=== PATIENT | male | born 1945 | race Caucasian/White ===

== ENCOUNTER 2016-12-25 07:04 | Inpatient (IN) | payer OTHER, MEDICARE ==
[~2016-12-25] VITALS: Ht 172.7 cm; Wt 63.6 kg
[2016-12-25] VITALS (12 sets, daily range): BP systolic 107–178; BP diastolic 64–92; PULSE 41–61; RESP 15–20; TEMP 97.2–97.8; O2SAT 91–99
[~2016-12-25 07:04] MED LIST: AMLO10 PO; ATOR40TA49 PO; BRIL90TA PO; CLON0.2T PO; CLOP75TA PO; FENO145T2 PO; LANSO15 PO; LANTUS2P SQ; LISI-363 PO; NEUR800T PO; NOVOLOGP2 SC; VENTAER INH
[2016-12-25] MEDS: SODIUM CHLOR 0.9% 1000 ML INJ 1,000 ML IV SCH ×2 (07:30→09:00)
[2016-12-25] MEDS ORDERED: AMLO10TA2 PO (07:57)
[2016-12-25] MEDS ORDERED: NOVOLOGP2 SQ ×2 (07:57→17:42)
[2016-12-25] MEDS ORDERED: LEVO50TA4 PO ×2 (07:57→17:42)
[2016-12-25] MEDS ORDERED: LANTUS2P SQ ×2 (07:57→17:42)
[2016-12-25] MEDS ORDERED: LISI-515 PO ×2 (07:57→17:42)
[2016-12-25] MEDS ORDERED: UMEC1AER INH ×2 (07:57→17:42)
[2016-12-25] MEDS ORDERED: ATOR1TAB18 PO ×2 (07:57→17:42)
[2016-12-25] MEDS ORDERED: ASPIRIN 325 MG TAB PO ONE (08:00)
[2016-12-25] MEDS ORDERED: CLOPIDOGREL 300 MG TAB PO ONE (08:00)
[2016-12-25 08:10] LABS: AUTOMATED NEUTROPHIL # 4.9 TH/MM3 (1.8-7.7); BASOPHIL # 0.1 TH/MM3 (0-0.2); BASOPHIL % 0.9 % (0.0-2.0); EOSINOPHIL # 0.3 TH/MM3 (0-0.4); EOSINOPHIL % 3.5 % (0.0-4.0); HEMO FLAGS DIFF FINAL; LYMPH % 29.1 % (9.0-44.0); LYMPHOCYTE # 2.4 TH/MM3 (1.0-4.8); MEAN CELL VOLUME 86.6 FL (80.0-100.0); MEAN CORPUSCULAR HEMOGLOBIN 29.4 PG (27.0-34.0); MONO % 7.4 % (0.0-8.0); NEUT % 59.1 % (16.0-70.0); PLATELET COUNT 233 TH/MM3 (150-450); RED BLOOD COUNT 4.74 MIL/MM3 (4.50-5.90); RED CELL DISTRIBUTION WIDTH 13.8 % (11.6-17.2); WHITE BLOOD COUNT 8.3 TH/MM3 (4.0-11.0)
[2016-12-25 08:21] LABS: APTT (PATIENT) 27.4 SEC (24.3-30.1); PROTHROMBIN TIME - PATIENT 11.1 SEC (9.8-11.6)
[2016-12-25 08:24] LABS: POTASSIUM 4.4 MEQ/L (3.5-5.1)
[2016-12-25] MEDS ORDERED: MIDAZOLAM HCL 5 MG/5 ML VIAL ONE (09:13)
[2016-12-25] MEDS ORDERED: fentaNYL CITRATE 250 MCG/5 ML AMP ONE (09:13)
[2016-12-25] MEDS ORDERED: VERAPAMIL HCL 5 MG/2 ML VIAL ONE (09:14)
[2016-12-25] MEDS ORDERED: ceFAZolin 2 GM PREMIX 50 ML ONE (10:00)
[2016-12-25] MEDS ORDERED: HEPARIN SODIUM - IV 10,000 UNITS/10 ML VIAL ONE (10:10)
[2016-12-25] MEDS ORDERED: IODIXANOL 320 MG/ML 50 ML VIAL (for RAD SPEC) I-ARTERIAL ONE (10:58)
[2016-12-25] MEDS ORDERED: ACETAMINOPHEN 325 MG TAB PO PRN (12:00)
[2016-12-25] MEDS ORDERED: oxyCODONE/ACETAMINOPHEN 5 MG/325 MG TAB PO PRN (12:00)
--- NOTE | 2016-12-25 14:31 | RADRPT ---
EXAM DATE/TIME: 12/25/2016 10:03 [facility] COMPARISON: No previous studies available for comparison. INDICATIONS : Patient known right carotid stenosis. MEDICAL HISTORY : 1. Carotid stenosis 2. Dizziness 3. HTN 4. DM 5. COPD 6. GERD 7. Hyperlipidemia 8. CAD 9. NV 10. CVA 11. former smoker 12.PVD SURGICAL HISTORY : 1. Right CEA 2. bilateral common iliac stenting ENCOUNTER: Initial ACUITY: 1 month PAIN SCORE: 0/10 FLUORO TIME: 11.4 minutes IMAGE SERIES: 14 ACCESS SITE: Right Femoral artery SEDATION TIME: 60 minutes CONTRAST: 125 cc Visipaque (iodixanol) MEDICATION(S): 1.) 2 mg midazolam (Versed) IV 2.) 100 mcg fentanyl (Sublimaze) IV 3.) 2 g cefazolin (Ancef) IV 4.) 5,000 units Heparin IV Intra-procedural antibiotics were given as prescribed above. DEVICE(S): 1.) Right common carotid artery 10 X60 stent (self expanding) 2.) Right common femoral artery 8 Angio-Seal 3.) Right common carotid artery 7.0 MM X20MM HANDBAG FINISHER balloon 4.) Right internal carotid artery 7 SpideRX embolic protection PROCEDURE : 1. Ultrasound guided puncture of the right common femoral artery. 2. Angiography of the right common femoral artery prior to closure device. 3. Conscious sedation with continuous EKG and oximetry monitoring. 4. Percutaneous closure of the femoral artery. 5. Angiography of the right common carotid artery 6. stenting of the right common carotid artery 7. Intra-arterial filter placement 8. Left common carotid angiography The risks, benefits and alternatives to the procedure were explained and verbal and written consent w as obtained. The site was prepped in sterile fashion. Full sterile technique was used, including ca p, mask, sterile gloves and gown and a large sterile sheet. Hand hygiene and 2% chlorhexidine and/or betadine/alcohol prep was utilized per protocol for cutaneous antisepsis. The skin and subcutaneous tissues were infiltrated with local anesthetic solution. With ultrasound and fluoroscopic guidance the right common femoral artery was punctured and a vascula r sheath was placed. Angiography of the common femoral artery was performed for evaluation prior to p ercutaneous closure device placement. The patient has a 1 aortic arch. Examination of the carotid artery demonstrates the lesion to be in t he common carotid artery. Visible thrombus is not present. Ulceration is present. There is no calcifi cation present. The lesion length is 18 millimeters. The minimal luminal diameter is 3 millimeters. T he diameter of the distal internal carotid artery for reference is 10 millimeters. The percent stenos is by NASCET criteria is 70 %. Angiography of the right common carotid artery demonstrates a regular ulcerated plaque just beyond th e origin of the right common carotid artery. A filter device was placed and angiography was performed using a 7 mm balloon. Following this the prescribed stent was placed across the area stenosis and fo llowup angiography demonstrates no filling of the ulceration and no significant stenosis. The cathete r was next placed in the left common carotid artery where angiography demonstrates complete occlusion of the left internal carotid artery. The puncture site was closed with a Perclose suture mediated closure device. The patient tolerated t he procedure well and there were no complications. Conscious sedation was performed with the prescribed dosages and duration as above in the presence of an independent trained radiology nurse to assist in the monitoring of the patient. EKG and oximetry remained stable throughout the procedure. CONCLUSION: 1. Uncomplicated carotid artery stent placement as above. 2. Ultrasound examination at 6, 12, 18 and 24 months following procedure should be performed to evalu ate stent patency. 3. Complete occlusion of the left internal carotid artery Benjamin Boles MD on December 25, 2016 at 14:23 Board Certified Radiologist. This report was verified electronically.
[2016-12-25] MEDS ORDERED: AMLO10 PO (17:42)
[2016-12-25] MEDS ORDERED: CLON0.2T PO (17:42)
[2016-12-25] MEDS ORDERED: DEXTROSE 50% IN WATER 50 ML VIAL(D50) IV PRN (17:45)
[2016-12-25] MEDS ORDERED: GLUCAGON 1 MG/ML VIAL OTHER PRN (17:45)
[2016-12-25] MEDS ORDERED: cloNIDine HCL 0.1 MG TAB PO PRN (18:00)
[2016-12-25] MEDS: INSULIN ASPART SUPPLEMENTAL SCALE SQ SCH (18:03)
[2016-12-25] MEDS: LISINOPRIL 20 MG TAB PO SCH (20:45)
[2016-12-25] MEDS ORDERED: ATORVASTATIN 80 MG TAB PO SCH (21:00)
[2016-12-26] VITALS: BP 125/63; PULSE 52; RESP 18; TEMP 97.5; O2SAT 95
--- NOTE | 2016-12-26 00:55 | PD.CONS ---
HPI Service [facility] Consult Requested By Dr. Naylor Reason for Consult Medical management Primary Care Physician Jeremy Greenfield MD Diagnoses: History of Present Illness The patient is a 71-year-old male with a past medical history of peripheral vascular disease and CAD who is presenting to the hospital for elective right carotid artery stent placement. The patient says that he has been struggling with poor circulation to the brain. He says when standing up she would get lightheaded and sometimes would stagger and fall. He has been following with vascular surgery for a year where workup revealed an included left carotid artery. He had insurance problems but once those were sorted out he was able to proceed with improvement in the right carotid artery. The patient also endorses chronic chest pain. He says intermittently occurs in a bandlike distribution along the upper chest. He says generally it occurs when he is laying down in bed. 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 Review of Systems Except as stated in HPI: all other systems reviewed are Neg Past Family Social History Allergies: Coded Allergies: No Known Allergies (Verified , 11/08/14) Past Medical History CAD Peripheral vascular disease Carotid stenosis status post right CEA Bilateral iliac stents GERD Right femur/ ankle fracture Diabetes Hypertension Hyperlipidemia Active Ordered Medications Current Medications Medications (Trade) Dose Ordered Sig/Nolvia Route Start Time Stop Time Status Last Admin (NS 1000 ml Inj) 1,000 ml @ 100 mls/hr Q10H IV 12/25/16 07:30 12/25/16 09:00 (Tylenol) 650 mg Q4H PRN PO 12/25/16 12:00 (Percocet 5-325 Mg) 1 tab Q4H PRN PO 12/25/16 12:00 12/25/16 20:45 (Catapres) 0.1 mg Q6H PRN PO 12/25/16 18:00 12/25/16 17:50 (Norvasc) 10 mg DAILY PO 12/26/16 09:00 (Lipitor) 80 mg HS PO 12/25/16 21:00 12/25/16 20:45 (Synthroid) 50 mcg DAILY@06 PO 12/26/16 06:00 (Prinivil) 20 mg BID PO 12/25/16 21:00 12/25/16 20:45 (D50w (Vial) Inj) 50 ml UNSCH PRN IV 5/23/17 17:45 (Glucagon Inj) 1 mg UNSCH PRN OTHER 12/25/16 17:45 Family History The patient states he is adopted. Social History The patient still smokes a couple cigarettes daily. He does not drink alcohol. Physical Exam Vital Signs Vital Signs Date Time Temp Pulse Resp B/P Pulse Ox O2 Delivery O2 Flow Rate FiO2 12/25/16 21:45 20 12/25/16 18:00 58 12/25/16 16:00 97.8 61 19 178/85 99 12/25/16 16:00 52 12/25/16 14:00 47 12/25/16 14:00 97.6 47 20 156/72 97 12/25/16 14:00 98 Nasal Cannula 3.00 12/25/16 13:29 47 19 150/86 98 12/25/16 12:59 50 18 176/92 98 12/25/16 12:03 42 18 149/85 97 12/25/16 11:39 50 17 151/70 97 12/25/16 11:24 56 18 157/72 97 12/25/16 11:09 97.2 41 17 152/78 96 12/25/16 07:35 91 Room Air 12/25/16 07:20 97.6 55 20 107/65 91 Physical Exam GENERAL: This is a well-nourished, well-developed patient, in no apparent distress. SKIN: No rashes, ecchymoses or lesions. Cool and dry. HEAD: Atraumatic. Normocephalic. No temporal or scalp tenderness. EYES: Pupils equal round and reactive. Extraocular motions intact. No scleral icterus. No injection or drainage. ENT: Nose without bleeding, purulent drainage or septal hematoma. Throat without erythema, tonsillar hypertrophy or exudate. Uvula midline. Airway patent. NECK: Trachea midline. No JVD or lymphadenopathy. Supple, nontender, no meningeal signs. CARDIOVASCULAR: Regular rate and rhythm without murmurs, gallops, or rubs. RESPIRATORY: Clear to auscultation. Breath sounds equal bilaterally. No wheezes , rales, or rhonchi. GASTROINTESTINAL: Abdomen soft, non-tender, nondistended. No hepato-splenomegaly , or palpable masses. No guarding. MUSCULOSKELETAL: Extremities without clubbing, cyanosis, or edema. Catheterization site on right groin without hematoma and only mildly tender to palpation. NEUROLOGICAL: Awake and alert. Cranial nerves II through XII intact. Motor and sensory grossly within normal limits. Five out of 5 muscle strength in all muscle groups. Normal speech. PSYCH: Mood and affect appropriate. Laboratory Laboratory Tests Test 12/25/16 12/25/16 07:55 17:30 White Blood Count 8.3 Red Blood Count 4.74 Hemoglobin 14.0 Hematocrit 41.0 Mean Corpuscular Volume 86.6 Mean Corpuscular Hemoglobin 29.4 Mean Corpuscular Hemoglobin 34.0 Concent Red Cell Distribution Width 13.8 Platelet Count 233 Mean Platelet Volume 9.5 Neutrophils (%) (Auto) 59.1 Lymphocytes (%) (Auto) 29.1 Monocytes (%) (Auto) 7.4 Eosinophils (%) (Auto) 3.5 Basophils (%) (Auto) 0.9 Neutrophils # (Auto) 4.9 Lymphocytes # (Auto) 2.4 Monocytes # (Auto) 0.6 Eosinophils # (Auto) 0.3 Basophils # (Auto) 0.1 CBC Comment DIFF FINAL Differential Comment Prothrombin Time 11.1 Prothromb Time International 1.0 Ratio Activated Partial 27.4 Thromboplast Time Sodium Level 137 Potassium Level 4.4 Chloride Level 100 Carbon Dioxide Level 28.0 Anion Gap 9 Blood Urea Nitrogen 14 Creatinine 1.29 Estimat Glomerular Filtration 55 Rate Random Glucose 386 Calcium Level 9.0 Nasal Screen MRSA (PCR) MRSA NOT DETECTED Result Diagram: 12/25/16 0755 12/25/16 0755 Imaging Last Impressions Vascular Stent Procedure 12/25/16 1056 Signed Impressions: Service Date/Time: Sunday, December 25, 2016 10:03 - CONCLUSION: 1. Uncomplicated carotid artery stent placement as above. 2. Ultrasound examination at 6, 12, 18 and 24 months following procedure should be performed to evaluate stent patency. 3. Complete occlusion of the left internal carotid artery Benjamin Boles MD Assessment and Plan Assessment and Plan Right carotid stent placement The patient is status post right carotid stent placement on 12/25/16. Complete occlusion of the left internal carotid artery was noted. - Ultrasound examination at 6, 12, 18 and 24 months following procedure should be performed to evaluate stent patency. - follow up with vascular surgery. - Continue to monitor in the ICU. CAD The pt reports chronic chest pain, atypical. Worst at rest. - check serial trops and EKGs. - pain control and oxygen as needed. - telemetry. DM Poorly controlled. - Insulin sliding scale with Accu-Cheks. - Start Levemir 20 units daily. - Diabetic diet. Bradycardia Unsure of baseline. - EKG pending. HTN Blood pressure has been fluctuating. - Continue to monitor and resume home medications in the a.m. PPx: Ambulation. Discussed Condition With Patient Juan Davis DO December 26, 2016 00:54
[2016-12-26 01:26] LABS: HEMATOCRIT 38.5 % (39.0-51.0); MEAN CELL VOLUME 86.2 FL (80.0-100.0); MEAN CORPUSCULAR HEMOGLOBIN 29.2 PG (27.0-34.0); MEAN CORPUSCULAR HGB CONC 33.9 % (32.0-36.0); PLATELET COUNT 200 TH/MM3 (150-450); RED BLOOD COUNT 4.47 MIL/MM3 (4.50-5.90); RED CELL DISTRIBUTION WIDTH 13.3 % (11.6-17.2); REVIEW FLAG FINAL; WHITE BLOOD COUNT 10.2 TH/MM3 (4.0-11.0)
[2016-12-26 01:55] LABS: BICARBONATE 32.9 MEQ/L (21.0-32.0); POTASSIUM 4.8 MEQ/L (3.5-5.1)
[2016-12-26 02:00] VITALS: PULSE 52
[2016-12-26] MEDS: SODIUM CHLOR 0.9% 1000 ML INJ 1,000 ML IV SCH ×2 (03:30→07:05)
[2016-12-26 04:00] VITALS: BP 135/63; PULSE 50; PULSE 52; RESP 14; TEMP 98; O2SAT 97
[2016-12-26 06:00] VITALS: PULSE 52
[2016-12-26] MEDS ORDERED: LEVOTHYROXINE SODIUM 50 MCG TAB PO SCH (06:00)
[2016-12-26] MEDS: INSULIN ASPART SUPPLEMENTAL SCALE SQ SCH (07:00)
[2016-12-26 08:00] VITALS: BP_SYST 148; BP_SYST 156; BP_DIAS 72; BP_DIAS 76; PULSE 47; PULSE 59; PULSE 61; RESP 18; RESP 20; TEMP 97.5; TEMP 97.6; O2SAT 96; O2SAT 97
[2016-12-26] MEDS: LISINOPRIL 20 MG TAB PO SCH (08:46)
[2016-12-26] MEDS ORDERED: INSULIN DETEMIR 100 UNITS/ML VIAL SQ SCH (09:00)
[2016-12-26 10:00] VITALS: PULSE 63
--- NOTE | 2016-12-26 10:59 | HHI.PR ---
Addendum to Inpatient Note Addendum Reason: Additional Documentation Additional Information Patient seen and examined. He reports that he is ready to go home. No events overnight. He is cleared by IR for discharge DC home in stable condition Meds per med rec: Resume home meds. Plavix per IR Activity: Regular Follow up: With IR/Vasc surgery as scheduled. Libby Wilson MD December 26, 2016 10:59
--- NOTE | 2016-12-26 19:31 | EKG ---
Date Performed: 12/26/2016 Time Performed: 02:42:48 PTAGE: 71 years EKG: Sinus bradycardia Inferior infarct - age undetermined Abnormal ECG Compared to prior tracin g no significant change DOCTOR: Grover Carlos Interpretating Date/Time 12/26/2016 19:29:56
== END 2016-12-26 11:58 | disposition home or self-care (01) | DRG 36 ==
LOC: HROP 07:04 → HRIP 07:05 → N03B 14:54 → HROP 14:54
PROVIDERS: ADMIT Family Medicine; ATTEND Family Medicine
PROC: 037H3DZ Dilation of Right Common Carotid Artery with Intraluminal Device, Percutaneous Approach (ICD-10-PCS; principal; 2016-12-25)
PROC: 03HK3DZ Insertion of Intraluminal Device into Right Internal Carotid Artery, Percutaneous Approach (ICD-10-PCS; 2016-12-25)
PROC: B3131ZZ Fluoroscopy of Right Common Carotid Artery using Low Osmolar Contrast (ICD-10-PCS; 2016-12-25)
PROC: B3141ZZ Fluoroscopy of Left Common Carotid Artery using Low Osmolar Contrast (ICD-10-PCS; 2016-12-25)
DX: I65.23 Occlusion and stenosis of bilateral carotid arteries (principal); E11.65 Type 2 diabetes mellitus with hyperglycemia; J44.9 Chronic obstructive pulmonary disease, unspecified; I10 Essential (primary) hypertension; I25.10 Atherosclerotic heart disease of native coronary artery without angina pectoris; R00.1 Bradycardia, unspecified; K21.9 Gastro-esophageal reflux disease without esophagitis; E78.5 Hyperlipidemia, unspecified; I25.2 Old myocardial infarction; Z87.891 Personal history of nicotine dependence; I73.9 Peripheral vascular disease, unspecified; F17.210 Nicotine dependence, cigarettes, uncomplicated
CPT/HCPCS: 37215; 76937; 80048; 82948; 84484; 85025; 85027; 85610; 85730; 87641; 93005; 99152; 99153; C1725; C1760; C1769; C1876; C1884; C1887; C1894; J0690; J1644; J1815; J2250; J3010; J7030; Q9967

== ENCOUNTER 2017-04-02 08:27 | Inpatient (IN) | payer OTHER, MEDICARE ==
[~2017-04-02] VITALS: Ht 172.7 cm; Wt 62.2 kg
[2017-04-02] VITALS (8 sets, daily range): BP systolic 139–198; BP diastolic 78–97; PULSE 84–99; RESP 18–26; TEMP 97–98.5; O2SAT 94–98
[~2017-04-02 08:27] MED LIST changes: +AMLO10TA2 PO; +ATOR1TAB18 PO; -ATOR40TA49 PO; -BRIL90TA PO; -CLOP75TA PO; -FENO145T2 PO; -LANSO15 PO; +LEVO50TA4 PO; -LISI-363 PO; +LISI-515 PO; -NEUR800T PO; -NOVOLOGP2 SC; +NOVOLOGP2 SQ; +UMEC1AER INH; -VENTAER INH
[2017-04-02] MEDS: SODIUM CHLOR 0.9% 1000 ML INJ 1,000 ML IV SCH ×4 (08:34→20:53)
[2017-04-02] MEDS ORDERED: INSULIN REGULAR (IV INFUSION) 100 UNITS in SODIUM CHLORIDE 0.9% INJ 99 ML IV SCH (08:34)
[2017-04-02] MEDS ORDERED: DEXT 5%-NACL 0.9% 1000 ML INJ 1,000 ML IV SCH (08:34)
[2017-04-02 08:45] LABS: BLOOD GAS VENOUS BASE EXCESS 1.7 mmol/L (-2-2); BLOOD GAS VENOUS HCO3 26 mmol/L (22-26); BLOOD GAS VENOUS O2 CONTENT 13.5 Vol % (9.0-17.0); BLOOD GAS VENOUS O2 HGB SAT 71 % (70-76); BLOOD GAS VENOUS PCO2 40 mmHg (44-48); BLOOD GAS VENOUS PO2 37 mmHg (35-40); BLOOD GAS VENOUS pH 7.42 (7.360-7.400); CRITICAL VALUE NO; DRAW SITE VENOUS; LITER FLOW 2 L/M; OXYGEN DEVICE NASAL CANNULA; STAT YES; TEMP CORR TO 98.6
[2017-04-02] MEDS ORDERED: SODIUM BICARBONATE 8.4% SOLN 50 MEQ/50 ML VIAL IV PRN ×2 (08:45)
[2017-04-02] MEDS ORDERED: POTASSIUM CHLOR 40 MEQ PREMIX 100 ML IV PRN ×2 (08:45)
[2017-04-02] MEDS ORDERED: SODIUM PHOSPHATE INJ 15 MMOL in SODIUM CHLORIDE 0.9% INJ 100 ML IV PRN (08:45)
[2017-04-02] MEDS ORDERED: POTASSIUM CHLOR 20 MEQ PREMIX 100 ML IV PRN ×6 (08:45)
--- NOTE | 2017-04-02 08:48 | PD ---
HPI Chief Complaint: GI Complaint Time Seen by Provider: 08:34 Travel History International Travel<30 days: No Contact w/Intl Traveler<30days: No Traveled to known affect area: No History of Present Illness HPI 71-year-old male complains of generalized malaise and weakness and shortness of breath. Patient states that the symptom has been gone for a long time however worse for the past few days. Patient denies any headache. Patient denies any visual change. Patient denies any chest pain. Patient states that he has shortness of breath. Patient denies any coughing congestion. Patient denies abdominal pain. Patient states that he has intermittent nausea vomiting. Patient denies any dysuria or frequency. Patient denies any fever chills. Patient denies any back pain. Patient has history of diabetes and on insulin. Patient states that he has not taking his insulin for last several days. EMS was called. Accu-Chek blood sugar was high. Patient was transported to ED for evaluation. Patient has history of peripheral vascular disease, carotid stenosis status post right CVA, bilateral iliac stents, GERD, hypertension, hyperlipidemia. PFSH Past Medical History Asthma: No Cancer: No Cardiovascular Problems: Yes High Cholesterol: Yes COPD: Yes Diabetes: Yes Patient Takes Glucophage: No Endocrine: Yes Genitourinary: No Hepatitis: No Hiatal Hernia: No Hypertension: Yes Immune Disorder: No Musculoskeletal: No Neurologic: No Psychiatric: No Reproductive: No Respiratory: Yes Immunizations Current: Yes Thyroid Disease: Yes (hypothyroid) Tetanus Vaccination: Unknown Influenza Vaccination: Yes Past Surgical History Abdominal Surgery: No Cardiac Surgery: No Ear Surgery: No Endocrine Surgery: No Eye Surgery: No Genitourinary Surgery: No Gynecologic Surgery: No Joint Replacement: No Oral Surgery: No Thoracic Surgery: No Tonsillectomy: Yes Other Surgery: Yes (carotid endarectomy 2014) Social History Alcohol Use: No Tobacco Use: Yes Substance Use: No Allergies-Medications (Allergen,Severity, Reaction): Coded Allergies: No Known Allergies (Verified , 04/02/17) Reported Meds & Prescriptions Reported Meds & Active Scripts Active Active Prescriptions or Reported Medications Unobtainable Review of Systems General / Constitutional: No: Fever Eyes: No: Visual changes HENT: No: Headaches Cardiovascular: No: Chest Pain or Discomfort Respiratory: Positive: Shortness of Breath Gastrointestinal: No: Abdominal Pain Genitourinary: No: Dysuria Musculoskeletal: No: Pain Skin: No Rash Neurologic: No: Weakness Psychiatric: No: Depression Endocrine: No: Polydipsia Hematologic/Lymphatic: No: Easy Bruising Physical Exam Narrative GENERAL: Well-nourished, well-developed patient. SKIN: Focused skin assessment warm/dry. HEAD: Normocephalic. EYES: No scleral icterus. No injection or drainage. NECK: Supple, trachea midline. No JVD or lymphadenopathy. CARDIOVASCULAR: Regular rate and rhythm without murmurs, gallops, or rubs. RESPIRATORY: Breath sounds equal bilaterally. No accessory muscle use. Patient' s tachypneic. GASTROINTESTINAL: Abdomen soft, non-tender, nondistended. MUSCULOSKELETAL: No cyanosis, or edema. BACK: Nontender without obvious deformity. No CVA tenderness. Neurologic exam: Patient's awake and alert oriented 3. No obvious focal neurological deficit. Data Data Last Documented VS Vital Signs Date Time Temp Pulse Resp B/P (MAP) Pulse Ox O2 Delivery O2 Flow Rate FiO2 04/02/17 09:33 84 22 147/86 (106) 98 Nasal Cannula 2.00 04/02/17 08:29 98.5 Orders Orders Electrocardiogram (04/02/17 ) Electrocardiogram (04/02/17 08:34) Homemaking Rehabilitation Consultant / Telemetry ALE.Q8H (04/02/17 08:34) ^ Insert Iv (04/02/17 08:34) Diet Npo (04/02/17 Breakfast) Complete Blood Count With Diff (04/02/17 08:34) Comprehensive Metabolic Panel (04/02/17 08:34) Magnesium (Mg) (04/02/17 08:34) Phosphorus (Po4) (04/02/17 08:34) Sodium Chlor 0.9% 1000 Ml Inj (Ns 1000 M (04/02/17 08:34) Dext 5%-Nacl 0.9% 1000 Ml Inj (D5w-Ns 10 (04/02/17 08:34) Sodium Chloride 0.9... W/Insulin Regular (04/02/17 08:34) Potassium Chlor 40 Meq Premix (Kcl 40 Me (04/02/17 08:45) Potassium Chlor 40 Meq Premix (Kcl 40 Me (04/02/17 08:45) Potassium Chlor 20 Meq Premix (Kcl 20 Me (04/02/17 08:45) Potassium Chlor 20 Meq Premix (Kcl 20 Me (04/02/17 08:45) Potassium Chlor 20 Meq Premix (Kcl 20 Me (04/02/17 08:45) Potassium Chlor 20 Meq Premix (Kcl 20 Me (04/02/17 08:45) Potassium Chlor 20 Meq Premix (Kcl 20 Me (04/02/17 08:45) Potassium Chlor 20 Meq Premix (Kcl 20 Me (04/02/17 08:45) Sodium Bicarbonate 8.4% Inj (Sodium Bica (04/02/17 08:45) Sodium Bicarbonate 8.4% Inj (Sodium Bica (04/02/17 08:45) Sodium Phosphate Inj (Sodium Phosphate I (04/02/17 08:45) Hemoglobin (Hgb) A1c (04/02/17 08:34) Urinalysis - C+S If Indicated (04/02/17 08:34) Basic Metabolic Panel (Bmp) (04/02/17 13:34) Basic Metabolic Panel (Bmp) (04/02/17 19:34) Basic Metabolic Panel (Bmp) (04/03/17 01:34) Basic Metabolic Panel (Bmp) (04/03/17 07:34) Magnesium (Mg) (04/02/17 13:34) Magnesium (Mg) (04/02/17 19:34) Magnesium (Mg) (04/03/17 01:34) Magnesium (Mg) (04/03/17 07:34) Phosphorus (Po4) (04/02/17 13:34) Phosphorus (Po4) (04/02/17 19:34) Phosphorus (Po4) (04/03/17 01:34) Phosphorus (Po4) (04/03/17 07:34) Beta Hydroxybutyrate (Acetone) (04/02/17 19:34) Beta Hydroxybutyrate (Acetone) (04/03/17 07:34) Chest, Single Ap (04/02/17 ) Blood Gas Venous (Vbg) (04/02/17 08:34) Creatine Kinase (Cpk) (04/02/17 08:41) Troponin I (04/02/17 08:41) B-Type Natriuretic Peptide (04/02/17 08:41) Prothrombin Time / Inr (Pt) (04/02/17 08:41) Act Partial Throm Time (Ptt) (04/02/17 08:41) Potassium Chloride (Kcl) (04/02/17 10:00) Insulin Human Regular Inj (Novolin R Inj (04/02/17 10:00) Ceftriaxone Inj (Rocephin Inj) (04/02/17 10:00) Azithromycin (Zithromax) (04/03/17 09:00) Labs Laboratory Tests Test 04/02/17 08:40 04/02/17 08:45 Blood Gas Puncture Site VENOUS Blood Gas Patient Temperature 98.6 Venous Blood pH 7.42 Venous Blood Partial Pressure CO2 40 mmHg Venous Blood Partial Pressure O2 37 mmHg Venous Blood HCO3 26 mmol/L Venous Blood Oxygen Saturation 71 % Venous Blood Oxygen Content 13.5 Vol % Venous Blood Base Excess 1.7 mmol/L Oxygen Delivery Device NASAL CANNULA Blood Gas Liter Flow 2 L/M White Blood Count 25.5 TH/MM3 Red Blood Count 4.77 MIL/MM3 Hemoglobin 13.6 GM/DL Hematocrit 41.9 % Mean Corpuscular Volume 87.9 FL Mean Corpuscular Hemoglobin 28.5 PG Mean Corpuscular Hemoglobin Concent 32.4 % Red Cell Distribution Width 13.1 % Platelet Count 287 TH/MM3 Mean Platelet Volume 9.8 FL Neutrophils (%) (Auto) 93.9 % Lymphocytes (%) (Auto) 3.0 % Monocytes (%) (Auto) 2.4 % Eosinophils (%) (Auto) 0.3 % Basophils (%) (Auto) 0.4 % Neutrophils # (Auto) 24.0 TH/MM3 Lymphocytes # (Auto) 0.8 TH/MM3 Monocytes # (Auto) 0.6 TH/MM3 Eosinophils # (Auto) 0.1 TH/MM3 Basophils # (Auto) 0.1 TH/MM3 CBC Comment DIFF FINAL Differential Comment Prothrombin Time 12.8 SEC Prothromb Time International Ratio 1.2 RATIO Activated Partial Thromboplast Time 29.6 SEC Blood Urea Nitrogen 35 MG/DL Creatinine 1.74 MG/DL Random Glucose 657 MG/DL Total Protein 7.2 GM/DL Albumin 2.6 GM/DL Calcium Level 8.3 MG/DL Phosphorus Level 2.0 MG/DL Magnesium Level 1.2 MG/DL Alkaline Phosphatase 103 U/L Aspartate Amino Transf (AST/SGOT) 6 U/L Alanine Aminotransferase (ALT/SGPT) 12 U/L Total Bilirubin 0.9 MG/DL Sodium Level 126 MEQ/L Potassium Level 3.7 MEQ/L Chloride Level 89 MEQ/L Carbon Dioxide Level 25.1 MEQ/L Anion Gap 12 MEQ/L Estimat Glomerular Filtration Rate 39 ML/MIN Total Creatine Kinase 87 U/L Troponin I 0.03 NG/ML B-Type Natriuretic Peptide 101 PG/ML MDM Medical Decision Making Medical Screen Exam Complete: Yes Emergency Medical Condition: Yes Interpretation(s) Last Impressions Chest X-Ray 04/02/17 0000 Signed Impressions: Service Date/Time: Sunday, April 02, 2017 08:54 - CONCLUSION: Left lung base laterally small area of patchy airspace disease possibly representing infiltrate Jonathan Cunningham MD 9:53 AM. CBC WBC 25.5. 93 neutrophil. Venous Blood gas pH 7.42. Sodium 126. Chloride 89. Bicarbonate 25.1. BUN 35. Creatinine 1.74. Glucose 657. Calcium 8.3. Phosphorus 2.0. Magnesium 1.2. Differential Diagnosis Differential diagnosis including hyperglycemia, DKA, angina, MN, PE, pneumothorax, dehydration, electrolyte imbalance, sepsis. Narrative Course 71-year-old male with history diabetes complains of general malaise and weakness and shortness of breath. Patient has not been compliant with his insulin at home for the past few days. Normal saline solution 1 L IV bolus. Novolin R 8 units IV given. KCl 20 mEq by mouth given. Rocephin 1 g IV. Zithromax 500 mg by mouth. Diagnosis Primary Impression: Hyperglycemia Additional Impressions: Pneumonia Qualified Codes: J18.1 - Lobar pneumonia, unspecified organism Renal insufficiency Hyponatremia Admitting Information Admitting Physician Requests: Admit Scripts Unable to Obtain Active Prescriptions or Reported Meds Hung Mclain MD Apr 02, 2017 08:48
[2017-04-02 08:55] LABS: BASOPHIL # 0.1 TH/MM3 (0-0.2); BASOPHIL % 0.4 % (0.0-2.0); EOSINOPHIL # 0.1 TH/MM3 (0-0.4); EOSINOPHIL % 0.3 % (0.0-4.0); HEMATOCRIT 41.9 % (39.0-51.0); HEMO FLAGS DIFF FINAL; LYMPHOCYTE # 0.8 TH/MM3 (1.0-4.8); MEAN CELL VOLUME 87.9 FL (80.0-100.0); MEAN CORPUSCULAR HEMOGLOBIN 28.5 PG (27.0-34.0); MEAN CORPUSCULAR HGB CONC 32.4 % (32.0-36.0); MONO % 2.4 % (0.0-8.0); NEUT % 93.9 % (16.0-70.0); PLATELET COUNT 287 TH/MM3 (150-450); RED BLOOD COUNT 4.77 MIL/MM3 (4.50-5.90); RED CELL DISTRIBUTION WIDTH 13.1 % (11.6-17.2); WHITE BLOOD COUNT 25.5 TH/MM3 (4.0-11.0)
[2017-04-02 08:59] LABS: APTT (PATIENT) 29.6 SEC (24.3-30.1); INTERNATIONAL NORMALIZED RATIO 1.2 RATIO; PROTHROMBIN TIME - PATIENT 12.8 SEC (9.8-11.6)
[2017-04-02 09:23] LABS: ALT (GPT) 12 U/L (12-78); ANION GAP 12 MEQ/L (5-15); AST (GOT) 6 U/L (15-37); BICARBONATE 25.1 MEQ/L (21.0-32.0); BLOOD UREA NITROGEN 35 MG/DL (7-18); CHLORIDE 89 MEQ/L (98-107); GLOMERULAR FILTRATION RATE 39 ML/MIN (>89); MAGNESIUM 1.2 MG/DL (1.5-2.5); POTASSIUM 3.7 MEQ/L (3.5-5.1); SODIUM (NA) 126 MEQ/L (136-145)
[2017-04-02 09:29] LABS: TOTAL BILIRUBIN ADULT 0.9 MG/DL (0.2-1.0)
--- NOTE | 2017-04-02 09:29 | RADRPT ---
EXAM DATE/TIME: 04/02/2017 08:54 [facility] COMPARISON: No previous studies available for comparison. INDICATIONS : Short of breath and weakness for a few days. MEDICAL HISTORY : Unobtainable. SURGICAL HISTORY : Unobtainable. ENCOUNTER: Initial ACUITY: 2 days PAIN SCORE: 3/10 LOCATION: Bilateral chest FINDINGS: The bony structures are intact with normal soft tissues and heart, aorta, and pulmonary vascularity. In the left lung base laterally there is suggestion of small patchy area of density which could repre sent infiltrate. CONCLUSION: Left lung base laterally small area of patchy airspace disease possibly representing infiltrate Jonathan Cunningham MD on April 02, 2017 at 9:27 Board Certified Radiologist. This report was verified electronically.
[2017-04-02 09:35] LABS: ALKALINE PHOSPHATASE 103 U/L (45-117)
[2017-04-02] MEDS ORDERED: POTASSIUM CHLORIDE 20 MEQ CONTROLLED RELEASE TAB PO ONE (10:00)
[2017-04-02] MEDS ORDERED: cefTRIAXone INJ 1,000 MG in SODIUM CHLORIDE 0.9% INJ 100 ML IV ONE (10:00)
[2017-04-02] MEDS ORDERED: INSULIN HUMAN REGULAR 1,000 UNITS/10 ML VIAL IV PUSH ONE (10:00)
[2017-04-02] MEDS ORDERED: LISI-515 PO (11:21)
[2017-04-02] MEDS ORDERED: LANTUS2P SQ (11:21)
[2017-04-02] MEDS ORDERED: NOVOLOGP2 SQ ×2 (11:21)
[2017-04-02] MEDS ORDERED: LEVO50TA4 PO (11:21)
[2017-04-02] MEDS ORDERED: UMEC1AER INH (11:21)
[2017-04-02] MEDS ORDERED: CLON0.2T PO (11:21)
[2017-04-02] MEDS ORDERED: ATOR1TAB18 PO (11:21)
[2017-04-02] MEDS ORDERED: AMLO10 PO (11:21)
[2017-04-02] MEDS ORDERED: GLUCAGON 1 MG/ML VIAL OTHER PRN (11:30)
[2017-04-02] MEDS ORDERED: MORPHINE SULFATE 4 MG/ML INJ IV PRN ×2 (11:30→13:00)
[2017-04-02] MEDS ORDERED: ACETAMINOPHEN 325 MG TAB PO PRN ×2 (11:30→13:00)
[2017-04-02] MEDS ORDERED: MAGNESIUM HYDROXIDE SUSP 30 ML CUP PO PRN (11:30)
[2017-04-02] MEDS ORDERED: RESP: ALBUTEROL 2.5 MG/IPRATROPIUM 0.5 MG NEB (PRN) INH (11:30)
[2017-04-02] MEDS ORDERED: LACTULOSE SYRUP 20 GM/30 ML CUP PO PRN (11:30)
[2017-04-02] MEDS ORDERED: SENNOSIDES 8.6 MG TAB PO PRN (11:30)
[2017-04-02] MEDS ORDERED: ONDANSETRON HCL 4 MG/2 ML VIAL IVP PRN (11:30)
[2017-04-02] MEDS ORDERED: NALOXONE HCL 0.4 MG/ML AMP IV PRN (11:30)
[2017-04-02] MEDS ORDERED: ONDANSETRON HCL 4 MG/2 ML VIAL IV PRN (11:30)
[2017-04-02] MEDS ORDERED: PROCHLORPERAZINE 25 MG SUPP RECTAL PRN (11:30)
[2017-04-02] MEDS ORDERED: SODIUM CHLORIDE 0.9% FLUSH 10 ML FLUSH IV FLUSH PRN ×2 (11:30)
[2017-04-02] MEDS ORDERED: ZOLPIDEM TARTRATE 5 MG TAB PO PRN (11:30)
[2017-04-02] MEDS ORDERED: BISACODYL 10 MG SUPP RECTAL PRN (11:30)
[2017-04-02] MEDS ORDERED: DEXTROSE 50% IN WATER 50 ML VIAL(D50) IV PRN (11:30)
--- NOTE | 2017-04-02 11:41 | HHI.HP ---
[facility] Admission Diagnosis hyperglycemia. Pneumonia. Renal insufficiency. Hyponatremia. Diagnoses: (1) Noncompliance Diagnosis: Secondary (2) Hyperlipidemia Diagnosis: Secondary (3) Pneumonia Diagnosis: Principal (4) Hyperglycemia Diagnosis: Principal (5) Renal insufficiency Diagnosis: Secondary (6) Hyponatremia Diagnosis: Principal (7) Diabetes mellitus Diagnosis: Principal (8) Hypothyroidism Diagnosis: Secondary Chief Complaint: GI COMPLAINT Travel History International Travel<30 Days: No Contact w/Intl Traveler <30 Da: No Traveled to Known Affected Are: No History of Present Illness 71-year-old male complains of generalized malaise and weakness and shortness of breath. Patient states that the symptom has been gone for a long time however worse for the past few days. Patient denies any headache. Patient denies any visual change. Patient denies any chest pain. Patient states that he has shortness of breath. Patient denies any coughing congestion. Patient denies abdominal pain. Patient states that he has intermittent nausea vomiting. Patient denies any dysuria or frequency. Patient denies any fever chills. Patient denies any back pain. Patient has history of diabetes and on insulin. Patient states that he has not taking his insulin for last several days. EMS was called. Accu-Chek blood sugar was high. Patient was transported to ED for evaluation. Patient has history of peripheral vascular disease, carotid stenosis status post right CVA, bilateral iliac stents, GERD, hypertension, hyperlipidemia. Review of Systems ROS Limitations: Uncooperative, Poor Historian Past Family Social History Past Medical History DIABETES HYPERTENSION HYPERLIPIDEMIA COPD HYPOTHYROIDISM PVOD Past Surgical History TONSILLECTOMY RIGHT CEA, RIGHT CAROTID STENT PVOD ILLIAC STENTS Reported Medications Reported Meds & Active Scripts Active Reported Anoro Ellipta Inh (Umeclidinium/Vilanterol) 62.5-25 Mcg/Act Aero 1 Puff INH DAILY Lisinopril 20 Mg Tab 20 Mg PO DAILY Levothyroxine (Levothyroxine Sodium) 50 Mcg Tab 50 Mcg PO DAILY Lantus Inj (Insulin Glargine) 1,000 Unit/10 Ml Vial 66 Units SQ HS Novolog Inj (Insulin Aspart) 1,000 Unit/10 Ml Vial 20 Units SQ TID Novolog Inj (Insulin Aspart) 1,000 Unit/10 Ml Vial 0 SQ DIRECTED Sliding Scale as directed. Clonidine (Clonidine HCl) 0.2 Mg Tab 0.2 Mg PO BID Atorvastatin (Atorvastatin Calcium) 80 Mg Tab 80 Mg PO HS Norvasc (Amlodipine Besylate) 10 Mg Tab 10 Mg PO DAILY Allergies: Coded Allergies: No Known Allergies (Verified , 04/02/17) Active Ordered Medications Current Medications Sodium Chloride 1,000 ml @ 250 mls/hr Q4H IV ; Start 04/02/17 at 08:34 Dextrose/Sodium Chloride 1,000 ml @ 200 mls/hr Q5H IV ; Start 04/02/17 at 08:34 Insulin Human Regular 100 units/ Sodium Chloride 100 ml @ 0 mls/hr Q0M IV ; Start 04/02/17 at 08:34 Potassium Chloride 100 ml @ 100 mls/hr Q1H PRN IV SEE LABEL COMMENTS; Start at 08:45 Potassium Chloride 100 ml @ 50 mls/hr Q2H PRN IV SEE LABEL COMMENTS; Start at 08:45 Potassium Chloride 100 ml @ 100 mls/hr Q1H PRN IV SEE LABEL COMMENTS; Start at 08:45 Potassium Chloride 100 ml @ 100 mls/hr Q1H PRN IV SEE LABEL COMMENTS; Start at 08:45 Potassium Chloride 100 ml @ 50 mls/hr Q2H PRN IV SEE LABEL COMMENTS; Start at 08:45 Potassium Chloride 100 ml @ 50 mls/hr Q2H PRN IV SEE LABEL COMMENTS; Start at 08:45 Potassium Chloride 100 ml @ 50 mls/hr Q2H PRN IV SEE LABEL COMMENTS; Start at 08:45 Potassium Chloride 100 ml @ 50 mls/hr Q2H PRN IV SEE LABEL COMMENTS; Start at 08:45 Sodium Bicarbonate (Sodium Bicarbonate 8.4% Inj) 100 meq UNSCH PRN IV SEE LABEL COMMENTS; Start 04/02/17 at 08:45 Sodium Bicarbonate (Sodium Bicarbonate 8.4% Inj) 50 meq UNSCH PRN IV SEE LABEL COMMENTS; Start 04/02/17 at 08:45 Sodium Phosphate 15 mmol/Sodium Chloride 105 ml @ 25 mls/hr UNSCH PRN IV SEE LABEL COMMENTS; Start 04/02/17 at 08:45 Potassium Chloride (KCl) 20 meq ONCE ONCE PO Last administered on 04/02/17 10 :19; Start 04/02/17 at 10:00; Stop 04/02/17 at 10:01; Status DC Insulin Human Regular (NovoLIN R INJ) 8 units ONCE ONCE IV PUSH Last administered on 04/02/17 10:20; Start 04/02/17 at 10:00; Stop 04/02/17 at 10:01 ; Status DC Ceftriaxone Sodium 1000 mg/ Sodium Chloride 100 ml @ 200 mls/hr ONCE ONCE IV Last administered on 04/02/17 10:19; Start 04/02/17 at 10:00; Stop 04/02/17 at 10:29; Status DC Azithromycin (Zithromax) 500 mg DAILY PO ; Start 04/03/17 at 09:00 Dextrose (D50w (Vial) Inj) 50 ml UNSCH PRN IV HYPOGLYCEMIA-SEE COMMENTS; Start 04/02/17 at 11:30; Status UNV Glucagon (Glucagon Inj) 1 mg UNSCH PRN OTHER HYPOGLYCEMIA-SEE COMMENTS; Start 04/02/17 at 11:30; Status UNV Insulin Aspart (NovoLOG SUPPLEMENTAL SCALE) 1 ACHS SLIDING SCALE SQ ; Start at 16:00; Status UNV Sodium Chloride 1,000 ml @ 125 mls/hr Q8H IV ; Start 04/02/17 at 11:17; Status UNV Sodium Chloride (NS Flush) 2 ml UNSCH PRN IV FLUSH FLUSH AFTER USING IV ACCESS ; Start 04/02/17 at 11:30; Status UNV Sodium Chloride (NS Flush) 2 ml BID IV FLUSH ; Start 04/02/17 at 21:00; Status UNV Acetaminophen (Tylenol) 650 mg Q4H PRN PO TEMP > 100.4; Start 04/02/17 at 11:30 ; Status UNV Ondansetron HCl (Zofran Inj) 4 mg Q6H PRN IVP NAUSEA OR VOMITING; Start at 11:30; Status UNV Prochlorperazine (Compazine Supp) 25 mg Q12H PRN WI NAUSEA OR VOMITING; Start 04/02/17 at 11:30; Status UNV Zolpidem Tartrate (Ambien) 5 mg HS PRN PO INSOMNIA; Start 04/02/17 at 11:30; Status UNV Oxycodone/ Acetaminophen (Percocet 10-325 Mg) 1 tab Q6H PRN PO PAIN SCALE 6 TO 10; Start 04/02/17 at 11:30; Status UNV Sodium Chloride (NS Flush) 2 ml UNSCH PRN IV FLUSH FLUSH AFTER USING IV ACCESS ; Start 04/02/17 at 11:30; Status UNV Sodium Chloride (NS Flush) 2 ml BID IV FLUSH ; Start 04/02/17 at 21:00; Status UNV Albuterol/ Ipratropium (Duoneb Neb) 1 ampule Q6HR NEB INH ; Start 04/02/17 at 16:00; Status UNV Albuterol/ Ipratropium (Duoneb Neb) 1 ampule Q4HR NEB PRN INH SHORTNESS OF BREATH; Start 04/02/17 at 11:30; Status UNV Family History HYPERTENSION, DM Social History HX TOBACCO, HX ALOCHOL THC USE Physical Exam Vital Signs Vital Signs Date Time Temp Pulse Resp B/P (MAP) Pulse Ox O2 Delivery O2 Flow Rate FiO2 04/02/17 09:33 84 22 147/86 (106) 98 Nasal Cannula 2.00 04/02/17 08:29 98.5 99 26 198/97 (130) 94 Physical Exam GENERAL: This is a well-nourished, well-developed patient, in no apparent distress. NOT WANTING TO COOPERATE MUCH AND HAD TO REALLY PULL INFORMATION FROM HIM SKIN: No rashes, ecchymoses or lesions. Cool and dry. HEAD: Atraumatic. Normocephalic. No temporal or scalp tenderness. EYES: Pupils equal round and reactive. Extraocular motions intact. No scleral icterus. No injection or drainage. ENT: Nose without bleeding, purulent drainage or septal hematoma. Throat without erythema, tonsillar hypertrophy or exudate. Uvula midline. Airway patent. NECK: Trachea midline. No JVD or lymphadenopathy. Supple, nontender, no meningeal signs. CARDIOVASCULAR: Regular rate and rhythm without murmurs, gallops, or rubs. S1, S2 NO S3 OR S4 NO THRILL RESPIRATORY: FEW RHONCHI, COARSE. Breath sounds equal bilaterally. No wheezes, rales, GASTROINTESTINAL: Abdomen soft, non-tender, nondistended. No hepato-splenomegaly , or palpable masses. No guarding. MUSCULOSKELETAL: Extremities without clubbing, cyanosis, or edema. No joint tenderness, effusion, or edema noted. No calf tenderness. Negative Homans sign bilaterally. NEUROLOGICAL: Awake and alert. Cranial nerves II through XII intact. Motor and sensory grossly within normal limits. Five out of 5 muscle strength in all muscle groups. Normal speech. INSIGHT AND JUDGEMENT ARE POOR, MOOD AND BEHAVIOR ARE DEPRESSED Laboratory Laboratory Tests Test 04/02/17 08:40 04/02/17 08:45 Blood Gas Puncture Site VENOUS Blood Gas Patient Temperature 98.6 Venous Blood pH 7.42 Venous Blood Partial Pressure CO2 40 Venous Blood Partial Pressure O2 37 Venous Blood HCO3 26 Venous Blood Oxygen Saturation 71 Venous Blood Oxygen Content 13.5 Venous Blood Base Excess 1.7 Oxygen Delivery Device NASAL CANNULA Blood Gas Liter Flow 2 White Blood Count 25.5 Red Blood Count 4.77 Hemoglobin 13.6 Hematocrit 41.9 Mean Corpuscular Volume 87.9 Mean Corpuscular Hemoglobin 28.5 Mean Corpuscular Hemoglobin Concent 32.4 Red Cell Distribution Width 13.1 Platelet Count 287 Mean Platelet Volume 9.8 Neutrophils (%) (Auto) 93.9 Lymphocytes (%) (Auto) 3.0 Monocytes (%) (Auto) 2.4 Eosinophils (%) (Auto) 0.3 Basophils (%) (Auto) 0.4 Neutrophils # (Auto) 24.0 Lymphocytes # (Auto) 0.8 Monocytes # (Auto) 0.6 Eosinophils # (Auto) 0.1 Basophils # (Auto) 0.1 CBC Comment DIFF FINAL Differential Comment Prothrombin Time 12.8 Prothromb Time International Ratio 1.2 Activated Partial Thromboplast Time 29.6 Blood Urea Nitrogen 35 Creatinine 1.74 Random Glucose 657 Total Protein 7.2 Albumin 2.6 Calcium Level 8.3 Phosphorus Level 2.0 Magnesium Level 1.2 Alkaline Phosphatase 103 Aspartate Amino Transf (AST/SGOT) 6 Alanine Aminotransferase (ALT/SGPT) 12 Total Bilirubin 0.9 Sodium Level 126 Potassium Level 3.7 Chloride Level 89 Carbon Dioxide Level 25.1 Anion Gap 12 Estimat Glomerular Filtration Rate 39 Total Creatine Kinase 87 Troponin I 0.03 B-Type Natriuretic Peptide 101 Result Diagram: 04/02/1745 04/02/17844 Imaging Last Impressions Chest X-Ray 04/02/17 0000 Signed Impressions: Service Date/Time: Sunday, April 02, 2017 08:54 - CONCLUSION: Left lung base laterally small area of patchy airspace disease possibly representing infiltrate MD Shi Armstrong VTE Risk Assessment Shi VTE Risk Assessment: Mod/High Risk (score >= 2) Locrini Risk Assessment Model Point Value = 1 Point Value = 2 Point Value = 3 Point Value = 5 Age 41-60 Minor surgery BMI > 25 kg/m2 Swollen legs Varicose veins or History of unexplained or recurrent spontaneous Oral contraceptives or hormone replacement Sepsis (< 1 month) Serious lung disease, including pneumonia (< 1 month) Abnormal pulmonary function Acute myocardial infarction Congestive heart failure (< 1 month) History of inflammatory bowel disease Medical patient at bed rest Age 61-74 Arthroscopic surgery Major open surgery (> 45 min) Laparoscopic surgery (> 45 min) Malignancy Confined to bed (> 72 hours) Immobilizing plaster cast Central venous access Age >= 75 History of VTE Family history of VTE Factor V Leiden Prothrombin [id number] Lupus anticoagulant Anticardiolipin antibodies Elevated serum homocysteine Heparin-induced thrombocytopenia Other congenital or acquired thrombophilia Stroke (< 1 month) Elective arthroplasty Hip, pelvis, or leg fracture Acute spinal cord injury (< 1 month) Prophylaxis Regimen Total Risk Factor Score Risk Level Prophylaxis Regimen 0-1 Low Early ambulation 2 Moderate Order ONE of the following: *Sequential Compression Device (SCD) *Heparin 5000 units SQ BID 3-4 Higher Order ONE of the following medications: *Heparin 5000 units SQ TID *Enoxaparin/Lovenox 40 mg SQ daily (WT < 150 kg, CrCl > 30 mL/min) *Enoxaparin/Lovenox 30 mg SQ daily (WT < 150 kg, CrCl > 10-29 mL/min) *Enoxaparin/Lovenox 30 mg SQ BID (WT < 150 kg, CrCl > 30 mL/min) AND/OR *Sequential Compression Device (SCD) 5 or more Highest Order ONE of the following medications: *Heparin 5000 units SQ TID (Preferred with Epidurals) *Enoxaparin/Lovenox 40 mg SQ daily (WT < 150 kg, CrCl > 30 mL/min) *Enoxaparin/Lovenox 30 mg SQ daily (WT < 150 kg, CrCl > 10-29 mL/min) *Enoxaparin/Lovenox 30 mg SQ BID (WT < 150 kg, CrCl > 30 mL/min) AND *Sequential Compression Device (SCD) Assessment and Plan Problem List: (1) Hypothyroidism ICD Code: E03.9 - Hypothyroidism, unspecified (2) Diabetes mellitus Status: Resolved (3) Noncompliance ICD Code: Z91.19 - Patient's noncompliance with other medical treatment and regimen (4) Hyperlipidemia ICD Code: E78.5 - Hyperlipidemia, unspecified (5) Pneumonia ICD Code: J18.9 - Pneumonia, unspecified organism Status: Acute (6) Hyperglycemia ICD Code: R73.9 - Hyperglycemia, unspecified Status: Acute (7) Renal insufficiency ICD Code: N28.9 - Disorder of kidney and ureter, unspecified Status: Acute (8) Hyponatremia ICD Code: E87.1 - Hypo-osmolality and hyponatremia Status: Acute Assessment and Plan Hyperglycemia due to not using or taking any insulin or diabetic medication for multiple days Fluids and restart insulin Hyponatremia due to uncontrolled diabetes Continue fluids and restarted on insulin Hypertension continue home medications that are not nephrotoxic Renal insufficiency medications check a.m. labs Noncompliance patient needs to take his medications Hyperlipidemia and needs to take his statin COPD continue on DuoNeb's Mucinex and incentive spirometry and his home medications Hypothyroidism continue on Synthroid we'll check TSH and a free T4 A.m. labs with CBC CMP TSH free T4 hemoglobin A1c magnesium and phosphorus levels Needs diabetic education Continue on DVT and GI prophylaxis Code Status Full code Discussed Condition With Case discussed with Patient, his RN, and ER physician Physician Certification 2 Midnight Certification Type: Admission for Inpatient Services Order for Inpatient Services The services are ordered in accordance with Medicare regulations or non- Medicare payer requirements, as applicable. In the case of services not specified as inpatient-only, they are appropriately provided as inpatient services in accordance with the 2-midnight benchmark. Estimated LOS (days): 3 3 days is the estimated time the patient will need to remain in the hospital, assuming treatment plan goals are met and no additional complications. Post-Hospital Plan: Not yet determined Problem Qualifiers (1) Pneumonia: Qualified Codes: J18.1 - Lobar pneumonia, unspecified organism Terry Fisher DO Apr 02, 2017 11:41
[2017-04-02] MEDS: HEPARIN SODIUM - SQ 10,000 UNITS/ML VIAL SQ SCH ×2 (12:28→20:47)
[2017-04-02] MEDS ORDERED: PANTOPRAZOLE SOD 40 MG DELAYED RELEASE TAB PO ONE (12:30)
[2017-04-02 12:50] LABS: BLOOD, URINE NEG (NEG); COMMENT (UR) CULT NOT INDICATED; CULTURE IF INDICATED CULT NOT INDICATED; GLUCOSE,URINE 1000 mg/dL (NEG); KETONE, URINE NEG (NEG); MUCUS URINE FEW /lpf (OCC); NITRITE,URINE NEG (NEG); URINE COLOR LIGHT-YELLOW (YELLW/STRAW)
[2017-04-02] MEDS: INSULIN ASPART 1,000 UNITS/10 ML VIAL SQ SCH ×2 (12:56→19:05)
[2017-04-02] MEDS ORDERED: oxyCODONE/ACETAMINOPHEN 10 MG/325 MG TAB PO PRN (13:00)
[2017-04-02] MEDS ORDERED: oxyCODONE/ACETAMINOPHEN 5 MG/325 MG TAB PO PRN (13:00)
--- NOTE | 2017-04-02 13:20 | EKG ---
Date Performed: 04/02/2017 Time Performed: 08:49:47 PTAGE: 71 years EKG: Sinus rhythm INFERIOR MYOCARDIAL INFARCTION ABNORMAL ECG INTERPRETATION BASED ON A DEFAULT AGE OF 40 YEARS PREVIOUS TRACING : 12/26/2016 02.42 Compared to prior tracing no significant change DOCTOR: Thi Vargas Interpretating Date/Time 04/02/2017 13:18:39
[2017-04-02] MEDS: LACTOBACILLUS ACIDOPHILUS TAB PO SCH ×2 (14:05→19:03)
[2017-04-02] MEDS: INSULIN ASPART SUPPLEMENTAL SCALE SQ SCH ×2 (16:58→20:47)
[2017-04-02] MEDS: cloNIDine HCL 0.2 MG TAB PO SCH (20:46)
[2017-04-02] MEDS: guaiFENesin E.R. 600 MG TAB PO SCH (20:46)
[2017-04-02] MEDS: ATORVASTATIN 80 MG TAB PO SCH (20:46)
[2017-04-02] MEDS: DOCUSATE SODIUM 50 MG/SENNA 8.6 MG TAB PO SCH (20:46)
[2017-04-02] MEDS: INSULIN DETEMIR 100 UNITS/ML VIAL SQ SCH (20:47)
[2017-04-02] MEDS: SODIUM CHLORIDE 0.9% FLUSH 10 ML FLUSH IV FLUSH SCH (20:49)
[2017-04-02] MEDS ORDERED: SODIUM CHLORIDE 0.9% FLUSH 10 ML FLUSH IV FLUSH SCH (21:00)
[2017-04-03] VITALS (10 sets, daily range): BP systolic 121–143; BP diastolic 57–76; PULSE 75–95; RESP 17–20; TEMP 97.3–98.2; O2SAT 93–97
[2017-04-03] MEDS: RESP: ALBUTEROL 2.5 MG/IPRATROPIUM 0.5 MG NEB (SCH) INH ×4 (03:44→20:07)
[2017-04-03] MEDS: SODIUM CHLOR 0.9% 1000 ML INJ 1,000 ML IV SCH ×3 (04:33→21:03)
[2017-04-03] MEDS: LEVOTHYROXINE SODIUM 50 MCG TAB PO SCH (05:15)
[2017-04-03] MEDS: HEPARIN SODIUM - SQ 10,000 UNITS/ML VIAL SQ SCH ×3 (05:15→21:00)
[2017-04-03] MEDS: INSULIN ASPART SUPPLEMENTAL SCALE SQ SCH ×4 (06:32→21:15)
[2017-04-03] MEDS ORDERED: AZITHROMYCIN 250 MG TAB PO SCH (09:00)
[2017-04-03] MEDS: SODIUM CHLORIDE 0.9% FLUSH 10 ML FLUSH IV FLUSH SCH ×2 (09:00→21:04)
--- NOTE | 2017-04-03 09:34 | HHI.PR ---
Subjective Remarks 71-year-old male complains of generalized malaise and weakness and shortness of breath. Patient states that the symptom has been gone for a long time however worse for the past few days. Patient denies any headache. Patient denies any visual change. Patient denies any chest pain. Patient states that he has shortness of breath. Patient denies any coughing congestion. Patient denies abdominal pain. Patient states that he has intermittent nausea vomiting. Patient denies any dysuria or frequency. Patient denies any fever chills. Patient denies any back pain. Patient has history of diabetes and on insulin. Patient states that he has not taking his insulin for last several days. EMS was called. Accu-Chek blood sugar was high. Patient was transported to ED for evaluation. Patient has history of peripheral vascular disease, carotid stenosis status post right CVA, bilateral iliac stents, GERD, hypertension, hyperlipidemia. 04-03 PATIENT STATES HE FEELS IMPROVED STILL ON ANTIBIOTICS SUGARS BETTER IN THE 200S NOW ON HIS INSULIN AM LAB CONTINUE ANTIBIOTICS PATIENT HAS BEEN NONCOMPLIANT WILL ALL HIS MEDICATIONS Objective Vitals Vital Signs Date Time Temp Pulse Resp B/P (MAP) Pulse Ox O2 Delivery O2 Flow Rate FiO2 04/03/17 08:13 98.1 75 20 143/76 (98) 93 04/03/17 04:00 Room Air 04/03/17 04:00 97.3 78 17 142/75 (97) 97 04/03/17 03:50 96 04/03/17 00:00 Room Air 04/03/17 00:00 97.4 79 19 129/64 (85) 94 04/02/17 20:50 Room Air 04/02/17 20:36 96 04/02/17 20:00 98.2 99 19 151/82 (105) 95 04/02/17 16:00 98.1 91 18 139/85 (103) 97 04/02/17 16:00 Room Air 04/02/17 13:34 84 22 162/87 (112) 98 Nasal Cannula 2.00 04/02/17 13:00 97.0 86 18 156/78 (104) 95 04/02/17 11:33 91 23 156/88 (110) 98 Nasal Cannula 2.00 04/02/17 09:33 84 22 147/86 (106) 98 Nasal Cannula 2.00 I/O 04/02/17 04/02/17 04/02/17 04/03/17 04/03/17 04/03/17 07:00 15:00 23:00 07:00 15:00 23:00 Intake Total 100 ml 440 ml 1560 ml 120 ml Output Total 250 ml 750 ml Balance 100 ml 190 ml 810 ml 120 ml Intake Oral 240 ml 560 ml IV Total 100 ml 200 ml 1000 ml 120 ml Output Urine Total 250 ml 750 ml # Bowel Movements 1 1 Result Diagram: 04/02/17 0845 04/02/17 0845 Other Results Laboratory Tests Test 04/02/17 08:40 04/02/17 08:45 04/02/17 12:25 04/02/17 20:00 Blood Gas Puncture Site VENOUS Blood Gas Patient Temperature 98.6 Venous Blood pH 7.42 Venous Blood Partial Pressure CO2 40 mmHg Venous Blood Partial Pressure O2 37 mmHg Venous Blood HCO3 26 mmol/L Venous Blood Oxygen Saturation 71 % Venous Blood Oxygen Content 13.5 Vol % Venous Blood Base Excess 1.7 mmol/L Oxygen Delivery Device NASAL CANNULA Blood Gas Liter Flow 2 L/M White Blood Count 25.5 TH/MM3 Red Blood Count 4.77 MIL/MM3 Hemoglobin 13.6 GM/DL Hematocrit 41.9 % Mean Corpuscular Volume 87.9 FL Mean Corpuscular Hemoglobin 28.5 PG Mean Corpuscular Hemoglobin Concent 32.4 % Red Cell Distribution Width 13.1 % Platelet Count 287 TH/MM3 Mean Platelet Volume 9.8 FL Neutrophils (%) (Auto) 93.9 % Lymphocytes (%) (Auto) 3.0 % Monocytes (%) (Auto) 2.4 % Eosinophils (%) (Auto) 0.3 % Basophils (%) (Auto) 0.4 % Neutrophils # (Auto) 24.0 TH/MM3 Lymphocytes # (Auto) 0.8 TH/MM3 Monocytes # (Auto) 0.6 TH/MM3 Eosinophils # (Auto) 0.1 TH/MM3 Basophils # (Auto) 0.1 TH/MM3 CBC Comment DIFF FINAL Differential Comment Prothrombin Time 12.8 SEC Prothromb Time International Ratio 1.2 RATIO Activated Partial Thromboplast Time 29.6 SEC Blood Urea Nitrogen 35 MG/DL Creatinine 1.74 MG/DL Random Glucose 657 MG/DL Total Protein 7.2 GM/DL Albumin 2.6 GM/DL Calcium Level 8.3 MG/DL Phosphorus Level 2.0 MG/DL Magnesium Level 1.2 MG/DL Alkaline Phosphatase 103 U/L Aspartate Amino Transf (AST/SGOT) 6 U/L Alanine Aminotransferase (ALT/SGPT) 12 U/L Total Bilirubin 0.9 MG/DL Sodium Level 126 MEQ/L Potassium Level 3.7 MEQ/L Chloride Level 89 MEQ/L Carbon Dioxide Level 25.1 MEQ/L Anion Gap 12 MEQ/L Estimat Glomerular Filtration Rate 39 ML/MIN Total Creatine Kinase 87 U/L 62 U/L Troponin I 0.03 NG/ML 0.06 NG/ML B-Type Natriuretic Peptide 101 PG/ML Urine Color LIGHT-YELLOW Urine Turbidity CLEAR Urine pH 5.0 Urine Specific [place] 1.024 Urine Protein TRACE mg/dL Urine Glucose (UA) 1000 mg/dL Urine Ketones NEG mg/dL Urine Occult Blood NEG Urine Nitrite NEG Urine Bilirubin NEG Urine Urobilinogen LESS THAN 2.0 MG/DL Urine Leukocyte Esterase NEG Urine RBC LESS THAN 1 /hpf Urine WBC 2 /hpf Urine Mucus FEW /lpf Microscopic Urinalysis Comment CULT NOT INDICATED Imaging Last Impressions Chest X-Ray 04/02/17 0000 Signed Impressions: Service Date/Time: Sunday, April 02, 2017 08:54 - CONCLUSION: Left lung base laterally small area of patchy airspace disease possibly representing infiltrate Jonathan Cunningham MD Objective Remarks GENERAL: This is a well-nourished, well-developed patient, in no apparent distress. NOT WANTING TO COOPERATE MUCH AND HAD TO REALLY PULL INFORMATION FROM HIM SKIN: No rashes, ecchymoses or lesions. Cool and dry. HEAD: Atraumatic. Normocephalic. No temporal or scalp tenderness. EYES: Pupils equal round and reactive. Extraocular motions intact. No scleral icterus. No injection or drainage. ENT: Nose without bleeding, purulent drainage or septal hematoma. Throat without erythema, tonsillar hypertrophy or exudate. Uvula midline. Airway patent. NECK: Trachea midline. No JVD or lymphadenopathy. Supple, nontender, no meningeal signs. CARDIOVASCULAR: Regular rate and rhythm without murmurs, gallops, or rubs. S1, S2 NO S3 OR S4 NO THRILL RESPIRATORY: FEW RHONCHI, COARSE. Breath sounds equal bilaterally. No wheezes, rales, GASTROINTESTINAL: Abdomen soft, non-tender, nondistended. No hepato-splenomegaly , or palpable masses. No guarding. MUSCULOSKELETAL: Extremities without clubbing, cyanosis, or edema. No joint tenderness, effusion, or edema noted. No calf tenderness. Negative Homans sign bilaterally. NEUROLOGICAL: Awake and alert. Cranial nerves II through XII intact. Motor and sensory grossly within normal limits. Five out of 5 muscle strength in all muscle groups. Normal speech. INSIGHT AND JUDGEMENT ARE POOR, MOOD AND BEHAVIOR ARE DEPRESSED Medications and IVs Current Medications Sodium Chloride 1,000 ml @ 250 mls/hr Q4H IV ; Start 04/02/17 at 08:34; Stop at 13:00; Status DC Dextrose/Sodium Chloride 1,000 ml @ 200 mls/hr Q5H IV ; Start 04/02/17 at 08:34 ; Stop 04/02/17 at 13:00; Status DC Insulin Human Regular 100 units/ Sodium Chloride 100 ml @ 0 mls/hr Q0M IV ; Start 04/02/17 at 08:34; Stop 04/02/17 at 13:01; Status DC Potassium Chloride 100 ml @ 100 mls/hr Q1H PRN IV SEE LABEL COMMENTS; Start at 08:45; Stop 04/02/17 at 13:01; Status DC Potassium Chloride 100 ml @ 50 mls/hr Q2H PRN IV SEE LABEL COMMENTS; Start at 08:45; Stop 04/02/17 at 13:01; Status DC Potassium Chloride 100 ml @ 100 mls/hr Q1H PRN IV SEE LABEL COMMENTS; Start at 08:45; Stop 04/02/17 at 13:01; Status DC Potassium Chloride 100 ml @ 100 mls/hr Q1H PRN IV SEE LABEL COMMENTS; Start at 08:45; Stop 04/02/17 at 13:01; Status DC Potassium Chloride 100 ml @ 50 mls/hr Q2H PRN IV SEE LABEL COMMENTS; Start at 08:45; Stop 04/02/17 at 13:01; Status DC Potassium Chloride 100 ml @ 50 mls/hr Q2H PRN IV SEE LABEL COMMENTS; Start at 08:45; Stop 04/02/17 at 13:01; Status DC Potassium Chloride 100 ml @ 50 mls/hr Q2H PRN IV SEE LABEL COMMENTS; Start at 08:45; Stop 04/02/17 at 13:01; Status DC Potassium Chloride 100 ml @ 50 mls/hr Q2H PRN IV SEE LABEL COMMENTS; Start at 08:45; Stop 04/02/17 at 13:01; Status DC Sodium Bicarbonate (Sodium Bicarbonate 8.4% Inj) 100 meq UNSCH PRN IV SEE LABEL COMMENTS; Start 04/02/17 at 08:45; Stop 04/02/17 at 13:01; Status DC Sodium Bicarbonate (Sodium Bicarbonate 8.4% Inj) 50 meq UNSCH PRN IV SEE LABEL COMMENTS; Start 04/02/17 at 08:45; Stop 04/02/17 at 13:01; Status DC Sodium Phosphate 15 mmol/Sodium Chloride 105 ml @ 25 mls/hr UNSCH PRN IV SEE LABEL COMMENTS; Start 04/02/17 at 08:45; Stop 04/02/17 at 13:01; Status DC Potassium Chloride (KCl) 20 meq ONCE ONCE PO Last administered on 04/02/17 10 :19; Start 04/02/17 at 10:00; Stop 04/02/17 at 10:01; Status DC Insulin Human Regular (NovoLIN R INJ) 8 units ONCE ONCE IV PUSH Last administered on 04/02/17 10:20; Start 04/02/17 at 10:00; Stop 04/02/17 at 10:01 ; Status DC Ceftriaxone Sodium 1000 mg/ Sodium Chloride 100 ml @ 200 mls/hr ONCE ONCE IV Last administered on 04/02/17 10:19; Start 04/02/17 at 10:00; Stop 04/02/17 at 10:29; Status DC Azithromycin (Zithromax) 500 mg DAILY PO ; Start 04/03/17 at 09:00; Stop at 09:00; Status DC Dextrose (D50w (Vial) Inj) 50 ml UNSCH PRN IV HYPOGLYCEMIA-SEE COMMENTS; Start 04/02/17 at 11:30 Glucagon (Glucagon Inj) 1 mg UNSCH PRN OTHER HYPOGLYCEMIA-SEE COMMENTS; Start 04/02/17 at 11:30 Insulin Aspart (NovoLOG SUPPLEMENTAL SCALE) 1 ACHS SLIDING SCALE SQ Last administered on 04/03/17 06:32; Start 04/02/17 at 16:00 Sodium Chloride 1,000 ml @ 125 mls/hr Q8H IV Last administered on 04/03/17 04 :33; Start 04/02/17 at 12:00 Sodium Chloride (NS Flush) 2 ml UNSCH PRN IV FLUSH FLUSH AFTER USING IV ACCESS ; Start 04/02/17 at 11:30 Sodium Chloride (NS Flush) 2 ml BID IV FLUSH Last administered on 04/02/17 20: 49; Start 04/02/17 at 21:00 Acetaminophen (Tylenol) 650 mg Q4H PRN PO TEMP > 100.4; Start 04/02/17 at 11:30 Ondansetron HCl (Zofran Inj) 4 mg Q6H PRN IVP NAUSEA OR VOMITING Last administered on 04/02/17 17:12; Start 04/02/17 at 11:30 Prochlorperazine (Compazine Supp) 25 mg Q12H PRN RECTAL NAUSEA OR VOMITING; Start 04/02/17 at 11:30 Zolpidem Tartrate (Ambien) 5 mg HS PRN PO INSOMNIA; Start 04/02/17 at 11:30 Heparin Sodium (Porcine) (Heparin Inj) 5,000 units Q8H SQ Last administered on 04/03/17 05:15; Start 04/02/17 at 13:00 Acetaminophen (Tylenol) 650 mg Q6H PRN PO PAIN SCALE 1 TO 2; Start 04/02/17 at 13:00 Oxycodone/ Acetaminophen (Percocet 5-325 Mg) 1 tab Q6H PRN PO PAIN SCALE 3 TO 5; Start 04/02/17 at 13:00 Oxycodone/ Acetaminophen (Percocet 10-325 Mg) 1 tab Q6H PRN PO PAIN SCALE 6 TO 10; Start 04/02/17 at 13:00 Morphine Sulfate (Morphine Inj) 2 mg Q3H PRN IV Pain 3-5; if unable to take PO ; Start 04/02/17 at 13:00 Morphine Sulfate (Morphine Inj) 4 mg Q3H PRN IV Pain 6-10;if unable to take PO ; Start 04/02/17 at 11:30 Naloxone HCl (Narcan Inj) 0.4 mg UNSCH PRN IV SEE LABEL COMMENTS; Start at 11:30 Senna/Docusate Sodium (Yamel-Colace) 1 tab BID PO Last administered on 20:46; Start 04/02/17 at 21:00 Magnesium Hydroxide (Milk Of Magnesia Liq) 30 ml Q12H PRN PO MILD - MODERATE CONSTIPATION; Start 04/02/17 at 11:30 Sennosides (Senokot) 17.2 mg Q12H PRN PO MODERATE - SEVERE CONSTIPATION; Start 04/02/17 at 11:30 Bisacodyl (Dulcolax Supp) 10 mg DAILY PRN RECTAL SEVERE CONSITIPATION; Start at 11:30 Lactulose (Lactulose Liq) 30 ml DAILY PRN PO SEVERE CONSITIPATION; Start at 11:30 Sodium Chloride (NS Flush) 2 ml UNSCH PRN IV FLUSH FLUSH AFTER USING IV ACCESS ; Start 04/02/17 at 11:30; Status UNV Sodium Chloride (NS Flush) 2 ml BID IV FLUSH ; Start 04/02/17 at 21:00; Status UNV Ceftriaxone Sodium 1000 mg/ Sodium Chloride 100 ml @ 200 mls/hr Q24H IV ; Start 04/03/17 at 10:00 Azithromycin 500 mg/Sodium Chloride 250 ml @ 250 mls/hr Q24H IV ; Start at 10:00 Ondansetron HCl (Zofran Inj) 4 mg Q6H PRN IV NAUSEA; Start 04/02/17 at 11:30; Status UNV Albuterol/ Ipratropium (Duoneb Neb) 1 ampule Q6HR NEB INH Last administered on 04/03/17 03:44; Start 04/02/17 at 16:00 Albuterol/ Ipratropium (Duoneb Neb) 1 ampule Q4HR NEB PRN INH SHORTNESS OF BREATH; Start 04/02/17 at 11:30 Amlodipine Besylate (Norvasc) 10 mg DAILY PO Last administered on 04/02/17 12: 28; Start 04/02/17 at 12:30 Atorvastatin Calcium (Lipitor) 80 mg HS PO Last administered on 04/02/17 20:46 ; Start 04/02/17 at 21:00 Clonidine (Catapres) 0.2 mg BID PO Last administered on 04/02/17 20:46; Start 04/02/17 at 21:00 Insulin Aspart (NovoLOG INJ) 20 units TID SQ Last administered on 04/02/17 19: 05; Start 04/02/17 at 13:00 Insulin Detemir (Levemir Inj) 66 units HS SQ ; Start 04/02/17 at 21:00 Levothyroxine Sodium (Synthroid) 50 mcg DAILY@0600 PO Last administered on 04/03 05:15; Start 04/03/17 at 06:00 Guaifenesin (Mucinex Er) 600 mg BID PO Last administered on 04/02/17 20:46; Start 04/02/17 at 21:00 Lactobacillus Acidophilus (Lactinex) 1 tab TID PO Last administered on 19:03; Start 04/02/17 at 13:00 Pantoprazole Sodium (Protonix) 40 mg DAILY PO ; Start 04/03/17 at 09:00 Pantoprazole Sodium (Protonix) 40 mg ONCE ONCE PO Last administered on 12:55; Start 04/02/17 at 12:30; Stop 04/02/17 at 12:31; Status DC A/P Problem List: (1) Hypothyroidism ICD Code: E03.9 - Hypothyroidism, unspecified (2) Diabetes mellitus Status: Resolved (3) Noncompliance ICD Code: Z91.19 - Patient's noncompliance with other medical treatment and regimen (4) Hyperlipidemia ICD Code: E78.5 - Hyperlipidemia, unspecified (5) Pneumonia ICD Code: J18.9 - Pneumonia, unspecified organism Status: Acute (6) Hyperglycemia ICD Code: R73.9 - Hyperglycemia, unspecified Status: Acute (7) Renal insufficiency ICD Code: N28.9 - Disorder of kidney and ureter, unspecified Status: Acute (8) Hyponatremia ICD Code: E87.1 - Hypo-osmolality and hyponatremia Status: Acute Assessment and Plan Hyperglycemia due to not using or taking any insulin or diabetic medication for multiple days Fluids and restart insulin Hyponatremia due to uncontrolled diabetes Continue fluids and restarted on insulin Hypertension continue home medications that are not nephrotoxic Renal insufficiency medications check a.m. labs Noncompliance patient needs to take his medications Hyperlipidemia and needs to take his statin COPD/PNEUMONIA continue on DuoNeb's Mucinex and incentive spirometry and his home medications ROCEPHIN AND ZITHROMAX Hypothyroidism continue on Synthroid we'll check TSH and a free T4 A.m. labs with CBC CMP TSH free T4 hemoglobin A1c magnesium and phosphorus levels Needs diabetic education MALIGNANT NONCOMPLIANCE Continue on DVT and GI prophylaxis LABS STILL PENDING Problem Qualifiers (1) Pneumonia: Qualified Codes: J18.1 - Lobar pneumonia, unspecified organism Terry Fisher DO Apr 03, 2017 09:34
[2017-04-03] MEDS: LACTOBACILLUS ACIDOPHILUS TAB PO SCH ×3 (09:49→17:14)
[2017-04-03] MEDS: guaiFENesin E.R. 600 MG TAB PO SCH ×2 (09:49→21:03)
[2017-04-03] MEDS: cloNIDine HCL 0.2 MG TAB PO SCH ×2 (09:49→21:04)
[2017-04-03] MEDS: PANTOPRAZOLE SOD 40 MG DELAYED RELEASE TAB PO SCH (09:50)
[2017-04-03] MEDS: DOCUSATE SODIUM 50 MG/SENNA 8.6 MG TAB PO SCH ×2 (09:50→21:03)
[2017-04-03] MEDS: AZITHROMYCIN INJ 500 MG in SODIUM CHLOR 0.9% 250 ML INJ 250 ML IV SCH (09:51)
[2017-04-03] MEDS: cefTRIAXone INJ 1,000 MG in SODIUM CHLORIDE 0.9% INJ 100 ML IV SCH (09:51)
[2017-04-03] MEDS: INSULIN ASPART 1,000 UNITS/10 ML VIAL SQ SCH ×3 (09:54→17:16)
[2017-04-03] MEDS: UMECLIDINIUM 62.5 MCG/VILANTEROL 25 MCG INHALER INH SCH (12:34)
[2017-04-03 13:01] LABS: AUTOMATED NEUTROPHIL # 16.9 TH/MM3 (1.8-7.7); BASOPHIL # 0.1 TH/MM3 (0-0.2); BASOPHIL % 0.3 % (0.0-2.0); EOSINOPHIL # 0.7 TH/MM3 (0-0.4); EOSINOPHIL % 3.5 % (0.0-4.0); HEMO FLAGS DIFF FINAL; LYMPH % 4.6 % (9.0-44.0); LYMPHOCYTE # 0.9 TH/MM3 (1.0-4.8); MEAN CELL VOLUME 86.6 FL (80.0-100.0); MEAN CORPUSCULAR HEMOGLOBIN 29.8 PG (27.0-34.0); MEAN CORPUSCULAR HGB CONC 34.4 % (32.0-36.0); MONO % 2.5 % (0.0-8.0); NEUT % 89.1 % (16.0-70.0); PLATELET COUNT 250 TH/MM3 (150-450); RED CELL DISTRIBUTION WIDTH 13.1 % (11.6-17.2); WHITE BLOOD COUNT 18.9 TH/MM3 (4.0-11.0)
[2017-04-03 14:40] LABS: BLOOD UREA NITROGEN 22 MG/DL (7-18); GLOMERULAR FILTRATION RATE 72 ML/MIN (>89)
[2017-04-03 14:41] LABS: MAGNESIUM 1.2 MG/DL (1.5-2.5)
[2017-04-03 14:42] LABS: ALKALINE PHOSPHATASE 81 U/L (45-117); ALT (GPT) 12 U/L (12-78); AST (GOT) 10 U/L (15-37); SODIUM (NA) 140 MEQ/L (136-145); TOTAL BILIRUBIN ADULT 0.3 MG/DL (0.2-1.0)
[2017-04-03 14:43] LABS: ANION GAP 7 MEQ/L (5-15); BICARBONATE 27.8 MEQ/L (21.0-32.0); CHLORIDE 105 MEQ/L (98-107)
[2017-04-03 15:56] LABS: FREE T4 1.26 NG/DL (0.76-1.46)
[2017-04-03 17:11] LABS: HEMOGLOBIN A1a 1.3 %; HEMOGLOBIN A1b 1.2 %; HEMOGLOBIN F 1.7 %; HEMOGLOBIN P3 5.3 %
[2017-04-03] MEDS: INSULIN DETEMIR 100 UNITS/ML VIAL SQ SCH (21:00)
[2017-04-03] MEDS: ATORVASTATIN 80 MG TAB PO SCH (21:03)
[2017-04-04] VITALS (10 sets, daily range): BP systolic 117–153; BP diastolic 63–73; PULSE 70–84; RESP 18–20; TEMP 97.5–98.5; O2SAT 93–96
[2017-04-04] MEDS: RESP: ALBUTEROL 2.5 MG/IPRATROPIUM 0.5 MG NEB (SCH) INH ×4 (03:56→21:16)
[2017-04-04] MEDS: SODIUM CHLOR 0.9% 1000 ML INJ 1,000 ML IV SCH ×2 (04:00→20:00)
[2017-04-04] MEDS: LEVOTHYROXINE SODIUM 50 MCG TAB PO SCH (06:28)
[2017-04-04] MEDS: HEPARIN SODIUM - SQ 10,000 UNITS/ML VIAL SQ SCH ×3 (06:29→22:13)
[2017-04-04] MEDS: INSULIN ASPART SUPPLEMENTAL SCALE SQ SCH ×4 (06:33→22:25)
[2017-04-04 07:10] LABS: AUTOMATED NEUTROPHIL # 16.1 TH/MM3 (1.8-7.7); BASOPHIL # 0.2 TH/MM3 (0-0.2); EOSINOPHIL # 0.9 TH/MM3 (0-0.4); EOSINOPHIL % 4.6 % (0.0-4.0); HEMATOCRIT 33.5 % (39.0-51.0); LYMPH % 10.5 % (9.0-44.0); LYMPHOCYTE # 2.2 TH/MM3 (1.0-4.8); MEAN CELL VOLUME 86.5 FL (80.0-100.0); MEAN CORPUSCULAR HEMOGLOBIN 29.2 PG (27.0-34.0); MEAN CORPUSCULAR HGB CONC 33.7 % (32.0-36.0); MONO % 5.7 % (0.0-8.0); NEUT % 78.2 % (16.0-70.0); PLATELET COUNT 282 TH/MM3 (150-450); RED BLOOD COUNT 3.88 MIL/MM3 (4.50-5.90); RED CELL DISTRIBUTION WIDTH 13.2 % (11.6-17.2); WHITE BLOOD COUNT 20.6 TH/MM3 (4.0-11.0)
[2017-04-04 07:12] LABS: HEMO FLAGS AUTO DIFF
[2017-04-04 07:37] LABS: ALT (GPT) 12 U/L (12-78); ANION GAP 7 MEQ/L (5-15); AST (GOT) 15 U/L (15-37); BICARBONATE 27.9 MEQ/L (21.0-32.0); BLOOD UREA NITROGEN 16 MG/DL (7-18); CHLORIDE 105 MEQ/L (98-107); GLOMERULAR FILTRATION RATE 105 ML/MIN (>89); MAGNESIUM 1.3 MG/DL (1.5-2.5); SODIUM (NA) 140 MEQ/L (136-145)
[2017-04-04 07:49] LABS: ALKALINE PHOSPHATASE 81 U/L (45-117); TOTAL BILIRUBIN ADULT 0.4 MG/DL (0.2-1.0)
[2017-04-04] MEDS: INSULIN ASPART 1,000 UNITS/10 ML VIAL SQ SCH ×2 (09:00→13:00)
[2017-04-04 09:04] LABS: SCAN/DIFF AUTO DIFF CONFIRMED
[2017-04-04] MEDS: LACTOBACILLUS ACIDOPHILUS TAB PO SCH ×2 (09:08→12:17)
[2017-04-04] MEDS: guaiFENesin E.R. 600 MG TAB PO SCH ×2 (09:08→22:13)
[2017-04-04] MEDS: PANTOPRAZOLE SOD 40 MG DELAYED RELEASE TAB PO SCH (09:08)
[2017-04-04] MEDS: cloNIDine HCL 0.2 MG TAB PO SCH ×2 (09:08→22:14)
[2017-04-04] MEDS: DOCUSATE SODIUM 50 MG/SENNA 8.6 MG TAB PO SCH ×2 (09:08→22:14)
[2017-04-04] MEDS: cefTRIAXone INJ 1,000 MG in SODIUM CHLORIDE 0.9% INJ 100 ML IV SCH (09:09)
[2017-04-04] MEDS: AZITHROMYCIN INJ 500 MG in SODIUM CHLOR 0.9% 250 ML INJ 250 ML IV SCH (09:09)
[2017-04-04] MEDS: SODIUM CHLORIDE 0.9% FLUSH 10 ML FLUSH IV FLUSH SCH ×2 (09:09→22:14)
[2017-04-04] MEDS: UMECLIDINIUM 62.5 MCG/VILANTEROL 25 MCG INHALER INH SCH (09:10)
--- NOTE | 2017-04-04 14:52 | HHI.PR ---
Subjective Remarks Nursing reports that the patient had hypoglycemia this morning, I reviewed the chart and noted blood sugar in the 40s on the serum BMP. Patient was getting 20 units 3 times a day with meals along with a high dose sliding scale and at 66 of Levemir last night (whereas patient's home regimen is 20 units 3 times a day aspart insulin and 66 units of a stronger Lantus at night - with no sliding scale). Patient himself is wanting to go home, says he feels good and feels stronger and feels that he can walk. Respiratory therapy also has clarified that the patient is saturating well on room air Objective Vital Signs Date Time Temp Pulse Resp B/P (MAP) Pulse Ox O2 Delivery O2 Flow Rate FiO2 04/04/17 12:00 97.7 84 20 135/72 (93) 96 04/04/17 08:52 95 04/04/17 08:00 97.5 76 20 153/73 (99) 95 04/04/17 04:16 97.6 70 20 127/69 (88) 95 04/04/17 00:39 97.9 74 18 117/63 (81) 96 04/03/17 20:00 Nasal Cannula 2.00 04/03/17 20:00 98.2 95 18 121/61 (81) 95 04/03/17 20:00 78 04/03/17 19:39 96 Nasal Cannula 2.00 04/03/17 16:36 98.2 81 18 130/69 (89) 93 I/O 04/03/17 04/03/17 04/03/17 04/04/17 04/04/17 04/04/17 07:00 15:00 23:00 07:00 15:00 23:00 Intake Total 1560 ml 120 ml 600 ml 1550 ml Output Total 750 ml 600 ml 350 ml Balance 810 ml 120 ml 0 ml 1200 ml Intake Oral 560 ml 600 ml 550 ml IV Total 1000 ml 120 ml 1000 ml Output Urine Total 750 ml 600 ml 350 ml # Bowel Movements 1 1 0 Result Diagram: 04/04/1764304/04/17643 Imaging I independently reviewed the CXR plain film and I do not see any substantial infiltrates suggestive of pneumonia. Objective Remarks GENERAL: No acute distress, lying in bed, awake CARDIOVASCULAR: Regular rate and rhythm without murmurs, gallops, or rubs. RESPIRATORY: Moderate expiratory wheezing on exam, unlabored breathing MUSCULOSKELETAL: Grossly intact range of motion 5 out of 5 strength in proximal upper and lower extremities, no tremors noted, equivocal Romberg when the patient closes his eyes and stands, otherwise has firm steady balance with eyes open as he stands A/P Assessment and Plan Hyperglycemia due to not using or taking any insulin or diabetic medication for multiple days - improved but now resulting in hypoglycemia - NEW PROBLEM, will therefore degrade high dose sliding scale to low-grade sliding scale, continue his mealtime dosing of 20 units of aspart 3 times a day and continue his nighttime basal Levemir 66 units Hyponatremia due to uncontrolled diabetes - resolved Hypokalemia - likely from aggressive insulin administration, replace daily w/ po given consistent pattern Hypertension - continue home medications that are not nephrotoxic Hyperlipidemia - statin Hypothyroidism continue on Synthroidd, TSH and a free T4 are stable labs with CBC CMP TSH free T4 hemoglobin A1c magnesium and phosphorus levels - stable Renal insufficiency - appeared acute, resolved, stopping IVFs. COPD/PNEUMONIA + HYPOXIA - continue on DuoNeb's Mucinex and incentive spirometry and his home medications ROCEPHIN AND ZITHROMAX, can be dc'd on just zithromax. Physical therapy and occupational therapy both recommend inpatient placement for rehabilitation given a reported history of falls, however no such history as noted in the history of present illness nor were there any reports of falls noted with nursing. I will touch base with therapy to see if this is something that the patient can manage at home safely. stopping all IV pain medication. We'll also have patient ambulate to ensure he does not desaturate or get extraordinarily winded since he says he can ambulate just fine at home and most along as well. Continue on DVT and GI prophylaxis Devin Santiago MD Apr 04, 2017 14:52
[2017-04-04] MEDS: ATORVASTATIN 80 MG TAB PO SCH (22:13)
[2017-04-04] MEDS: INSULIN DETEMIR 100 UNITS/ML VIAL SQ SCH (22:25)
[2017-04-05] VITALS (8 sets, daily range): BP systolic 117–172; BP diastolic 60–85; PULSE 72–82; RESP 20; TEMP 96.1–98.3; O2SAT 92–100
[2017-04-05] MEDS: SODIUM CHLOR 0.9% 1000 ML INJ 1,000 ML IV SCH ×2 (04:00→12:00)
[2017-04-05] MEDS: HEPARIN SODIUM - SQ 10,000 UNITS/ML VIAL SQ SCH ×2 (06:22→12:47)
[2017-04-05] MEDS: LEVOTHYROXINE SODIUM 50 MCG TAB PO SCH (06:22)
[2017-04-05] MEDS: INSULIN ASPART SUPPLEMENTAL SCALE SQ SCH ×3 (06:24→18:05)
[2017-04-05] MEDS: SODIUM CHLORIDE 0.9% FLUSH 10 ML FLUSH IV FLUSH SCH (07:35)
[2017-04-05] MEDS: LACTOBACILLUS ACIDOPHILUS TAB PO SCH ×3 (08:53→18:02)
[2017-04-05] MEDS: guaiFENesin E.R. 600 MG TAB PO SCH (08:54)
[2017-04-05] MEDS: cloNIDine HCL 0.2 MG TAB PO SCH (08:54)
[2017-04-05] MEDS: PANTOPRAZOLE SOD 40 MG DELAYED RELEASE TAB PO SCH (08:54)
[2017-04-05] MEDS: DOCUSATE SODIUM 50 MG/SENNA 8.6 MG TAB PO SCH (08:54)
[2017-04-05] MEDS: UMECLIDINIUM 62.5 MCG/VILANTEROL 25 MCG INHALER INH SCH (08:58)
[2017-04-05] MEDS: INSULIN ASPART 1,000 UNITS/10 ML VIAL SQ SCH ×3 (09:01→18:06)
[2017-04-05] MEDS: cefTRIAXone INJ 1,000 MG in SODIUM CHLORIDE 0.9% INJ 100 ML IV SCH (09:02)
[2017-04-05] MEDS: AZITHROMYCIN INJ 500 MG in SODIUM CHLOR 0.9% 250 ML INJ 250 ML IV SCH (09:02)
[2017-04-05] MEDS: RESP: ALBUTEROL 2.5 MG/IPRATROPIUM 0.5 MG NEB (SCH) INH ×2 (09:51→15:46)
[2017-04-05] MEDS ORDERED: POTASSIUM CHLOR 20 MEQ PREMIX 100 ML IV ONE (10:00)
[2017-04-05] MEDS ORDERED: POTASSIUM CHLORIDE 20 MEQ CONTROLLED RELEASE TAB PO SCH (10:00)
[2017-04-05] MEDS ORDERED: POTA20TA5 PO (16:37)
[2017-04-05] MEDS ORDERED: LISI-515 PO (16:37)
[2017-04-05] MEDS ORDERED: NOVOLOGP2 SQ ×2 (16:37→16:40)
--- NOTE | 2017-04-05 16:41 | HHI.DCPOC ---
Discharge Care Plan Diagnosis: (1) Hyponatremia (2) Diabetes mellitus Additional Problems Dehydration and lightheadedness. Drink at least 8 glasses of water every single day, a few sweat or get heated otherwise drink even more, that down or stop drinking sodas to minimize any further recurrences of dehydration and subsequent falls. Take your insulin as we discussed, every night or to take your insulin of Lantus and only take your mealtime insulin specifically when taking meals. Goals to Promote Your Health * To prevent worsening of your condition and complications * To maintain your health at the optimal level Directions to Meet Your Goals Take your medications as prescribed Follow your dietary instruction Follow activity as directed Keep your appointments as scheduled Take your immunizations and boosters as scheduled If your symptoms worsen call your PCP, if no PCP go to Urgent Care Center or Emergency Room Smoking is Dangerous to Your Health. Avoid second hand smoke Call the 24-hour hour crisis hotline for domestic abuse at Devin Santiago MD Apr 05, 2017 16:41
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
== END 2017-04-05 19:27 | disposition home or self-care (01) | DRG 637 ==
LOC: NEPE 08:27 → NEDA 11:11 → N04B 13:49 → N04A 04-04 22:39
PROVIDERS: ADMIT Hospitalist; ATTEND Hospitalist
DX: E11.65 Type 2 diabetes mellitus with hyperglycemia (principal); J44.0 Chronic obstructive pulmonary disease with (acute) lower respiratory infection; J18.9 Pneumonia, unspecified organism; N28.9 Disorder of kidney and ureter, unspecified; E87.1 Hypo-osmolality and hyponatremia; I10 Essential (primary) hypertension; Z91.14 Patient's other noncompliance with medication regimen; Z79.4 Long term (current) use of insulin; E78.5 Hyperlipidemia, unspecified; E03.9 Hypothyroidism, unspecified; Z86.73 Personal history of transient ischemic attack (TIA), and cerebral infarction without residual deficits; K21.9 Gastro-esophageal reflux disease without esophagitis; I73.9 Peripheral vascular disease, unspecified; F12.90 Cannabis use, unspecified, uncomplicated; Z72.0 Tobacco use; E87.6 Hypokalemia; E86.0 Dehydration
CPT/HCPCS: 71010; 76937; 80053; 81001; 82550; 82805; 82948; 83036; 83735; 83880; 84100; 84439; 84443; 84484; 85025; 85610; 85730; 87040; 93005; 94150; 94640; 94664; 96365; 96375; J0456; J0696; J1644; J1815; J2405; J3480; J7030; J7050

== ENCOUNTER 2017-04-20 08:35 | Observation (INO) | payer MEDICARE, OTHER ==
[2017-04-20] VITALS (8 sets, daily range): BP systolic 89–196; BP diastolic 61–101; PULSE 63–86; RESP 16–18; TEMP 97.6–98.8; O2SAT 95–98
[~2017-04-20 08:35] MED LIST changes: -AMLO10 PO; -AMLO10TA2 PO; +POTA20TA5 PO
[2017-04-20 09:23] LABS: BASOPHIL # 0.1 TH/MM3 (0-0.2); EOSINOPHIL # 0.1 TH/MM3 (0-0.4); HEMATOCRIT 41.6 % (39.0-51.0); HEMO FLAGS DIFF FINAL; LYMPH % 22.2 % (9.0-44.0); LYMPHOCYTE # 2.5 TH/MM3 (1.0-4.8); MEAN CELL VOLUME 88.6 FL (80.0-100.0); MEAN CORPUSCULAR HEMOGLOBIN 28.8 PG (27.0-34.0); MEAN CORPUSCULAR HGB CONC 32.5 % (32.0-36.0); MONO % 4.7 % (0.0-8.0); NEUT % 71.1 % (16.0-70.0); PLATELET COUNT 404 TH/MM3 (150-450); RED CELL DISTRIBUTION WIDTH 13.7 % (11.6-17.2); WHITE BLOOD COUNT 11.3 TH/MM3 (4.0-11.0)
[2017-04-20 10:10] LABS: ALKALINE PHOSPHATASE 110 U/L (45-117); ALT (GPT) 18 U/L (12-78); ANION GAP 9 MEQ/L (5-15); AST (GOT) 13 U/L (15-37); BICARBONATE 29.8 MEQ/L (21.0-32.0); BLOOD UREA NITROGEN 35 MG/DL (7-18); CHLORIDE 93 MEQ/L (98-107); GLOMERULAR FILTRATION RATE 56 ML/MIN (>89); POTASSIUM 4.6 MEQ/L (3.5-5.1); SODIUM (NA) 132 MEQ/L (136-145); TOTAL BILIRUBIN ADULT 0.5 MG/DL (0.2-1.0)
[2017-04-20] MEDS ORDERED: INSULIN HUMAN REGULAR 1,000 UNITS/10 ML VIAL IV PUSH ONE (11:00)
[2017-04-20] MEDS ORDERED: SODIUM CHLOR 0.9% 1000 ML INJ 1,000 ML IV ONE ×2 (11:00→13:15)
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
[2017-04-20] MEDS ORDERED: LISINOPRIL 20 MG TAB PO ONE (11:30)
[2017-04-20] MEDS ORDERED: cloNIDine HCL 0.2 MG TAB PO ONE (11:30)
[2017-04-20] MEDS: cloNIDine HCL 0.2 MG TAB PO SCH ×2 (13:15→21:53)
[2017-04-20] MEDS ORDERED: GLUCAGON 1 MG/ML VIAL OTHER PRN (13:15)
[2017-04-20] MEDS ORDERED: DEXTROSE 50% IN WATER 50 ML VIAL(D50) IV PRN (13:15)
[2017-04-20] MEDS: LISINOPRIL 5 MG TAB PO SCH (13:15)
--- NOTE | 2017-04-20 13:21 | HHI.HP ---
[facility] Unknown Admission Diagnosis Acute kidney injury Diagnoses: Travel History International Travel<30 Days: No Contact w/Intl Traveler <30 Da: No Traveled to Known Affected Are: No History of Present Illness 71-year-old white male being admitted for acute kidney injury. Patient is a very poor historian, the only reliable medical history I am able to obtain this from the emergency department staff. Your staff informed me that the patient informed them that his medicines were lost and that he was confused about his regimen and that he just wasn't feeling good. He denies any shortness of breath chest pain, nausea vomiting, diarrhea constipation or any new pain symptoms. Patient says that he told his friends to call the ambulance so that he can get to feeling better. He was most recently admitted with a pneumonia and discharged successfully last month. Review of Systems Except as stated in HPI: all other systems reviewed are Neg Past Family Social History Allergies: Coded Allergies: No Known Allergies (Verified , 04/02/17) Physical Exam Vital Signs Vital Signs Date Time Temp Pulse Resp B/P (MAP) Pulse Ox O2 Delivery O2 Flow Rate FiO2 04/20/17 08:42 98.4 85 18 196/101 (132) 97 Physical Exam VS: Reviewed, afebrile, stable blood pressures GENERAL: No acute distress, awake SKIN: Warm and dry. EYES: No scleral icterus. No injection or drainage. ENT: No nasal bleeding or discharge. Mucous membranes appear dry CARDIOVASCULAR: Regular rate and rhythm. no murmurs RESPIRATORY: No accessory muscle use. Clear to auscultation. Breath sounds equal bilaterally. GASTROINTESTINAL: Abdomen soft, non-tender, nondistended. Hepatic and splenic margins not palpable. MUSCULOSKELETAL: Extremities without clubbing, cyanosis, or edema. No obvious deformities. grossly intact ROM with 5/5 strength in upper and lower extremities proximally. Is able to stand and ambulate with a very steady gait NEUROLOGICAL: Awake and alert. No obvious cranial nerve deficits. No facial droop nor slurred speech noted. PSYCHIATRIC: Appropriate mood and affect; insight and judgment normal. Laboratory Laboratory Tests Test 04/20/17 09:10 White Blood Count 11.3 Red Blood Count 4.70 Hemoglobin 13.5 Hematocrit 41.6 Mean Corpuscular Volume 88.6 Mean Corpuscular Hemoglobin 28.8 Mean Corpuscular Hemoglobin Concent 32.5 Red Cell Distribution Width 13.7 Platelet Count 404 Mean Platelet Volume 9.6 Neutrophils (%) (Auto) 71.1 Lymphocytes (%) (Auto) 22.2 Monocytes (%) (Auto) 4.7 Eosinophils (%) (Auto) 1.0 Basophils (%) (Auto) 1.0 Neutrophils # (Auto) 8.0 Lymphocytes # (Auto) 2.5 Monocytes # (Auto) 0.5 Eosinophils # (Auto) 0.1 Basophils # (Auto) 0.1 CBC Comment DIFF FINAL Differential Comment Blood Urea Nitrogen 35 Creatinine 1.27 Random Glucose 542 Total Protein 7.6 Albumin 3.2 Calcium Level 9.6 Alkaline Phosphatase 110 Aspartate Amino Transf (AST/SGOT) 13 Alanine Aminotransferase (ALT/SGPT) 18 Total Bilirubin 0.5 Sodium Level 132 Potassium Level 4.6 Chloride Level 93 Carbon Dioxide Level 29.8 Anion Gap 9 Estimat Glomerular Filtration Rate 56 Result Diagram: 04/20/1790904/20/1710 Caprini VTE Risk Assessment Caprini VTE Risk Assessment: No/Low Risk (score <= 1) Caprini Risk Assessment Model Point Value = 1 Point Value = 2 Point Value = 3 Point Value = 5 Age 41-60 Minor surgery BMI > 25 kg/m2 Swollen legs Varicose veins or History of unexplained or recurrent spontaneous Oral contraceptives or hormone replacement Sepsis (< 1 month) Serious lung disease, including pneumonia (< 1 month) Abnormal pulmonary function Acute myocardial infarction Congestive heart failure (< 1 month) History of inflammatory bowel disease Medical patient at bed rest Age 61-74 Arthroscopic surgery Major open surgery (> 45 min) Laparoscopic surgery (> 45 min) Malignancy Confined to bed (> 72 hours) Immobilizing plaster cast Central venous access Age >= 75 History of VTE Family history of VTE Factor V Leiden Prothrombin [id number] Lupus anticoagulant Anticardiolipin antibodies Elevated serum homocysteine Heparin-induced thrombocytopenia Other congenital or acquired thrombophilia Stroke (< 1 month) Elective arthroplasty Hip, pelvis, or leg fracture Acute spinal cord injury (< 1 month) Prophylaxis Regimen Total Risk Factor Score Risk Level Prophylaxis Regimen 0-1 Low Early ambulation 2 Moderate Order ONE of the following: *Sequential Compression Device (SCD) *Heparin 5000 units SQ BID 3-4 Higher Order ONE of the following medications: *Heparin 5000 units SQ TID *Enoxaparin/Lovenox 40 mg SQ daily (WT < 150 kg, CrCl > 30 mL/min) *Enoxaparin/Lovenox 30 mg SQ daily (WT < 150 kg, CrCl > 10-29 mL/min) *Enoxaparin/Lovenox 30 mg SQ BID (WT < 150 kg, CrCl > 30 mL/min) AND/OR *Sequential Compression Device (SCD) 5 or more Highest Order ONE of the following medications: *Heparin 5000 units SQ TID (Preferred with Epidurals) *Enoxaparin/Lovenox 40 mg SQ daily (WT < 150 kg, CrCl > 30 mL/min) *Enoxaparin/Lovenox 30 mg SQ daily (WT < 150 kg, CrCl > 10-29 mL/min) *Enoxaparin/Lovenox 30 mg SQ BID (WT < 150 kg, CrCl > 30 mL/min) AND *Sequential Compression Device (SCD) Assessment and Plan Assessment and Plan 71-year-old white male being admitted for acute kidney injury secondary to dehydration Acute kidney injury - 1 L bolus ER, will continue with IVF Uncontrolled hyperglycemia with diabetes - We will transition to medium dose sliding scale with meals and continue his home regimen of 66 units of glargine at night, hypoglycemia protocol active Continue all home other medications including blood pressure medications and cholesterol medications SCDs, low risk Devin Santiago MD Apr 20, 2017 13:21
[2017-04-20] MEDS: LEVOTHYROXINE SODIUM 50 MCG TAB PO SCH (14:06)
[2017-04-20] MEDS: POTASSIUM CHLORIDE 20 MEQ CONTROLLED RELEASE TAB PO SCH (14:06)
[2017-04-20] MEDS: INSULIN ASPART SUPPLEMENTAL SCALE SQ SCH ×2 (16:12→21:00)
[2017-04-20] MEDS ORDERED: INSULIN GLARGINE 1,000 UNITS/10 ML VIAL SQ SCH (21:00)
[2017-04-20] MEDS: ATORVASTATIN 80 MG TAB PO SCH (21:53)
[2017-04-21] VITALS (9 sets, daily range): BP systolic 90–228; BP diastolic 59–103; PULSE 63–96; RESP 16–20; TEMP 97.9–98.7; O2SAT 94–97
[2017-04-21] MEDS: LEVOTHYROXINE SODIUM 50 MCG TAB PO SCH (05:43)
[2017-04-21] MEDS: INSULIN ASPART SUPPLEMENTAL SCALE SQ SCH ×4 (07:55→20:40)
[2017-04-21] MEDS: POTASSIUM CHLORIDE 20 MEQ CONTROLLED RELEASE TAB PO SCH (07:59)
[2017-04-21] MEDS: cloNIDine HCL 0.2 MG TAB PO SCH ×2 (08:00→20:33)
[2017-04-21] MEDS: LISINOPRIL 5 MG TAB PO SCH (08:00)
[2017-04-21] MEDS ORDERED: SODIUM CHLORID 0.9% 500 ML INJ 500 ML IV ONE (09:45)
[2017-04-21] MEDS ORDERED: SODIUM CHLOR 0.9% 1000 ML INJ 1,000 ML IV ONE ×2 (09:45→13:00)
[2017-04-21] MEDS ORDERED: ONDANSETRON HCL 4 MG/2 ML VIAL IV PUSH ONE (11:30)
[2017-04-21 12:03] LABS: BICARBONATE 28.3 MEQ/L (21.0-32.0)
[2017-04-21 12:06] LABS: POTASSIUM 4.3 MEQ/L (3.5-5.1)
[2017-04-21] MEDS ORDERED: METOCLOPRAMIDE HCL 10 MG/2 ML VIAL IV PUSH ONE (13:00)
[2017-04-21] MEDS: SODIUM CHLOR 0.9% 1000 ML INJ 1,000 ML IV SCH ×2 (13:19→23:08)
--- NOTE | 2017-04-21 17:17 | HHI.PR ---
Subjective Remarks Earlier this morning, the patient says he was doing well and wanting to go home. Nursing reports that the patient did have hypoglycemia in the 50s and responded well with simply by mouth supplementation Patient did eat breakfast; and unfortunately sometime before lunch the patient began vomiting repetitively with a little blood tinge emesis. Zofran did not help but Reglan did. Patient does have a history of uncontrolled diabetes Objective Vital Signs Date Time Temp Pulse Resp B/P (MAP) Pulse Ox O2 Delivery O2 Flow Rate FiO2 04/21/17 16:11 71 04/21/17 12:57 180/88 (118) 04/21/17 11:19 98.5 73 17 228/103 (144) 96 160/90 (113) 04/21/17 07:28 98.5 68 16 94 90/64 (73) 04/21/17 03:15 97.9 63 16 92/59 (70) 97 04/20/17 23:50 98.8 64 18 95/61 (72) 97 04/20/17 23:45 98.4 66 18 89/61 (70) 95 04/20/17 21:37 98.4 74 18 164/68 (100) 97 I/O 04/20/17 04/20/17 04/20/17 04/21/17 04/21/17 04/21/17 07:00 15:00 23:00 07:00 15:00 23:00 Intake Total 1000 ml 240 ml 2800 ml Balance 1000 ml 240 ml 2800 ml Intake Oral 240 ml 600 ml IV Total 1000 ml 2200 ml # Voids 1 # Bowel Movements 0 Result Diagram: 04/20/17 0910 04/21/17916 Objective Remarks No acute distress Lying in bed, awake, alert Abdomen soft, nondistended A/P Assessment and Plan 71-year-old white male being admitted for acute kidney injury secondary to dehydration New problem nausea vomiting - Suspect this is due to diabetic gastroparesis since it improved with Reglan and patient does have a history of uncontrolled diabetes. We'll continue Reglan IV and have him transition to by mouth tomorrow if he tolerates dinner well tonight. - Given additional normal saline boluses and started maintenance fluids - CMP in AM, cbc in AM as well but if he has mild leukocytosis without a significant left shift this is likely stress induced as opposed to infection based Acute kidney injury - improving, continue IVFs as above Uncontrolled hyperglycemia with diabetes - We will transition to medium dose sliding scale with meals, I will reduce his Lantus dose to 50 since the patient did have hypoglycemia this morning Continue all home other medications including blood pressure medications and cholesterol medications starting lovenox given that the patient's risk is increased Devin Santiago MD Apr 21, 2017 17:17
[2017-04-21] MEDS: METOCLOPRAMIDE HCL 10 MG/2 ML VIAL IV PUSH SCH ×2 (17:44→23:08)
[2017-04-21] MEDS ORDERED: ENOXAPARIN SODIUM 30 MG/0.3 ML SYRINGE SQ SCH (18:00)
[2017-04-21] MEDS: ATORVASTATIN 80 MG TAB PO SCH (20:34)
[2017-04-21] MEDS ORDERED: INSULIN DETEMIR 100 UNITS/ML VIAL SQ SCH (21:00)
[2017-04-22] VITALS (7 sets, daily range): BP systolic 98–178; BP diastolic 57–89; PULSE 61–74; RESP 16–20; TEMP 97.5–98.4; O2SAT 97–99
[2017-04-22] MEDS: LEVOTHYROXINE SODIUM 50 MCG TAB PO SCH (06:19)
[2017-04-22] MEDS: METOCLOPRAMIDE HCL 10 MG/2 ML VIAL IV PUSH SCH (06:20)
[2017-04-22] MEDS: INSULIN ASPART SUPPLEMENTAL SCALE SQ SCH ×2 (08:00→12:00)
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
[2017-04-22] MEDS: cloNIDine HCL 0.1 MG TAB PO SCH ×2 (08:44→15:31)
[2017-04-22] MEDS: POTASSIUM CHLORIDE 20 MEQ CONTROLLED RELEASE TAB PO SCH (08:47)
[2017-04-22] MEDS: SODIUM CHLOR 0.9% 1000 ML INJ 1,000 ML IV SCH (08:47)
[2017-04-22] MEDS ORDERED: LISINOPRIL 10 MG TAB PO SCH (09:00)
[2017-04-22 09:05] LABS: AUTOMATED NEUTROPHIL # 9.6 TH/MM3 (1.8-7.7); BASOPHIL # 0.1 TH/MM3 (0-0.2); BASOPHIL % 0.4 % (0.0-2.0); EOSINOPHIL # 0.1 TH/MM3 (0-0.4); EOSINOPHIL % 0.8 % (0.0-4.0); HEMATOCRIT 40.6 % (39.0-51.0); HEMO FLAGS DIFF FINAL; LYMPH % 22.8 % (9.0-44.0); LYMPHOCYTE # 3.1 TH/MM3 (1.0-4.8); MEAN CELL VOLUME 89.2 FL (80.0-100.0); MEAN CORPUSCULAR HEMOGLOBIN 28.9 PG (27.0-34.0); MEAN CORPUSCULAR HGB CONC 32.4 % (32.0-36.0); MONO % 5.7 % (0.0-8.0); NEUT % 70.3 % (16.0-70.0); PLATELET COUNT 346 TH/MM3 (150-450); RED BLOOD COUNT 4.55 MIL/MM3 (4.50-5.90); WHITE BLOOD COUNT 13.6 TH/MM3 (4.0-11.0)
[2017-04-22] MEDS ORDERED: METOCLOPRAMIDE HCL 10 MG TAB PO SCH (12:00)
[2017-04-22] MEDS ORDERED: cloNIDine HCL 0.1 MG TAB PO ONE (13:45)
[2017-04-22] MEDS ORDERED: LISI10TA3 PO (15:21)
[2017-04-22] MEDS ORDERED: CLON.1 PO (15:21)
[2017-04-22] MEDS ORDERED: LEVEMIR SQ (15:21)
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
[2017-04-22] MEDS ORDERED: INSULIN DETEMIR 100 UNITS/ML VIAL SQ SCH (21:00)
[2017-04-23] MEDS ORDERED: LISINOPRIL 10 MG TAB PO SCH (09:00)
== END 2017-04-22 17:05 | disposition home or self-care (01) ==
LOC: NEPC 08:35 → NEDH 11:53 → NEPFCDU 14:04
PROVIDERS: ADMIT Internal Medicine; ATTEND Internal Medicine
DX: N17.9 Acute kidney failure, unspecified (principal); I10 Essential (primary) hypertension; E03.9 Hypothyroidism, unspecified; R35.0 Frequency of micturition; E78.00 Pure hypercholesterolemia, unspecified; J44.9 Chronic obstructive pulmonary disease, unspecified; Z72.0 Tobacco use; E11.65 Type 2 diabetes mellitus with hyperglycemia
CPT/HCPCS: 80048; 80053; 82270; 82948; 85025; 96361; 96372; 96374; 96375; 96376; 97162; 99285; G0378; G8987; G8988; J1650; J1815; J2405; J2765; J7030; J7040

== ENCOUNTER 2017-04-27 17:46 | Inpatient (IN) | payer OTHER, MEDICARE ==
[2017-04-27] VITALS (17 sets, daily range): BP systolic 100–217; BP diastolic 62–109; PULSE 80–127; RESP 12–38; TEMP 98.7–101.5; O2SAT 94–100
[~2017-04-27] VITALS: Ht 170.2 cm; Wt 62.5 kg
[~2017-04-27 17:46] MED LIST changes: +CLON.1 PO; -CLON0.2T PO; -LANTUS2P SQ; +LEVEMIR SQ; -LISI-515 PO; +LISI10TA3 PO; -POTA20TA5 PO; -UMEC1AER INH
[2017-04-27] MEDS ORDERED: SODIUM CHLOR 0.9% 1000 ML INJ 1,000 ML IV ONE ×4 (17:50→20:45)
[2017-04-27] MEDS ORDERED: ONDANSETRON HCL 4 MG/2 ML VIAL ONE (17:56)
[2017-04-27] MEDS ORDERED: SODIUM CHLORIDE 0.9% FLUSH 10 ML FLUSH IVF PRN (18:00)
[2017-04-27] MEDS ORDERED: LORazepam 2 MG/ML VIAL IV PUSH ONE ×2 (18:00→18:30)
[2017-04-27] MEDS ORDERED: HALOPERIDOL LACTATE 5 MG/ML AMP ONE (18:04)
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
[2017-04-27] MEDS ORDERED: ONDANSETRON HCL 4 MG/2 ML VIAL IV PUSH ONE (18:15)
[2017-04-27] MEDS ORDERED: HALOPERIDOL LACTATE 5 MG/ML AMP IM ONE (18:15)
[2017-04-27 18:28] LABS: BLOOD GAS BASE EXCESS 1.9 mmol/L (-2-2); BLOOD GAS CARBOXYHEMOGLOBIN 0.9 % (0-4); BLOOD GAS HCO3 27 mmol/L (22-26); BLOOD GAS METHEMOGLOBIN 0.6 % (0-2); BLOOD GAS O2 HGB SATURATION 92 % (90-100); BLOOD GAS PCO2 49 mmHg (38-42); BLOOD GAS PO2 73 mmHG (61-120); BLOOD GAS TOTAL HGB 13.1 G/DL (12.0-16.0); CRITICAL VALUE NO; OXYGEN DEVICE NASAL CANNULA; TEMP CORR TO 98.6
[2017-04-27 18:29] LABS: DRAW SITE LT BRACHIAL; LITER FLOW 2 L/M; NUMBER OF ARTERIAL PUNCTURES 1; STAT YES; ULNAR PULSE Y
[2017-04-27 18:31] LABS: AUTOMATED NEUTROPHIL # 23.6 TH/MM3 (1.8-7.7); BASOPHIL # 0.1 TH/MM3 (0-0.2); BASOPHIL % 0.3 % (0.0-2.0); HEMATOCRIT 42.3 % (39.0-51.0); HEMO FLAGS DIFF FINAL; LYMPH % 6.8 % (9.0-44.0); LYMPHOCYTE # 1.9 TH/MM3 (1.0-4.8); MEAN CELL VOLUME 89.1 FL (80.0-100.0); MEAN CORPUSCULAR HEMOGLOBIN 28.8 PG (27.0-34.0); MEAN CORPUSCULAR HGB CONC 32.3 % (32.0-36.0); MONO % 6.5 % (0.0-8.0); NEUT % 86.4 % (16.0-70.0); PLATELET COUNT 393 TH/MM3 (150-450); RED BLOOD COUNT 4.74 MIL/MM3 (4.50-5.90); WHITE BLOOD COUNT 27.3 TH/MM3 (4.0-11.0)
[2017-04-27 18:44] LABS: ANION GAP 11 MEQ/L (5-15); AST (GOT) 21 U/L (15-37); BICARBONATE 29.5 MEQ/L (21.0-32.0); BLOOD UREA NITROGEN 15 MG/DL (7-18); CHLORIDE 93 MEQ/L (98-107); GLOMERULAR FILTRATION RATE 48 ML/MIN (>89); MAGNESIUM 1.3 MG/DL (1.5-2.5); SODIUM (NA) 133 MEQ/L (136-145)
[2017-04-27 18:51] LABS: BLOOD, URINE NEG (NEG); COMMENT (UR) CULT NOT INDICATED; CULTURE IF INDICATED CULT NOT INDICATED; GLUCOSE,URINE 1000 mg/dL (NEG); HYALINE CAST, URINE 1 /lpf (RARE); KETONE, URINE NEG (NEG); MUCUS URINE FEW /lpf (OCC); NITRITE,URINE NEG (NEG); PH, URINE 5.5 (5.0-8.5); SQUAMOUS EPITHELIAL CELL URINE <1 /hpf (0-5); URINE COLOR YELLOW (YELLW/STRAW)
--- NOTE | 2017-04-27 18:51 | RADRPT ---
EXAM DATE/TIME: 04/27/2017 18:31 [facility] COMPARISON: CHEST SINGLE AP, April 02, 2017, 8:54. INDICATIONS : Shortness of breath. MEDICAL HISTORY : Unobtainable. SURGICAL HISTORY : Unobtainable. ENCOUNTER: Initial ACUITY: 1 day PAIN SCORE: Non-responsive. LOCATION: chest FINDINGS: A single view of the chest demonstrates the lungs to be symmetrically aerated without evidence of mas s, infiltrate or effusion. The cardiomediastinal contours are unremarkable. Osseous structures are intact. CONCLUSION: No acute disease. Juan Gamez MD on April 27, 2017 at 18:48 Board Certified Radiologist. This report was verified electronically.
[2017-04-27 18:57] LABS: ALKALINE PHOSPHATASE 100 U/L (45-117); ALT (GPT) 24 U/L (12-78); BETA-HYDROXYBUTYRATE 0.33 MMOL/L (0.00-0.39); TOTAL BILIRUBIN ADULT 0.5 MG/DL (0.2-1.0)
--- NOTE | 2017-04-27 19:08 | PD ---
Physical Exam Date Seen by Provider: Apr 27, 2017 Time Seen by Provider: 19:05 Narrative The patient is a 71-year-old male who was initially evaluated by the previous physician, Dr. Sheth. Please refer to the initial history, physical, diagnostic evaluation, and treatment modality plan. The patient apparently presented with altered mental status and elevated heart rate. Patient was signed out at 7 PM laboratory evaluation and CT of the brain pending. Data Data Last Documented VS Vital Signs Date Time Temp Pulse Resp B/P (MAP) Pulse Ox O2 Delivery O2 Flow Rate FiO2 04/27/17 21:00 101.3 89 16 179/91 (120) 100 Ventilator 50 04/27/17 18:22 2.00 Orders Orders Complete Blood Count With Diff (04/27/17 17:50) Comprehensive Metabolic Panel (04/27/17 17:50) Magnesium (Mg) (04/27/17 17:50) Beta Hydroxybutyrate (Acetone) (04/27/17 17:50) Osmolality,Serum (04/27/17 17:50) Urinalysis - C+S If Indicated (04/27/17 17:50) Chest, Single Ap (04/27/17 17:50) Arterial Blood Gas (Abg) (04/27/17 17:50) Blood Glucose (04/27/17 17:50) Blood Glucose (04/27/17 18:20) Blood Glucose (04/27/17 17:50) Blood Glucose (04/27/17 18:50) Blood Glucose (04/27/17 17:50) Ecg Monitoring (04/27/17 17:50) Iv Access Insert/Monitor (04/27/17 17:50) Oximetry (04/27/17 17:50) NPO (04/27/17 17:50) Sodium Chlor 0.9% 1000 Ml Inj (Ns 1000 M (04/27/17 17:50) Sodium Chlor 0.9% 1000 Ml Inj (Ns 1000 M (04/27/17 18:20) Sodium Chloride 0.9% Flush (Ns Flush) (04/27/17 18:00) Ct Brain W/O Iv Contrast(Rout) (04/27/17 17:50) ^ Straight Catheter (04/27/17 17:53) Lorazepam Inj (Ativan Inj) (04/27/17 18:00) Ondansetron Inj (Zofran Inj) (04/27/17 17:56) Ondansetron Inj (Zofran Inj) (04/27/17 18:15) Haloperidol Inj (Haldol Inj) (04/27/17 18:15) Haloperidol Inj (Haldol Inj) (04/27/17 18:04) Drug Screen, Random Urine (04/27/17 18:07) Salicylates (Aspirin) (04/27/17 18:07) B-Type Natriuretic Peptide (04/27/17 18:27) Ckmb (Isoenzyme) Profile (04/27/17 18:27) Troponin I (04/27/17 18:27) Prothrombin Time / Inr (Pt) (04/27/17 18:27) Act Partial Throm Time (Ptt) (04/27/17 18:27) Lorazepam Inj (Ativan Inj) (04/27/17 18:30) Lactic Acid Sepsis Protocol (04/27/17 18:49) Blood Culture (04/27/17 18:49) Etomidate Inj (Amidate Inj) (04/27/17 19:15) Succinylcholine Inj (Quelicin Inj) (04/27/17 19:15) Chest, Single Ap (04/27/17 ) Propofol 1000 Mg/100 Ml Inj (Diprivan 10 (04/27/17 19:22) Tylenol (Acetaminophen) (04/27/17 18:27) Alcohol (Ethanol) (04/27/17 18:27) Thyroid Stimulating Hormone (04/27/17 18:27) Sodium Chlor 0.9% 1000 Ml Inj (Ns 1000 M (04/27/17 19:30) Propofol 1000 Mg/100 Ml Inj (Diprivan 10 (04/27/17 19:30) ^ Infusion (04/27/17 19:30) RASS (04/27/17 19:30) Neurological Rass Scale ALE.Q2H (04/27/17 19:30) Electrocardiogram (04/27/17 18:28) Csf Cell Count + Differential (04/27/17 19:53) Glucose, Csf (04/27/17 19:53) Total Protein, Csf (04/27/17 19:53) Csf Culture And Gram Stain (04/27/17 19:53) Csf Hsv I/Ii Dna,Pcr (04/27/17 19:53) Ceftriaxone Inj (Rocephin Inj) (04/27/17 20:00) Acyclovir Inj (Zovirax Inj) (04/27/17 20:00) Vancomycin Inj (Vancomycin Inj) (04/27/17 20:00) CKMB (04/27/17 18:00) CKMB% (04/27/17 18:00) Insulin Aspart Inj (Novolog Inj) (04/27/17 20:30) Insulin Human Regular Inj (Novolin R Inj (04/27/17 20:30) Sodium Chlor 0.9% 1000 Ml Inj (Ns 1000 M (04/27/17 20:45) Admit Order (Ed Use Only) (04/27/17 21:07) Labs Laboratory Tests Test 04/27/17 18:00 04/27/17 18:07 04/27/17 18:19 04/27/17 18:51 White Blood Count 27.3 TH/MM3 Red Blood Count 4.74 MIL/MM3 Hemoglobin 13.6 GM/DL Hematocrit 42.3 % Mean Corpuscular Volume 89.1 FL Mean Corpuscular Hemoglobin 28.8 PG Mean Corpuscular Hemoglobin Concent 32.3 % Red Cell Distribution Width 14.0 % Platelet Count 393 TH/MM3 Mean Platelet Volume 10.4 FL Neutrophils (%) (Auto) 86.4 % Lymphocytes (%) (Auto) 6.8 % Monocytes (%) (Auto) 6.5 % Eosinophils (%) (Auto) 0.0 % Basophils (%) (Auto) 0.3 % Neutrophils # (Auto) 23.6 TH/MM3 Lymphocytes # (Auto) 1.9 TH/MM3 Monocytes # (Auto) 1.8 TH/MM3 Eosinophils # (Auto) 0.0 TH/MM3 Basophils # (Auto) 0.1 TH/MM3 CBC Comment DIFF FINAL Differential Comment Urine Color YELLOW Urine Turbidity CLEAR Urine pH 5.5 Urine Specific [place] 1.030 Urine Protein 30 mg/dL Urine Glucose (UA) 1000 mg/dL Urine Ketones NEG mg/dL Urine Occult Blood NEG Urine Nitrite NEG Urine Bilirubin NEG Urine Urobilinogen LESS THAN 2.0 MG/DL Urine Leukocyte Esterase NEG Urine WBC 1 /hpf Urine Squamous Epithelial Cells <1 /hpf Urine Hyaline Casts 1 /lpf Urine Mucus FEW /lpf Microscopic Urinalysis Comment CULT NOT INDICATED Blood Urea Nitrogen 15 MG/DL Creatinine 1.45 MG/DL Random Glucose 556 MG/DL Total Protein 7.4 GM/DL Albumin 3.4 GM/DL Calcium Level 9.5 MG/DL Magnesium Level 1.3 MG/DL Alkaline Phosphatase 100 U/L Aspartate Amino Transf (AST/SGOT) 21 U/L Alanine Aminotransferase (ALT/SGPT) 24 U/L Total Bilirubin 0.5 MG/DL Sodium Level 133 MEQ/L Potassium Level 4.0 MEQ/L Chloride Level 93 MEQ/L Carbon Dioxide Level 29.5 MEQ/L Anion Gap 11 MEQ/L Estimat Glomerular Filtration Rate 48 ML/MIN Total Creatine Kinase 179 U/L Creatine Kinase MB 6.1 NG/ML Troponin I 0.17 NG/ML B-Type Natriuretic Peptide 150 PG/ML Thyroid Stimulating Hormone 3rd Gen 1.770 uIU/ML Salicylates Level LESS THAN 1.7 MG/DL Urine Opiates Screen NEG Acetaminophen Level LESS THAN 2.0 MCG/ML Urine Barbiturates Screen NEG Urine Amphetamines Screen NEG Urine Benzodiazepines Screen NEG Urine Cocaine Screen NEG Urine Cannabinoids Screen NEG Ethyl Alcohol Level LESS THAN 3 MG/DL B-Hydroxybutyrate 0.33 MMOL/L Blood Gas Puncture Site LT BRACHIAL Blood Gas Patient Temperature 98.6 Blood Gas HCO3 27 mmol/L Blood Gas Base Excess 1.9 mmol/L Blood Gas Oxygen Saturation 92 % Arterial Blood pH 7.36 Arterial Blood Partial Pressure CO2 49 mmHg Arterial Blood Partial Pressure O2 73 mmHG Arterial Blood Oxygen Content 17.0 Vol % Arterial Blood Carboxyhemoglobin 0.9 % Arterial Blood Methemoglobin 0.6 % Blood Gas Hemoglobin 13.1 G/DL Oxygen Delivery Device NASAL CANNULA Blood Gas Liter Flow 2 L/M Serum Osmolality 320 MOSM/KG Prothrombin Time 11.2 SEC Prothromb Time International Ratio 1.0 RATIO Activated Partial Thromboplast Time 22.9 SEC Test 04/27/17 19:05 04/27/17 19:50 Lactic Acid Level 4.9 mmol/L CSF Volume (Tube 1) 1.0 ML CSF Supernatant Color (tube 1) CLEAR CSF Gross Blood (Tube 1) TRACE CSF Volume (Tube 2) 1.0 ML CSF Supernatant Color (tube 2) CLEAR CSF Gross Blood (Tube 2) TRACE CSF Volume (Tube 3) 0.7 ML CSF Supernatant Color (tube 3) CLEAR CSF Volume (Tube 4) 0.9 ML CSF Supernatant Color (tube 4) CLEAR CSF WBC (Tube 4) 15 /MM3 CSF RBC (Tube 4) 45 /MM3 CSF Neutrophils 17 % CSF Lymphocytes 75 % CSF Monocytes 8 % CSF Glucose 245 MG/DL CSF Total Protein 57.0 MG/DL [facility] Medical Record Reviewed: Yes Supervised Visit with BETY: No Interpretation(s) EKG reveals sinus tachycardia with a heart rate of 130. Q waves noted in lead 2 , 3, and aVF. Wavy baseline. Differential Diagnosis Differential diagnosis includes encephalitis, meningitis, DKA, hyperglycemia, dehydration, UTI, pneumonia, viral syndrome, delirium, medication side effect. Narrative Course The patient was initially evaluated by the previous physician, Dr. Sheth. Please refer to the initial history, physical, diagnostic evaluation, and treatment modality plan. Patient was signed out at 7 PM laboratory evaluation and CT the brain pending. I evaluated the patient at 7:05 PM, the patient was tachycardic, fasciculating, had a left gaze, and no gag reflex. Therefore, the patient was intubated using rapid sequence intubation. The patient was administered a liter of IV fluid bolus and placed on a propofol drip. The patient was then placed in left lateral decubitus position in an lumbar puncture was performed to evaluate for possible meningitis/encephalitis. Lumbar puncture was performed, clear liquid was noted. Doubtful to be bacterial meningitis, possibly could be viral meningitis as patient appeared to have seizure activity with altered mental status, elevated white count, and SIRS criteria. The patient was covered with Rocephin, vancomycin, and acyclovir until culture results and Gram stain were noted. The on-call cotton machine operator was paged for admission. Critical Care Narrative Aggregate critical care time was 45 minutes. Time to perform other separately billable procedures was not included in the critical care time. My time did not include minutes spent treating any other patients simultaneously or on activities that did not directly contribute to the patient's treatment. The services I provided to this patient were to treat and/or prevent clinically significant deterioration that could result in: Anoxia, hypoxia, aspiration, seizure, rhabdomyolysis, . I provided critical care services requiring my management, as noted below: Chart data review, documentation time, medication orders and management, vital sign assessments/reviewing monitor data, ordering and reviewing lab tests, ordering and interpreting/reviewing x-rays and diagnostic studies, care of the patient and discussion of the patient with the admitting physicians. Procedures Procedure Narrative INTUBATION: The patient was put in optimal position for the procedure. Rapid sequence intubation was initiated by me using 20 milligrams of etomidate IV and 100 milligrams of succinylcholine IV. The patient was intubated with a 8-0 cuffed endotracheal tube. Tube placement was confirmed by visualization of the tube and balloon passing through the cords, capnometry and subsequent chest x- ray. Breath sounds were equal and well aerated bilaterally postintubation. No breath sounds over stomach. Patient tolerated procedure well. After the risks and benefits were discussed the following procedure was performed: LUMBAR PUNCTURE: The patient was placed in the left lateral decubitus position. The lumbar area of the back was prepped with Betadine and sterilely draped. The L3 -- L4 interspace was infiltrated with 1% lidocaine plain. Number 20 gauge LP needle was placed in the interspace. Opening pressure deferred. Number 6 milliliters of clear CSF were obtained. Patient tolerated procedure well. Sepsis Criteria SIRS Criteria (2 or more): Heart rate over 90, WBC > 23885, < 4000 or > 10% bands Physician Communication Physician Communication The on-call cotton machine operator was paged for admission. Diagnosis Primary Impression: Altered mental status Qualified Codes: R41.0 - Disorientation, unspecified Additional Impression: SIRS (systemic inflammatory response syndrome) Condition: Critical Nabor Baez MD Apr 27, 2017 19:08
[2017-04-27] MEDS ORDERED: ETOMIDATE 20 MG/10 ML VIAL IV PUSH ONE (19:15)
[2017-04-27] MEDS ORDERED: SUCCINYLCHOLINE CHLORIDE 100 MG/5 ML SYRINGE IV PUSH ONE (19:15)
--- NOTE | 2017-04-27 19:15 | RADRPT ---
EXAM DATE/TIME: 04/27/2017 18:47 [facility] COMPARISON: CT BRAIN W/O CONTRAST, November 08, 2014, 15:25. INDICATIONS : Altered mental status. RADIATION DOSE: 56.35 CTDIvol (mGy) MEDICAL HISTORY : Cardiovascular disease. Hypertension. diabetes SURGICAL HISTORY : None. ENCOUNTER: Initial ACUITY: 1 day PAIN SCALE: Non-responsive LOCATION: Bilateral head TECHNIQUE: Multiple contiguous axial images were obtained of the head. Using automated exposure control and adj ustment of the mA and/or kV according to patient size, radiation dose was kept as low as reasonably a chievable to obtain optimal diagnostic quality images. DICOM format image data is available electro nically for review and comparison. FINDINGS: CEREBRUM: There is diffuse moderate atrophic change with sulcal and ventricular prominence. There is a low atte nuation area of encephalomalacia now noted in the left frontal lobe. There is also an area of decreas ed attenuation involving the posterior left temporal parietal region. There are small lacunar infarct s in the basal ganglia. No evidence of midline shift, mass lesion, hemorrhage or acute infarction. N o extra-axial fluid collections are seen. POSTERIOR FOSSA: The cerebellum and brainstem are intact. The 4th ventricle is midline. The cerebellopontine angle i s unremarkable. EXTRACRANIAL: The visualized portion of the orbits is intact. SKULL: The calvaria is intact. No evidence of skull fracture. CONCLUSION: 1. No acute hemorrhage or mass effect. 2. 2 area of low attenuation encephalomalacia involving left frontal lobe most consistent with an int erval infarct. 3. Low attenuation area involving the posterior left temporal parietal region which is more nonspecif ic but more likely likely is also chronic. Juan Gamez MD on April 27, 2017 at 19:10 Board Certified Radiologist. This report was verified electronically.
[2017-04-27] MEDS ORDERED: PROPOFOL 1000 MG/100 ML INJ 100 ML ONE (19:22)
[2017-04-27] MEDS ORDERED: PROPOFOL 1000 MG/100 ML INJ 100 ML IV PRN ×2 (19:30→21:15)
[2017-04-27 19:37] LABS: APTT (PATIENT) 22.9 SEC (24.3-30.1); PROTHROMBIN TIME - PATIENT 11.2 SEC (9.8-11.6)
[2017-04-27 19:49] LABS: ACETAMINOPHEN LESS THAN 2.0 MCG/ML (10.0-30.0); ALCOHOL LESS THAN 3 MG/DL (0-5)
[2017-04-27 19:57] LABS: CREATINE KINASE 179 U/L (39-308)
[2017-04-27] MEDS ORDERED: cefTRIAXone INJ 2,000 MG in SODIUM CHLORIDE 0.9% INJ 100 ML IV ONE (20:00)
[2017-04-27] MEDS ORDERED: SODIUM CHLORIDE 0.9% IV ONE (20:00)
[2017-04-27] MEDS ORDERED: VANCOMYCIN INJ 1,000 MG in SODIUM CHLOR 0.9% 250 ML INJ 250 ML IV ONE (20:00)
[2017-04-27] MEDS ORDERED: ACYCLOVIR IV ONE (20:00)
[2017-04-27 20:09] LABS: CKMB 6.1 NG/ML (0.5-3.6)
[2017-04-27] MEDS ORDERED: INSULIN HUMAN REGULAR 1,000 UNITS/10 ML VIAL IV PUSH ONE (20:30)
[2017-04-27] MEDS ORDERED: INSULIN ASPART 1,000 UNITS/10 ML VIAL SQ ONE (20:30)
--- NOTE | 2017-04-27 20:33 | RADRPT ---
EXAM DATE/TIME: 04/27/2017 19:57 [facility] COMPARISON: CHEST SINGLE AP, April 27, 2017, 18:31. INDICATIONS : Shortness of breath. The patient is status post intubation. MEDICAL HISTORY : Cardiovascular disease. Hypertension. diabetes SURGICAL HISTORY : None. ENCOUNTER: Initial ACUITY: 1 day PAIN SCORE: Non-responsive. LOCATION: Bilateral chest FINDINGS: A single AP portable supine view of the chest was obtained and demonstrates interval intubation with the endotracheal tube tip 4 cm above the amarilis. A nasogastric tube has been placed and is seen cours ing through the esophagus and into the stomach. The lungs appear mildly hyperinflated with no infiltr ates or effusions. The heart size remains within normal limits with no perihilar edema. Overlying sydnee ctrocardiogram leads are present. The bony thorax is intact. CONCLUSION: 1. Middle intubation and placement of nasogastric tube. 2. The lungs are mildly hyperinflated with no evidence of pneumonia or pulmonary edema. Juan Gamez MD on April 27, 2017 at 20:29 Board Certified Radiologist. This report was verified electronically.
[2017-04-27] MEDS ORDERED: SODIUM CHLOR 0.9% 1000 ML INJ 1,000 ML IV SCH (21:10)
[2017-04-27] MEDS ORDERED: MAGNESIUM HYDROXIDE SUSP 30 ML CUP PO PRN (21:15)
[2017-04-27] MEDS ORDERED: BISACODYL 10 MG SUPP RECTAL PRN (21:15)
[2017-04-27] MEDS ORDERED: FOSPHENYTOIN INJ 1,000 MGPE in SODIUM CHLORIDE 0.9% INJ 50 ML IV ONE (21:15)
[2017-04-27] MEDS ORDERED: ACETAMINOPHEN 325 MG TAB PO PRN (21:15)
[2017-04-27] MEDS ORDERED: LACTULOSE SYRUP 20 GM/30 ML CUP PO PRN (21:15)
[2017-04-27] MEDS ORDERED: MISCELLANEOUS NURSING INFORMATION XX SCH (21:15)
[2017-04-27] MEDS ORDERED: SENNOSIDES 8.6 MG TAB PO PRN (21:15)
[2017-04-27] MEDS ORDERED: SODIUM CHLORIDE 0.9% FLUSH 10 ML FLUSH IV FLUSH PRN (21:15)
[2017-04-27] MEDS ORDERED: CHLORHEXIDINE GLUCONATE 2 % 1 PACK (2 CLOTHS) TOP PRN (21:15)
[2017-04-27] MEDS ORDERED: RESP: ALBUTEROL 2.5 MG/3 ML NEB (PRN) INH (21:15)
[2017-04-27 21:34] LABS: BLOOD GAS BASE EXCESS 0.5 mmol/L (-2-2); BLOOD GAS CARBOXYHEMOGLOBIN 0.8 % (0-4); BLOOD GAS HCO3 25 mmol/L (22-26); BLOOD GAS METHEMOGLOBIN 0.6 % (0-2); BLOOD GAS O2 HGB SATURATION 98 % (90-100); BLOOD GAS OXYGEN CONTENT 14.9 Vol % (12.0-20.0); BLOOD GAS PCO2 46 mmHg (38-42); BLOOD GAS PO2 195 mmHG (61-120); BLOOD GAS TOTAL HGB 10.5 G/DL (12.0-16.0); CRITICAL VALUE NO; OXYGEN DEVICE VENT; TEMP CORR TO 98.6
[2017-04-27 21:35] LABS: DRAW SITE RT RADIAL; FIO2 50 %; NUMBER OF ARTERIAL PUNCTURES 1; STAT YES; ULNAR PULSE PRESENT
[2017-04-27 21:40] LABS: LACTIC ACID GHOST NOT REPORTABLE
[2017-04-27] MEDS ORDERED: GADODIAMIDE PF 287 MG/ML 20 ML VIAL (for RAD MRI) IVCONTRAST ONE (22:11)
[2017-04-27 22:24] LABS: GROSS BLOOD TUBE #1 TRACE (0); GROSS BLOOD TUBE #2 TRACE (0); SUPERNATE COLOR TUBE #1 CLEAR (CLEAR); SUPERNATE COLOR TUBE #2 CLEAR (CLEAR); SUPERNATE COLOR TUBE #3 CLEAR (CLEAR); VOLUME TUBE # 3 0.7 ML
[2017-04-27 22:25] LABS: VOLUME TUBE # 4 0.9 ML
[2017-04-27 22:26] LABS: CSF LYMPHOCYTES 75 %; CSF NEUTROPHILS 17 %; SUPERNATE COLOR TUBE #4 CLEAR (CLEAR); WBC TUBE #4 15 /MM3 (0-10)
[2017-04-27 22:27] LABS: CSF MONOCYTES 8 %
--- NOTE | 2017-04-27 22:41 | RADRPT ---
EXAM DATE/TIME: 04/27/2017 21:57 [facility] COMPARISON: No previous studies available for comparison. INDICATIONS : Altered mental status. CONTRAST: 12 cc Omniscan (gadodiamide) IV MEDICAL HISTORY : Chronic obstructive pulmonary disease. Diabetes mellitus type 2. Hypertension. SURGICAL HISTORY : Tonsillectomy. Carotid endarterectomy. ENCOUNTER: Initial ACUITY: 1 day PAIN SCORE: 0/10 LOCATION: cranial TECHNIQUE: Multiplanar, multisequence MRI of the brain was performed both prior to and following the administrat ion of paramagnetic contrast. FINDINGS: CEREBRUM: The ventricles are normal for age with diffuse moderate atrophic change. There is a focal area of enc ephalomalacia and gliosis involving the left frontal lobe. There is a second area of gliosis involvin g the inferior temporal parietal junction. There is also a subtle area of gliosis involving the left occipital lobe. There is no restricted diffusion in any of these regions. No evidence of midline shif t, mass lesion, hemorrhage or acute infarction. No extraaxial fluid collections are seen. The pitui tary gland and suprasellar cistern are normal in configuration. There is small lacunar infarcts in th e basal ganglia. WHITE MATTER: On the flair weighted images there is increased signal in the periventricular white matter. POSTERIOR FOSSA: The cerebellum and brainstem are intact. The 4th ventricle is midline. The cerebellopontine angle is unremarkable. The cerebellar tonsils are normal in position. DIFFUSION IMAGING: No focal areas of restricted diffusion are seen. No evidence of acute infarction. EXTRACRANIAL: The visualized portions of the orbits are unremarkable. There is mild mucosal thickening in the ethmo idal air cells and POST-CONTRAST: No abnormal areas of parenchymal or dural enhancement. No evidence of blood-brain barrier breakdown. CONCLUSION: 1. No acute hemorrhage or infarction. 2. Old area of encephalomalacia involving left frontal lobe with gliosis. 3. Areas of apparent gliosis involving the left inferior temporal parietal junction and left occipita l lobe.. 4. Moderate atrophic change and chronic small vessel ischemic changes. Juan Gamez MD on April 27, 2017 at 22:32 Board Certified Radiologist. This report was verified electronically.
--- NOTE | 2017-04-27 23:39 | HHI.HP ---
[facility] Critical Care Medicine Primary Care Physician Unknown Admission Diagnosis altered mental status rule out encephalitis, SIRS, hyperglycemia Diagnosis: Travel History International Travel<30 Days: No Contact w/Intl Traveler <30 Da: No Traveled to Known Affected Are: No History of Present Illness Unable to obtain history from patient as he is intubated. Reviewed EMR and discussed with ED physician. 71-year-old with past medical history of hypertension, hyperlipidemia, diabetes mellitus, hypothyroidism, peripheral vascularly disease, COPD who presents to [facility] emergency department via [facility] after his neighbor found him prone on the floor of his home. He had last been seen in the evening before in his usual state of health. Upon arrival he was found to be hyperglycemic with glucose of 556 but not in DKA. His creatinine is 1.48. His white blood cell count is 27.3. Lactic acid 4.9. Troponin 0.17. BNP 150. He was febrile up to 101.5. He was combative with staff and therefore was given Ativan 2 mg IV and Haldol 5 mg IM for patient and staff safety during CT. CT brain demonstrated no acute findings. There was encephalomalacia left frontal lobe. Nonspecific low attenuation in the posterior left temporoparietal region which was felt to be chronic. When the ED physician went to reassess the patient he was obtunded, not protecting his airway, and reportedly having fasciculations so he was given Ativan 2 mg IV and then was intubated with etomidate and succinylcholine.. He underwent lumbar puncture and was empirically placed on Rocephin, vancomycin, and acyclovir and received 2 L NS bolus. UA was negative for evidence infection. Blood cultures were obtained. Chest x-ray was clear. Urine drug screen, salicylate, APAP, EtOH level negative. Review of Systems ROS Limitations: Clinical Condition, Intubated Past Family Social History Allergies: Coded Allergies: No Known Allergies (Verified , 04/27/17) Past Medical History Diabetes Hypertension Hyperlipidemia COPD Hypothyroidism Peripheral vascular disease Past Surgical History Unable to confirm with patient as he is intubated. Reviewed EMR Tonsillectomy right carotid endarterectomy 2014 Iliac stent Reported Medications Atorvastatin 80 g by mouth daily at bedtime Catapres 0.1 mg by mouth every 8 hours Lisinopril 20 mill grams by mouth daily NovoLog 12 units subcutaneous 3 times a day with meals Detemir 45 units subcutaneous daily at bedtime Levothyroxine 50 g by mouth daily Family History Unable to confirm with patient as he is intubated. Social History Unable to confirm with patient as he is intubated. Reportedly he is a smoker. From H&P 04/02 there is mention of history of marijuana and alcohol use. Physical Exam Vital Signs Vital Signs Date Time Temp Pulse Resp B/P (MAP) Pulse Ox O2 Delivery O2 Flow Rate FiO2 04/27/17 22:59 04/27/17 22:42 80 12 100/62 (75) 100 Auto-Vent 04/27/17 22:30 99 50 04/27/17 21:50 96 100 04/27/17 21:30 100.9 82 16 169/94 (119) 100 Ventilator 50 04/27/17 21:00 101.3 89 16 179/91 (120) 100 Ventilator 50 04/27/17 19:55 101.5 96 16 132/69 (90) 100 Ventilator 50 04/27/17 19:34 101.1 106 16 153/89 (110) 100 Ventilator 50 04/27/17 19:32 100.9 113 16 217/109 (145) 100 Ventilator 50 04/27/17 19:20 118 16 100 Ventilator 50 04/27/17 19:16 121 20 158/95 (116) 94 Nasal Cannula 04/27/17 19:16 50 04/27/17 18:22 95 Nasal Cannula 2.00 04/27/17 18:20 120 26 162/90 (114) 96 Nasal Cannula 4.00 04/27/17 18:04 18 95 Nasal Cannula 2.00 04/27/17 17:46 99.1 127 38 160/100 (120) 94 04/27/17 07:25 100 50 Physical Exam Temp 100.9 heart rate 77, normal sinus rhythm, blood pressure 100/67 Drips: Propofol 10 mg per KG per minute 0.9 NaCl at 84 L per hour GENERAL: Disheveled male who is orotracheally intubated. He is sedated. SKIN: Warm and dry. Feet are soiled. There is ~ 2.5 cm eschar overlying the plantar aspect of the 1st MTP of the left foot. About 1.5 cm area of that eschar is fluctuant with purulent drainage. There is surrounding erythema. HEAD: Atraumatic. Normocephalic. EYES: Pupils equal and round, 3 mm reactive bilaterally. No scleral icterus. No injection or drainage. ENT: No nasal bleeding or discharge. Mucous membranes dry. NECK: Trachea midline. No JVD. Neck rotates fully side to side but stiff with chin to chest. CARDIOVASCULAR: Regular rate and rhythm, sinus on the monitor. No murmurs rubs or gallops. RESPIRATORY: No accessory muscle use. Mild rhonchi left base.. Breath sounds equal bilaterally. No wheeze or rales. GASTROINTESTINAL: Abdomen soft, non-tender, nondistended. Bowel sounds present : Barnes in place. Light yellow urine output --> 45 ML in the last hour. MUSCULOSKELETAL: Extremities without clubbing, cyanosis, or edema. NEUROLOGICAL: No eye opening. No eye deviation. Withdraws BLE to noxious stimuli, slightly withdraws BUE to central noxious stimuli. Unable to assess speech. Brudinksi negative. Kernig positive. VASC: Dopplerable DP pulses bilat Laboratory Laboratory Tests Test 04/27/17 18:00 04/27/17 18:07 04/27/17 18:19 04/27/17 18:51 White Blood Count 27.3 Red Blood Count 4.74 Hemoglobin 13.6 Hematocrit 42.3 Mean Corpuscular Volume 89.1 Mean Corpuscular Hemoglobin 28.8 Mean Corpuscular Hemoglobin Concent 32.3 Red Cell Distribution Width 14.0 Platelet Count 393 Mean Platelet Volume 10.4 Neutrophils (%) (Auto) 86.4 Lymphocytes (%) (Auto) 6.8 Monocytes (%) (Auto) 6.5 Eosinophils (%) (Auto) 0.0 Basophils (%) (Auto) 0.3 Neutrophils # (Auto) 23.6 Lymphocytes # (Auto) 1.9 Monocytes # (Auto) 1.8 Eosinophils # (Auto) 0.0 Basophils # (Auto) 0.1 CBC Comment DIFF FINAL Differential Comment Urine Color YELLOW Urine Turbidity CLEAR Urine pH 5.5 Urine Specific [place] 1.030 Urine Protein 30 Urine Glucose (UA) 1000 Urine Ketones NEG Urine Occult Blood NEG Urine Nitrite NEG Urine Bilirubin NEG Urine Urobilinogen LESS THAN 2.0 Urine Leukocyte Esterase NEG Urine WBC 1 Urine Squamous Epithelial Cells <1 Urine Hyaline Casts 1 Urine Mucus FEW Microscopic Urinalysis Comment CULT NOT INDICATED Blood Urea Nitrogen 15 Creatinine 1.45 Random Glucose 556 Total Protein 7.4 Albumin 3.4 Calcium Level 9.5 Magnesium Level 1.3 Alkaline Phosphatase 100 Aspartate Amino Transf (AST/SGOT) 21 Alanine Aminotransferase (ALT/SGPT) 24 Total Bilirubin 0.5 Sodium Level 133 Potassium Level 4.0 Chloride Level 93 Carbon Dioxide Level 29.5 Anion Gap 11 Estimat Glomerular Filtration Rate 48 Total Creatine Kinase 179 Creatine Kinase MB 6.1 Troponin I 0.17 B-Type Natriuretic Peptide 150 Thyroid Stimulating Hormone 3rd Gen 1.770 Salicylates Level LESS THAN 1.7 Urine Opiates Screen NEG Acetaminophen Level LESS THAN 2.0 Urine Barbiturates Screen NEG Urine Amphetamines Screen NEG Urine Benzodiazepines Screen NEG Urine Cocaine Screen NEG Urine Cannabinoids Screen NEG Ethyl Alcohol Level LESS THAN 3 B-Hydroxybutyrate 0.33 Blood Gas Puncture Site LT BRACHIAL Blood Gas Patient Temperature 98.6 Blood Gas HCO3 27 Blood Gas Base Excess 1.9 Blood Gas Oxygen Saturation 92 Arterial Blood pH 7.36 Arterial Blood Partial Pressure CO2 49 Arterial Blood Partial Pressure O2 73 Arterial Blood Oxygen Content 17.0 Arterial Blood Carboxyhemoglobin 0.9 Arterial Blood Methemoglobin 0.6 Blood Gas Hemoglobin 13.1 Oxygen Delivery Device NASAL CANNULA Blood Gas Liter Flow 2 Serum Osmolality 320 Prothrombin Time 11.2 Prothromb Time International Ratio 1.0 Activated Partial Thromboplast Time 22.9 Test 04/27/17 19:05 04/27/17 19:50 04/27/17 21:20 Lactic Acid Level 4.9 CSF Volume (Tube 1) 1.0 CSF Supernatant Color (tube 1) CLEAR CSF Gross Blood (Tube 1) TRACE CSF Volume (Tube 2) 1.0 CSF Supernatant Color (tube 2) CLEAR CSF Gross Blood (Tube 2) TRACE CSF Volume (Tube 3) 0.7 CSF Supernatant Color (tube 3) CLEAR CSF Volume (Tube 4) 0.9 CSF Supernatant Color (tube 4) CLEAR CSF WBC (Tube 4) 15 CSF RBC (Tube 4) 45 CSF Neutrophils 17 CSF Lymphocytes 75 CSF Monocytes 8 CSF Glucose 245 CSF Total Protein 57.0 Blood Gas Puncture Site RT RADIAL Blood Gas Patient Temperature 98.6 Blood Gas HCO3 25 Blood Gas Base Excess 0.5 Blood Gas Oxygen Saturation 98 Arterial Blood pH 7.36 Arterial Blood Partial Pressure CO2 46 Arterial Blood Partial Pressure O2 195 Arterial Blood Oxygen Content 14.9 Arterial Blood Carboxyhemoglobin 0.8 Arterial Blood Methemoglobin 0.6 Blood Gas Hemoglobin 10.5 Oxygen Delivery Device VENT Blood Gas Ventilator Setting Blood Gas Inspired Oxygen 50 Date/Time Source Procedure Growth Status 04/27/17 19:10 Blood Peripheral Aerobic Blood Culture Pending Received 04/27/17 19:10 Blood Peripheral Anaerobic Blood Culture Pending Received 04/27/17 19:50 Cerebral Spinal Fluid Lumbar Puncture Gram Stain - Final Resulted 04/27/17 19:50 Cerebral Spinal Fluid Lumbar Puncture CSF Culture Pending Resulted Result Diagram: 04/27/17 1800 04/27/17 1800 Septic Shock Reassessment Heart: Regular rate and rhythm Lungs: Other Skin: Warm Capillary Refill: Sluggish Caprini VTE Risk Assessment Caprini VTE Risk Assessment: Mod/High Risk (score >= 2) VTE Pharm Contraindication: lumbar puncture, risk for epidural hematoma Caprini Risk Assessment Model Point Value = 1 Point Value = 2 Point Value = 3 Point Value = 5 Age 41-60 Minor surgery BMI > 25 kg/m2 Swollen legs Varicose veins or History of unexplained or recurrent spontaneous Oral contraceptives or hormone replacement Sepsis (< 1 month) Serious lung disease, including pneumonia (< 1 month) Abnormal pulmonary function Acute myocardial infarction Congestive heart failure (< 1 month) History of inflammatory bowel disease Medical patient at bed rest Age 61-74 Arthroscopic surgery Major open surgery (> 45 min) Laparoscopic surgery (> 45 min) Malignancy Confined to bed (> 72 hours) Immobilizing plaster cast Central venous access Age >= 75 History of VTE Family history of VTE Factor V Leiden Prothrombin [id number] Lupus anticoagulant Anticardiolipin antibodies Elevated serum homocysteine Heparin-induced thrombocytopenia Other congenital or acquired thrombophilia Stroke (< 1 month) Elective arthroplasty Hip, pelvis, or leg fracture Acute spinal cord injury (< 1 month) Prophylaxis Regimen Total Risk Factor Score Risk Level Prophylaxis Regimen 0-1 Low Early ambulation 2 Moderate Order ONE of the following: *Sequential Compression Device (SCD) *Heparin 5000 units SQ BID 3-4 Higher Order ONE of the following medications: *Heparin 5000 units SQ TID *Enoxaparin/Lovenox 40 mg SQ daily (WT < 150 kg, CrCl > 30 mL/min) *Enoxaparin/Lovenox 30 mg SQ daily (WT < 150 kg, CrCl > 10-29 mL/min) *Enoxaparin/Lovenox 30 mg SQ BID (WT < 150 kg, CrCl > 30 mL/min) AND/OR *Sequential Compression Device (SCD) 5 or more Highest Order ONE of the following medications: *Heparin 5000 units SQ TID (Preferred with Epidurals) *Enoxaparin/Lovenox 40 mg SQ daily (WT < 150 kg, CrCl > 30 mL/min) *Enoxaparin/Lovenox 30 mg SQ daily (WT < 150 kg, CrCl > 10-29 mL/min) *Enoxaparin/Lovenox 30 mg SQ BID (WT < 150 kg, CrCl > 30 mL/min) AND *Sequential Compression Device (SCD) Assessment and Plan Assessment and Plan NEURO: Acute encephalopathy Status post right carotid endarterectomy CT brain 04/27 no acute hemorrhage.Left frontal lobe encephalomalacia. Decreased attenuation posterior left temporal parietal region. Small basal ganglia lacunar infarcts. Noted BP in E was 160/100, 217/109 and considered PRES but now BP is 100/67 on minimal propofol 10 mcg/min and clinically appears volume depleted/septic. HTN may have been secondary to his agitated delirium. Obtained MRI brain - No acute infarct. L frontal lobe encephalomalacia. Gliosis left inferior temporal parietal and left occipital lobe. REcieved Ativan 4 mg IV and Haldol 5 mg IM in the ED due to agitation. ?convulsions and now ?subclinical seizure. Loaded with fosphenytoin 1000 mg/ PE. 100 mg/ PE IV q12. F/u level in am Obtain EEG. Neurology consult. On propofol for sedation. Target RASS -2. Lortab prn pain Urine drug screen, salicylate, APAP, EtOH level negative. TSH normal. Obtain ammonia level. Followup LP done in ED 04/27. RESP: Acute respiratory failure COPD Tobacco abuse DuoNeb every 6 hours. Albuterol every 2 hours as needed Ventilator bundle SBT in am. CV: Lactic acidemia Hyperlipidemia Monitor hemodynamics. Received 2 L normal saline bolus in the ED. Appears clinically dry. We'll give additional 1 L normal saline bolus. Monitoring urine output closely which is currently adequate at 45 over the last hour. We' ll follow serial lactic acid. Noted troponin is mildly elevated 0.17 which may be related to sepsis. We'll trend. EKG demonstrates sinus tachycardia in the 130s no ST elevation, inferior q Continue statin. BNP 150. Obtain 2 D Echo Echo 07/05/10ejection fraction 65-70%. No regional wall motion abnormalities. GI: Nothing by mouth. OGT to LIWS. FEN/RENAL: RUBY overlying chronic kidney disease stage III Insert Barnes. Monitor intake and output. Monitor electrolytes and replace as indicated. D5 NS @ 125 ml/hr (D5 to provide glucose source as repeat BG 105 and on sliding scale) ID: Sepsis ?Meningitis Leukocytosis Diabetic foot ulcer, L MTP Encephalopathy, fever concerning for meningitis. Also with infected diabetic ulcer which is potential source. Received Rocephin 2 g IV, vancomycin, acyclovir in the emergency department, Will continue for now. Cr CL 40, acyclovir dosing [id number]. F/u CSF studies, culture, HSV PCR. UA negative but negative for evidence of infection. Chest x-ray without infiltrate. Consult podiatry for diabetic foot ulcer. Consider MRI if needed to assist with determining osteomyelitis after wound debridement and probe. Not feasible to hold off on abx to await tissue culture of foot ulcer. ID consult. HEME: No acute hematologic issues. Coags normal ENDO: Diabetes mellitus Acute severe hyperglycemia Not in DKA. Received 6 units IV insulin, 8 units subcutaneous insulin in the ED. Repeat glucose is 105. Monitor bedside glucose every 4 hours and administer medium dose insulin sliding scale as indicated. PROPH: SCDs for DVT prophylaxis. Pharmacologic DVT prophylaxis can be initiated within 24 hours of LP. Protonix 40 mg IV daily for stress ulcer prophylaxis. ACCESS: Peripheral IV. We'll place central venous line if needed. Discussed with Dr. Baez F/u troponin with uptrend to 6. Initiated ASA. Will hold off on heparin at this time due to recent lumbar puncture. Taken off propofol due to BP on low side with MAP 64-65 and started fentanyl for sedation. Now BP is improved as being discussed with Dr. Latham so now may resume propofol due to short half life to allow for sedation vacation and weaning. Level 3 H and P Nguyen Salguero MD Apr 27, 2017 23:38
[2017-04-28] VITALS (18 sets, daily range): BP systolic 83–140; BP diastolic 50–74; PULSE 56–80; RESP 16–17; TEMP 97.9–99.3; O2SAT 100
[2017-04-28] MEDS: MAGNESIUM SULFATE 1 GM PREMIX 100 ML IV SCH ×2 (00:55→02:36)
[2017-04-28] MEDS ORDERED: SODIUM CHLOR 0.9% 1000 ML INJ 1,000 ML IV ONE (01:00)
[2017-04-28] MEDS ORDERED: RESP: ALBUTEROL 2.5 MG/3 ML NEB (PRN) NEB (01:00)
[2017-04-28] MEDS ORDERED: ACETAMINOPHEN/HYDROcodone 325 MG/5 MG TAB PO PRN ×2 (01:00)
[2017-04-28] MEDS ORDERED: Vancomycin Consult Pharmacy 1 EA OTHER SCH (01:00)
[2017-04-28] MEDS: RESP: ALBUTEROL 2.5 MG/IPRATROPIUM 0.5 MG NEB (SCH) NEB ×5 (01:00→21:45)
[2017-04-28] MEDS ORDERED: DEXTROSE 50% IN WATER 50 ML VIAL(D50) IV PUSH PRN (01:30)
[2017-04-28] MEDS ORDERED: VANCOMYCIN 500 MG/NS 100 ML IV ONE ×2 (01:30)
[2017-04-28] MEDS ORDERED: GLUCAGON 1 MG/ML VIAL OTHER PRN (01:30)
[2017-04-28] MEDS: INSULIN ASPART SUPPLEMENTAL SCALE SQ SCH ×6 (02:00→22:00)
[2017-04-28] MEDS: DEXT 5%-NACL 0.9% 1000 ML INJ 1,000 ML IV SCH ×3 (02:42→20:32)
[2017-04-28 02:50] LABS: AUTOMATED NEUTROPHIL # 14.5 TH/MM3 (1.8-7.7); BASOPHIL # 0.1 TH/MM3 (0-0.2); BASOPHIL % 0.3 % (0.0-2.0); EOSINOPHIL % 0.2 % (0.0-4.0); HEMATOCRIT 32.6 % (39.0-51.0); HEMO FLAGS DIFF FINAL; LYMPH % 18.7 % (9.0-44.0); LYMPHOCYTE # 3.8 TH/MM3 (1.0-4.8); MEAN CELL VOLUME 87.1 FL (80.0-100.0); MEAN CORPUSCULAR HEMOGLOBIN 29.9 PG (27.0-34.0); MEAN CORPUSCULAR HGB CONC 34.3 % (32.0-36.0); NEUT % 71.8 % (16.0-70.0); PLATELET COUNT 301 TH/MM3 (150-450); RED BLOOD COUNT 3.74 MIL/MM3 (4.50-5.90); RED CELL DISTRIBUTION WIDTH 13.5 % (11.6-17.2); WHITE BLOOD COUNT 20.1 TH/MM3 (4.0-11.0)
[2017-04-28 03:13] LABS: BICARBONATE 25.9 MEQ/L (21.0-32.0); CALCIUM-PROTEIN CORRECTED 8.1 MG/DL (8.5-10.1); MAGNESIUM 1.4 MG/DL (1.5-2.5); POTASSIUM 3.3 MEQ/L (3.5-5.1); TOTAL BILIRUBIN ADULT 0.3 MG/DL (0.2-1.0)
[2017-04-28] MEDS: CHLORHEXIDINE GLUCONATE 2 % 1 PACK (2 CLOTHS) TOP SCH (04:00)
[2017-04-28] MEDS ORDERED: SODIUM PHOSPHATE INJ 30 MMOL in SODIUM CHLOR 0.9% 250 ML INJ 240 ML IV PRN (04:15)
[2017-04-28] MEDS ORDERED: POTASSIUM CHLOR 40 MEQ PREMIX 100 ML IV PRN ×2 (04:15)
[2017-04-28] MEDS ORDERED: POTASSIUM PHOSPHATE MONOBASIC 500 MG TAB PO/TUBE PRN (04:15)
[2017-04-28] MEDS ORDERED: POTASSIUM CHLORIDE 25 MEQ EFFERVESCENT TAB PO PRN (04:15)
[2017-04-28] MEDS ORDERED: POTASSIUM CHLOR 20 MEQ PREMIX 100 ML IV PRN ×2 (04:15)
[2017-04-28] MEDS ORDERED: POTASSIUM PHOSPHATE MONOBASIC 500 MG TAB PO PRN (04:15)
[2017-04-28] MEDS ORDERED: ASPIRIN 81 MG CHEW TAB OG-TUBE ONE (04:15)
[2017-04-28] MEDS ORDERED: POTASSIUM PHOSPHATE INJ 30 MMOL in SODIUM CHLOR 0.9% 250 ML INJ 250 ML IV PRN (04:15)
[2017-04-28] MEDS ORDERED: MAGNESIUM OXIDE 400 MG TAB PO PRN (04:15)
[2017-04-28] MEDS ORDERED: MAGNESIUM SULFATE INJ 4 GM in SODIUM CHLORIDE 0.9% INJ 92 ML IV PRN (04:15)
[2017-04-28] MEDS ORDERED: MAGNESIUM SULFATE INJ 2 GM in SODIUM CHLORIDE 0.9% INJ 96 ML IV PRN (04:15)
[2017-04-28] MEDS ORDERED: fentaNYL DRIP 250 ML IV PRN (04:15)
[2017-04-28] MEDS ORDERED: FOSPHENYTOIN SODIUM 100 MG PE/2 ML VIAL IV SCH (06:00)
[2017-04-28] MEDS: CHLORHEXIDINE 0.12% (ORAL KIT) 15 ML CUP MT SCH ×2 (08:00→20:32)
[2017-04-28] MEDS: PANTOPRAZOLE SODIUM 40 MG VIAL IV PUSH SCH (08:23)
[2017-04-28] MEDS: SODIUM CHLORIDE 0.9% FLUSH 10 ML FLUSH IV FLUSH SCH ×2 (08:23→21:00)
[2017-04-28] MEDS: DOCUSATE SODIUM 50 MG/SENNA 8.6 MG TAB PO SCH ×2 (08:24→20:31)
[2017-04-28] MEDS: FOSPHENYTOIN SODIUM 100 MG PE/2 ML VIAL IV SCH ×2 (08:27→20:31)
[2017-04-28] MEDS: LEVOTHYROXINE SODIUM 50 MCG TAB PO SCH (08:34)
[2017-04-28] MEDS ORDERED: cefTRIAXone INJ 2,000 MG in SODIUM CHLORIDE 0.9% INJ 100 ML IV SCH (09:00)
--- NOTE | 2017-04-28 09:09 | PD.CONS ---
History of Present Illness Service Infectious disease Consult Requested By Dr Bibi Salguero Reason for Consult Evaluate patient with sepsis Primary Care Physician Unknown Diagnoses: History of Present Illness Patient seen and examined. Records reviewed. Patient is a 71-year-old male, lives at home, found prone by his neighbors on the floor of his home. He was apparently last seen that evening and he was initially his usual self, and he had dinner with his neighbor. Later that neighbors found him prone on the floor, and EMS was called. He had very high blood sugar of 556. In the emergency room he had a white count of 23,000, elevated lactic acid of 4.9, and creatinine of 1.48. He was apparently last admitted about one week ago for hyperglycemia. In the ED, he had a fever of 101.5. Patient was initially very calm but became combative, and was given Ativan and Haldol. He underwent CT of the head which did not show any acute findings but did show some chronic findings of previous encephalomalacia, After his CT, he developed worsening of his mental status, and became obtunded. He was not protecting his airway, and reportedly having fasciculations so he was given Ativan 2 mg IV and then was intubated with etomidate and succinylcholine. Lumbar puncture was done, and it showed 15 WBC, mostly lymphocytes, and 45 RBC. CSF glucose and protein were elevated. His chest x-ray was clear. Urine drug screen were all negative. Infectious disease consultation has been requested to evaluate the patient for sepsis Review of Systems ROS Limitations: Clinical Condition, Intubated Past Family Social History Allergies: Coded Allergies: No Known Allergies (Verified , 04/27/17) Past Medical History Diabetes Hypertension Hyperlipidemia COPD Hypothyroidism Peripheral vascular disease Past Surgical History Tonsillectomy Right carotid endarterectomy 2015 Iliac stent Reported Medications Reported Meds & Active Scripts Active Levemir Inj (Insulin Detemir) 1,000 unit/ 10 ML Vial 45 Units SQ HS Do not mix with any other Insulin. Lisinopril 10 Mg Tab 20 Mg PO DAILY Catapres (Clonidine) 0.1 Mg Tab 0.1 Mg PO Q8HR Novolog Inj (Insulin Aspart) 1,000 Unit/10 Ml Vial 12 Units SQ TID PRN MDD . Reported Levothyroxine (Levothyroxine Sodium) 50 Mcg Tab 50 Mcg PO DAILY Atorvastatin (Atorvastatin Calcium) 80 Mg Tab 80 Mg PO HS Active Ordered Medications Tylenol [place] Acyclovir Albuterol Lipitor Dulcolax Rocephin Fentanyl Cerebyx Insulin Lactulose Synthroid MOM Magnesium Zofran Protonix Potassium Yamel-Colace Senokot IV Vanco Family History Per records family hx HTN and DM Social History Lives at home Reportedly he is a smoker. There is mention of history of marijuana and alcohol use from previous records Physical Exam Vital Signs Vital Signs Date Time Temp Pulse Resp B/P (MAP) Pulse Ox O2 Delivery O2 Flow Rate FiO2 04/28/17 08:01 100 40 04/28/17 06:00 68 04/28/17 04:00 40 04/28/17 04:00 98.3 70 17 138/72 (94) 100 04/28/17 04:00 70 04/28/17 03:45 100 40 04/28/17 02:00 70 04/28/17 00:00 80 04/28/17 00:00 99.3 80 16 83/50 (61) 100 04/27/17 23:00 90 04/27/17 23:00 100 50 04/27/17 23:00 98.7 87 18 157/77 (103) 100 Manual Cuff/Auscultation 04/27/17 22:59 04/27/17 22:50 100 100 04/27/17 22:42 80 12 100/62 (75) 100 Auto-Vent 04/27/17 22:30 99 50 04/27/17 21:50 96 100 04/27/17 21:30 100.9 82 16 169/94 (119) 100 Ventilator 50 04/27/17 21:00 101.3 89 16 179/91 (120) 100 Ventilator 50 04/27/17 19:55 101.5 96 16 132/69 (90) 100 Ventilator 50 04/27/17 19:34 101.1 106 16 153/89 (110) 100 Ventilator 50 04/27/17 19:32 100.9 113 16 217/109 (145) 100 Ventilator 50 04/27/17 19:20 118 16 100 Ventilator 50 04/27/17 19:16 121 20 158/95 (116) 94 Nasal Cannula 04/27/17 19:16 50 04/27/17 18:22 95 Nasal Cannula 2.00 04/27/17 18:20 120 26 162/90 (114) 96 Nasal Cannula 4.00 04/27/17 18:04 18 95 Nasal Cannula 2.00 04/27/17 17:46 99.1 127 38 160/100 (120) 94 Physical Exam GENERAL: Patient is a thin, well-developed CM, sedated on the vent, not in respiratory distress. SKIN: Warm and dry. No generalized rash, no ecchymoses and no evidence of embolic lesions. HEAD: Atraumatic. Normocephalic. No temporal wasting, or tenderness. EYES: [place] conjunctiva. No petechia or hemorrhage. Pupils equal, round and reactive to light. No scleral icterus. No injection or drainage. EARS, NOSE AND THROAT: Nose without bleeding or purulent nasal discharge. He is orally intubated. NECK: Trachea midline. Supple and not tender, no meningeal signs CARDIOVASCULAR: Regular rate and rhythm. No murmurs, rubs or gallops heard RESPIRATORY: Clear to auscultation. Breath sounds equal bilaterally. No rales , wheezing or rhonchi ABDOMEN: Soft, nondistended, bowel sounds present and normoactive. No reaction to palpation. No guarding. No organomegaly. EXTREMITIES: No clubbing, cyanosis, or edema. He has a black eschar over the plantar aspect of his L first MTP, with small amount of yellow drainage, and it is swollen and red, but he did not make any reaction when I palpated the area , no odor. NO redness noted in any other part of his L foot. Well perfused and warm. NEUROLOGICAL: Sedated PSYCHIATRIC: Unable to asses LINE: No evidence of infection Laboratory Laboratory Tests Test 04/27/17 18:00 04/27/17 18:07 04/27/17 18:19 04/27/17 18:51 White Blood Count 27.3 Red Blood Count 4.74 Hemoglobin 13.6 Hematocrit 42.3 Mean Corpuscular Volume 89.1 Mean Corpuscular Hemoglobin 28.8 Mean Corpuscular Hemoglobin Concent 32.3 Red Cell Distribution Width 14.0 Platelet Count 393 Mean Platelet Volume 10.4 Neutrophils (%) (Auto) 86.4 Lymphocytes (%) (Auto) 6.8 Monocytes (%) (Auto) 6.5 Eosinophils (%) (Auto) 0.0 Basophils (%) (Auto) 0.3 Neutrophils # (Auto) 23.6 Lymphocytes # (Auto) 1.9 Monocytes # (Auto) 1.8 Eosinophils # (Auto) 0.0 Basophils # (Auto) 0.1 CBC Comment DIFF FINAL Differential Comment Urine Color YELLOW Urine Turbidity CLEAR Urine pH 5.5 Urine Specific [place] 1.030 Urine Protein 30 Urine Glucose (UA) 1000 Urine Ketones NEG Urine Occult Blood NEG Urine Nitrite NEG Urine Bilirubin NEG Urine Urobilinogen LESS THAN 2.0 Urine Leukocyte Esterase NEG Urine WBC 1 Urine Squamous Epithelial Cells <1 Urine Hyaline Casts 1 Urine Mucus FEW Microscopic Urinalysis Comment CULT NOT INDICATED Blood Urea Nitrogen 15 Creatinine 1.45 Random Glucose 556 Total Protein 7.4 Albumin 3.4 Calcium Level 9.5 Magnesium Level 1.3 Alkaline Phosphatase 100 Aspartate Amino Transf (AST/SGOT) 21 Alanine Aminotransferase (ALT/SGPT) 24 Total Bilirubin 0.5 Sodium Level 133 Potassium Level 4.0 Chloride Level 93 Carbon Dioxide Level 29.5 Anion Gap 11 Estimat Glomerular Filtration Rate 48 Total Creatine Kinase 179 Creatine Kinase MB 6.1 Troponin I 0.17 B-Type Natriuretic Peptide 150 Thyroid Stimulating Hormone 3rd Gen 1.770 Salicylates Level LESS THAN 1.7 Urine Opiates Screen NEG Acetaminophen Level LESS THAN 2.0 Urine Barbiturates Screen NEG Urine Amphetamines Screen NEG Urine Benzodiazepines Screen NEG Urine Cocaine Screen NEG Urine Cannabinoids Screen NEG Ethyl Alcohol Level LESS THAN 3 B-Hydroxybutyrate 0.33 Blood Gas Puncture Site LT BRACHIAL Blood Gas Patient Temperature 98.6 Blood Gas HCO3 27 Blood Gas Base Excess 1.9 Blood Gas Oxygen Saturation 92 Arterial Blood pH 7.36 Arterial Blood Partial Pressure CO2 49 Arterial Blood Partial Pressure O2 73 Arterial Blood Oxygen Content 17.0 Arterial Blood Carboxyhemoglobin 0.9 Arterial Blood Methemoglobin 0.6 Blood Gas Hemoglobin 13.1 Oxygen Delivery Device NASAL CANNULA Blood Gas Liter Flow 2 Serum Osmolality 320 Prothrombin Time 11.2 Prothromb Time International Ratio 1.0 Activated Partial Thromboplast Time 22.9 Test 04/27/17 19:05 04/27/17 19:50 04/27/17 21:10 04/27/17 21:20 Lactic Acid Level 4.9 CSF Volume (Tube 1) 1.0 CSF Supernatant Color (tube 1) CLEAR CSF Gross Blood (Tube 1) TRACE CSF Volume (Tube 2) 1.0 CSF Supernatant Color (tube 2) CLEAR CSF Gross Blood (Tube 2) TRACE CSF Volume (Tube 3) 0.7 CSF Supernatant Color (tube 3) CLEAR CSF Volume (Tube 4) 0.9 CSF Supernatant Color (tube 4) CLEAR CSF WBC (Tube 4) 15 CSF RBC (Tube 4) 45 CSF Neutrophils 17 CSF Lymphocytes 75 CSF Monocytes 8 CSF Glucose 245 CSF Total Protein 57.0 Nasal Screen MRSA (PCR) MRSA NOT DETECTED Blood Gas Puncture Site RT RADIAL Blood Gas Patient Temperature 98.6 Blood Gas HCO3 25 Blood Gas Base Excess 0.5 Blood Gas Oxygen Saturation 98 Arterial Blood pH 7.36 Arterial Blood Partial Pressure CO2 46 Arterial Blood Partial Pressure O2 195 Arterial Blood Oxygen Content 14.9 Arterial Blood Carboxyhemoglobin 0.8 Arterial Blood Methemoglobin 0.6 Blood Gas Hemoglobin 10.5 Oxygen Delivery Device VENT Blood Gas Ventilator Setting Blood Gas Inspired Oxygen 50 Test 04/28/17 02:25 White Blood Count 20.1 Red Blood Count 3.74 Hemoglobin 11.2 Hematocrit 32.6 Mean Corpuscular Volume 87.1 Mean Corpuscular Hemoglobin 29.9 Mean Corpuscular Hemoglobin Concent 34.3 Red Cell Distribution Width 13.5 Platelet Count 301 Mean Platelet Volume 9.5 Neutrophils (%) (Auto) 71.8 Lymphocytes (%) (Auto) 18.7 Monocytes (%) (Auto) 9.0 Eosinophils (%) (Auto) 0.2 Basophils (%) (Auto) 0.3 Neutrophils # (Auto) 14.5 Lymphocytes # (Auto) 3.8 Monocytes # (Auto) 1.8 Eosinophils # (Auto) 0.0 Basophils # (Auto) 0.1 CBC Comment DIFF FINAL Differential Comment Blood Urea Nitrogen 11 Creatinine 0.83 Random Glucose 78 Total Protein 5.7 Albumin 2.4 Calcium Level 7.3 Phosphorus Level 2.3 Magnesium Level 1.4 Alkaline Phosphatase 67 Aspartate Amino Transf (AST/SGOT) 31 Alanine Aminotransferase (ALT/SGPT) 20 Total Bilirubin 0.3 Sodium Level 143 Potassium Level 3.3 Chloride Level 110 Carbon Dioxide Level 25.9 Anion Gap 7 Estimat Glomerular Filtration Rate 92 Lactic Acid Level 2.3 Protein Corrected Calcium 8.1 Ammonia 32 Troponin I 6.71 Date/Time Source Procedure Growth Status 04/27/17 19:10 Blood Peripheral Aerobic Blood Culture Pending Received 04/27/17 19:10 Blood Peripheral Anaerobic Blood Culture Pending Received 04/27/17 19:50 Cerebral Spinal Fluid Lumbar Puncture Gram Stain - Final Resulted 04/27/17 19:50 Cerebral Spinal Fluid Lumbar Puncture CSF Culture - Preliminary NO GROWTH IN 24 HOURS. Resulted 04/27/17 00:40 Sputum Endotracheal Gram Stain Pending Received 04/27/17 00:40 Sputum Endotracheal Sputum Culture Pending Received Result Diagram: 04/28/1722404/28/17224 Imaging RADIOLOGY STUDIES/FILMS REVIEWED Head CT 04/27/171749 Signed Impressions: Service Date/Time: Thursday, April 27, 2017 18:47 - CONCLUSION: 1. No acute hemorrhage or mass effect. 2. 2 area of low attenuation encephalomalacia involving left frontal lobe most consistent with an interval infarct. 3. Low attenuation area involving the posterior left temporal parietal region which is more nonspecific but more likely likely is also chronic. Juan Gamez MD Chest X-Ray 04/27/171749 Signed Impressions: Service Date/Time: Thursday, April 27, 2017 18:31 - CONCLUSION: No acute disease. Juan Gamez MD Brain MRI 04/27/17 0000 Signed Impressions: Service Date/Time: Thursday, April 27, 2017 21:57 - CONCLUSION: 1. No acute hemorrhage or infarction. 2. Old area of encephalomalacia involving left frontal lobe with gliosis. 3. Areas of apparent gliosis involving the left inferior temporal parietal junction and left occipital lobe.. 4. Moderate atrophic change and chronic small vessel ischemic changes. Juan Gamez MD Assessment and Plan Assessment and Plan IMPRESSION Sepsis on presentation, source? - CXR clear - UA ok - LP with some mild lymphocytic pleocytosis - ?had SZ in ED, ?abnormality due to that, MRI no meningeal enhancement, has old findings, no temporal lobe abnormality - Has a small ulcer on L foot with cellulitis DM, PVD HTN Respiratory failure Leukocytosis Renal insufficiency RECOMMENDATION Continue IV Vanco for GPC and MRSA coverage Change Rocephin to Cefepime Add Flagyl Also on Acyclovir, ok to D/C Culture from L foot ulcer Xray L foot Follow C/S Monitor progress Will determine course of Abx once work-up completed and depending on his progress I will follow along with you Thank you for this consultation Discussed Condition With D/W Yenifer Lubin MD Apr 28, 2017 09:09
--- NOTE | 2017-04-28 09:16 | MB ---
cc: HEBER GEE M.D. DATE OF CONSULTATION: 04/28/2017 REASON FOR CONSULTATION: Acute encephalopathy. HISTORY OF PRESENT ILLNESS: The history is limited but the patient was found by neighbors on the floor at his home, apparently reported doing well on the evening before. He was brought to the hospital yesterday and there is a history of a recent diabetes, decompensation with acute kidney injury, history of hypertension, history of right carotid endarterectomy and stenting. His blood sugar by the EMS was 507. Apparent serum glucose was 556. Serum WBC elevated to 27.3 and the patient was febrile. He was given Ativan and Haldol. Apparently after the CT brain showing no acute findings, the patient's respiratory status decompensated and he was intubated. Lumbar puncture and MRI brain have been done. The patient is not following commands. MEDICATIONS Medications at home included: 1. Atorvastatin. 2. Catapres. 3. Lisinopril. 4. NovoLog. 5. Detemir. 6. Levothyroxine. On exam the patient is intubated on the ventilator and with stimulation he withdrew all four limbs and started opening eyes. Grossly nonfocal exam. Reflexes 1+, trace versus absent at the ankles. Plantar response probably extensor bilaterally. Pupils about the same size and reactive. MRI brain shows nothing acute, old areas of vascular event left frontal lobe, left temporal parietal and left occipital lobe. Spinal fluid shows CSF, WBC 15, RBC 45, CSF glucose 245 and protein was 57. The CSF glucose is compatible with the serum glucose which was over 500 initially. ASSESSMENT 1. Acute encephalopathy. 2. Previous left hemisphere strokes. 3. Diabetes mellitus. 4. Apparent status post right carotid endarterectomy. Diagnostic considerations include new onset seizures. He was loaded with fosphenytoin. Agree an EEG needs to be obtained. Spinal fluid to date mildly abnormal. One consideration would be herpes encephalitis and the serology is pending but not really likely considering the MRI findings. Consider supportive care. I wonder if this is mostly from the markedly elevated high glycemia as well. I will follow the neurological course. Thank you for asking us to assist in his care. Heber Gee MD [facility]/[place] /8:09 AM /8:39 AM
[2017-04-28] MEDS: metroNIDAZOLE 500 MG INJ 100 ML IV SCH ×2 (09:53→16:27)
--- NOTE | 2017-04-28 10:27 | MB ---
cc: ADRIAN PINO MD DATE OF CONSULTATION: 04/28/2017 REASON FOR CONSULTATION: Elevated troponin HISTORY OF PRESENT ILLNESS The patient is a 71-year-old gentleman who was found down by a neighbor and he was down for an unknown duration, though apparently he was seen the night before. Initial laboratory values showed multiple metabolic derangements and additionally he was febrile. He was eventually intubated for airway protection. All history is obtained from the chart. PAST MEDICAL HISTORY: 1. Tobacco abuse. 2. Diabetes. 3. Hypertension. 4. Hyperlipidemia. 5. COPD. 6. Hypothyroidism. 7. PVD. CURRENT MEDICATIONS: 1. Lipitor 80 milligrams q hs. 2. Acyclovir. 3. Protonix. 4. Cerebyx 5. Synthroid. 6. Cefepime. 7. Flagyl. 8. Fentanyl. ALLERGIES: NO KNOWN DRUG ALLERGIES. PHYSICAL EXAMINATION: Current temperature afebrile, down from 101.5, pulse 68, respiratory rate 130/72, sating on 100 on 40% FIO2. GENERAL: Intubated, sedated. NECK: No JVD. LUNGS: Ventilator sounds appreciated. CARDIOVASCULAR: Regular rhythm, no murmurs appreciated. ABDOMEN: Benign. EXTREMITIES: No edema. LABORATORY DATA: Sodium 143, potassium 3.3, chloride 110, bicarb 25.9, BUN 11, creatinine 0.83, glucose 320 down from 556, lactic acid was 4.9, troponin was 6.71 up from initial troponin of 0.17, INR is 1.0, white count 20.1, hematocrit 32.6, platelets 301. IMAGING STUDIES: Chest x-ray showed no acute disease. Head CT: Showed a possible interval infarct. Brain MRI showed old encephalomalacia with moderate atrophic and small vessel changes. EKG shows sinus rhythm with an old inferior infarct pattern and nonspecific ST changes. IMPRESSION Elevated troponin. The patient's elevated troponin may be either due to a primary cardiac event such as an acute UT causing a dysrhythmia, causing the patient's loss of consciousness and subsequent metabolic problems or it could be secondary due to hypoxia caused by his other medical problems. At some point he will require an ischemic workup, though at the moment he is intubated and this will need to wait until we can get a better history. His EKG showed an old inferior infarct pattern but no acute changes that would be consistent with ST elevation UT or even significant ischemia. We will have him undergo an echocardiogram which will help risk stratify him from a cardiac standpoint. Further recommendations will be based on his clinical course and his echocardiogram. Thank you for the opportunity to participate in this patient's care. MD MIN Gandhi/[place] /9:09 AM /10:13 AM
[2017-04-28] MEDS: CEFEPIME INJ 2,000 MG in SODIUM CHLORIDE 0.9% INJ 100 ML IV SCH ×2 (11:00→16:44)
[2017-04-28] MEDS ORDERED: CALCIUM GLUCONATE INJ 2 GM in DEXTROSE 5% IN WATER 100ML INJ 100 ML IV ONE ×2 (11:30)
--- NOTE | 2017-04-28 12:04 | HHI.CCPN ---
Subjective Remarks/Hospital Course 71-year-old with past medical history of hypertension, hyperlipidemia, diabetes mellitus, hypothyroidism, peripheral vascularly disease, COPD who presents to [facility] emergency department via [facility] after his neighbor found him prone on the floor of his home. He had last been seen in the evening before in his usual state of health. Upon arrival he was found to be hyperglycemic with glucose of 556 but not in DKA. His creatinine is 1.48. His white blood cell count is 27.3. Lactic acid 4.9. Troponin 0.17. BNP 150. He was febrile up to 101.5. He was combative with staff and therefore was given Ativan 2 mg IV and Haldol 5 mg IM for patient and staff safety during CT. CT brain demonstrated no acute findings. There was encephalomalacia left frontal lobe. Nonspecific low attenuation in the posterior left temporoparietal region which was felt to be chronic. When the ED physician went to reassess the patient he was obtunded, not protecting his airway, and reportedly having fasciculations so he was given Ativan 2 mg IV and then was intubated with etomidate and succinylcholine. He underwent lumbar puncture and was empirically placed on Rocephin, vancomycin, and acyclovir and received 2 L NS bolus. UA was negative for evidence infection. Blood cultures were obtained. Chest x-ray was clear. Urine drug screen, salicylate, APAP, EtOH level negative. Subjective: 04/28: The patient appears more hemodynamically stable, MAP's 80's, carvedilol 3.125 to medication regimen. Fentanyl infusion discontinue propofol infusion now initiated for assessment of neuro status status. EEG pending. WBC count trending down. Objective Vital Signs Date Time Temp Pulse Resp B/P (MAP) Pulse Ox O2 Delivery O2 Flow Rate FiO2 04/28/17 10:26 100 40 04/28/17 10:00 56 04/28/17 08:00 97.9 16 128/73 (91) 04/27/17 22:42 Auto-Vent 04/27/17 18:22 2.00 Intake and Output 04/28/17 04/28/17 04/29/17 08:00 16:00 00:00 Intake Total 1668 ml 200 ml Output Total 250 ml Balance 1418 ml 200 ml Result Diagram: 04/28/1722404/28/17224 Other Results Laboratory Tests Test 04/27/17 18:07 04/27/17 21:20 Blood Gas Puncture Site LT BRACHIAL RT RADIAL Blood Gas Patient Temperature 98.6 98.6 Blood Gas HCO3 27 mmol/L (22-26) 25 mmol/L (22-26) Blood Gas Base Excess 1.9 mmol/L (-2-2) 0.5 mmol/L (-2-2) Blood Gas Oxygen Saturation 92 % (90-100) 98 % (90-100) Arterial Blood pH 7.36 (7.380-7.420) 7.36 (7.380-7.420) Arterial Blood Partial Pressure CO2 49 mmHg (38-42) 46 mmHg (38-42) Arterial Blood Partial Pressure O2 73 mmHG (61-120) 195 mmHG (61-120) Arterial Blood Oxygen Content 17.0 Vol % (12.0-20.0) 14.9 Vol % (12.0-20.0) Arterial Blood Carboxyhemoglobin 0.9 % (0-4) 0.8 % (0-4) Arterial Blood Methemoglobin 0.6 % (0-2) 0.6 % (0-2) Blood Gas Hemoglobin 13.1 G/DL (12.0-16.0) 10.5 G/DL (12.0-16.0) Oxygen Delivery Device NASAL CANNULA VENT Blood Gas Liter Flow 2 L/M Blood Gas Ventilator Setting Blood Gas Inspired Oxygen 50 % Imaging Last Impressions Head CT 04/27/171749 Signed Impressions: Service Date/Time: Thursday, April 27, 2017 18:47 - CONCLUSION: 1. No acute hemorrhage or mass effect. 2. 2 area of low attenuation encephalomalacia involving left frontal lobe most consistent with an interval infarct. 3. Low attenuation area involving the posterior left temporal parietal region which is more nonspecific but more likely likely is also chronic. Juan Gamez MD Chest X-Ray 04/27/171749 Signed Impressions: Service Date/Time: Thursday, April 27, 2017 18:31 - CONCLUSION: No acute disease. Juan Gamez MD Brain MRI 04/27/17 0000 Signed Impressions: Service Date/Time: Thursday, April 27, 2017 21:57 - CONCLUSION: 1. No acute hemorrhage or infarction. 2. Old area of encephalomalacia involving left frontal lobe with gliosis. 3. Areas of apparent gliosis involving the left inferior temporal parietal junction and left occipital lobe.. 4. Moderate atrophic change and chronic small vessel ischemic changes. Juan Gamez MD Objective Remarks Drips: Propofol 10 mg per KG per minute D5NS 75 cc/hr GENERAL: Obese critically ill male who is orotracheally intubated and sedated. SKIN: Warm and dry. Feet are soiled. There is ~ 2.5 cm eschar overlying the plantar aspect of the 1st MTP of the left foot. About 1.5 cm area of that eschar is fluctuant with purulent drainage. There is surrounding erythema. HEAD: Atraumatic. Normocephalic. EYES: Pupils equal and round, 3 mm reactive bilaterally. No scleral icterus. No injection or drainage. ENT: No nasal bleeding or discharge. Mucous membranes pink and moist. NECK: Trachea midline. No JVD. CARDIOVASCULAR: Regular rate and rhythm, sinus on the monitor. No murmurs rubs or gallops. RESPIRATORY: No accessory muscle use. Mild rhonchi left base.. Breath sounds equal bilaterally. No wheeze or rales. GASTROINTESTINAL: Abdomen soft, non-tender, nondistended. Bowel sounds present : Barnes in situ. MUSCULOSKELETAL: Extremities without clubbing, cyanosis, or edema. NEUROLOGICAL: GCS 3 T. Sedated on fentanyl infusion. VASC: Dopplerable DP pulses B/L A/P Assessment and Plan NEURO: Acute encephalopathy Status post right carotid endarterectomy CT brain 04/27 no acute hemorrhage.Left frontal lobe encephalomalacia. Decreased attenuation posterior left temporal parietal region. Small basal ganglia lacunar infarcts. 04/27 BP in ED was 160/100, 217/109 and considered PRES but now BP is 100/67 on minimal propofol 10 mcg/min and clinically appears volume depleted/septic. HTN may have been secondary to his agitated delirium. Obtained MRI brain - No acute infarct. L frontal lobe encephalomalacia. Gliosis left inferior temporal parietal and left occipital lobe. Received Ativan 4 mg IV and Haldol 5 mg IM in the ED due to agitation. ?convulsions and now ?subclinical seizure. Loaded with fosphenytoin 1000 mg/ PE. 100 mg/ PE IV q12. F/u level in am Obtain EEG. Neurology consult. On propofol for sedation. Target RASS -2. Lortab prn pain Urine drug screen, salicylate, APAP, EtOH level negative. TSH normal. 04/27 ammonia level 32 Followup LP done in ED 04/27. RESP: Acute respiratory failure COPD Tobacco abuse DuoNeb every 6 hours. Albuterol every 2 hours as needed Ventilator bundle SBT in am. CV: Lactic acidemia Hyperlipidemia Monitor hemodynamics. Received 2 L normal saline bolus in the ED. Appears clinically dry. We'll give additional 1 L normal saline bolus. Monitoring urine output closely which is currently adequate at 45 over the last hour. We' ll follow serial lactic acid. Noted troponin is mildly elevated 0.17-> 6.7 which may be related to sepsis. We'll trend. Initial EKG demonstrated ST , HR 130s no ST elevation, inferior q Continue statin. Initiate BBlker- Carvedilol BNP 150. Obtain 2 D Echo Echo 07/05/10ejection fraction 65-70%. No regional wall motion abnormalities. Cardiology Following - Dr. Sahni GI: begin trickle feeds. Dietary Consult FEN/RENAL: RUBY overlying chronic kidney disease stage III Insert Barnes. Monitor intake and output. Monitor electrolytes and replace as indicated. D5 NS @ 50 ml/hr , will transition to NS dependent upon blood glucose trend ID: Sepsis ?Meningitis Leukocytosis Diabetic foot ulcer, L MTP Encephalopathy, fever concerning for meningitis. Also with infected diabetic ulcer which is potential source. Received Rocephin 2 g IV, vancomycin, acyclovir in the emergency department, Will continue for now. Cr CL 40, acyclovir dosing [id number]. F/u CSF studies, culture, HSV PCR. UA negative but negative for evidence of infection. Chest x-ray without infiltrate. Consult podiatry for diabetic foot ulcer. Consider MRI if needed to assist with determining osteomyelitis after wound debridement and probe. Not feasible to hold off on abx to await tissue culture of foot ulcer. ID consult. HEME: No acute hematologic issues. Coags normal ENDO: Diabetes mellitus Acute severe hyperglycemia Not in DKA. Beta Hydroxybutyrate level 0.33. Received 6 units IV insulin, 8 units subcutaneous insulin in the ED. Repeat glucose is 105. Monitor bedside glucose every 4 hours and administer medium dose insulin sliding scale as indicated. PROPH: SCDs for DVT prophylaxis. Pharmacologic DVT prophylaxis can be initiated within 24 hours of LP. Protonix 40 mg IV daily for stress ulcer prophylaxis. ACCESS: Peripheral IV. We'll place central venous line if needed. Dispo: Level 3 Physician Jennifer Hayes MD Apr 28, 2017 12:03
[2017-04-28] MEDS: ACYCLOVIR INJ 600 MG in SODIUM CHLORIDE 0.9% INJ 100 ML IV SCH (12:17)
[2017-04-28] MEDS: PROPOFOL 1000 MG/100 ML IV PRN (12:18)
[2017-04-28] MEDS: CARVEDILOL 3.125 MG TAB PO SCH ×2 (12:18→20:31)
--- NOTE | 2017-04-28 14:02 | EKG ---
Date Performed: 04/27/2017 Time Performed: 18:28:37 PTAGE: 71 years EKG: SINUS TACHYCARDIA Probable inferior myocardial infarction of indeterminate age Nonspecific ST-T change PREVIOUS TRACING : 04/02/2017 08.49 Since previous tracing, T-wave changes are somewhat m ore prominent and heart rate is faster. DOCTOR: Memo Centeno Interpretating Date/Time 04/28/2017 14:01:10
--- NOTE | 2017-04-28 14:03 | EKG ---
Date Performed: 04/28/2017 Time Performed: 04:20:56 PTAGE: 71 years EKG: Sinus rhythm Prolonged QT interval Inferior infarct - age undetermined Abnormal ECG PREVIOUS TRACING : 04/27/2017 18.28 Since previous tracing, heart rate is slower, the QT is elizabeth ewhat more prolonged. DOCTOR: Memo Centeno Interpretating Date/Time 04/28/2017 14:01:45
--- NOTE | 2017-04-28 14:03 | EKG ---
Date Performed: 04/28/2017 Time Performed: 08:08:53 PTAGE: 71 years EKG: SINUS BRADYCARDIA PROBABLE INFERIOR MYOCARDIAL INFARCTION , PROBABLY OLD ABNORMAL ECG PREVIOUS TRACING : 04/28/2017 04.20 Prolonged QT interval. Compared to prior tracing no signifi cant change. DOCTOR: Memo Centeno Interpretating Date/Time 04/28/2017 14:02:07
--- NOTE | 2017-04-28 14:45 | ECHRPT ---
Indication: Shortness of breath CONCLUSIONS The left ventricular systolic function is normal with an estimated ejection fraction in the range of 60-65%. Pulmonary arterial systolic pressure could not be estimated due to an insufficient tricuspid valve regurgitation doppler jet for measurement. Trace mitral valve regurgitation. The aortic valve is not well visualized. BP: 138 / 72 HR: 94 Rhythm: Sinus MEASUREMENTS (Male / Female) Normal Values Technical Quality:Fair 2D ECHO LVOT Diameter 2.0 cm LV Ejection Fraction MOD 4C 59.3 % LV Cardiac Index MOD 4C 3902.7 cm/minm LV Ejection Fraction 4C AL 61.9 % LV Cardiac Index 4C AL 4191.7 cm/minm M-MODE Aortic Root Diameter MM 2.9 cm AV Cusp Separation MM 1.5 cm DOPPLER AV Peak Velocity 164.0 cm/s AV Peak Gradient 10.8 mmHg LVOT Peak Velocity 109.0 cm/s LVOT Peak Gradient 4.8 mmHg AV Area Cont Eq pk 2.1 cm MV Area PHT 3.3 cm Mitral E Point Velocity 82.4 cm/s Mitral A Point Velocity 96.7 cm/s Mitral E to A Ratio 0.9 LV E' Lateral Velocity 6.4 cm/s Mitral E to LV E' Lateral Ratio 12.9 LV E' Septal Velocity 4.0 cm/s Mitral E to LV E' Septal Ratio 20.6 FINDINGS LEFT VENTRICLE Doppler parameters are consistent with impaired left ventricular relaxtion (grade 1 diastolic dysfun ction). The left ventricular systolic function is normal with an estimated ejection fraction in the range of 60-65%. RIGHT VENTRICLE Normal right ventricular size and systolic function. LEFT ATRIUM The left atrial size is normal. RIGHT ATRIUM The right atrial size is normal. ATRIAL SEPTUM Normal atrial septal thickness without atrial level shunting by limited color doppler interrogation. AORTA The aortic root and proximal ascending aorta are normal in size on limited imaging. MITRAL VALVE Trace mitral valve regurgitation. AORTIC VALVE The aortic valve is not well visualized. TRICUSPID VALVE Pulmonary arterial systolic pressure could not be estimated due to an insufficient tricuspid valve regurgitation doppler jet for measurement. PULMONARY VALVE The pulmonary valve is not well visualized. VESSELS The inferior vena cava is normal in size. PERICARDIUM No pericardial effusion. Robin Sahni MD (Electronically Signed) Final Date:28 April 2017 14:44
--- NOTE | 2017-04-28 15:01 | MB ---
cc: MIMI SOLARES DATE OF CONSULTATION: 04/28/2017 CHIEF COMPLAINT Left foot ulceration with possible infection. HISTORY OF PRESENT ILLNESS Mr. Lechuga is a 71-year-old male patient currently intubated. HPI is obtained from the patient's H&P. He was found prone and unresponsive on the floor in his home by neighbors. He had not been seen since the evening before but appeared to be in no distress at that time. The patient was admitted for encephalopathy and I was consulted for a left foot ulceration. The patient is currently being worked up for possible meningitis. PAST MEDICAL HISTORY 1. Diabetes. 2. Hypertension. 3. Hyperlipidemia. 4. COPD. 5. Hypothyroidism. 6. Peripheral vascular disease. PAST SURGICAL HISTORY Surgical history is unknown but includes tonsillectomy, endarterectomy and iliac stents. MEDICATIONS Please see list. FAMILY HISTORY Noncontributory. SOCIAL HISTORY Unknown. The patient is currently intubated. VITAL SIGNS: Temperature is 98.7 with a T-max of 101.5. Pulse 60, blood pressure 121/68. Pulse ox 100% air with intubation. LABORATORY DATA White count is 20.1, down from 27.3, hemoglobin 11.2, hematocrit 32.6, platelets 301. Sodium 143, potassium 3.3, chloride 110, carbon dioxide 25.9, BUN is 11. Wound cultures are pending. Spinal fluid cultures are pending. Blood cultures are pending. Sputum cultures are pending. Foot x-ray is pending. PHYSICAL EXAMINATION On physical exam the patient has nonpalpable DP or PT pulses but feet do feel warm and perfused. Noted contractures of the lesser digits, unable to test the strength or protective sensation. A small eschar noted to the medial aspect of the left hallux nail border, noted eschar in the left plantar submetatarsal one. Eschar was debrided as there appeared to be some trapped fluid underneath. After debridement there is a wound 1.5 cm x 0.7 cm which has probing and tunneling from 9 o'clock to 3 o'clock approximately 1 cm probing. Erythema is noted approximately 2 cm circumferentially, periwound, no exposed bone but the wound does probe deep to capsule, slight malodor, mild serous drainage, wound bed is fibrotic. ASSESSMENT AND PLAN 1. Stage II/III left foot ulceration with cellulitis. - X-rays pending. - Wound culture pending. - Wound debridement was performed today at bedside. - Wound orders provided for nursing staff - Will follow closely and plan appropriately based on x-rays and course of the wound. Thank you for this consultation. Mimi KIMBLE/KENDALL /1:52 PM /2:42 PM MTDLizandro
--- NOTE | 2017-04-28 15:07 | RADRPT ---
EXAM DATE/TIME: 04/28/2017 14:19 [place] COMPARISON: No previous studies available for comparison. INDICATIONS : Foot ulcer on pedal surface under first MTPJ. MEDICAL HISTORY : None. SURGICAL HISTORY : None. ENCOUNTER: Initial ACUITY: 1 day PAIN SCORE: Non-responsive. LOCATION: Left foot, pedal surface under first MTPJ. FINDINGS: AP, lateral and oblique views of the left foot were obtained demonstrates soft tissue swelling and ap parent ulcer along the first proximal phalanx. There is patchy sclerosis involving the first proximal phalanx as well as central lucency. There is no definite periosteal new bone formation or destructiv e change. The distal phalanx is similar in appearance with patchy sclerosis. There are degenerative c hanges greatest involving the first metatarsal phalangeal joint with joint space narrowing and sclero sis. CONCLUSION: 1. Focal soft tissue swelling apparent ulcer adjacent to the first proximal phalanx. 2. The first distal and proximal phalanges are abnormal in appearance with patchy sclerosis. There is also patchy lucency in the central proximal phalanx. There is no periosteal new bone formation or de structive change and the findings are nonspecific.. Juan Gamez MD on April 28, 2017 at 15:02 Board Certified Radiologist. This report was verified electronically.
[2017-04-28 16:06] LABS: BICARBONATE 24.4 MEQ/L (21.0-32.0); POTASSIUM 3.9 MEQ/L (3.5-5.1)
[2017-04-28] MEDS: ATORVASTATIN 80 MG TAB PO SCH (20:31)
--- NOTE | 2017-04-28 21:18 | MG ---
cc: HEBER GEE M.D. Lab No: Date: 04/28/2017 Age: Sex: M Race: REQUESTING PHYSICIAN Dr. Gee INTRODUCTION An EEG was obtained on this 71-year-old patient intubated, sedated with fentanyl and being evaluated for encephalopathy, apparent old areas of stroke. History of patient being found on the floor. DESCRIPTION This EEG shows prominent low amplitude activity. There is artifact. At times there appear to be some intermixed alpha rhythms in the central and posterior head regions. Photic stimulation shows no change. At times there is also some theta with delta rhythms of low amplitude bilaterally. INTERPRETATION Abnormal EEG because of bihemisphere, generalized slowing suggesting a moderate to severe diffuse disturbance of cerebral function. No epileptiform features present. Heber Gee MD OFC/KK /9:00 PM /9:09 PM
[2017-04-29] VITALS (15 sets, daily range): BP systolic 132–191; BP diastolic 71–115; PULSE 56–97; RESP 14–30; TEMP 97.8–98.8; O2SAT 95–100
[2017-04-29] MEDS: ACYCLOVIR INJ 600 MG in SODIUM CHLORIDE 0.9% INJ 100 ML IV SCH ×2 (00:12→11:45)
[2017-04-29] MEDS: PROPOFOL 1000 MG/100 ML IV PRN ×2 (00:13→06:13)
[2017-04-29] MEDS: INSULIN ASPART SUPPLEMENTAL SCALE SQ SCH ×6 (02:00→22:00)
[2017-04-29] MEDS: metroNIDAZOLE 500 MG INJ 100 ML IV SCH ×3 (02:05→17:17)
[2017-04-29] MEDS: CEFEPIME INJ 2,000 MG in SODIUM CHLORIDE 0.9% INJ 100 ML IV SCH ×3 (03:00→18:27)
[2017-04-29] MEDS: CHLORHEXIDINE GLUCONATE 2 % 1 PACK (2 CLOTHS) TOP SCH (03:28)
[2017-04-29] MEDS: VANCOMYCIN INJ 1,250 MG in SODIUM CHLOR 0.9% 250 ML INJ 250 ML IV SCH (04:35)
[2017-04-29 05:05] LABS: MAGNESIUM 1.5 MG/DL (1.5-2.5)
[2017-04-29 05:16] LABS: AUTOMATED NEUTROPHIL # 9.2 TH/MM3 (1.8-7.7); BASOPHIL # 0.1 TH/MM3 (0-0.2); BASOPHIL % 0.8 % (0.0-2.0); EOSINOPHIL # 0.5 TH/MM3 (0-0.4); EOSINOPHIL % 3.5 % (0.0-4.0); HEMATOCRIT 36.3 % (39.0-51.0); HEMO FLAGS DIFF FINAL; LYMPH % 18.9 % (9.0-44.0); LYMPHOCYTE # 2.5 TH/MM3 (1.0-4.8); MEAN CELL VOLUME 89.7 FL (80.0-100.0); MEAN CORPUSCULAR HEMOGLOBIN 29.2 PG (27.0-34.0); MEAN CORPUSCULAR HGB CONC 32.6 % (32.0-36.0); MONO % 7.7 % (0.0-8.0); NEUT % 69.1 % (16.0-70.0); PLATELET COUNT 265 TH/MM3 (150-450); RED BLOOD COUNT 4.05 MIL/MM3 (4.50-5.90); RED CELL DISTRIBUTION WIDTH 14.3 % (11.6-17.2); WHITE BLOOD COUNT 13.3 TH/MM3 (4.0-11.0)
[2017-04-29] MEDS: RESP: ALBUTEROL 2.5 MG/IPRATROPIUM 0.5 MG NEB (SCH) NEB ×4 (05:22→22:00)
[2017-04-29] MEDS: LEVOTHYROXINE SODIUM 50 MCG TAB PO SCH (05:33)
--- NOTE | 2017-04-29 07:32 | PD.CARD.PN ---
Subjective Subjective Remarks alert on vent Objective Medications Current Medications Medications (Trade) Dose Ordered Sig/Nolvia Route Start Time Stop Time Status Last Admin (NS Flush) 2 ml UNSCH PRN IV FLUSH 04/27/17 21:15 (NS Flush) 2 ml BID IV FLUSH 04/28/17 09:00 04/28/17 08:23 (Tylenol) 650 mg Q6H PRN PO 04/27/17 21:15 (fentaNYL INJ) 50 mcg Q1H PRN IV PUSH 04/27/17 21:15 04/29/17 05:34 (Protonix Inj) 40 mg DAILY IV PUSH 04/28/17 09:00 04/28/17 08:23 (Zofran Inj) 4 mg Q6H PRN IV PUSH 04/27/17 21:15 Miscellaneous Information 1 [id number] XX 04/27/17 21:15 04/27/17 23:15 (Chlorhexidine 2% Cloth) 3 pack Taper DAILY@04 TOP 04/28/17 04:00 04/24/18 03:59 04/29/17 03:28 (Chlorhexidine 2% Cloth) 3 pack UNSCH PRN TOP 04/27/17 21:15 (Yamel-Colace) 1 tab BID PO 04/28/17 09:00 04/28/17 20:31 (Milk Of Magnesia Liq) 30 ml Q12H PRN PO 04/27/17 21:15 (Senokot) 17.2 mg Q12H PRN PO 04/27/17 21:15 (Dulcolax Supp) 10 mg DAILY PRN RECTAL 04/27/17 21:15 (Lactulose Liq) 30 ml DAILY PRN PO 04/27/17 21:15 (Duoneb Neb) 1 ampule Q6HR NEB NEB 04/28/17 01:00 04/29/17 05:22 (Albuterol Neb) 2.5 mg Q2HR NEB PRN NEB 04/28/17 01:00 ([place] 5-325 Mg) 1 tab Q6H PRN PO 04/28/17 01:00 ([place] 5-325 Mg) 2 tab Q6H PRN PO 04/28/17 01:00 Pharmacy Profile Note 0 ml @ 0 mls/hr UNSCH OTHER 04/28/17 01:00 (Peridex 0.12% Liq) 15 ml BID@08,20 MT 04/28/17 08:00 04/28/17 20:32 (Cerebyx Inj) 100 mgpe Q12HR IV 04/28/17 09:00 04/28/17 20:31 (D50w (Vial) Inj) 50 ml UNSCH PRN IV PUSH 04/28/17 01:30 (Glucagon Inj) 1 mg UNSCH PRN OTHER 04/28/17 01:30 (NovoLOG SUPPLEMENTAL SCALE) 1 Q4H SQ 04/28/17 02:00 04/28/17 18:00 Dextrose/Sodium Chloride 1,000 ml @ 75 mls/hr [id number] IV 04/28/17 01:30 04/28/17 16:28 Acyclovir Sodium 600 mg/Sodium Chloride 100 ml @ 100 mls/hr Q12H IV 04/28/17 12:00 04/29/17 00:12 Fentanyl Citrate 250 ml @ 5 mls/hr TITRATE PRN IV 04/28/17 04:15 04/28/17 04:59 Potassium Chloride 100 ml @ 50 mls/hr Q2H PRN IV 04/28/17 04:15 Potassium Chloride 100 ml @ 50 mls/hr Q2H PRN IV 04/28/17 04:15 (K-Lyte Cl Eff) 50 meq UNSCH PRN PO 04/28/17 04:15 Potassium Chloride 100 ml @ 25 mls/hr UNSCH PRN IV 04/28/17 04:15 Potassium Chloride 100 ml @ 50 mls/hr Q2H PRN IV 04/28/17 04:15 Magnesium Sulfate 4 gm/Sodium Chloride 100 ml @ 50 mls/hr UNSCH PRN IV 04/28/17 04:15 (Mag-Ox) 800 mg UNSCH PRN PO 04/28/17 04:15 Magnesium Sulfate 2 gm/Sodium Chloride 100 ml @ 50 mls/hr UNSCH PRN IV 04/28/17 04:15 (K-Phos) 2,000 mg Q4H PRN PO 04/28/17 04:15 Sodium Phosphate 30 mmol/Sodium Chloride 250 ml @ 42 mls/hr UNSCH PRN IV 04/28/17 04:15 (K-Phos) 2,000 mg UNSCH PRN PO/TUBE 04/28/17 04:15 Potassium Phosphate 30 mmol/ Sodium Chloride 260 ml @ 42 mls/hr UNSCH PRN IV 04/28/17 04:15 04/28/17 05:48 (Lipitor) 80 mg HS PO 04/28/17 21:00 04/28/17 20:31 (Synthroid) 50 mcg DAILY@0600 PO 04/28/17 09:00 04/29/17 05:33 Cefepime HCl 2000 mg/Sodium Chloride 100 ml @ 200 mls/hr Q8H IV 04/28/17 11:00 04/29/17 03:00 Metronidazole 100 ml @ 100 mls/hr Q8H IV 04/28/17 10:00 04/29/17 02:05 Vancomycin HCl 1250 mg/Sodium Chloride 262.5 ml @ 250 mls/hr Q24H IV 04/29/17 05:00 04/29/17 04:35 Miscellaneous Information SPECIFIC LAB TO BE LUCÍA... ONCE ONCE .XX 05/01/17 04:45 05/01/17 04:46 (Coreg) 3.125 mg Q12HR PO 04/28/17 11:15 04/28/17 20:31 Propofol 100 ml @ 1.875 mls/ hr TITRATE PRN IV 04/28/17 12:15 04/29/17 06:13 Vital Signs / I&O Vital Signs Date Time Temp Pulse Resp B/P (MAP) Pulse Ox O2 Delivery O2 Flow Rate FiO2 04/29/17 04:00 97.9 71 14 156/83 (107) 100 04/29/17 04:00 40 04/29/17 04:00 71 04/29/17 02:00 61 04/29/17 00:00 97.8 63 16 167/71 (103) 100 04/29/17 00:00 40 04/29/17 00:00 63 04/28/17 22:00 59 04/28/17 21:45 100 40 04/28/17 20:00 40 04/28/17 20:00 56 04/28/17 20:00 97.9 56 16 122/71 (88) 100 04/28/17 18:00 62 04/28/17 16:05 100 40 04/28/17 16:00 40 04/28/17 16:00 98.6 60 16 140/74 (96) 100 04/28/17 16:00 60 04/28/17 14:09 100 40 04/28/17 14:00 59 04/28/17 12:00 40 04/28/17 12:00 60 04/28/17 12:00 98.7 60 16 121/68 (85) 100 04/28/17 10:26 100 40 04/28/17 10:00 56 04/28/17 08:01 100 40 04/28/17 08:00 97.9 59 16 128/73 (91) 100 04/28/17 08:00 40 04/28/17 08:00 59 I/O 04/28/17 04/28/17 04/28/17 04/29/17 04/29/17 04/29/17 07:00 15:00 23:00 07:00 15:00 23:00 Intake Total 1988 ml 459.4 ml 431.8 ml 845 ml Output Total 250 ml 500 ml 300 ml Balance 1738 ml 459.4 ml -68.2 ml 545 ml Intake Oral 0 ml IV Total 1958 ml 459.4 ml 381.8 ml 662 ml Tube Feeding 50 ml 123 ml Other 30 ml 60 ml Output Urine Total 250 ml 500 ml 300 ml # Bowel Movements 0 Physical Exam GENERAL: Well developed, well nourished. No acute distress on vent able to wave hand HEENT: Jugular venous pressure is normal. CHEST: Lungs clear to auscultation bilaterally. Unlabored respiratory effort. CARDIAC: Regular rate and rhythm without S3, S4, or murmur. ABDOMEN: Soft, nontender, no hepatosplenomegaly. Bowel sounds present. EXTREMITIES: No clubbing, cyanosis, or edema. Laboratory Laboratory Tests Test 04/28/17 12:34 04/28/17 12:35 04/29/17 04:21 Blood Urea Nitrogen 11 MG/DL Creatinine 0.83 MG/DL Random Glucose 229 MG/DL Calcium Level 7.6 MG/DL 7.8 MG/DL Sodium Level 142 MEQ/L Potassium Level 3.9 MEQ/L Chloride Level 110 MEQ/L Carbon Dioxide Level 24.4 MEQ/L Anion Gap 8 MEQ/L Estimat Glomerular Filtration Rate 92 ML/MIN Phosphorus Level 4.6 MG/DL 3.2 MG/DL Troponin I 10.90 NG/ML Protein Corrected Calcium 9.0 MG/DL Total Protein 5.1 GM/DL White Blood Count 13.3 TH/MM3 Red Blood Count 4.05 MIL/MM3 Hemoglobin 11.8 GM/DL Hematocrit 36.3 % Mean Corpuscular Volume 89.7 FL Mean Corpuscular Hemoglobin 29.2 PG Mean Corpuscular Hemoglobin Concent 32.6 % Red Cell Distribution Width 14.3 % Platelet Count 265 TH/MM3 Mean Platelet Volume 9.5 FL Neutrophils (%) (Auto) 69.1 % Lymphocytes (%) (Auto) 18.9 % Monocytes (%) (Auto) 7.7 % Eosinophils (%) (Auto) 3.5 % Basophils (%) (Auto) 0.8 % Neutrophils # (Auto) 9.2 TH/MM3 Lymphocytes # (Auto) 2.5 TH/MM3 Monocytes # (Auto) 1.0 TH/MM3 Eosinophils # (Auto) 0.5 TH/MM3 Basophils # (Auto) 0.1 TH/MM3 CBC Comment DIFF FINAL Differential Comment Magnesium Level 1.5 MG/DL Albumin 2.0 GM/DL Phenytoin (Dilantin) Level 10.6 MCG/ML Imaging Last 72 hours Impressions Foot X-Ray 04/28/17 0000 Signed Impressions: Service Date/Time: Friday, April 28, 2017 14:19 - CONCLUSION: 1. Focal soft tissue swelling apparent ulcer adjacent to the first proximal phalanx. 2. The first distal and proximal phalanges are abnormal in appearance with patchy sclerosis. There is also patchy lucency in the central proximal phalanx. There is no periosteal new bone formation or destructive change and the findings are nonspecific.. Juan Gamez MD Head CT [id number]/27/[id number] Signed Impressions: Service Date/Time: Thursday, April 27, 2017 18:47 - CONCLUSION: 1. No acute hemorrhage or mass effect. 2. 2 area of low attenuation encephalomalacia involving left frontal lobe most consistent with an interval infarct. 3. Low attenuation area involving the posterior left temporal parietal region which is more nonspecific but more likely likely is also chronic. Juan Gamez MD Chest X-Ray [id number]/27/[id number] Signed Impressions: Service Date/Time: Thursday, April 27, 2017 18:31 - CONCLUSION: No acute disease. Juan Gamez MD Chest X-Ray 04/27/17 0000 Signed Impressions: Service Date/Time: Thursday, April 27, 2017 19:57 - CONCLUSION: 1. Middle intubation and placement of nasogastric tube. 2. The lungs are mildly hyperinflated with no evidence of pneumonia or pulmonary edema. Juan Gamez MD Brain MRI 04/27/17 0000 Signed Impressions: Service Date/Time: Thursday, April 27, 2017 21:57 - CONCLUSION: 1. No acute hemorrhage or infarction. 2. Old area of encephalomalacia involving left frontal lobe with gliosis. 3. Areas of apparent gliosis involving the left inferior temporal parietal junction and left occipital lobe.. 4. Moderate atrophic change and chronic small vessel ischemic changes. Juan Gamez MD Assessment and Plan Assessment and Plan elevated trop- likely secondary event, though I will check another CK/MB to assist -EF normal by ECHO - agree likely should have ischemia work up at some point none the less -no overt cardiac etiology Resp failure- on vent per CCM foot ulcer- DM- Yenni Hanson MD Apr 29, 2017 07:32
[2017-04-29] MEDS: CARVEDILOL 3.125 MG TAB PO SCH ×2 (08:20→19:40)
[2017-04-29] MEDS: PANTOPRAZOLE SODIUM 40 MG VIAL IV PUSH SCH (08:20)
[2017-04-29] MEDS: DOCUSATE SODIUM 50 MG/SENNA 8.6 MG TAB PO SCH ×2 (08:20→19:40)
[2017-04-29] MEDS: SODIUM CHLORIDE 0.9% FLUSH 10 ML FLUSH IV FLUSH SCH ×2 (08:21→19:39)
[2017-04-29] MEDS: ASPIRIN EC 81 MG TABEC PO SCH (08:21)
[2017-04-29] MEDS: FOSPHENYTOIN SODIUM 100 MG PE/2 ML VIAL IV SCH ×2 (08:22→19:39)
[2017-04-29] MEDS: CHLORHEXIDINE 0.12% (ORAL KIT) 15 ML CUP MT SCH ×2 (08:24→19:40)
[2017-04-29 09:54] LABS: HDL CHOLESTEROL 36.1 MG/DL (40.0-60.0)
[2017-04-29 10:56] LABS: CKMB 20.8 NG/ML (0.5-3.6)
[2017-04-29] MEDS: DEXT 5%-NACL 0.9% 1000 ML INJ 1,000 ML IV SCH ×2 (10:56→23:29)
[2017-04-29 11:04] LABS: CKMB 20.1 NG/ML (0.5-3.6)
--- NOTE | 2017-04-29 12:45 | HHI.CCPN ---
Subjective Remarks/Hospital Course 71-year-old with past medical history of hypertension, hyperlipidemia, diabetes mellitus, hypothyroidism, peripheral vascularly disease, COPD who presents to [facility] emergency department via [facility] after his neighbor found him prone on the floor of his home. He had last been seen in the evening before in his usual state of health. Upon arrival he was found to be hyperglycemic with glucose of 556 but not in DKA. His creatinine is 1.48. His white blood cell count is 27.3. Lactic acid 4.9. Troponin 0.17. BNP 150. He was febrile up to 101.5. He was combative with staff and therefore was given Ativan 2 mg IV and Haldol 5 mg IM for patient and staff safety during CT. CT brain demonstrated no acute findings. There was encephalomalacia left frontal lobe. Nonspecific low attenuation in the posterior left temporoparietal region which was felt to be chronic. When the ED physician went to reassess the patient he was obtunded, not protecting his airway, and reportedly having fasciculations so he was given Ativan 2 mg IV and then was intubated with etomidate and succinylcholine. He underwent lumbar puncture and was empirically placed on Rocephin, vancomycin, and acyclovir and received 2 L NS bolus. UA was negative for evidence infection. Blood cultures were obtained. Chest x-ray was clear. Urine drug screen, salicylate, APAP, EtOH level negative. Subjective: 04/28: The patient appears more hemodynamically stable, MAP's 80's, carvedilol 3.125 to medication regimen. Fentanyl infusion discontinue propofol infusion now initiated for assessment of neuro status status. EEG pending. WBC count trending down. 04/29: Remains sedated, orally intubated on mechanical ventilation. Objective Vital Signs Date Time Temp Pulse Resp B/P (MAP) Pulse Ox O2 Delivery O2 Flow Rate FiO2 04/29/17 12:12 100 35 04/29/17 12:00 98.7 70 14 175/115 (135) 04/27/17 22:42 Auto-Vent 04/27/17 18:22 2.00 Intake and Output 04/29/17 04/29/17 04/30/17 08:00 16:00 00:00 Intake Total 845 ml 1177 ml Output Total 300 ml Balance 545 ml 1177 ml Result Diagram: 04/29/17 0421 04/28/17 1234 Other Results Laboratory Tests Test 04/29/17 04:21 White Blood Count 13.3 TH/MM3 Red Blood Count 4.05 MIL/MM3 Hemoglobin 11.8 GM/DL Hematocrit 36.3 % Mean Corpuscular Volume 89.7 FL Mean Corpuscular Hemoglobin 29.2 PG Mean Corpuscular Hemoglobin Concent 32.6 % Red Cell Distribution Width 14.3 % Platelet Count 265 TH/MM3 Mean Platelet Volume 9.5 FL Neutrophils (%) (Auto) 69.1 % Lymphocytes (%) (Auto) 18.9 % Monocytes (%) (Auto) 7.7 % Eosinophils (%) (Auto) 3.5 % Basophils (%) (Auto) 0.8 % Neutrophils # (Auto) 9.2 TH/MM3 Lymphocytes # (Auto) 2.5 TH/MM3 Monocytes # (Auto) 1.0 TH/MM3 Eosinophils # (Auto) 0.5 TH/MM3 Basophils # (Auto) 0.1 TH/MM3 CBC Comment DIFF FINAL Differential Comment Phosphorus Level 3.2 MG/DL Magnesium Level 1.5 MG/DL Albumin 2.0 GM/DL Triglycerides Level 127 MG/DL Cholesterol Level 117 MG/DL LDL Cholesterol 56 MG/DL HDL Cholesterol 36.1 MG/DL Cholesterol/HDL Ratio 3.24 RATIO Phenytoin (Dilantin) Level 10.6 MCG/ML Imaging Last Impressions Head CT 04/27/171749 Signed Impressions: Service Date/Time: Thursday, April 27, 2017 18:47 - CONCLUSION: 1. No acute hemorrhage or mass effect. 2. 2 area of low attenuation encephalomalacia involving left frontal lobe most consistent with an interval infarct. 3. Low attenuation area involving the posterior left temporal parietal region which is more nonspecific but more likely likely is also chronic. Juan Gamez MD Chest X-Ray 04/27/171749 Signed Impressions: Service Date/Time: Thursday, April 27, 2017 18:31 - CONCLUSION: No acute disease. Juan Gamez MD Brain MRI 04/27/17 0000 Signed Impressions: Service Date/Time: Thursday, April 27, 2017 21:57 - CONCLUSION: 1. No acute hemorrhage or infarction. 2. Old area of encephalomalacia involving left frontal lobe with gliosis. 3. Areas of apparent gliosis involving the left inferior temporal parietal junction and left occipital lobe.. 4. Moderate atrophic change and chronic small vessel ischemic changes. Juan Gamez MD Objective Remarks Drips: Propofol 10 mg per KG per minute D5NS 75 cc/hr GENERAL: Obese critically ill male who is orotracheally intubated and sedated. SKIN: Warm and dry. Feet are soiled. There is ~ 2.5 cm eschar overlying the plantar aspect of the 1st MTP of the left foot. About 1.5 cm area of that eschar is fluctuant with purulent drainage. There is surrounding erythema. HEAD: Atraumatic. Normocephalic. EYES: Pupils equal and round, 3 mm reactive bilaterally. No scleral icterus. No injection or drainage. ENT: No nasal bleeding or discharge. Mucous membranes pink and moist. NECK: Trachea midline. No JVD. CARDIOVASCULAR: Regular rate and rhythm, sinus on the monitor. No murmurs rubs or gallops. RESPIRATORY: No accessory muscle use. Mild rhonchi left base.. Breath sounds equal bilaterally. No wheeze or rales. GASTROINTESTINAL: Abdomen soft, non-tender, nondistended. Bowel sounds present : Barnes in situ. MUSCULOSKELETAL: Extremities without clubbing, cyanosis, or edema. NEUROLOGICAL: GCS 3 T. Sedated on fentanyl infusion. VASC: Dopplerable DP pulses B/L A/P Assessment and Plan NEURO: Acute encephalopathy Status post right carotid endarterectomy CT brain 04/27 no acute hemorrhage.Left frontal lobe encephalomalacia. Decreased attenuation posterior left temporal parietal region. Small basal ganglia lacunar infarcts. 04/27 BP in ED was 160/100, 217/109 and considered PRES but now BP is 100/67 on minimal propofol 10 mcg/min and clinically appears volume depleted/septic. HTN may have been secondary to his agitated delirium. Obtained MRI brain - No acute infarct. L frontal lobe encephalomalacia. Gliosis left inferior temporal parietal and left occipital lobe. Received Ativan 4 mg IV and Haldol 5 mg IM in the ED due to agitation. ?convulsions and now ?subclinical seizure. Loaded with fosphenytoin 1000 mg/ PE. 100 mg/ PE IV q12. F/u level in am Obtain EEG. Neurology consult. On propofol for sedation. Target RASS -2. Lortab prn pain Urine drug screen, salicylate, APAP, EtOH level negative. TSH normal. 04/27 ammonia level 32 Followup LP done in ED 04/27. RESP: Acute respiratory failure COPD Tobacco abuse DuoNeb every 6 hours. Albuterol every 2 hours as needed Ventilator bundle SBT in am. CV: Lactic acidemia Hyperlipidemia Monitor hemodynamics. Received 2 L normal saline bolus in the ED. Appears clinically dry. We'll give additional 1 L normal saline bolus. Monitoring urine output closely which is currently adequate at 45 over the last hour. We' ll follow serial lactic acid. Noted troponin is mildly elevated 0.17-> 6.7 which may be related to sepsis. We'll trend. Initial EKG demonstrated ST , HR 130s no ST elevation, inferior q Continue statin. Initiate BBlker- Carvedilol BNP 150. Obtain 2 D Echo Echo 07/05/10ejection fraction 65-70%. No regional wall motion abnormalities. Cardiology Following - Dr. Sahni GI: begin trickle feeds. Dietary Consult FEN/RENAL: RUBY overlying chronic kidney disease stage III Insert Barnes. Monitor intake and output. Monitor electrolytes and replace as indicated. D5 NS @ 50 ml/hr , will transition to NS dependent upon blood glucose trend ID: Sepsis ?Meningitis Leukocytosis Diabetic foot ulcer, L MTP Encephalopathy, fever concerning for meningitis. Also with infected diabetic ulcer which is potential source. Received Rocephin 2 g IV, vancomycin, acyclovir in the emergency department, Will continue for now. Cr CL 40, acyclovir dosing l30mlugp. F/u CSF studies, culture, HSV PCR. UA negative but negative for evidence of infection. Chest x-ray without infiltrate. Consult podiatry for diabetic foot ulcer. Consider MRI if needed to assist with determining osteomyelitis after wound debridement and probe. Not feasible to hold off on abx to await tissue culture of foot ulcer. ID consult. HEME: No acute hematologic issues. Coags normal ENDO: Diabetes mellitus Acute severe hyperglycemia Not in DKA. Beta Hydroxybutyrate level 0.33. Received 6 units IV insulin, 8 units subcutaneous insulin in the ED. Repeat glucose is 105. Monitor bedside glucose every 4 hours and administer medium dose insulin sliding scale as indicated. PROPH: SCDs for DVT prophylaxis. Pharmacologic DVT prophylaxis can be initiated within 24 hours of LP. Protonix 40 mg IV daily for stress ulcer prophylaxis. ACCESS: Peripheral IV. We'll place central venous line if needed. Dispo: Level 3 Nemani,Seth K. MD Apr 29, 2017 12:45
[2017-04-29] MEDS: hydrALAZINE HCL 20 MG/ML VIAL IV PUSH PRN ×2 (13:01→17:31)
--- NOTE | 2017-04-29 14:12 | HHI.IDPN ---
Subjective Subjective Remarks Patient is a 71-year-old male, lives at home, found prone by his neighbors on the floor of his home. He was apparently last seen that evening and he was initially his usual self, and he had dinner with his neighbor. Later that neighbors found him prone on the floor, and EMS was called. He had very high blood sugar of 556. In the emergency room he had a white count of 23,000, elevated lactic acid of 4.9, and creatinine of 1.48. He was apparently last admitted about one week ago for hyperglycemia. In the ED, he had a fever of 101.5. Patient was initially very calm but became combative, and was given Ativan and Haldol. He underwent CT of the head which did not show any acute findings but did show some chronic findings of previous encephalomalacia, After his CT, he developed worsening of his mental status, and became obtunded. He was not protecting his airway, and reportedly having fasciculations so he was given Ativan 2 mg IV and then was intubated with etomidate and succinylcholine. Lumbar puncture was done, and it showed 15 WBC, mostly lymphocytes, and 45 RBC. CSF glucose and protein were elevated. His chest x-ray was clear. Urine drug screen were all negative. Infectious disease consultation has been requested to evaluate the patient for sepsis Notes reviewed temps ok Extubated On nasal O2 Not SOB WBC better C/S negative so far Antibiotics Cefepime Vancomycin Past Medical History Diabetes Hypertension Hyperlipidemia COPD Hypothyroidism Peripheral vascular disease Past Surgical History Tonsillectomy Right carotid endarterectomy 2015 Iliac stent Allergies: Coded Allergies: No Known Allergies (Verified , 04/27/17) Objective . Vital Signs Date Time Temp Pulse Resp B/P (MAP) Pulse Ox O2 Delivery O2 Flow Rate FiO2 04/29/17 13:31 98 Nasal Cannula 2 28 04/29/17 12:12 100 35 04/29/17 12:00 98.7 70 14 175/115 (135) 100 04/29/17 12:00 35 04/29/17 12:00 65 04/29/17 10:00 62 04/29/17 08:14 100 35 04/29/17 08:00 98.4 64 16 191/86 (121) 100 04/29/17 08:00 40 04/29/17 08:00 64 04/29/17 06:34 16 04/29/17 06:00 56 04/29/17 04:00 97.9 71 14 156/83 (107) 100 04/29/17 04:00 40 04/29/17 04:00 71 04/29/17 02:00 61 04/29/17 00:00 97.8 63 16 167/71 (103) 100 04/29/17 00:00 40 04/29/17 00:00 63 04/28/17 22:00 59 04/28/17 21:45 100 40 04/28/17 20:00 40 04/28/17 20:00 56 04/28/17 20:00 97.9 56 16 122/71 (88) 100 04/28/17 18:00 62 04/28/17 16:05 100 40 04/28/17 16:00 40 04/28/17 16:00 98.6 60 16 140/74 (96) 100 04/28/17 16:00 60 04/28/17 14:09 100 40 04/28/17 14:00 59 04/29/17 04/29/17 04/30/17 15:00 23:00 07:00 Intake Total 1177 ml Balance 1177 ml IV Total 1177 ml . Laboratory Tests Test 04/27/17 18:00 04/28/17 02:25 04/29/17 04:21 White Blood Count 27.3 TH/MM3 20.1 TH/MM3 13.3 TH/MM3 Red Blood Count 4.74 MIL/MM3 3.74 MIL/MM3 4.05 MIL/MM3 Hemoglobin 13.6 GM/DL 11.2 GM/DL 11.8 GM/DL Hematocrit 42.3 % 32.6 % 36.3 % Mean Corpuscular Volume 89.1 FL 87.1 FL 89.7 FL Mean Corpuscular Hemoglobin 28.8 PG 29.9 PG 29.2 PG Mean Corpuscular Hemoglobin Concent 32.3 % 34.3 % 32.6 % Red Cell Distribution Width 14.0 % 13.5 % 14.3 % Platelet Count 393 TH/MM3 301 TH/MM3 265 TH/MM3 Mean Platelet Volume 10.4 FL 9.5 FL 9.5 FL Neutrophils (%) (Auto) 86.4 % 71.8 % 69.1 % Lymphocytes (%) (Auto) 6.8 % 18.7 % 18.9 % Monocytes (%) (Auto) 6.5 % 9.0 % 7.7 % Eosinophils (%) (Auto) 0.0 % 0.2 % 3.5 % Basophils (%) (Auto) 0.3 % 0.3 % 0.8 % Neutrophils # (Auto) 23.6 TH/MM3 14.5 TH/MM3 9.2 TH/MM3 Lymphocytes # (Auto) 1.9 TH/MM3 3.8 TH/MM3 2.5 TH/MM3 Monocytes # (Auto) 1.8 TH/MM3 1.8 TH/MM3 1.0 TH/MM3 Eosinophils # (Auto) 0.0 TH/MM3 0.0 TH/MM3 0.5 TH/MM3 Basophils # (Auto) 0.1 TH/MM3 0.1 TH/MM3 0.1 TH/MM3 CBC Comment DIFF FINAL DIFF FINAL DIFF FINAL Differential Comment Laboratory Tests Test 04/27/17 18:00 04/27/17 18:19 04/27/17 19:05 04/28/17 02:25 Blood Urea Nitrogen 15 MG/DL 11 MG/DL Creatinine 1.45 MG/DL 0.83 MG/DL Random Glucose 556 MG/DL 78 MG/DL Total Protein 7.4 GM/DL 5.7 GM/DL Albumin 3.4 GM/DL 2.4 GM/DL Calcium Level 9.5 MG/DL 7.3 MG/DL Magnesium Level 1.3 MG/DL 1.4 MG/DL Alkaline Phosphatase 100 U/L 67 U/L Aspartate Amino Transf (AST/SGOT) 21 U/L 31 U/L Alanine Aminotransferase (ALT/SGPT) 24 U/L 20 U/L Total Bilirubin 0.5 MG/DL 0.3 MG/DL Sodium Level 133 MEQ/L 143 MEQ/L Potassium Level 4.0 MEQ/L 3.3 MEQ/L Chloride Level 93 MEQ/L 110 MEQ/L Carbon Dioxide Level 29.5 MEQ/L 25.9 MEQ/L Anion Gap 11 MEQ/L 7 MEQ/L Estimat Glomerular Filtration Rate 48 ML/MIN 92 ML/MIN Total Creatine Kinase 179 U/L 561 U/L Creatine Kinase MB 6.1 NG/ML 20.1 NG/ML Troponin I 0.17 NG/ML 6.71 NG/ML B-Type Natriuretic Peptide 150 PG/ML Thyroid Stimulating Hormone 3rd Gen 1.770 uIU/ML Serum Osmolality 320 MOSM/KG Lactic Acid Level 4.9 mmol/L 2.3 mmol/L Phosphorus Level 2.3 MG/DL Protein Corrected Calcium 8.1 MG/DL Ammonia 32 MCMOL/L Creatine Kinase MB % 3.6 % Test 04/28/17 12:34 04/28/17 12:35 04/29/17 04:21 Blood Urea Nitrogen 11 MG/DL Creatinine 0.83 MG/DL Random Glucose 229 MG/DL Calcium Level 7.6 MG/DL 7.8 MG/DL Sodium Level 142 MEQ/L Potassium Level 3.9 MEQ/L Chloride Level 110 MEQ/L Carbon Dioxide Level 24.4 MEQ/L Anion Gap 8 MEQ/L Estimat Glomerular Filtration Rate 92 ML/MIN Phosphorus Level 4.6 MG/DL 3.2 MG/DL Total Creatine Kinase 387 U/L Creatine Kinase MB 20.8 NG/ML Creatine Kinase MB % 5.4 % Troponin I 10.90 NG/ML Protein Corrected Calcium 9.0 MG/DL Total Protein 5.1 GM/DL Magnesium Level 1.5 MG/DL Albumin 2.0 GM/DL Triglycerides Level 127 MG/DL Cholesterol Level 117 MG/DL LDL Cholesterol 56 MG/DL HDL Cholesterol 36.1 MG/DL Cholesterol/HDL Ratio 3.24 RATIO Microbiology Date/Time Source Procedure Growth Status 04/27/17 19:10 Blood Peripheral Aerobic Blood Culture - Preliminary NO GROWTH IN 2 DAYS Resulted 04/27/17 19:10 Blood Peripheral Anaerobic Blood Culture - Preliminary NO GROWTH IN 2 DAYS Resulted 04/27/17 19:00 Blood Peripheral Aerobic Blood Culture - Preliminary NO GROWTH IN 2 DAYS Resulted 04/27/17 19:00 Blood Peripheral Anaerobic Blood Culture - Preliminary NO GROWTH IN 2 DAYS Resulted 04/27/17 19:50 Cerebral Spinal Fluid Lumbar Puncture Gram Stain - Final Resulted 04/27/17 19:50 Cerebral Spinal Fluid Lumbar Puncture CSF Culture - Preliminary NO GROWTH IN 48 HOURS. Resulted 04/27/17 00:40 Sputum Endotracheal Gram Stain - Final Resulted 04/27/17 00:40 Sputum Endotracheal Sputum Culture - Preliminary RARE GROWTH NORMAL RESPIRATORY SANDY ... Resulted 04/28/17 08:46 Wound Foot Gram Stain - Final Resulted 04/28/17 08:46 Wound Foot Wound Culture Pending Resulted Imaging Foot X-Ray 04/28/17 0000 Signed Impressions: Service Date/Time: Friday, April 28, 2017 14:19 - CONCLUSION: 1. Focal soft tissue swelling apparent ulcer adjacent to the first proximal phalanx. 2. The first distal and proximal phalanges are abnormal in appearance with patchy sclerosis. There is also patchy lucency in the central proximal phalanx. There is no periosteal new bone formation or destructive change and the findings are nonspecific.. Juan Gamez MD Head CT 04/27/171749 Signed Impressions: Service Date/Time: Thursday, April 27, 2017 18:47 - CONCLUSION: 1. No acute hemorrhage or mass effect. 2. 2 area of low attenuation encephalomalacia involving left frontal lobe most consistent with an interval infarct. 3. Low attenuation area involving the posterior left temporal parietal region which is more nonspecific but more likely likely is also chronic. Juan Gamez MD Chest X-Ray 04/27/171749 Signed Impressions: Service Date/Time: Thursday, April 27, 2017 18:31 - CONCLUSION: No acute disease. Juan Gamez MD Last Impressions Foot X-Ray 04/28/17 0000 Signed Impressions: Service Date/Time: Friday, April 28, 2017 14:19 - CONCLUSION: 1. Focal soft tissue swelling apparent ulcer adjacent to the first proximal phalanx. 2. The first distal and proximal phalanges are abnormal in appearance with patchy sclerosis. There is also patchy lucency in the central proximal phalanx. There is no periosteal new bone formation or destructive change and the findings are nonspecific.. Juan Gamez MD Head CT 04/27/171749 Signed Impressions: Service Date/Time: Thursday, April 27, 2017 18:47 - CONCLUSION: 1. No acute hemorrhage or mass effect. 2. 2 area of low attenuation encephalomalacia involving left frontal lobe most consistent with an interval infarct. 3. Low attenuation area involving the posterior left temporal parietal region which is more nonspecific but more likely likely is also chronic. Juan Gamez MD Chest X-Ray 04/27/171749 Signed Impressions: Service Date/Time: Thursday, April 27, 2017 18:31 - CONCLUSION: No acute disease. Juan Gamez MD Brain MRI 04/27/17 0000 Signed Impressions: Service Date/Time: Thursday, April 27, 2017 21:57 - CONCLUSION: 1. No acute hemorrhage or infarction. 2. Old area of encephalomalacia involving left frontal lobe with gliosis. 3. Areas of apparent gliosis involving the left inferior temporal parietal junction and left occipital lobe.. 4. Moderate atrophic change and chronic small vessel ischemic changes. Juan Gamez MD Physical Exam GENERAL: awake and alert, not in respiratory distress. SKIN: Warm and dry. No generalized rash, no ecchymoses and no evidence of embolic lesions. HEAD: Atraumatic. Normocephalic. No temporal wasting, or tenderness. EYES: [place] conjunctiva. No petechia or hemorrhage. Pupils equal, round and reactive to light. No scleral icterus. No injection or drainage. EARS, NOSE AND THROAT: Nose without bleeding or purulent nasal discharge. He is orally intubated. NECK: Trachea midline. Supple and not tender, no meningeal signs CARDIOVASCULAR: Regular rate and rhythm. No murmurs, rubs or gallops heard RESPIRATORY: Clear to auscultation. Breath sounds equal bilaterally. No rales , wheezing or rhonchi ABDOMEN: Soft, nondistended, bowel sounds present and normoactive. No reaction to palpation. No guarding. No organomegaly. EXTREMITIES: No clubbing, cyanosis, or edema. He has a black eschar over the plantar aspect of his L first MTP, looks less swollen and red, dry dressing NEUROLOGICAL: awake, and alert. PSYCHIATRIC: cooperative LINE: No evidence of infection Assessment & Plan Remarks IMPRESSION Sepsis on presentation, source? - better - CXR clear - UA ok - LP with some mild lymphocytic pleocytosis - ?had SZ in ED, ?abnormality due to that, MRI no meningeal enhancement, has old findings, no temporal lobe abnormality - Has a small ulcer on L foot with cellulitis DM, PVD HTN Respiratory failure, extubated Leukocytosis, better Renal insufficiency, better RECOMMENDATION Continue IV Vanco for GPC and MRSA coverage Continue Cefepime Continue Flagyl Also on Acyclovir, ok to D/C Follow C/S Monitor progress Yenifer Hull MD Apr 29, 2017 14:12
[2017-04-29] MEDS ORDERED: HALOPERIDOL LACTATE 5 MG/ML AMP IV PRN (15:00)
[2017-04-29] MEDS: ATORVASTATIN 80 MG TAB PO SCH (19:40)
[2017-04-30] VITALS (27 sets, daily range): BP systolic 102–182; BP diastolic 53–83; PULSE 71–88; RESP 12–25; TEMP 98.2–98.5; O2SAT 93–97
[2017-04-30] MEDS: ACYCLOVIR INJ 600 MG in SODIUM CHLORIDE 0.9% INJ 100 ML IV SCH (00:46)
[2017-04-30] MEDS: metroNIDAZOLE 500 MG INJ 100 ML IV SCH ×2 (00:50→08:40)
[2017-04-30] MEDS: INSULIN ASPART SUPPLEMENTAL SCALE SQ SCH ×6 (02:00→19:37)
[2017-04-30] MEDS: CEFEPIME INJ 2,000 MG in SODIUM CHLORIDE 0.9% INJ 100 ML IV SCH ×2 (03:00→10:22)
[2017-04-30] MEDS: RESP: ALBUTEROL 2.5 MG/IPRATROPIUM 0.5 MG NEB (SCH) NEB ×4 (03:26→20:52)
[2017-04-30] MEDS: CHLORHEXIDINE GLUCONATE 2 % 1 PACK (2 CLOTHS) TOP SCH (04:00)
[2017-04-30] MEDS: VANCOMYCIN INJ 1,250 MG in SODIUM CHLOR 0.9% 250 ML INJ 250 ML IV SCH (05:53)
[2017-04-30] MEDS: LEVOTHYROXINE SODIUM 50 MCG TAB PO SCH (05:53)
[2017-04-30] MEDS: CHLORHEXIDINE 0.12% (ORAL KIT) 15 ML CUP MT SCH ×2 (08:00→19:36)
[2017-04-30] MEDS: FOSPHENYTOIN SODIUM 100 MG PE/2 ML VIAL IV SCH ×2 (08:39→19:35)
[2017-04-30] MEDS: PANTOPRAZOLE SODIUM 40 MG VIAL IV PUSH SCH (08:39)
[2017-04-30] MEDS: hydrALAZINE HCL 20 MG/ML VIAL IV PUSH PRN (08:39)
[2017-04-30] MEDS: DOCUSATE SODIUM 50 MG/SENNA 8.6 MG TAB PO SCH ×2 (08:40→19:36)
[2017-04-30] MEDS: ASPIRIN EC 81 MG TABEC PO SCH (08:40)
[2017-04-30] MEDS: CARVEDILOL 3.125 MG TAB PO SCH ×2 (08:40→19:35)
[2017-04-30] MEDS: SODIUM CHLORIDE 0.9% FLUSH 10 ML FLUSH IV FLUSH SCH ×2 (08:52→19:36)
[2017-04-30] MEDS: DEXT 5%-NACL 0.9% 1000 ML INJ 1,000 ML IV SCH (08:52)
--- NOTE | 2017-04-30 08:53 | HHI.CCPN ---
Subjective Remarks/Hospital Course 71-year-old with past medical history of hypertension, hyperlipidemia, diabetes mellitus, hypothyroidism, peripheral vascularly disease, COPD who presents to [facility] emergency department via [facility] after his neighbor found him prone on the floor of his home. He had last been seen in the evening before in his usual state of health. Upon arrival he was found to be hyperglycemic with glucose of 556 but not in DKA. His creatinine is 1.48. His white blood cell count is 27.3. Lactic acid 4.9. Troponin 0.17. BNP 150. He was febrile up to 101.5. He was combative with staff and therefore was given Ativan 2 mg IV and Haldol 5 mg IM for patient and staff safety during CT. CT brain demonstrated no acute findings. There was encephalomalacia left frontal lobe. Nonspecific low attenuation in the posterior left temporoparietal region which was felt to be chronic. When the ED physician went to reassess the patient he was obtunded, not protecting his airway, and reportedly having fasciculations so he was given Ativan 2 mg IV and then was intubated with etomidate and succinylcholine. He underwent lumbar puncture and was empirically placed on Rocephin, vancomycin, and acyclovir and received 2 L NS bolus. UA was negative for evidence infection. Blood cultures were obtained. Chest x-ray was clear. Urine drug screen, salicylate, APAP, EtOH level negative. Subjective: 04/28: The patient appears more hemodynamically stable, MAP's 80's, carvedilol 3.125 to medication regimen. Fentanyl infusion discontinue propofol infusion now initiated for assessment of neuro status status. EEG pending. WBC count trending down. 04/29: Remains sedated, orally intubated on mechanical ventilation. 04/30: Extubated on 04/29, currently on nasal cannula. He knows he is in the hospital and follows commands appropriately.. Not in any acute distress currently. Objective Vital Signs Date Time Temp Pulse Resp B/P (MAP) Pulse Ox O2 Delivery O2 Flow Rate FiO2 04/30/17 06:00 85 04/30/17 04:00 98.2 24 114/64 (81) 95 04/29/17 13:31 Nasal Cannula 2 28 Intake and Output 04/30/17 04/30/17 05/01/17 08:00 16:00 00:00 Intake Total 355 ml Output Total 650 ml Balance -295 ml Result Diagram: 04/29/17 0421 04/30/17 0521 Other Results Microbiology Date/Time Source Procedure Growth Status 04/27/17 19:50 Cerebral Spinal Fluid Lumbar Puncture Gram Stain - Final Complete 04/27/17 19:50 Cerebral Spinal Fluid Lumbar Puncture CSF Culture - Final NO GROWTH IN 72 HOURS Complete Imaging Last Impressions Head CT 04/27/171749 Signed Impressions: Service Date/Time: Thursday, April 27, 2017 18:47 - CONCLUSION: 1. No acute hemorrhage or mass effect. 2. 2 area of low attenuation encephalomalacia involving left frontal lobe most consistent with an interval infarct. 3. Low attenuation area involving the posterior left temporal parietal region which is more nonspecific but more likely likely is also chronic. Juan Gamez MD Chest X-Ray 04/27/171749 Signed Impressions: Service Date/Time: Thursday, April 27, 2017 18:31 - CONCLUSION: No acute disease. Juan Gamez MD Brain MRI 04/27/17 0000 Signed Impressions: Service Date/Time: Thursday, April 27, 2017 21:57 - CONCLUSION: 1. No acute hemorrhage or infarction. 2. Old area of encephalomalacia involving left frontal lobe with gliosis. 3. Areas of apparent gliosis involving the left inferior temporal parietal junction and left occipital lobe.. 4. Moderate atrophic change and chronic small vessel ischemic changes. Juan Gamez MD Objective Remarks Drips: D5NS 75 cc/hr (stop) GENERAL: male who is laying in bed on nasal cannula. Not in any acute distress SKIN: Warm and dry. Feet are soiled. There is ~ 2.5 cm eschar overlying the plantar aspect of the 1st MTP of the left foot. About 1.5 cm area of that eschar is fluctuant with purulent drainage. There is surrounding erythema. HEAD: Atraumatic. Normocephalic. EYES: Pupils equal and round, 3 mm reactive bilaterally. No scleral icterus. No injection or drainage. ENT: No nasal bleeding or discharge. Mucous membranes pink and moist. NECK: Trachea midline. No JVD. CARDIOVASCULAR: Regular rate and rhythm, sinus on the monitor. No murmurs rubs or gallops. RESPIRATORY: No accessory muscle use. Mild rhonchi left base.. Breath sounds equal bilaterally. No wheeze or rales. GASTROINTESTINAL: Abdomen soft, non-tender, nondistended. Bowel sounds present : Barnes in situ. MUSCULOSKELETAL: Extremities without clubbing, cyanosis, or edema. NEUROLOGICAL: Awake alert oriented 3, following commands appropriately, speech appears normal, nonfocal grossly moving all 4 extremities. VASC: Dopplerable DP pulses B/L A/P Assessment and Plan NEURO: Acute encephalopathy Status post right carotid endarterectomy CT brain 04/27 no acute hemorrhage.Left frontal lobe encephalomalacia. Decreased attenuation posterior left temporal parietal region. Small basal ganglia lacunar infarcts. 04/27 BP in ED was 160/100, 217/109 and considered PRES but now BP is 100/67 on minimal propofol 10 mcg/min and clinically appears volume depleted/septic. HTN may have been secondary to his agitated delirium. Obtained MRI brain - No acute infarct. L frontal lobe encephalomalacia. Gliosis left inferior temporal parietal and left occipital lobe. Received Ativan 4 mg IV and Haldol 5 mg IM in the ED due to agitation. ?convulsions and now ?subclinical seizure. Loaded with fosphenytoin 1000 mg/ PE. 100 mg/ PE IV q12. F/u levels. F/u EEG. Neurology consulted and following - D/W Dr. Gee. Lortab prn pain Urine drug screen, salicylate, APAP, EtOH level negative. TSH normal. 04/27 ammonia level 32 LP done in ED 04/27- WBCs15, Protein 57. RESP: Acute respiratory failure COPD Tobacco abuse DuoNeb every 6 hours. Albuterol every 2 hours as needed Ventilator bundle SBT in am. CV: Lactic acidemia Hyperlipidemia Monitor hemodynamics. Given 3L NS fluid boluses initially on admission Noted troponin is mildly elevated 0.17-> 6.7 which may be related to sepsis. We'll trend. Initial EKG demonstrated ST , HR 130s no ST elevation, inferior q Continue statin. Initiate BBlker- Carvedilol BNP 150. Obtain 2 D Echo Echo 07/05/10ejection fraction 65-70%. No regional wall motion abnormalities. Cardiology Following - Dr. Sahni GI: Advance to 1800 ADA diet. Dietary Consult FEN/RENAL: RUBY overlying chronic kidney disease stage III Insert Barnes. Monitor intake and output. Monitor electrolytes and replace as indicated. Stop D5NS. ID: Sepsis Possible Meningitis Leukocytosis Diabetic foot ulcer, L MTP Encephalopathy, fever concerning for meningitis. Also with infected diabetic ulcer which is potential source. Received Rocephin 2 g IV, vancomycin, acyclovir in the emergency department, Will continue for now. Cr CL 40, acyclovir dosing [id number]. F/u CSF studies, culture, HSV PCR. UA negative but negative for evidence of infection. Chest x-ray without infiltrate. Consult podiatry for diabetic foot ulcer. Consider MRI if needed to assist with determining osteomyelitis after wound debridement and probe. Not feasible to hold off on abx to await tissue culture of foot ulcer. ID consulted and okay with stopping IV acyclovir which is being stopped on . ID switched antibiotic to IV vancomycin/cefepime/Flagyl. HEME: No acute hematologic issues. Coags normal ENDO: Diabetes mellitus Acute severe hyperglycemia Not in DKA. Beta Hydroxybutyrate level 0.33. Received 6 units IV insulin, 8 units subcutaneous insulin in the ED. Repeat glucose is 105. Monitor bedside glucose every 4 hours and administer medium dose insulin sliding scale as indicated. PROPH: SCDs for DVT prophylaxis. Pharmacologic DVT prophylaxis can be initiated within 24 hours of LP. Protonix 40 mg IV daily for stress ulcer prophylaxis. ACCESS: Peripheral IV. We'll consult and transfer to hospitalist service for further medical management. Patient will be transferred out of ICU later today if no further seizures which was OK per Dr. Gee Dispo: Level 3 Seth Bush MD Apr 30, 2017 08:53
[2017-04-30 09:10] LABS: HSV 1,PCR Negative (Negative)
[2017-04-30 10:09] LABS: ALKALINE PHOSPHATASE 75 U/L (45-117); ALT (GPT) 19 U/L (12-78); ANION GAP 10 MEQ/L (5-15); AST (GOT) 44 U/L (15-37); BICARBONATE 18.6 MEQ/L (21.0-32.0); BLOOD UREA NITROGEN 12 MG/DL (7-18); CHLORIDE 112 MEQ/L (98-107); GLOMERULAR FILTRATION RATE 89 ML/MIN (>89); SODIUM (NA) 141 MEQ/L (136-145); TOTAL BILIRUBIN ADULT 0.5 MG/DL (0.2-1.0)
[2017-04-30 10:10] LABS: POTASSIUM 4.3 MEQ/L (3.5-5.1)
--- NOTE | 2017-04-30 13:17 | PD.WCN.NOT ---
Wound Consult Description: Received consult for sacral decubitus ulcer from Doctor Derrick Bush Communicated with: BETZY Aldana [facility] [place] and Doctor Derrick Bush Recommendation: Please cleanse buttock area gently with soap and water and pat dry. Apply skin prep to Deep tissue injury BID to sacral area and leave open to air Additional Information: Patient seen on 5th floor [facility] [place] for evaluation of sacral decubitus ulcer. Patient turned to L side with maximum assist from BETZY Aldana and newspaper writer, to reveal non - blanchable purple discoloration to intact skin on sacral area, indicating deep tissue injury. DTI measures 6 cm x 4 cm. DTI left open to air. Patient is laying on Meera [facility] [place] low air loss specialty bed, with two cloth pads in a staggered fashion under patient. Explained to RN that cloth pads on this Meera bed keep bed from working properly. RN to replace cloth pads under patient with ultrasorb pad. Bed is on correct setting for patient's weight with micro climate automation/controls manager on.Patient was positioned off bottom for pressure relief with pillow for support. Wound care will continue to follow patient until discharge. Priscilla Daley [facility] Apr 30, 2017 13:17
--- NOTE | 2017-04-30 15:22 | HHI.PR ---
Review/Management Daily Summary awake and verbal, irritable and unpleasant at times moves 4 limbs and partially oriented he can be transferred from the unit from a neuro point of view probably no intermediate anticonvulsant needed start oob activities with assistance Subjective Subjective Comments extubated, verbalizing, irritable Active Medications Current Medications Medications (Trade) Dose Ordered Sig/Nolvia Route Start Time Stop Time Status Last Admin (NS Flush) 2 ml UNSCH PRN IV FLUSH 04/27/17 21:15 (NS Flush) 2 ml BID IV FLUSH 04/28/17 09:00 04/30/17 08:52 (Tylenol) 650 mg Q6H PRN PO 04/27/17 21:15 (fentaNYL INJ) 50 mcg Q1H PRN IV PUSH 04/27/17 21:15 04/29/17 15:11 (Protonix Inj) 40 mg DAILY IV PUSH 04/28/17 09:00 04/30/17 08:39 (Zofran Inj) 4 mg Q6H PRN IV PUSH 04/27/17 21:15 Miscellaneous Information 1 Q361D XX 04/27/17 21:15 04/27/17 23:15 (Chlorhexidine 2% Cloth) 3 pack Taper DAILY@04 TOP 04/28/17 04:00 04/24/18 03:59 04/29/17 03:28 (Chlorhexidine 2% Cloth) 3 pack UNSCH PRN TOP 04/27/17 21:15 (Yamel-Colace) 1 tab BID PO 04/28/17 09:00 04/30/17 08:40 (Milk Of Magnesia Liq) 30 ml Q12H PRN PO 04/27/17 21:15 (Senokot) 17.2 mg Q12H PRN PO 04/27/17 21:15 (Dulcolax Supp) 10 mg DAILY PRN RECTAL 04/27/17 21:15 (Lactulose Liq) 30 ml DAILY PRN PO 04/27/17 21:15 (Duoneb Neb) 1 ampule Q6HR NEB NEB 04/28/17 01:00 04/29/17 08:13 (Albuterol Neb) 2.5 mg Q2HR NEB PRN NEB 04/28/17 01:00 ([place] 5-325 Mg) 1 tab Q6H PRN PO 04/28/17 01:00 ([place] 5-325 Mg) 2 tab Q6H PRN PO 04/28/17 01:00 Pharmacy Profile Note 0 ml @ 0 mls/hr UNSCH OTHER 04/28/17 01:00 (Peridex 0.12% Liq) 15 ml BID@08,20 MT 04/28/17 08:00 04/29/17 08:24 (Cerebyx Inj) 100 mgpe Q12HR IV 04/28/17 09:00 04/30/17 08:39 (D50w (Vial) Inj) 50 ml UNSCH PRN IV PUSH 04/28/17 01:30 (Glucagon Inj) 1 mg UNSCH PRN OTHER 04/28/17 01:30 (NovoLOG SUPPLEMENTAL SCALE) 1 Q4H SQ 04/28/17 02:00 04/30/17 10:00 Dextrose/Sodium Chloride 1,000 ml @ 75 mls/hr [id number] IV 04/28/17 01:30 04/30/17 08:52 Potassium Chloride 100 ml @ 50 mls/hr Q2H PRN IV 04/28/17 04:15 Potassium Chloride 100 ml @ 50 mls/hr Q2H PRN IV 04/28/17 04:15 (K-Lyte Cl Eff) 50 meq UNSCH PRN PO 04/28/17 04:15 Potassium Chloride 100 ml @ 25 mls/hr UNSCH PRN IV 04/28/17 04:15 Potassium Chloride 100 ml @ 50 mls/hr Q2H PRN IV 04/28/17 04:15 Magnesium Sulfate 4 gm/Sodium Chloride 100 ml @ 50 mls/hr UNSCH PRN IV 04/28/17 04:15 (Mag-Ox) 800 mg UNSCH PRN PO 04/28/17 04:15 Magnesium Sulfate 2 gm/Sodium Chloride 100 ml @ 50 mls/hr UNSCH PRN IV 04/28/17 04:15 (K-Phos) 2,000 mg Q4H PRN PO 04/28/17 04:15 Sodium Phosphate 30 mmol/Sodium Chloride 250 ml @ 42 mls/hr UNSCH PRN IV 04/28/17 04:15 (K-Phos) 2,000 mg UNSCH PRN PO/TUBE 04/28/17 04:15 Potassium Phosphate 30 mmol/ Sodium Chloride 260 ml @ 42 mls/hr UNSCH PRN IV 04/28/17 04:15 04/28/17 05:48 (Lipitor) 80 mg HS PO 04/28/17 21:00 04/29/17 19:40 (Synthroid) 50 mcg DAILY@0600 PO 04/28/17 09:00 04/30/17 05:53 Cefepime HCl 2000 mg/Sodium Chloride 100 ml @ 200 mls/hr Q8H IV 04/28/17 11:00 04/30/17 10:22 Metronidazole 100 ml @ 100 mls/hr Q8H IV 04/28/17 10:00 04/30/17 08:40 (Coreg) 3.125 mg Q12HR PO 04/28/17 11:15 04/30/17 08:40 (Ecotrin Ec) 81 mg DAILY PO 04/29/17 09:00 04/30/17 08:40 (Apresoline Inj) 20 mg Q2HR PRN IV PUSH 04/29/17 13:00 04/30/17 08:39 (Haldol Inj) 4 mg Q6H PRN IV 04/29/17 15:00 04/30/17 03:30 Vancomycin HCl 1000 mg/Sodium Chloride 250 ml @ 250 mls/hr Q12H IV 04/30/17 17:00 Miscellaneous Information SPECIFIC LAB TO BE DRAWN:VANCOMYCIN TROUGH DATE TO... ONCE ONCE .XX 05/02/17 04:45 05/02/17 04:46 (Flu (Quadrivalent) Vaccine Inj) 0.5 ml ONCE ONCE IM 05/01/17 10:00 05/01/17 10:01 Allergies Allergies Coded Allergies No Known Allergies (Verified04/27/17) Exam I&O / VS 04/30/17 04/30/17 05/01/17 15:00 23:00 07:00 Intake Total 1200 ml Balance 1200 ml IV Total 1200 ml Vital Signs Date Time Temp Pulse Resp B/P (MAP) Pulse Ox O2 Delivery O2 Flow Rate FiO2 04/30/17 14:30 78 04/30/17 14:30 78 24 147/71 (96) 95 04/30/17 14:00 79 23 133/66 (88) 95 04/30/17 14:00 79 04/30/17 13:48 76 20 126/60 (82) 95 04/30/17 13:48 76 04/30/17 13:00 77 22 113/55 (74) 95 04/30/17 13:00 77 04/30/17 12:30 78 04/30/17 12:30 78 19 117/55 (75) 96 04/30/17 12:00 85 04/30/17 12:00 85 25 120/58 (78) 95 04/30/17 11:30 86 04/30/17 11:01 85 04/30/17 10:30 79 04/30/17 10:30 79 24 102/53 (69) 96 04/30/17 10:00 84 04/30/17 10:00 84 12 119/61 (80) 96 04/30/17 09:30 87 20 117/58 (77) 95 04/30/17 09:30 87 04/30/17 09:06 86 12 108/55 (72) 96 04/30/17 09:06 86 04/30/17 08:42 83 04/30/17 08:42 83 24 158/72 (100) 97 04/30/17 08:30 83 23 182/81 (114) 95 04/30/17 08:30 83 04/30/17 08:00 79 04/30/17 08:00 79 19 160/78 (105) 97 04/30/17 06:00 85 04/30/17 04:00 98.2 82 24 114/64 (81) 95 04/30/17 04:00 84 04/30/17 02:00 88 04/30/17 00:00 98.5 86 25 171/74 (106) 93 04/30/17 00:00 87 04/29/17 22:00 90 04/29/17 20:00 98.4 97 30 132/75 (94) 95 04/29/17 20:00 92 04/29/17 18:00 96 04/29/17 16:11 14 04/29/17 16:00 88 04/29/17 16:00 98.8 88 27 169/75 (106) 96 Objective Micro and Labs Laboratory Tests Test 04/30/17 05:21 Blood Urea Nitrogen 12 Creatinine 0.85 Random Glucose 116 Total Protein 5.5 Albumin 2.0 Calcium Level 8.1 Alkaline Phosphatase 75 Aspartate Amino Transf (AST/SGOT) 44 Alanine Aminotransferase (ALT/SGPT) 19 Total Bilirubin 0.5 Sodium Level 141 Potassium Level 4.3 Chloride Level 112 Carbon Dioxide Level 18.6 Anion Gap 10 Estimat Glomerular Filtration Rate 89 Date/Time Source Procedure Growth Status 04/27/17 19:10 Blood Peripheral Aerobic Blood Culture - Preliminary NO GROWTH IN 3 DAYS Resulted 04/27/17 19:10 Blood Peripheral Anaerobic Blood Culture - Preliminary NO GROWTH IN 3 DAYS Resulted 04/27/17 19:50 Cerebral Spinal Fluid Lumbar Puncture Gram Stain - Final Complete 04/27/17 19:50 Cerebral Spinal Fluid Lumbar Puncture CSF Culture - Final NO GROWTH IN 72 HOURS Complete 04/27/17 00:40 Sputum Endotracheal Gram Stain - Final Resulted 04/27/17 00:40 Sputum Culture - Preliminary Aspergillus Species Resulted 04/28/17 08:46 Wound Foot Gram Stain - Final Resulted 04/28/17 08:46 Wound Culture - Preliminary Group D Enterococcus Enterobacter Cloacae Klebsiella Pneumoniae S. Aureus Mrsa Resulted Evin Gee MD Apr 30, 2017 15:22
--- NOTE | 2017-04-30 15:38 | HHI.IDPN ---
Subjective Subjective Remarks Patient is a 71-year-old male, lives at home, found prone by his neighbors on the floor of his home. He was apparently last seen that evening and he was initially his usual self, and he had dinner with his neighbor. Later that neighbors found him prone on the floor, and EMS was called. He had very high blood sugar of 556. In the emergency room he had a white count of 23,000, elevated lactic acid of 4.9, and creatinine of 1.48. He was apparently last admitted about one week ago for hyperglycemia. In the ED, he had a fever of 101.5. Patient was initially very calm but became combative, and was given Ativan and Haldol. He underwent CT of the head which did not show any acute findings but did show some chronic findings of previous encephalomalacia, After his CT, he developed worsening of his mental status, and became obtunded. He was not protecting his airway, and reportedly having fasciculations so he was given Ativan 2 mg IV and then was intubated with etomidate and succinylcholine. Lumbar puncture was done, and it showed 15 WBC, mostly lymphocytes, and 45 RBC. CSF glucose and protein were elevated. His chest x-ray was clear. Urine drug screen were all negative. Infectious disease consultation has been requested to evaluate the patient for sepsis Notes reviewed D/W RN Temps ok Extubated On nasal O2 Confused Not SOB WBC better C/S foot - 2 GNR, MRSA and Enterococcus Antibiotics Cefepime Vancomycin Past Medical History Diabetes Hypertension Hyperlipidemia COPD Hypothyroidism Peripheral vascular disease Past Surgical History Tonsillectomy Right carotid endarterectomy 2015 Iliac stent Allergies: Coded Allergies: No Known Allergies (Verified , 04/27/17) Objective . Vital Signs Date Time Temp Pulse Resp B/P (MAP) Pulse Ox O2 Delivery O2 Flow Rate FiO2 04/30/17 14:30 78 04/30/17 14:30 78 24 147/71 (96) 95 04/30/17 14:00 79 23 133/66 (88) 95 04/30/17 14:00 79 04/30/17 13:48 76 20 126/60 (82) 95 04/30/17 13:48 76 04/30/17 13:00 77 22 113/55 (74) 95 04/30/17 13:00 77 04/30/17 12:30 78 04/30/17 12:30 78 19 117/55 (75) 96 04/30/17 12:00 85 04/30/17 12:00 85 25 120/58 (78) 95 04/30/17 11:30 86 04/30/17 11:01 85 04/30/17 10:30 79 04/30/17 10:30 79 24 102/53 (69) 96 04/30/17 10:00 84 04/30/17 10:00 84 12 119/61 (80) 96 04/30/17 09:30 87 20 117/58 (77) 95 04/30/17 09:30 87 04/30/17 09:06 86 12 108/55 (72) 96 04/30/17 09:06 86 04/30/17 08:42 83 04/30/17 08:42 83 24 158/72 (100) 97 04/30/17 08:30 83 23 182/81 (114) 95 04/30/17 08:30 83 04/30/17 08:00 79 04/30/17 08:00 79 19 160/78 (105) 97 04/30/17 06:00 85 04/30/17 04:00 98.2 82 24 114/64 (81) 95 04/30/17 04:00 84 04/30/17 02:00 88 04/30/17 00:00 98.5 86 25 171/74 (106) 93 04/30/17 00:00 87 04/29/17 22:00 90 04/29/17 20:00 98.4 97 30 132/75 (94) 95 04/29/17 20:00 92 04/29/17 18:00 96 04/29/17 16:11 14 04/29/17 16:00 88 04/29/17 16:00 98.8 88 27 169/75 (106) 96 04/30/17 04/30/17 05/01/17 15:00 23:00 07:00 Intake Total 1200 ml Balance 1200 ml IV Total 1200 ml . Laboratory Tests Test 04/29/17 04:21 White Blood Count 13.3 TH/MM3 Red Blood Count 4.05 MIL/MM3 Hemoglobin 11.8 GM/DL Hematocrit 36.3 % Mean Corpuscular Volume 89.7 FL Mean Corpuscular Hemoglobin 29.2 PG Mean Corpuscular Hemoglobin Concent 32.6 % Red Cell Distribution Width 14.3 % Platelet Count 265 TH/MM3 Mean Platelet Volume 9.5 FL Neutrophils (%) (Auto) 69.1 % Lymphocytes (%) (Auto) 18.9 % Monocytes (%) (Auto) 7.7 % Eosinophils (%) (Auto) 3.5 % Basophils (%) (Auto) 0.8 % Neutrophils # (Auto) 9.2 TH/MM3 Lymphocytes # (Auto) 2.5 TH/MM3 Monocytes # (Auto) 1.0 TH/MM3 Eosinophils # (Auto) 0.5 TH/MM3 Basophils # (Auto) 0.1 TH/MM3 CBC Comment DIFF FINAL Differential Comment Laboratory Tests Test 04/29/17 04:21 04/30/17 05:21 Phosphorus Level 3.2 MG/DL Magnesium Level 1.5 MG/DL Albumin 2.0 GM/DL 2.0 GM/DL Triglycerides Level 127 MG/DL Cholesterol Level 117 MG/DL LDL Cholesterol 56 MG/DL HDL Cholesterol 36.1 MG/DL Cholesterol/HDL Ratio 3.24 RATIO Blood Urea Nitrogen 12 MG/DL Creatinine 0.85 MG/DL Random Glucose 116 MG/DL Total Protein 5.5 GM/DL Calcium Level 8.1 MG/DL Alkaline Phosphatase 75 U/L Aspartate Amino Transf (AST/SGOT) 44 U/L Alanine Aminotransferase (ALT/SGPT) 19 U/L Total Bilirubin 0.5 MG/DL Sodium Level 141 MEQ/L Potassium Level 4.3 MEQ/L Chloride Level 112 MEQ/L Carbon Dioxide Level 18.6 MEQ/L Anion Gap 10 MEQ/L Estimat Glomerular Filtration Rate 89 ML/MIN Microbiology Date/Time Source Procedure Growth Status 04/27/17 19:10 Blood Peripheral Aerobic Blood Culture - Preliminary NO GROWTH IN 3 DAYS Resulted 04/27/17 19:10 Blood Peripheral Anaerobic Blood Culture - Preliminary NO GROWTH IN 3 DAYS Resulted 04/27/17 19:00 Blood Peripheral Aerobic Blood Culture - Preliminary NO GROWTH IN 3 DAYS Resulted 04/27/17 19:00 Blood Peripheral Anaerobic Blood Culture - Preliminary NO GROWTH IN 3 DAYS Resulted 04/27/17 19:50 Cerebral Spinal Fluid Lumbar Puncture Gram Stain - Final Complete 04/27/17 19:50 Cerebral Spinal Fluid Lumbar Puncture CSF Culture - Final NO GROWTH IN 72 HOURS Complete 04/28/17 08:46 Wound Foot Gram Stain - Final Resulted 04/28/17 08:46 Wound Culture - Preliminary Group D Enterococcus Enterobacter Cloacae Klebsiella Pneumoniae S. Aureus Mrsa Resulted Imaging Foot X-Ray 04/28/17 0000 Signed Impressions: Service Date/Time: Friday, April 28, 2017 14:19 - CONCLUSION: 1. Focal soft tissue swelling apparent ulcer adjacent to the first proximal phalanx. 2. The first distal and proximal phalanges are abnormal in appearance with patchy sclerosis. There is also patchy lucency in the central proximal phalanx. There is no periosteal new bone formation or destructive change and the findings are nonspecific.. Juan Gamez MD Head CT [id number]/27/171749 Signed Impressions: Service Date/Time: Thursday, April 27, 2017 18:47 - CONCLUSION: 1. No acute hemorrhage or mass effect. 2. 2 area of low attenuation encephalomalacia involving left frontal lobe most consistent with an interval infarct. 3. Low attenuation area involving the posterior left temporal parietal region which is more nonspecific but more likely likely is also chronic. Juan Gamez MD Chest X-Ray 04/27/171749 Signed Impressions: Service Date/Time: Thursday, April 27, 2017 18:31 - CONCLUSION: No acute disease. Juan Gamez MD Last Impressions Foot X-Ray 04/28/17 0000 Signed Impressions: Service Date/Time: Friday, April 28, 2017 14:19 - CONCLUSION: 1. Focal soft tissue swelling apparent ulcer adjacent to the first proximal phalanx. 2. The first distal and proximal phalanges are abnormal in appearance with patchy sclerosis. There is also patchy lucency in the central proximal phalanx. There is no periosteal new bone formation or destructive change and the findings are nonspecific.. Juan Gamez MD Head CT 04/27/171749 Signed Impressions: Service Date/Time: Thursday, April 27, 2017 18:47 - CONCLUSION: 1. No acute hemorrhage or mass effect. 2. 2 area of low attenuation encephalomalacia involving left frontal lobe most consistent with an interval infarct. 3. Low attenuation area involving the posterior left temporal parietal region which is more nonspecific but more likely likely is also chronic. Juan Gamez MD Chest X-Ray 04/27/171749 Signed Impressions: Service Date/Time: Thursday, April 27, 2017 18:31 - CONCLUSION: No acute disease. Juan Gamez MD Brain MRI 04/27/17 0000 Signed Impressions: Service Date/Time: Thursday, April 27, 2017 21:57 - CONCLUSION: 1. No acute hemorrhage or infarction. 2. Old area of encephalomalacia involving left frontal lobe with gliosis. 3. Areas of apparent gliosis involving the left inferior temporal parietal junction and left occipital lobe.. 4. Moderate atrophic change and chronic small vessel ischemic changes. Juan Gamez MD Physical Exam GENERAL: awake and alert, not in respiratory distress. SKIN: Warm and dry. No generalized rash, no ecchymoses and no evidence of embolic lesions. HEAD: Atraumatic. Normocephalic. No temporal wasting, or tenderness. EYES: [place] conjunctiva. No petechia or hemorrhage. Pupils equal, round and reactive to light. No scleral icterus. No injection or drainage. EARS, NOSE AND THROAT: Nose without bleeding or purulent nasal discharge. He is orally intubated. NECK: Trachea midline. Supple and not tender, no meningeal signs CARDIOVASCULAR: Regular rate and rhythm. No murmurs, rubs or gallops heard RESPIRATORY: Clear to auscultation. Breath sounds equal bilaterally. No rales , wheezing or rhonchi ABDOMEN: Soft, nondistended, bowel sounds present and normoactive. No reaction to palpation. No guarding. No organomegaly. EXTREMITIES: No clubbing, cyanosis, or edema. Ulcer over the plantar aspect of his L first MTP, looks less swollen and red, dry dressing NEUROLOGICAL: awake, and alert. PSYCHIATRIC: cooperative LINE: No evidence of infection Assessment & Plan Remarks IMPRESSION Sepsis on presentation, source? 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
[2017-04-30] MEDS: cefTRIAXone INJ 2,000 MG in SODIUM CHLORIDE 0.9% INJ 100 ML IV SCH (16:19)
[2017-04-30] MEDS: VANCOMYCIN 1,000 MG/NS 250 ML IV SCH ×2 (16:19)
--- NOTE | 2017-04-30 16:57 | PD.CARD.PN ---
Subjective Subjective Remarks PT without complaints Objective Medications Current Medications Medications (Trade) Dose Ordered Sig/Nolvia Route Start Time Stop Time Status Last Admin (NS Flush) 2 ml UNSCH PRN IV FLUSH 04/27/17 21:15 (NS Flush) 2 ml BID IV FLUSH 04/28/17 09:00 04/30/17 08:52 (Tylenol) 650 mg Q6H PRN PO 04/27/17 21:15 (fentaNYL INJ) 50 mcg Q1H PRN IV PUSH 04/27/17 21:15 04/29/17 15:11 (Protonix Inj) 40 mg DAILY IV PUSH 04/28/17 09:00 04/30/17 08:39 (Zofran Inj) 4 mg Q6H PRN IV PUSH 04/27/17 21:15 Miscellaneous Information 1 Q361D XX 04/27/17 21:15 04/27/17 23:15 (Chlorhexidine 2% Cloth) 3 pack Taper DAILY@04 TOP 04/28/17 04:00 04/24/18 03:59 04/29/17 03:28 (Chlorhexidine 2% Cloth) 3 pack UNSCH PRN TOP 04/27/17 21:15 (Yamel-Colace) 1 tab BID PO 04/28/17 09:00 04/30/17 08:40 (Milk Of Magnesia Liq) 30 ml Q12H PRN PO 04/27/17 21:15 (Senokot) 17.2 mg Q12H PRN PO 04/27/17 21:15 (Dulcolax Supp) 10 mg DAILY PRN RECTAL 04/27/17 21:15 (Lactulose Liq) 30 ml DAILY PRN PO 04/27/17 21:15 (Duoneb Neb) 1 ampule Q6HR NEB NEB 04/28/17 01:00 04/29/17 08:13 (Albuterol Neb) 2.5 mg Q2HR NEB PRN NEB 04/28/17 01:00 ([place] 5-325 Mg) 1 tab Q6H PRN PO 04/28/17 01:00 ([place] 5-325 Mg) 2 tab Q6H PRN PO 04/28/17 01:00 Pharmacy Profile Note 0 ml @ 0 mls/hr UNSCH OTHER 04/28/17 01:00 (Peridex 0.12% Liq) 15 ml BID@08,20 MT 04/28/17 08:00 04/29/17 08:24 (Cerebyx Inj) 100 mgpe Q12HR IV 04/28/17 09:00 04/30/17 08:39 (D50w (Vial) Inj) 50 ml UNSCH PRN IV PUSH 04/28/17 01:30 (Glucagon Inj) 1 mg UNSCH PRN OTHER 04/28/17 01:30 (NovoLOG SUPPLEMENTAL SCALE) 1 Q4H SQ 04/28/17 02:00 04/30/17 10:00 Dextrose/Sodium Chloride 1,000 ml @ 75 mls/hr [id number] IV 04/28/17 01:30 04/30/17 08:52 Potassium Chloride 100 ml @ 50 mls/hr Q2H PRN IV 04/28/17 04:15 Potassium Chloride 100 ml @ 50 mls/hr Q2H PRN IV 04/28/17 04:15 (K-Lyte Cl Eff) 50 meq UNSCH PRN PO 04/28/17 04:15 Potassium Chloride 100 ml @ 25 mls/hr UNSCH PRN IV 04/28/17 04:15 Potassium Chloride 100 ml @ 50 mls/hr Q2H PRN IV 04/28/17 04:15 Magnesium Sulfate 4 gm/Sodium Chloride 100 ml @ 50 mls/hr UNSCH PRN IV 04/28/17 04:15 (Mag-Ox) 800 mg UNSCH PRN PO 04/28/17 04:15 Magnesium Sulfate 2 gm/Sodium Chloride 100 ml @ 50 mls/hr UNSCH PRN IV 04/28/17 04:15 (K-Phos) 2,000 mg Q4H PRN PO 04/28/17 04:15 Sodium Phosphate 30 mmol/Sodium Chloride 250 ml @ 42 mls/hr UNSCH PRN IV 04/28/17 04:15 (K-Phos) 2,000 mg UNSCH PRN PO/TUBE 04/28/17 04:15 Potassium Phosphate 30 mmol/ Sodium Chloride 260 ml @ 42 mls/hr UNSCH PRN IV 04/28/17 04:15 04/28/17 05:48 (Lipitor) 80 mg HS PO 04/28/17 21:00 04/29/17 19:40 (Synthroid) 50 mcg DAILY@0600 PO 04/28/17 09:00 04/30/17 05:53 (Coreg) 3.125 mg Q12HR PO 04/28/17 11:15 04/30/17 08:40 (Ecotrin Ec) 81 mg DAILY PO 04/29/17 09:00 04/30/17 08:40 (Apresoline Inj) 20 mg Q2HR PRN IV PUSH 04/29/17 13:00 04/30/17 08:39 (Haldol Inj) 4 mg Q6H PRN IV 04/29/17 15:00 04/30/17 03:30 Vancomycin HCl 1000 mg/Sodium Chloride 250 ml @ 250 mls/hr Q12H IV 04/30/17 17:00 04/30/17 16:19 Miscellaneous Information SPECIFIC LAB TO BE DRAWN:VANCOMYCIN TROUGH DATE TO... ONCE ONCE .XX 05/02/17 04:45 05/02/17 04:46 (Flu (Quadrivalent) Vaccine Inj) 0.5 ml ONCE ONCE IM 05/01/17 10:00 05/01/17 10:01 Ceftriaxone Sodium 2000 mg/ Sodium Chloride 100 ml @ 200 mls/hr Q24H IV 04/30/17 16:00 04/30/17 16:19 Vital Signs / I&O Vital Signs Date Time Temp Pulse Resp B/P (MAP) Pulse Ox O2 Delivery O2 Flow Rate FiO2 04/30/17 14:30 78 04/30/17 14:30 78 24 147/71 (96) 95 04/30/17 14:00 79 23 133/66 (88) 95 04/30/17 14:00 79 04/30/17 13:48 76 20 126/60 (82) 95 04/30/17 13:48 76 04/30/17 13:00 77 22 113/55 (74) 95 04/30/17 13:00 77 04/30/17 12:30 78 04/30/17 12:30 78 19 117/55 (75) 96 04/30/17 12:00 85 04/30/17 12:00 85 25 120/58 (78) 95 04/30/17 11:30 86 04/30/17 11:01 85 04/30/17 10:30 79 04/30/17 10:30 79 24 102/53 (69) 96 04/30/17 10:00 84 04/30/17 10:00 84 12 119/61 (80) 96 04/30/17 09:30 87 20 117/58 (77) 95 04/30/17 09:30 87 04/30/17 09:06 86 12 108/55 (72) 96 04/30/17 09:06 86 04/30/17 08:42 83 04/30/17 08:42 83 24 158/72 (100) 97 04/30/17 08:30 83 23 182/81 (114) 95 04/30/17 08:30 83 04/30/17 08:00 79 04/30/17 08:00 79 19 160/78 (105) 97 04/30/17 06:00 85 04/30/17 04:00 98.2 82 24 114/64 (81) 95 04/30/17 04:00 84 04/30/17 02:00 88 04/30/17 00:00 98.5 86 25 171/74 (106) 93 04/30/17 00:00 87 04/29/17 22:00 90 04/29/17 20:00 98.4 97 30 132/75 (94) 95 04/29/17 20:00 92 04/29/17 18:00 96 I/O 04/29/17 04/29/17 04/29/17 04/30/17 04/30/17 04/30/17 07:00 15:00 23:00 07:00 15:00 23:00 Intake Total 845 ml 1177 ml 802 ml 355 ml 1200 ml Output Total 300 ml 850 ml 650 ml Balance 545 ml 1177 ml -48 ml -295 ml 1200 ml Intake Oral 355 ml IV Total 662 ml 1177 ml 622 ml 1200 ml Tube Feeding 123 ml 60 ml Other 60 ml 120 ml Output Urine Total 300 ml 850 ml 650 ml # Bowel Movements 0 Physical Exam GENERAL: Well developed, well nourished. No acute distress on vent Alert- not oriented to person HEENT: Jugular venous pressure is normal. CHEST: Lungs clear to auscultation bilaterally. Unlabored respiratory effort. CARDIAC: Regular rate and rhythm without S3, S4, or murmur. ABDOMEN: Soft, nontender, no hepatosplenomegaly. Bowel sounds present. EXTREMITIES: No clubbing, cyanosis, or edema. Laboratory Laboratory Tests Test 9/26/17 05:21 Blood Urea Nitrogen 12 MG/DL Creatinine 0.85 MG/DL Random Glucose 116 MG/DL Total Protein 5.5 GM/DL Albumin 2.0 GM/DL Calcium Level 8.1 MG/DL Alkaline Phosphatase 75 U/L Aspartate Amino Transf (AST/SGOT) 44 U/L Alanine Aminotransferase (ALT/SGPT) 19 U/L Total Bilirubin 0.5 MG/DL Sodium Level 141 MEQ/L Potassium Level 4.3 MEQ/L Chloride Level 112 MEQ/L Carbon Dioxide Level 18.6 MEQ/L Anion Gap 10 MEQ/L Estimat Glomerular Filtration Rate 89 ML/MIN Imaging Last 72 hours Impressions Foot X-Ray 04/28/17 0000 Signed Impressions: Service Date/Time: Friday, April 28, 2017 14:19 - CONCLUSION: 1. Focal soft tissue swelling apparent ulcer adjacent to the first proximal phalanx. 2. The first distal and proximal phalanges are abnormal in appearance with patchy sclerosis. There is also patchy lucency in the central proximal phalanx. There is no periosteal new bone formation or destructive change and the findings are nonspecific.. Juan Gamez MD Head CT 04/27/171749 Signed Impressions: Service Date/Time: Thursday, April 27, 2017 18:47 - CONCLUSION: 1. No acute hemorrhage or mass effect. 2. 2 area of low attenuation encephalomalacia involving left frontal lobe most consistent with an interval infarct. 3. Low attenuation area involving the posterior left temporal parietal region which is more nonspecific but more likely likely is also chronic. Juan Gamez MD Chest X-Ray 04/27/171749 Signed Impressions: Service Date/Time: Thursday, April 27, 2017 18:31 - CONCLUSION: No acute disease. Juan Gamez MD Assessment and Plan Assessment and Plan elevated trop- CK/MB 5.4%- just out of range -EF normal by ECHO -no overt cardiac etiology -consider ischemia work up once mental status improves Resp failure- extubated foot ulcer- DM- AMS- per [facility] Yenni Hanson MD Apr 30, 2017 16:57
[2017-04-30] MEDS: ATORVASTATIN 80 MG TAB PO SCH (19:35)
--- NOTE | 2017-04-30 20:26 | PD.POD ---
Subjective Podiatric Problems Left foot DM ulcer. Seen at bedside this am. Pain scale used: 0-10 numeric scale Pain score: 0 Past Med/Surg/Social History Social History Smoking Status: Unknown If Ever Smoked Objective Vital Signs Vital Signs Date Time Temp Pulse Resp B/P (MAP) Pulse Ox O2 Delivery O2 Flow Rate FiO2 04/30/17 18:00 76 04/30/17 17:30 77 04/30/17 17:30 77 21 152/73 (99) 97 04/30/17 17:00 81 22 142/68 (92) 95 04/30/17 17:00 81 04/30/17 16:30 77 19 160/73 (102) 96 04/30/17 16:30 77 04/30/17 16:00 71 04/30/17 16:00 71 16 147/67 (93) 97 04/30/17 14:30 78 04/30/17 14:30 78 24 147/71 (96) 95 04/30/17 14:00 79 23 133/66 (88) 95 04/30/17 14:00 79 04/30/17 13:48 76 20 126/60 (82) 95 04/30/17 13:48 76 04/30/17 13:00 77 22 113/55 (74) 95 04/30/17 13:00 77 04/30/17 12:30 78 04/30/17 12:30 78 19 117/55 (75) 96 04/30/17 12:00 85 04/30/17 12:00 85 25 120/58 (78) 95 04/30/17 11:30 86 04/30/17 11:01 85 04/30/17 10:30 79 04/30/17 10:30 79 24 102/53 (69) 96 04/30/17 10:00 84 04/30/17 10:00 84 12 119/61 (80) 96 04/30/17 09:30 87 20 117/58 (77) 95 04/30/17 09:30 87 04/30/17 09:06 86 12 108/55 (72) 96 04/30/17 09:06 86 04/30/17 08:42 83 04/30/17 08:42 83 24 158/72 (100) 97 04/30/17 08:30 83 23 182/81 (114) 95 04/30/17 08:30 83 04/30/17 08:00 79 04/30/17 08:00 79 19 160/78 (105) 97 04/30/17 06:00 85 04/30/17 04:00 98.2 82 24 114/64 (81) 95 04/30/17 04:00 84 04/30/17 02:00 88 04/30/17 00:00 98.5 86 25 171/74 (106) 93 04/30/17 00:00 87 04/29/17 22:00 90 Coded Allergies: No Known Allergies (Verified , 04/27/17) Other Results Last Impressions Foot X-Ray 04/28/17 0000 Signed Impressions: Service Date/Time: Friday, April 28, 2017 14:19 - CONCLUSION: 1. Focal soft tissue swelling apparent ulcer adjacent to the first proximal phalanx. 2. The first distal and proximal phalanges are abnormal in appearance with patchy sclerosis. There is also patchy lucency in the central proximal phalanx. There is no periosteal new bone formation or destructive change and the findings are nonspecific.. Juan Gamez MD Head CT [id number]/27/171749 Signed Impressions: Service Date/Time: Thursday, April 27, 2017 18:47 - CONCLUSION: 1. No acute hemorrhage or mass effect. 2. 2 area of low attenuation encephalomalacia involving left frontal lobe most consistent with an interval infarct. 3. Low attenuation area involving the posterior left temporal parietal region which is more nonspecific but more likely likely is also chronic. Juan Gamez MD Chest X-Ray 04/27/171749 Signed Impressions: Service Date/Time: Thursday, April 27, 2017 18:31 - CONCLUSION: No acute disease. Juan Gamez MD Brain MRI 04/27/17 0000 Signed Impressions: Service Date/Time: Thursday, April 27, 2017 21:57 - CONCLUSION: 1. No acute hemorrhage or infarction. 2. Old area of encephalomalacia involving left frontal lobe with gliosis. 3. Areas of apparent gliosis involving the left inferior temporal parietal junction and left occipital lobe.. 4. Moderate atrophic change and chronic small vessel ischemic changes. Juan Gamez MD Laboratory Tests Test 04/29/17 04:21 04/30/17 05:21 White Blood Count 13.3 TH/MM3 Red Blood Count 4.05 MIL/MM3 Hemoglobin 11.8 GM/DL Hematocrit 36.3 % Mean Corpuscular Volume 89.7 FL Mean Corpuscular Hemoglobin 29.2 PG Mean Corpuscular Hemoglobin Concent 32.6 % Red Cell Distribution Width 14.3 % Platelet Count 265 TH/MM3 Mean Platelet Volume 9.5 FL Neutrophils (%) (Auto) 69.1 % Lymphocytes (%) (Auto) 18.9 % Monocytes (%) (Auto) 7.7 % Eosinophils (%) (Auto) 3.5 % Basophils (%) (Auto) 0.8 % Neutrophils # (Auto) 9.2 TH/MM3 Lymphocytes # (Auto) 2.5 TH/MM3 Monocytes # (Auto) 1.0 TH/MM3 Eosinophils # (Auto) 0.5 TH/MM3 Basophils # (Auto) 0.1 TH/MM3 CBC Comment DIFF FINAL Differential Comment Phosphorus Level 3.2 MG/DL Magnesium Level 1.5 MG/DL Albumin 2.0 GM/DL 2.0 GM/DL Triglycerides Level 127 MG/DL Cholesterol Level 117 MG/DL LDL Cholesterol 56 MG/DL HDL Cholesterol 36.1 MG/DL Cholesterol/HDL Ratio 3.24 RATIO Phenytoin (Dilantin) Level 10.6 MCG/ML Blood Urea Nitrogen 12 MG/DL Creatinine 0.85 MG/DL Random Glucose 116 MG/DL Total Protein 5.5 GM/DL Calcium Level 8.1 MG/DL Alkaline Phosphatase 75 U/L Aspartate Amino Transf (AST/SGOT) 44 U/L Alanine Aminotransferase (ALT/SGPT) 19 U/L Total Bilirubin 0.5 MG/DL Sodium Level 141 MEQ/L Potassium Level 4.3 MEQ/L Chloride Level 112 MEQ/L Carbon Dioxide Level 18.6 MEQ/L Anion Gap 10 MEQ/L Estimat Glomerular Filtration Rate 89 ML/MIN Exam-Podiatry Dermatological Exam Ulcers: Location/Measurements LLE left sub 1st ray with fibrotic ulcer. No drainage and no probing. No exposed bone or tendon. Foot is warm to warm. Assessment & Plan Diagnosis: (1) Foot ulcer, left ICD Codes: L97.529 - Non-pressure chronic ulcer of other part of left foot with unspecified severity (2) Diabetes mellitus Status: Resolved A/P Left foot xray with no OM. Wound care with Santyl 0.5 % dime thick and DSD to the left foot , QOD OK to d/c per Podiatry. F/U with Dr Leon with in 1 week of d/c. Continue to off load with charlene boots. WB with post op shoe. Crystal Graves DPM Apr 30, 2017 20:26
[2017-05-01] VITALS (14 sets, daily range): BP systolic 130–177; BP diastolic 66–88; PULSE 71–86; RESP 10–22; TEMP 97.4–98.9; O2SAT 94–97
[2017-05-01] MEDS: INSULIN ASPART SUPPLEMENTAL SCALE SQ SCH ×6 (02:00→21:18)
[2017-05-01] MEDS: DEXT 5%-NACL 0.9% 1000 ML INJ 1,000 ML IV SCH (02:17)
[2017-05-01] MEDS: CHLORHEXIDINE GLUCONATE 2 % 1 PACK (2 CLOTHS) TOP SCH (04:00)
[2017-05-01] MEDS: RESP: ALBUTEROL 2.5 MG/IPRATROPIUM 0.5 MG NEB (SCH) NEB ×4 (04:00→21:35)
[2017-05-01] MEDS ORDERED: PHARMACY ORDERED LAB ONE (04:45)
[2017-05-01] MEDS: LEVOTHYROXINE SODIUM 50 MCG TAB PO SCH (05:48)
[2017-05-01] MEDS: hydrALAZINE HCL 20 MG/ML VIAL IV PUSH PRN ×2 (05:48→21:18)
[2017-05-01] MEDS: VANCOMYCIN 1,000 MG/NS 250 ML IV SCH ×4 (05:48→16:37)
[2017-05-01 06:20] LABS: ALKALINE PHOSPHATASE 70 U/L (45-117); ALT (GPT) 16 U/L (12-78); ANION GAP 10 MEQ/L (5-15); AST (GOT) 27 U/L (15-37); BICARBONATE 18.6 MEQ/L (21.0-32.0); BLOOD UREA NITROGEN 16 MG/DL (7-18); CHLORIDE 113 MEQ/L (98-107); GLOMERULAR FILTRATION RATE 81 ML/MIN (>89); MAGNESIUM 1.5 MG/DL (1.5-2.5); POTASSIUM 3.5 MEQ/L (3.5-5.1); SODIUM (NA) 142 MEQ/L (136-145); TOTAL BILIRUBIN ADULT 0.3 MG/DL (0.2-1.0)
[2017-05-01 06:42] LABS: AUTOMATED NEUTROPHIL # 10.7 TH/MM3 (1.8-7.7); BASOPHIL # 0.1 TH/MM3 (0-0.2); BASOPHIL % 0.7 % (0.0-2.0); EOSINOPHIL # 0.1 TH/MM3 (0-0.4); EOSINOPHIL % 0.9 % (0.0-4.0); HEMATOCRIT 39.6 % (39.0-51.0); HEMO FLAGS DIFF FINAL; LYMPH % 18.3 % (9.0-44.0); LYMPHOCYTE # 2.7 TH/MM3 (1.0-4.8); MEAN CELL VOLUME 91.7 FL (80.0-100.0); MEAN CORPUSCULAR HEMOGLOBIN 28.5 PG (27.0-34.0); MONO % 7.5 % (0.0-8.0); NEUT % 72.6 % (16.0-70.0); PLATELET COUNT 336 TH/MM3 (150-450); RED BLOOD COUNT 4.32 MIL/MM3 (4.50-5.90); RED CELL DISTRIBUTION WIDTH 14.6 % (11.6-17.2); WHITE BLOOD COUNT 14.7 TH/MM3 (4.0-11.0)
[2017-05-01] MEDS: CHLORHEXIDINE 0.12% (ORAL KIT) 15 ML CUP MT SCH ×2 (08:00→20:00)
--- NOTE | 2017-05-01 08:12 | HHI.PR ---
Subjective Remarks f/u; sepsis/ encephalopathy in no distress. afebrile. awake and alert but not oriented to time. denies pain. d/w the RN and no acute issues over night. Objective Vitals Vital Signs Date Time Temp Pulse Resp B/P (MAP) Pulse Ox O2 Delivery O2 Flow Rate FiO2 05/01/17 06:00 82 05/01/17 04:00 76 05/01/17 04:00 97.9 76 19 177/80 (112) 97 05/01/17 02:00 73 05/01/17 00:00 71 05/01/17 00:00 98.6 71 10 143/69 (93) 97 04/30/17 22:00 72 04/30/17 20:50 96 Nasal Cannula 2.00 04/30/17 20:00 74 04/30/17 20:00 98.2 81 20 153/83 (106) 95 04/30/17 18:00 76 04/30/17 17:30 77 04/30/17 17:30 77 21 152/73 (99) 97 04/30/17 17:00 81 22 142/68 (92) 95 04/30/17 17:00 81 04/30/17 16:30 77 19 160/73 (102) 96 04/30/17 16:30 77 04/30/17 16:00 71 04/30/17 16:00 71 16 147/67 (93) 97 04/30/17 14:30 78 04/30/17 14:30 78 24 147/71 (96) 95 04/30/17 14:00 79 23 133/66 (88) 95 04/30/17 14:00 79 04/30/17 13:48 76 20 126/60 (82) 95 04/30/17 13:48 76 04/30/17 13:00 77 22 113/55 (74) 95 04/30/17 13:00 77 04/30/17 12:30 78 04/30/17 12:30 78 19 117/55 (75) 96 04/30/17 12:00 85 04/30/17 12:00 85 25 120/58 (78) 95 04/30/17 11:30 86 04/30/17 11:01 85 04/30/17 10:30 79 04/30/17 10:30 79 24 102/53 (69) 96 04/30/17 10:00 84 04/30/17 10:00 84 12 119/61 (80) 96 04/30/17 09:30 87 20 117/58 (77) 95 04/30/17 09:30 87 04/30/17 09:06 86 12 108/55 (72) 96 04/30/17 09:06 86 04/30/17 08:42 83 04/30/17 08:42 83 24 158/72 (100) 97 04/30/17 08:30 83 23 182/81 (114) 95 04/30/17 08:30 83 04/30/17 08:00 79 04/30/17 08:00 79 19 160/78 (105) 97 I/O 04/30/17 04/30/17 04/30/17 05/01/17 05/01/17 05/01/17 07:00 15:00 23:00 07:00 15:00 23:00 Intake Total 355 ml 1200 ml 400 ml Output Total 650 ml 550 ml 250 ml Balance -295 ml 1200 ml -550 ml 150 ml Intake Oral 355 ml 400 ml IV Total 1200 ml Output Urine Total 650 ml 550 ml 250 ml # Bowel Movements 0 0 Result Diagram: 05/01/17 0538 05/01/17 0538 Imaging Last Impressions Foot X-Ray 04/28/17 0000 Signed Impressions: Service Date/Time: Friday, April 28, 2017 14:19 - CONCLUSION: 1. Focal soft tissue swelling apparent ulcer adjacent to the first proximal phalanx. 2. The first distal and proximal phalanges are abnormal in appearance with patchy sclerosis. There is also patchy lucency in the central proximal phalanx. There is no periosteal new bone formation or destructive change and the findings are nonspecific.. Juan Gamez MD Head CT [id number]/27/171749 Signed Impressions: Service Date/Time: Thursday, April 27, 2017 18:47 - CONCLUSION: 1. No acute hemorrhage or mass effect. 2. 2 area of low attenuation encephalomalacia involving left frontal lobe most consistent with an interval infarct. 3. Low attenuation area involving the posterior left temporal parietal region which is more nonspecific but more likely likely is also chronic. Juan aGmez MD Chest X-Ray 04/27/171749 Signed Impressions: Service Date/Time: Thursday, April 27, 2017 18:31 - CONCLUSION: No acute disease. Juan Gamez MD Brain MRI 04/27/17 0000 Signed Impressions: Service Date/Time: Thursday, April 27, 2017 21:57 - CONCLUSION: 1. No acute hemorrhage or infarction. 2. Old area of encephalomalacia involving left frontal lobe with gliosis. 3. Areas of apparent gliosis involving the left inferior temporal parietal junction and left occipital lobe.. 4. Moderate atrophic change and chronic small vessel ischemic changes. Juan Gamez MD Objective Remarks GENERAL: This is a well-nourished, well-developed patient, in no apparent distress. CARDIOVASCULAR: Regular rate and regular rhythm without murmurs, gallops, or rubs. RESPIRATORY: Clear to auscultation. Breath sounds equal bilaterally. No wheezes , rales, or rhonchi. GASTROINTESTINAL: Abdomen soft, non-tender, nondistended. Normal, active bowel sounds MUSCULOSKELETAL: Extremities without clubbing, cyanosis, or edema. NEURO: awake and alert but not oriented to time Procedures intubation Medications and IVs Current Medications Sodium Chloride 1,000 ml @ 2,000 mls/hr Q30M ONCE IV Last administered on 04/27 18:25; Start 04/27/17 at 17:50; Stop 04/27/17 at 18:19; Status DC Sodium Chloride 1,000 ml @ 2,000 mls/hr Q30M ONCE IV Last administered on 04/27 19:17; Start 04/27/17 at 18:20; Stop 04/27/17 at 18:49; Status DC Sodium Chloride (NS Flush) 2 ml UNSCH PRN IVF FLUSH AFTER USING IV ACCESS; Start 04/27/17 at 18:00; Stop 04/27/17 at 21:42; Status DC Lorazepam (Ativan Inj) 2 mg ONCE ONCE IV PUSH Last administered on 04/27/17 18:08; Start 04/27/17 at 18:00; Stop 04/27/17 at 18:01; Status DC Ondansetron HCl (Zofran Inj) 4 mg STK-MED ONCE .ROUTE ; Start 04/27/17 at 17:56 ; Stop 04/27/17 at 17:57; Status DC Ondansetron HCl (Zofran Inj) 4 mg ONCE ONCE IV PUSH Last administered on 18:08; Start 04/27/17 at 18:15; Stop 04/27/17 at 18:16; Status DC Haloperidol Lactate (Haldol Inj) 5 mg ONCE ONCE IM Last administered on 18:08; Start 04/27/17 at 18:15; Stop 04/27/17 at 18:16; Status DC Haloperidol Lactate (Haldol Inj) 5 mg STK-MED ONCE .ROUTE ; Start 04/27/17 at 18 :04; Stop 04/27/17 at 18:05; Status DC Lorazepam (Ativan Inj) 2 mg ONCE ONCE IV PUSH Last administered on 04/27/17 18:38; Start 04/27/17 at 18:30; Stop 04/27/17 at 18:31; Status DC Etomidate (Amidate Inj) 20 mg ONCE ONCE IV PUSH Last administered on 19:16; Start 04/27/17 at 19:15; Stop 04/27/17 at 19:16; Status DC Succinylcholine Chloride (Quelicin Inj) 100 mg ONCE ONCE IV PUSH Last administered on 04/27/17 19:16; Start 04/27/17 at 19:15; Stop 04/27/17 at 19:16 ; Status DC Propofol 100 ml @ As Directed STK-MED ONCE .ROUTE ; Start 04/27/17 at 19:22; Stop 04/27/17 at 19:23; Status DC Sodium Chloride 1,000 ml @ 999 mls/hr BOLUS ONCE IV Last administered on 04/27 19:49; Start 04/27/17 at 19:30; Stop 04/27/17 at 20:30; Status DC Propofol 100 ml @ 1.77 mls/hr TITRATE PRN IV Ordered RASS Last administered on 04/27/17 19:33; Start 04/27/17 at 19:30; Stop 04/27/17 at 21:39; Status DC Ceftriaxone Sodium 2000 mg/ Sodium Chloride 100 ml @ 200 mls/hr ONCE ONCE IV Last administered on 04/27/17 21:00; Start 04/27/17 at 20:00; Stop 04/27/17 at 20:29; Status DC Acyclovir Sodium 590 mg/Sodium Chloride 100 ml @ 100 mls/hr ONCE ONCE IV Last administered on 04/27/17 23:26; Start 04/27/17 at 20:00; Stop 04/27/17 at 20:59; Status DC Vancomycin HCl 1000 mg/Sodium Chloride 250 ml @ 250 mls/hr ONCE ONCE IV Last administered on 04/27/17 21:34; Start 04/27/17 at 20:00; Stop 04/27/17 at 20:59 ; Status DC Insulin Aspart (NovoLOG INJ) 8 units ONCE ONCE SQ Last administered on 20:58; Start 04/27/17 at 20:30; Stop 04/27/17 at 20:31; Status DC Insulin Human Regular (NovoLIN R INJ) 6 units ONCE ONCE IV PUSH Last administered on 04/27/17 20:58; Start 04/27/17 at 20:30; Stop 04/27/17 at 20:31 ; Status DC Sodium Chloride 1,000 ml @ 999 mls/hr BOLUS ONCE IV Last administered on 04/27 20:59; Start 04/27/17 at 20:45; Stop 04/27/17 at 21:45; Status DC Propofol 100 ml @ 1.77 mls/hr TITRATE PRN IV SEDATION; Start 04/27/17 at 21:15 ; Stop 04/28/17 at 12:03; Status DC Sodium Chloride 1,000 ml @ 125 mls/hr Q8H IV Last administered on 04/27/17 23 :26; Start 04/27/17 at 21:10; Stop 04/28/17 at 01:23; Status DC Sodium Chloride (NS Flush) 2 ml UNSCH PRN IV FLUSH FLUSH AFTER USING IV ACCESS ; Start 04/27/17 at 21:15 Sodium Chloride (NS Flush) 2 ml BID IV FLUSH Last administered on 04/30/17 19: 36; Start 04/28/17 at 09:00 Acetaminophen (Tylenol) 650 mg Q6H PRN PO PAIN 1-2 AND/OR FEVER >101F; Start at 21:15 Fentanyl Citrate (fentaNYL INJ) 50 mcg Q1H PRN IV PUSH Pain scale 6-10 &/or sedation Last administered on 04/29/17 15:11; Start 04/27/17 at 21:15 Pantoprazole Sodium (Protonix Inj) 40 mg DAILY IV PUSH Last administered on 08:39; Start 04/28/17 at 09:00 Ondansetron HCl (Zofran Inj) 4 mg Q6H PRN IV PUSH NAUSEA OR VOMITING; Start at 21:15 Albuterol Sulfate (Albuterol Neb) 2.5 mg Q2HR NEB PRN INH SOB/WHEEZING; Start 04/27/17 at 21:15; Status Cancel Miscellaneous Information 1 [id number] Last administered on 04/27/17 23:15; Start 04/27/17 at 21:15 Chlorhexidine Gluconate (Chlorhexidine 2% Cloth) 3 pack Taper DAILY@04 TOP Last administered on 05/01/17 04:00; Start 04/28/17 at 04:00; Stop 04/24/18 at 03:59 Chlorhexidine Gluconate (Chlorhexidine 2% Cloth) 3 pack UNSCH PRN TOP HYGIENIC CARE; Start 04/27/17 at 21:15 Senna/Docusate Sodium (Yamel-Colace) 1 tab BID PO Last administered on 19:36; Start 04/28/17 at 09:00 Magnesium Hydroxide (Milk Of Magnesia Liq) 30 ml Q12H PRN PO MILD - MODERATE CONSTIPATION; Start 04/27/17 at 21:15 Sennosides (Senokot) 17.2 mg Q12H PRN PO MODERATE - SEVERE CONSTIPATION; Start 04/27/17 at 21:15 Bisacodyl (Dulcolax Supp) 10 mg DAILY PRN RECTAL SEVERE CONSITIPATION; Start at 21:15 Lactulose (Lactulose Liq) 30 ml DAILY PRN PO SEVERE CONSITIPATION; Start at 21:15 Fosphenytoin Sodium 1000 mgpe/ Sodium Chloride 70 ml @ 280 mls/hr ONCE ONCE IV Last administered on 04/27/17 21:48; Start 04/27/17 at 21:15; Stop at 21:35; Status DC Gadodiamide (Omniscan Pf Inj) 12 ml STK-MED ONCE IVCONTRAST Last administered on 04/27/17 22:11; Start 04/27/17 at 22:11; Stop 04/27/17 at 22:12; Status DC Magnesium Sulfate/ Dextrose 100 ml @ 100 mls/hr Q1H IV Last administered on 02:36; Start 04/28/17 at 00:00; Stop 04/28/17 at 01:59; Status DC Sodium Chloride 1,000 ml @ 999 mls/hr BOLUS ONCE IV Last administered on 04/28 00:55; Start 04/28/17 at 01:00; Stop 04/28/17 at 02:00; Status DC Albuterol/ Ipratropium (Duoneb Neb) 1 ampule Q6HR NEB NEB Last administered on 05/01/17 04:00; Start 04/28/17 at 01:00 Albuterol Sulfate (Albuterol Neb) 2.5 mg Q2HR NEB PRN NEB WHEEZING; Start 04/28 at 01:00 Acetaminophen/ Hydrocodone Bitart (Lindsey 5-325 Mg) 1 tab Q6H PRN PO PAIN 3-5; Start 04/28/17 at 01:00 Acetaminophen/ Hydrocodone Bitart (Lindsey 5-325 Mg) 2 tab Q6H PRN PO PAIN 6-10 ; Start 04/28/17 at 01:00 Pharmacy Profile Note 0 ml @ 0 mls/hr UNSCH OTHER ; Start 04/28/17 at 01:00 Ceftriaxone Sodium 2000 mg/ Sodium Chloride 100 ml @ 200 mls/hr Q12H IV Last administered on 04/28/17 08:24; Start 04/28/17 at 09:00; Stop 04/28/17 at 09:00 ; Status DC Chlorhexidine Gluconate (Peridex 0.12% Liq) 15 ml BID@08,20 MT Last administered on 04/29/17 08:24; Start 04/28/17 at 08:00 Vancomycin HCl 500 mg/Sodium Chloride 100 ml @ 200 mls/hr ONCE ONCE IV Last administered on 04/28/17 04:39; Start 04/28/17 at 01:30; Stop 04/28/17 at 01:59 ; Status DC Fosphenytoin Sodium (Cerebyx Inj) 100 mgpe Q8HR IV ; Start 04/28/17 at 06:00; Stop 04/28/17 at 06:00; Status DC Fosphenytoin Sodium (Cerebyx Inj) 100 mgpe Q12HR IV Last administered on 19:35; Start 04/28/17 at 09:00 Dextrose (D50w (Vial) Inj) 50 ml UNSCH PRN IV PUSH HYPOGLYCEMIA-SEE COMMENTS; Start 04/28/17 at 01:30 Glucagon (Glucagon Inj) 1 mg UNSCH PRN OTHER HYPOGLYCEMIA-SEE COMMENTS; Start 04/28/17 at 01:30 Insulin Aspart (NovoLOG SUPPLEMENTAL SCALE) 1 Q4H SQ Last administered on 05:48; Start 04/28/17 at 02:00 Dextrose/Sodium Chloride 1,000 ml @ 75 mls/hr [id number] IV Last administered on 05/01/17 02:17; Start 04/28/17 at 01:30 Acyclovir Sodium 600 mg/Sodium Chloride 100 ml @ 100 mls/hr Q12H IV Last administered on 04/30/17 00:46; Start 04/28/17 at 12:00; Stop 04/30/17 at 08:44 ; Status DC Fentanyl Citrate 250 ml @ 5 mls/hr TITRATE PRN IV SEDATION Last administered on 04/28/17 04:59; Start 04/28/17 at 04:15; Stop 04/30/17 at 08:44; Status DC Potassium Chloride 100 ml @ 50 mls/hr Q2H PRN IV For Potassium 2.8 - 3.2 mEq/L ; Start 04/28/17 at 04:15 Potassium Chloride 100 ml @ 50 mls/hr Q2H PRN IV For Potassium 2.8 - 3.2 mEq/L ; Start 04/28/17 at 04:15 Potassium Bicarb/ Potassium Chloride (K-Lyte Cl Eff) 50 meq UNSCH PRN PO For Potassium 3.3 - 3.5 mEq/L; Start 04/28/17 at 04:15 Potassium Chloride 100 ml @ 25 mls/hr UNSCH PRN IV For Potassium 3.3 - 3.5 mEq /L; Start 04/28/17 at 04:15 Potassium Chloride 100 ml @ 50 mls/hr Q2H PRN IV For Potassium 3.3 - 3.5 mEq/L ; Start 04/28/17 at 04:15 Magnesium Sulfate 4 gm/Sodium Chloride 100 ml @ 50 mls/hr UNSCH PRN IV For Magnesium 0.9 - 1.1 mg/dL; Start 04/28/17 at 04:15 Magnesium Oxide (Mag-Ox) 800 mg UNSCH PRN PO For Magnesium 1.2 - 1.6 mg/dL; Start 04/28/17 at 04:15 Magnesium Sulfate 2 gm/Sodium Chloride 100 ml @ 50 mls/hr UNSCH PRN IV For Magnesium 1.2 - 1.6 mg/dL; Start 04/28/17 at 04:15 Potassium Phosphate (K-Phos) 2,000 mg Q4H PRN PO For Phosphorus < 2.5 mg/dL; Start 04/28/17 at 04:15 Sodium Phosphate 30 mmol/Sodium Chloride 250 ml @ 42 mls/hr UNSCH PRN IV For Phosphorus < 2.5 mg/dL; Start 04/28/17 at 04:15 Potassium Phosphate (K-Phos) 2,000 mg UNSCH PRN PO/TUBE SEE LABEL COMMENTS; Start 04/28/17 at 04:15 Potassium Phosphate 30 mmol/ Sodium Chloride 260 ml @ 42 mls/hr UNSCH PRN IV SEE LABEL COMMENTS Last administered on 04/28/17 05:48; Start 04/28/17 at 04:15 Aspirin (Aspirin Chew) 162 mg ONCE ONCE OG-TUBE Last administered on 04:59; Start 04/28/17 at 04:15; Stop 04/28/17 at 04:16; Status DC Atorvastatin Calcium (Lipitor) 80 mg HS PO Last administered on 04/30/17 19:35 ; Start 04/28/17 at 21:00 Levothyroxine Sodium (Synthroid) 50 mcg DAILY@0600 PO Last administered on 05/01 05:48; Start 04/28/17 at 09:00 Cefepime HCl 2000 mg/Sodium Chloride 100 ml @ 200 mls/hr Q8H IV Last administered on 04/30/17 10:22; Start 04/28/17 at 11:00; Stop 04/30/17 at 15:39 ; Status DC Metronidazole 100 ml @ 100 mls/hr Q8H IV Last administered on 04/30/17 08:40 ; Start 04/28/17 at 10:00; Stop 04/30/17 at 15:39; Status DC Vancomycin HCl 1250 mg/Sodium Chloride 262.5 ml @ 250 mls/hr Q24H IV Last administered on 04/30/17 05:53; Start 04/29/17 at 05:00; Stop 04/30/17 at 10:44 ; Status DC Miscellaneous Information SPECIFIC LAB TO BE LUCÍA... ONCE ONCE .XX ; Start 05/01 at 04:45; Stop 05/01/17 at 04:46; Status Cancel Carvedilol (Coreg) 3.125 mg Q12HR PO Last administered on 04/30/17 19:35; Start 04/28/17 at 11:15 Calcium Gluconate 2 gm/Dextrose 120 ml @ 120 mls/hr ONCE ONCE IV Last administered on 04/28/17 12:16; Start 04/28/17 at 11:30; Stop 04/28/17 at 12:29 ; Status DC Propofol 100 ml @ 1.875 mls/ hr TITRATE PRN IV SEDATION Last administered on 06:13; Start 04/28/17 at 12:15; Stop 04/30/17 at 08:44; Status DC Aspirin (Ecotrin Ec) 81 mg DAILY PO Last administered on 04/30/17 08:40; Start 04/29/17 at 09:00 Hydralazine HCl (Apresoline Inj) 20 mg Q2HR PRN IV PUSH SBP greater tahn 160mm Hg Last administered on 05/01/17 05:48; Start 04/29/17 at 13:00 Haloperidol Lactate (Haldol Inj) 4 mg Q6H PRN IV AGITATION Last administered on 04/30/17 03:30; Start 04/29/17 at 15:00 Vancomycin HCl 1000 mg/Sodium Chloride 250 ml @ 250 mls/hr Q12H IV Last administered on 05/01/17 05:48; Start 04/30/17 at 17:00 Miscellaneous Information SPECIFIC LAB TO BE DRAWN:VANCOMYCIN TROUGH DATE TO... ONCE ONCE .XX ; Start 05/02/17 at 04:45; Stop 05/02/17 at 04:46 Influenza Virus Vaccine (Flu (Quadrivalent) Vaccine Inj) 0.5 ml ONCE ONCE IM ; Start 05/01/17 at 10:00; Stop 05/01/17 at 10:01 Ceftriaxone Sodium 2000 mg/ Sodium Chloride 100 ml @ 200 mls/hr Q24H IV Last administered on 04/30/17t 16:19; Start 04/30/17 at 16:00 Collagenase (Santyl Oint) 1 applic DAILY TOPICAL ; Start 05/01/17 at 09:00 A/P Assessment and Plan A/P Acute encephalopathy Status post right carotid endarterectomy CT brain 04/27 no acute hemorrhage.Left frontal lobe encephalomalacia. Decreased attenuation posterior left temporal parietal region. Small basal ganglia lacunar infarcts. MRI brain - No acute infarct. L frontal lobe encephalomalacia. Gliosis left inferior temporal parietal and left occipital lobe. ?convulsions and now ?subclinical seizure. Loaded with fosphenytoin . F/u levels. EEG with no epileptiform features. Neurology consulted and following - Lortab prn pain Urine drug screen, salicylate, APAP, EtOH level negative. TSH normal. ammonia level 32 LP done in ED 04/27- [id number], Protein 57. Acute respiratory failure- s/p intubation/extubation- resolved. COPD Tobacco abuse keep on oxygen as needed to keep O2 sat > 90% elevated troponin Hyperlipidemia Monitor hemodynamics. continue aspirin, coreg and statin. Echo 07/05/10ejection fraction 65-70%. No regional wall motion abnormalities. Cardiology Follow-up appreciated; ischemia w/u when mentation has improved. RUBY overlying chronic kidney disease stage III Monitor intake and output. Monitor electrolytes and replace as indicated. Sepsis Possible Meningitis Leukocytosis Diabetic foot ulcer, L MTP Encephalopathy, fever concerning for meningitis. Also with infected diabetic ulcer which is potential source. CSF culture negative and negative for HSV- UA negative. Chest x-ray without infiltrate. podiatry follow-up appreciated and recommended outpatient f/u. continue Vanco and Cefepime per ID. Diabetes mellitus Acute severe hyperglycemia on accu-check with SSI will consider starting levemir. DVT prophylaxis with lovenox. Luan Fuchs MD May 01, 2017 08:12
[2017-05-01] MEDS: COLLAGENASE OINT 30 GM TUBE TOPICAL SCH (09:00)
[2017-05-01] MEDS: SODIUM CHLORIDE 0.9% FLUSH 10 ML FLUSH IV FLUSH SCH ×2 (09:00→20:15)
[2017-05-01] MEDS ORDERED: INFLUENZA VIRUS VACCINE (QUADRIVALENT) 0.5 ML SYR IM ONE (10:00)
[2017-05-01] MEDS: SODIUM CHLOR 0.9% 1000 ML INJ 1,000 ML IV SCH ×2 (10:27→20:15)
[2017-05-01] MEDS: ASPIRIN EC 81 MG TABEC PO SCH (10:27)
[2017-05-01] MEDS: CARVEDILOL 3.125 MG TAB PO SCH ×2 (10:27→20:14)
[2017-05-01] MEDS: DOCUSATE SODIUM 50 MG/SENNA 8.6 MG TAB PO SCH ×2 (10:27→20:15)
[2017-05-01] MEDS: FOSPHENYTOIN SODIUM 100 MG PE/2 ML VIAL IV SCH ×2 (10:27→20:14)
[2017-05-01] MEDS: ENOXAPARIN SODIUM 40 MG/0.4 ML SYRINGE SQ SCH (10:27)
[2017-05-01] MEDS: cefTRIAXone INJ 2,000 MG in SODIUM CHLORIDE 0.9% INJ 100 ML IV SCH (15:04)
[2017-05-01] MEDS: ATORVASTATIN 80 MG TAB PO SCH (20:15)
[2017-05-02 00:40] VITALS: BP 146/63; PULSE 75; RESP 18; TEMP 96.7; O2SAT 96
[2017-05-02] MEDS: INSULIN ASPART SUPPLEMENTAL SCALE SQ SCH ×6 (01:34→22:34)
[2017-05-02 04:00] VITALS: BP 126/65; PULSE 72; RESP 18; TEMP 96.7; O2SAT 95
[2017-05-02] MEDS: CHLORHEXIDINE GLUCONATE 2 % 1 PACK (2 CLOTHS) TOP SCH (04:00)
[2017-05-02] MEDS ORDERED: PHARMACY ORDERED LAB ONE (04:45)
[2017-05-02] MEDS: VANCOMYCIN 1,000 MG/NS 250 ML IV SCH ×4 (06:16→06:30)
[2017-05-02] MEDS: LEVOTHYROXINE SODIUM 50 MCG TAB PO SCH (06:17)
[2017-05-02 08:00] VITALS: BP 137/65; PULSE 78; RESP 18; TEMP 97.2; O2SAT 100
[2017-05-02] MEDS: CHLORHEXIDINE 0.12% (ORAL KIT) 15 ML CUP MT SCH ×2 (08:00→20:00)
--- NOTE | 2017-05-02 08:34 | HHI.PR ---
Subjective Remarks in no distress. afebrile. off the restraints. denies pain. d/w the RN and no acute issues over night. Objective Vitals Vital Signs Date Time Temp Pulse Resp B/P (MAP) Pulse Ox O2 Delivery O2 Flow Rate FiO2 05/02/17 04:00 96.7 72 18 126/65 (85) 95 05/02/17 00:40 96.7 75 18 146/63 (90) 96 05/01/17 22:00 86 05/01/17 21:36 96 Nasal Cannula 2.00 05/01/17 20:00 97.4 79 12 159/75 (103) 95 05/01/17 20:00 83 05/01/17 18:00 83 05/01/17 16:00 71 05/01/17 16:00 98.1 71 13 133/66 (88) 96 05/01/17 14:00 75 05/01/17 12:00 98.7 80 19 141/88 (105) 95 05/01/17 12:00 80 05/01/17 10:00 81 05/01/17 08:44 95 Nasal Cannula 2.00 I/O 05/01/17 05/01/17 05/01/17 05/02/17 05/02/17 05/02/17 07:00 15:00 23:00 07:00 15:00 23:00 Intake Total 400 ml 500 ml 300 ml 840 ml Output Total 250 ml 200 ml 320 ml Balance 150 ml 500 ml 100 ml 520 ml Intake Oral 400 ml 50 ml 240 ml IV Total 500 ml 250 ml 600 ml Output Urine Total 250 ml 200 ml 320 ml # Bowel Movements 0 0 Result Diagram: 05/01/17 0538 05/01/17 0538 Imaging Last Impressions Foot X-Ray 04/28/17 0000 Signed Impressions: Service Date/Time: Friday, April 28, 2017 14:19 - CONCLUSION: 1. Focal soft tissue swelling apparent ulcer adjacent to the first proximal phalanx. 2. The first distal and proximal phalanges are abnormal in appearance with patchy sclerosis. There is also patchy lucency in the central proximal phalanx. There is no periosteal new bone formation or destructive change and the findings are nonspecific.. Juan Gamez MD Head CT 04/27/17 8440 Signed Impressions: Service Date/Time: Thursday, April 27, 2017 18:47 - CONCLUSION: 1. No acute hemorrhage or mass effect. 2. 2 area of low attenuation encephalomalacia involving left frontal lobe most consistent with an interval infarct. 3. Low attenuation area involving the posterior left temporal parietal region which is more nonspecific but more likely likely is also chronic. Juan Gamez MD Chest X-Ray 04/27/17 1750 Signed Impressions: Service Date/Time: Thursday, April 27, 2017 18:31 - CONCLUSION: No acute disease. Juan Gamez MD Brain MRI 04/27/17 0000 Signed Impressions: Service Date/Time: Thursday, April 27, 2017 21:57 - CONCLUSION: 1. No acute hemorrhage or infarction. 2. Old area of encephalomalacia involving left frontal lobe with gliosis. 3. Areas of apparent gliosis involving the left inferior temporal parietal junction and left occipital lobe.. 4. Moderate atrophic change and chronic small vessel ischemic changes. Juan Gamez MD Objective Remarks GENERAL: This is a well-nourished, well-developed patient, in no apparent distress. CARDIOVASCULAR: Regular rate and regular rhythm without murmurs, gallops, or rubs. RESPIRATORY: Clear to auscultation. Breath sounds equal bilaterally. No wheezes , rales, or rhonchi. GASTROINTESTINAL: Abdomen soft, non-tender, nondistended. Normal, active bowel sounds MUSCULOSKELETAL: Extremities without clubbing, cyanosis, or edema. NEURO: awake and alert but not oriented to time Procedures intubation Medications and IVs Current Medications Sodium Chloride 1,000 ml @ 2,000 mls/hr Q30M ONCE IV Last administered on 04/27 18:25; Start 04/27/17 at 17:50; Stop 04/27/17 at 18:19; Status DC Sodium Chloride 1,000 ml @ 2,000 mls/hr Q30M ONCE IV Last administered on 04/27 19:17; Start 04/27/17 at 18:20; Stop 04/27/17 at 18:49; Status DC Sodium Chloride (NS Flush) 2 ml UNSCH PRN IVF FLUSH AFTER USING IV ACCESS; Start 04/27/17 at 18:00; Stop 04/27/17 at 21:42; Status DC Lorazepam (Ativan Inj) 2 mg ONCE ONCE IV PUSH Last administered on 04/27/17 18:08; Start 04/27/17 at 18:00; Stop 04/27/17 at 18:01; Status DC Ondansetron HCl (Zofran Inj) 4 mg STK-MED ONCE .ROUTE ; Start 04/27/17 at 17:56 ; Stop 04/27/17 at 17:57; Status DC Ondansetron HCl (Zofran Inj) 4 mg ONCE ONCE IV PUSH Last administered on 18:08; Start 04/27/17 at 18:15; Stop 04/27/17 at 18:16; Status DC Haloperidol Lactate (Haldol Inj) 5 mg ONCE ONCE IM Last administered on 18:08; Start 04/27/17 at 18:15; Stop 04/27/17 at 18:16; Status DC Haloperidol Lactate (Haldol Inj) 5 mg STK-MED ONCE .ROUTE ; Start 04/27/17 at 18 :04; Stop 04/27/17 at 18:05; Status DC Lorazepam (Ativan Inj) 2 mg ONCE ONCE IV PUSH Last administered on 04/27/17 18:38; Start 04/27/17 at 18:30; Stop 04/27/17 at 18:31; Status DC Etomidate (Amidate Inj) 20 mg ONCE ONCE IV PUSH Last administered on 19:16; Start 04/27/17 at 19:15; Stop 04/27/17 at 19:16; Status DC Succinylcholine Chloride (Quelicin Inj) 100 mg ONCE ONCE IV PUSH Last administered on 04/27/17 19:16; Start 04/27/17 at 19:15; Stop 04/27/17 at 19:16 ; Status DC Propofol 100 ml @ As Directed STK-MED ONCE .ROUTE ; Start 04/27/17 at 19:22; Stop 04/27/17 at 19:23; Status DC Sodium Chloride 1,000 ml @ 999 mls/hr BOLUS ONCE IV Last administered on 04/27 19:49; Start 04/27/17 at 19:30; Stop 04/27/17 at 20:30; Status DC Propofol 100 ml @ 1.77 mls/hr TITRATE PRN IV Ordered RASS Last administered on 04/27/17 19:33; Start 04/27/17 at 19:30; Stop 04/27/17 at 21:39; Status DC Ceftriaxone Sodium 2000 mg/ Sodium Chloride 100 ml @ 200 mls/hr ONCE ONCE IV Last administered on 04/27/17 21:00; Start 04/27/17 at 20:00; Stop 04/27/17 at 20:29; Status DC Acyclovir Sodium 590 mg/Sodium Chloride 100 ml @ 100 mls/hr ONCE ONCE IV Last administered on 04/27/17 23:26; Start 04/27/17 at 20:00; Stop 04/27/17 at 20:59; Status DC Vancomycin HCl 1000 mg/Sodium Chloride 250 ml @ 250 mls/hr ONCE ONCE IV Last administered on 04/27/17 21:34; Start 04/27/17 at 20:00; Stop 04/27/17 at 20:59 ; Status DC Insulin Aspart (NovoLOG INJ) 8 units ONCE ONCE SQ Last administered on 20:58; Start 04/27/17 at 20:30; Stop 04/27/17 at 20:31; Status DC Insulin Human Regular (NovoLIN R INJ) 6 units ONCE ONCE IV PUSH Last administered on 04/27/17 20:58; Start 04/27/17 at 20:30; Stop 04/27/17 at 20:31 ; Status DC Sodium Chloride 1,000 ml @ 999 mls/hr BOLUS ONCE IV Last administered on 04/27 20:59; Start 04/27/17 at 20:45; Stop 04/27/17 at 21:45; Status DC Propofol 100 ml @ 1.77 mls/hr TITRATE PRN IV SEDATION; Start 04/27/17 at 21:15 ; Stop 04/28/17 at 12:03; Status DC Sodium Chloride 1,000 ml @ 125 mls/hr Q8H IV Last administered on 04/27/17 23 :26; Start 04/27/17 at 21:10; Stop 04/28/17 at 01:23; Status DC Sodium Chloride (NS Flush) 2 ml UNSCH PRN IV FLUSH FLUSH AFTER USING IV ACCESS Last administered on 05/01/17 21:18; Start 04/27/17 at 21:15 Sodium Chloride (NS Flush) 2 ml BID IV FLUSH Last administered on 05/01/17 20: 15; Start 04/28/17 at 09:00 Acetaminophen (Tylenol) 650 mg Q6H PRN PO PAIN 1-2 AND/OR FEVER >101F; Start at 21:15 Fentanyl Citrate (fentaNYL INJ) 50 mcg Q1H PRN IV PUSH Pain scale 6-10 &/or sedation Last administered on 04/29/17 15:11; Start 04/27/17 at 21:15 Pantoprazole Sodium (Protonix Inj) 40 mg DAILY IV PUSH Last administered on 08:39; Start 04/28/17 at 09:00; Stop 05/01/17 at 08:12; Status DC Ondansetron HCl (Zofran Inj) 4 mg Q6H PRN IV PUSH NAUSEA OR VOMITING; Start at 21:15 Albuterol Sulfate (Albuterol Neb) 2.5 mg Q2HR NEB PRN INH SOB/WHEEZING; Start 04/27/17 at 21:15; Status Cancel Miscellaneous Information 1 [id number] Last administered on 04/27/17 23:15; Start 04/27/17 at 21:15 Chlorhexidine Gluconate (Chlorhexidine 2% Cloth) 3 pack Taper DAILY@04 TOP Last administered on 05/01/17 04:00; Start 04/28/17 at 04:00; Stop 04/24/18 at 03:59 Chlorhexidine Gluconate (Chlorhexidine 2% Cloth) 3 pack UNSCH PRN TOP HYGIENIC CARE; Start 04/27/17 at 21:15 Senna/Docusate Sodium (Yamel-Colace) 1 tab BID PO Last administered on 20:15; Start 04/28/17 at 09:00 Magnesium Hydroxide (Milk Of Magnesia Liq) 30 ml Q12H PRN PO MILD - MODERATE CONSTIPATION; Start 04/27/17 at 21:15 Sennosides (Senokot) 17.2 mg Q12H PRN PO MODERATE - SEVERE CONSTIPATION; Start 04/27/17 at 21:15 Bisacodyl (Dulcolax Supp) 10 mg DAILY PRN RECTAL SEVERE CONSITIPATION; Start at 21:15 Lactulose (Lactulose Liq) 30 ml DAILY PRN PO SEVERE CONSITIPATION; Start at 21:15 Fosphenytoin Sodium 1000 mgpe/ Sodium Chloride 70 ml @ 280 mls/hr ONCE ONCE IV Last administered on 04/27/17 21:48; Start 04/27/17 at 21:15; Stop at 21:35; Status DC Gadodiamide (Omniscan Pf Inj) 12 ml STK-MED ONCE IVCONTRAST Last administered on 04/27/17 22:11; Start 04/27/17 at 22:11; Stop 04/27/17 at 22:12; Status DC Magnesium Sulfate/ Dextrose 100 ml @ 100 mls/hr Q1H IV Last administered on 02:36; Start 04/28/17 at 00:00; Stop 04/28/17 at 01:59; Status DC Sodium Chloride 1,000 ml @ 999 mls/hr BOLUS ONCE IV Last administered on 04/28 00:55; Start 04/28/17 at 01:00; Stop 04/28/17 at 02:00; Status DC Albuterol/ Ipratropium (Duoneb Neb) 1 ampule Q6HR NEB NEB Last administered on 05/01/17 21:35; Start 04/28/17 at 01:00; Stop 05/02/17 at 00:59; Status DC Albuterol Sulfate (Albuterol Neb) 2.5 mg Q2HR NEB PRN NEB WHEEZING; Start 04/28 at 01:00 Acetaminophen/ Hydrocodone Bitart ([place] 5-325 Mg) 1 tab Q6H PRN PO PAIN 3-5; Start 04/28/17 at 01:00 Acetaminophen/ Hydrocodone Bitart ([place] 5-325 Mg) 2 tab Q6H PRN PO PAIN 6-10 ; Start 04/28/17 at 01:00 Pharmacy Profile Note 0 ml @ 0 mls/hr UNSCH OTHER ; Start 04/28/17 at 01:00 Ceftriaxone Sodium 2000 mg/ Sodium Chloride 100 ml @ 200 mls/hr Q12H IV Last administered on 04/28/17 08:24; Start 04/28/17 at 09:00; Stop 04/28/17 at 09:00 ; Status DC Chlorhexidine Gluconate (Peridex 0.12% Liq) 15 ml BID@08,20 MT Last administered on 04/29/17 08:24; Start 04/28/17 at 08:00 Vancomycin HCl 500 mg/Sodium Chloride 100 ml @ 200 mls/hr ONCE ONCE IV Last administered on 04/28/17 04:39; Start 04/28/17 at 01:30; Stop 04/28/17 at 01:59 ; Status DC Fosphenytoin Sodium (Cerebyx Inj) 100 mgpe Q8HR IV ; Start 04/28/17 at 06:00; Stop 04/28/17 at 06:00; Status DC Fosphenytoin Sodium (Cerebyx Inj) 100 mgpe Q12HR IV Last administered on 20:14; Start 04/28/17 at 09:00 Dextrose (D50w (Vial) Inj) 50 ml UNSCH PRN IV PUSH HYPOGLYCEMIA-SEE COMMENTS; Start 04/28/17 at 01:30 Glucagon (Glucagon Inj) 1 mg UNSCH PRN OTHER HYPOGLYCEMIA-SEE COMMENTS; Start 04/28/17 at 01:30 Insulin Aspart (NovoLOG SUPPLEMENTAL SCALE) 1 Q4H SQ Last administered on 18:00; Start 04/28/17 at 02:00 Dextrose/Sodium Chloride 1,000 ml @ 75 mls/hr [id number] IV Last administered on 05/01/17 02:17; Start 04/28/17 at 01:30; Stop 05/01/17 at 08:12; Status DC Acyclovir Sodium 600 mg/Sodium Chloride 100 ml @ 100 mls/hr Q12H IV Last administered on 04/30/17 00:46; Start 04/28/17 at 12:00; Stop 04/30/17 at 08:44 ; Status DC Fentanyl Citrate 250 ml @ 5 mls/hr TITRATE PRN IV SEDATION Last administered on 04/28/17 04:59; Start 04/28/17 at 04:15; Stop 04/30/17 at 08:44; Status DC Potassium Chloride 100 ml @ 50 mls/hr Q2H PRN IV For Potassium 2.8 - 3.2 mEq/L ; Start 04/28/17 at 04:15; Stop 05/01/17 at 08:12; Status DC Potassium Chloride 100 ml @ 50 mls/hr Q2H PRN IV For Potassium 2.8 - 3.2 mEq/L ; Start 04/28/17 at 04:15; Stop 05/01/17 at 08:12; Status DC Potassium Bicarb/ Potassium Chloride (K-Lyte Cl Eff) 50 meq UNSCH PRN PO For Potassium 3.3 - 3.5 mEq/L; Start 04/28/17 at 04:15; Stop 05/01/17 at 08:12; Status DC Potassium Chloride 100 ml @ 25 mls/hr UNSCH PRN IV For Potassium 3.3 - 3.5 mEq /L; Start 04/28/17 at 04:15; Stop 05/01/17 at 08:12; Status DC Potassium Chloride 100 ml @ 50 mls/hr Q2H PRN IV For Potassium 3.3 - 3.5 mEq/L ; Start 04/28/17 at 04:15; Stop 05/01/17 at 08:12; Status DC Magnesium Sulfate 4 gm/Sodium Chloride 100 ml @ 50 mls/hr UNSCH PRN IV For Magnesium 0.9 - 1.1 mg/dL; Start 04/28/17 at 04:15; Stop 05/01/17 at 08:12; Status DC Magnesium Oxide (Mag-Ox) 800 mg UNSCH PRN PO For Magnesium 1.2 - 1.6 mg/dL; Start 04/28/17 at 04:15; Stop 05/01/17 at 08:12; Status DC Magnesium Sulfate 2 gm/Sodium Chloride 100 ml @ 50 mls/hr UNSCH PRN IV For Magnesium 1.2 - 1.6 mg/dL; Start 04/28/17 at 04:15; Stop 05/01/17 at 08:12; Status DC Potassium Phosphate (K-Phos) 2,000 mg Q4H PRN PO For Phosphorus < 2.5 mg/dL; Start 04/28/17 at 04:15; Stop 05/01/17 at 08:12; Status DC Sodium Phosphate 30 mmol/Sodium Chloride 250 ml @ 42 mls/hr UNSCH PRN IV For Phosphorus < 2.5 mg/dL; Start 04/28/17 at 04:15; Stop 05/01/17 at 08:12; Status DC Potassium Phosphate (K-Phos) 2,000 mg UNSCH PRN PO/TUBE SEE LABEL COMMENTS; Start 04/28/17 at 04:15; Stop 05/01/17 at 08:12; Status DC Potassium Phosphate 30 mmol/ Sodium Chloride 260 ml @ 42 mls/hr UNSCH PRN IV SEE LABEL COMMENTS Last administered on 04/28/17 05:48; Start 04/28/17 at 04:15 ; Stop 05/01/17 at 08:12; Status DC Aspirin (Aspirin Chew) 162 mg ONCE ONCE OG-TUBE Last administered on 04:59; Start 04/28/17 at 04:15; Stop 04/28/17 at 04:16; Status DC Atorvastatin Calcium (Lipitor) 80 mg HS PO Last administered on 05/01/17 20:15 ; Start 04/28/17 at 21:00 Levothyroxine Sodium (Synthroid) 50 mcg DAILY@0600 PO Last administered on 05/02 06:17; Start 04/28/17 at 09:00 Cefepime HCl 2000 mg/Sodium Chloride 100 ml @ 200 mls/hr Q8H IV Last administered on 04/30/17 10:22; Start 04/28/17 at 11:00; Stop 04/30/17 at 15:39 ; Status DC Metronidazole 100 ml @ 100 mls/hr Q8H IV Last administered on 04/30/17 08:40 ; Start 04/28/17 at 10:00; Stop 04/30/17 at 15:39; Status DC Vancomycin HCl 1250 mg/Sodium Chloride 262.5 ml @ 250 mls/hr Q24H IV Last administered on 04/30/17 05:53; Start 04/29/17 at 05:00; Stop 04/30/17 at 10:44 ; Status DC Miscellaneous Information SPECIFIC LAB TO BE LUCÍA... ONCE ONCE .XX ; Start 05/01 at 04:45; Stop 05/01/17 at 04:46; Status Cancel Carvedilol (Coreg) 3.125 mg Q12HR PO Last administered on 05/01/17 20:14; Start 04/28/17 at 11:15 Calcium Gluconate 2 gm/Dextrose 120 ml @ 120 mls/hr ONCE ONCE IV Last administered on 04/28/17 12:16; Start 04/28/17 at 11:30; Stop 04/28/17 at 12:29 ; Status DC Propofol 100 ml @ 1.875 mls/ hr TITRATE PRN IV SEDATION Last administered on 06:13; Start 04/28/17 at 12:15; Stop 04/30/17 at 08:44; Status DC Aspirin (Ecotrin Ec) 81 mg DAILY PO Last administered on 05/01/17 10:27; Start 04/29/17 at 09:00 Hydralazine HCl (Apresoline Inj) 20 mg Q2HR PRN IV PUSH SBP greater tahn 160mm Hg Last administered on 05/01/17 21:18; Start 04/29/17 at 13:00 Haloperidol Lactate (Haldol Inj) 4 mg Q6H PRN IV AGITATION Last administered on 04/30/17 03:30; Start 04/29/17 at 15:00 Vancomycin HCl 1000 mg/Sodium Chloride 250 ml @ 250 mls/hr Q12H IV Last administered on 05/01/17 16:37; Start 04/30/17 at 17:00 Miscellaneous Information SPECIFIC LAB TO BE DRAWN:VANCOMYCIN TROUGH DATE TO... ONCE ONCE .XX Last administered on 05/02/17 04:45; Start 05/02/17 at 04:45; Stop 05/02/17 at 04:46; Status DC Influenza Virus Vaccine (Flu (Quadrivalent) Vaccine Inj) 0.5 ml ONCE ONCE IM Last administered on 05/01/17 13:42; Start 05/01/17 at 10:00; Stop 05/01/17 at 10:01; Status DC Ceftriaxone Sodium 2000 mg/ Sodium Chloride 100 ml @ 200 mls/hr Q24H IV Last administered on 05/01/17 15:04; Start 04/30/17 at 16:00 Collagenase (Santyl Oint) 1 applic DAILY TOPICAL Last administered on 09:00; Start 05/01/17 at 09:00 Sodium Chloride 1,000 ml @ 75 mls/hr [id number] IV Last administered on 20:15; Start 05/01/17 at 08:00 Enoxaparin Sodium (Lovenox Inj) 40 mg Q24H SQ Last administered on 05/01/17 10 :27; Start 05/01/17 at 09:00 A/P Assessment and Plan A/P Acute encephalopathy Status post right carotid endarterectomy CT brain 04/27 no acute hemorrhage.Left frontal lobe encephalomalacia. Decreased attenuation posterior left temporal parietal region. Small basal ganglia lacunar infarcts. MRI brain - No acute infarct. L frontal lobe encephalomalacia. Gliosis left inferior temporal parietal and left occipital lobe. ?convulsions and now ?subclinical seizure. Loaded with fosphenytoin . F/u levels. EEG with no epileptiform features. Neurology consulted and following - Lortab prn pain Urine drug screen, salicylate, APAP, EtOH level negative. TSH normal. ammonia level 32 Acute respiratory failure- s/p intubation/extubation- resolved. COPD Tobacco abuse now stable. keep on oxygen as needed to keep O2 sat > 90% elevated troponin Hyperlipidemia Monitor hemodynamics. continue aspirin, coreg and statin. Echo 07/05/10ejection fraction 65-70%. No regional wall motion abnormalities. Cardiology Follow-up appreciated; ischemia w/u when mentation has improved. RUBY overlying chronic kidney disease stage III Monitor intake and output. Monitor electrolytes and replace as indicated. Sepsis Possible Meningitis Leukocytosis Diabetic foot ulcer, L MTP Encephalopathy, fever concerning for meningitis. Also with infected diabetic ulcer which is potential source. CSF culture negative and negative for HSV- UA negative. Chest x-ray without infiltrate. podiatry follow-up appreciated and recommended outpatient f/u. continue Vanco and Cefepime per ID. Diabetes mellitus Acute severe hyperglycemia on accu-check with SSI will consider starting levemir. DVT prophylaxis with lovenox. continue PT. Discharge Planning dc planning to SNF when stable. Luan Fuchs MD May 02, 2017 08:34
[2017-05-02] MEDS: COLLAGENASE OINT 30 GM TUBE TOPICAL SCH (09:00)
[2017-05-02] MEDS: ASPIRIN EC 81 MG TABEC PO SCH (09:15)
[2017-05-02] MEDS: DOCUSATE SODIUM 50 MG/SENNA 8.6 MG TAB PO SCH ×2 (09:15→22:30)
[2017-05-02] MEDS: CARVEDILOL 3.125 MG TAB PO SCH ×2 (09:15→22:30)
[2017-05-02] MEDS: ENOXAPARIN SODIUM 40 MG/0.4 ML SYRINGE SQ SCH (09:15)
[2017-05-02] MEDS: SODIUM CHLORIDE 0.9% FLUSH 10 ML FLUSH IV FLUSH SCH ×2 (09:16→22:31)
[2017-05-02] MEDS: FOSPHENYTOIN SODIUM 100 MG PE/2 ML VIAL IV SCH ×2 (10:23→22:33)
[2017-05-02] MEDS: SODIUM CHLOR 0.9% 1000 ML INJ 1,000 ML IV SCH (10:40)
[2017-05-02 12:00] VITALS: BP 148/71; PULSE 77; RESP 18; TEMP 96.6; O2SAT 99
--- NOTE | 2017-05-02 14:35 | HHI.IDPN ---
Subjective Subjective Remarks Patient is a 71-year-old male, lives at home, found prone by his neighbors on the floor of his home. He was apparently last seen that evening and he was initially his usual self, and he had dinner with his neighbor. Later that neighbors found him prone on the floor, and EMS was called. He had very high blood sugar of 556. In the emergency room he had a white count of 23,000, elevated lactic acid of 4.9, and creatinine of 1.48. He was apparently last admitted about one week ago for hyperglycemia. In the ED, he had a fever of 101.5. Patient was initially very calm but became combative, and was given Ativan and Haldol. He underwent CT of the head which did not show any acute findings but did show some chronic findings of previous encephalomalacia, After his CT, he developed worsening of his mental status, and became obtunded. He was not protecting his airway, and reportedly having fasciculations so he was given Ativan 2 mg IV and then was intubated with etomidate and succinylcholine. Lumbar puncture was done, and it showed 15 WBC, mostly lymphocytes, and 45 RBC. CSF glucose and protein were elevated. His chest x-ray was clear. Urine drug screen were all negative. Infectious disease consultation has been requested to evaluate the patient for sepsis Notes reviewed Temps ok On nasal O2 Not SOB Foot pain better Has not been ambulating yet C/S foot - 2 GNR, MRSA and Enterococcus Antibiotics Cefepime Vancomycin Past Medical History Diabetes Hypertension Hyperlipidemia COPD Hypothyroidism Peripheral vascular disease Past Surgical History Tonsillectomy Right carotid endarterectomy 2015 Iliac stent Allergies: Coded Allergies: No Known Allergies (Verified , 04/27/17) Objective . Vital Signs Date Time Temp Pulse Resp B/P (MAP) Pulse Ox O2 Delivery O2 Flow Rate FiO2 05/02/17 08:00 78 05/02/17 08:00 97.2 78 18 137/65 (89) 100 05/02/17 04:00 96.7 72 18 126/65 (85) 95 05/02/17 00:40 96.7 75 18 146/63 (90) 96 05/01/17 22:00 86 05/01/17 21:36 96 Nasal Cannula 2.00 05/01/17 20:00 97.4 79 12 159/75 (103) 95 05/01/17 20:00 83 05/01/17 18:00 83 05/01/17 16:00 71 05/01/17 16:00 98.1 71 13 133/66 (88) 96 . Laboratory Tests Test 05/01/17 05:38 White Blood Count 14.7 TH/MM3 Red Blood Count 4.32 MIL/MM3 Hemoglobin 12.3 GM/DL Hematocrit 39.6 % Mean Corpuscular Volume 91.7 FL Mean Corpuscular Hemoglobin 28.5 PG Mean Corpuscular Hemoglobin Concent 31.0 % Red Cell Distribution Width 14.6 % Platelet Count 336 TH/MM3 Mean Platelet Volume 9.2 FL Neutrophils (%) (Auto) 72.6 % Lymphocytes (%) (Auto) 18.3 % Monocytes (%) (Auto) 7.5 % Eosinophils (%) (Auto) 0.9 % Basophils (%) (Auto) 0.7 % Neutrophils # (Auto) 10.7 TH/MM3 Lymphocytes # (Auto) 2.7 TH/MM3 Monocytes # (Auto) 1.1 TH/MM3 Eosinophils # (Auto) 0.1 TH/MM3 Basophils # (Auto) 0.1 TH/MM3 CBC Comment DIFF FINAL Differential Comment Laboratory Tests Test 05/01/17 05:38 Blood Urea Nitrogen 16 MG/DL Creatinine 0.93 MG/DL Random Glucose 217 MG/DL Total Protein 5.4 GM/DL Albumin 1.9 GM/DL Calcium Level 8.1 MG/DL Magnesium Level 1.5 MG/DL Alkaline Phosphatase 70 U/L Aspartate Amino Transf (AST/SGOT) 27 U/L Alanine Aminotransferase (ALT/SGPT) 16 U/L Total Bilirubin 0.3 MG/DL Sodium Level 142 MEQ/L Potassium Level 3.5 MEQ/L Chloride Level 113 MEQ/L Carbon Dioxide Level 18.6 MEQ/L Anion Gap 10 MEQ/L Estimat Glomerular Filtration Rate 81 ML/MIN Imaging Foot X-Ray 04/28/17 0000 Signed Impressions: Service Date/Time: Friday, April 28, 2017 14:19 - CONCLUSION: 1. Focal soft tissue swelling apparent ulcer adjacent to the first proximal phalanx. 2. The first distal and proximal phalanges are abnormal in appearance with patchy sclerosis. There is also patchy lucency in the central proximal phalanx. There is no periosteal new bone formation or destructive change and the findings are nonspecific.. Juan Gamez MD Head CT 04/27/171749 Signed Impressions: Service Date/Time: Thursday, April 27, 2017 18:47 - CONCLUSION: 1. No acute hemorrhage or mass effect. 2. 2 area of low attenuation encephalomalacia involving left frontal lobe most consistent with an interval infarct. 3. Low attenuation area involving the posterior left temporal parietal region which is more nonspecific but more likely likely is also chronic. Juan Gamez MD Chest X-Ray 04/27/171749 Signed Impressions: Service Date/Time: Thursday, April 27, 2017 18:31 - CONCLUSION: No acute disease. Juan Gamez MD Last Impressions Foot X-Ray 04/28/17 0000 Signed Impressions: Service Date/Time: Friday, April 28, 2017 14:19 - CONCLUSION: 1. Focal soft tissue swelling apparent ulcer adjacent to the first proximal phalanx. 2. The first distal and proximal phalanges are abnormal in appearance with patchy sclerosis. There is also patchy lucency in the central proximal phalanx. There is no periosteal new bone formation or destructive change and the findings are nonspecific.. Juan Gamez MD Head CT 04/27/171749 Signed Impressions: Service Date/Time: Thursday, April 27, 2017 18:47 - CONCLUSION: 1. No acute hemorrhage or mass effect. 2. 2 area of low attenuation encephalomalacia involving left frontal lobe most consistent with an interval infarct. 3. Low attenuation area involving the posterior left temporal parietal region which is more nonspecific but more likely likely is also chronic. Juan Gamez MD Chest X-Ray 04/27/171749 Signed Impressions: Service Date/Time: Thursday, April 27, 2017 18:31 - CONCLUSION: No acute disease. Juan Gamez MD Brain MRI 04/27/17 0000 Signed Impressions: Service Date/Time: Thursday, April 27, 2017 21:57 - CONCLUSION: 1. No acute hemorrhage or infarction. 2. Old area of encephalomalacia involving left frontal lobe with gliosis. 3. Areas of apparent gliosis involving the left inferior temporal parietal junction and left occipital lobe.. 4. Moderate atrophic change and chronic small vessel ischemic changes. Juan Gamez MD Physical Exam GENERAL: awake and alert, not in respiratory distress. SKIN: Warm and dry. No generalized rash, no ecchymoses and no evidence of embolic lesions. HEAD: Atraumatic. Normocephalic. No temporal wasting, or tenderness. EYES: [place] conjunctiva. No petechia or hemorrhage. Pupils equal, round and reactive to light. No scleral icterus. No injection or drainage. EARS, NOSE AND THROAT: Nose without bleeding or purulent nasal discharge. He is orally intubated. NECK: Trachea midline. Supple and not tender, no meningeal signs CARDIOVASCULAR: Regular rate and rhythm. No murmurs, rubs or gallops heard RESPIRATORY: Clear to auscultation. Breath sounds equal bilaterally. No rales , wheezing or rhonchi ABDOMEN: Soft, nondistended, bowel sounds present and normoactive. No reaction to palpation. No guarding. No organomegaly. EXTREMITIES: No clubbing, cyanosis, or edema. Ulcer over the plantar aspect of his L first MTP, looks less swollen and less red, dry dressing NEUROLOGICAL: awake, and alert. PSYCHIATRIC: cooperative LINE: No evidence of infection Assessment & Plan Remarks IMPRESSION Sepsis on presentation, source? 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
[2017-05-02] MEDS: LEVOFLOXACIN 750 MG TAB PO SCH (15:58)
[2017-05-02] MEDS: AMOXICILLIN/CLAVULANATE K 500 MG TAB PO SCH ×2 (15:58→22:30)
[2017-05-02 16:00] VITALS: BP 169/80; PULSE 78; RESP 16; TEMP 97.7; O2SAT 100
[2017-05-02 20:00] VITALS: BP 139/65; PULSE 86; RESP 18; TEMP 97.6; O2SAT 94
[2017-05-02] MEDS: ATORVASTATIN 80 MG TAB PO SCH (22:30)
[2017-05-03] VITALS: BP 153/72; PULSE 78; RESP 18; TEMP 97.6; O2SAT 94
[2017-05-03] MEDS: SODIUM CHLOR 0.9% 1000 ML INJ 1,000 ML IV SCH ×2 (00:40→14:12)
[2017-05-03] MEDS: INSULIN ASPART SUPPLEMENTAL SCALE SQ SCH ×6 (02:58→22:45)
[2017-05-03] MEDS: CHLORHEXIDINE GLUCONATE 2 % 1 PACK (2 CLOTHS) TOP SCH (04:00)
[2017-05-03 06:09] LABS: AUTOMATED NEUTROPHIL # 9.1 TH/MM3 (1.8-7.7); BASOPHIL # 0.1 TH/MM3 (0-0.2); BASOPHIL % 0.5 % (0.0-2.0); EOSINOPHIL # 0.3 TH/MM3 (0-0.4); EOSINOPHIL % 2.1 % (0.0-4.0); HEMATOCRIT 37.1 % (39.0-51.0); HEMO FLAGS DIFF FINAL; LYMPH % 19.5 % (9.0-44.0); LYMPHOCYTE # 2.5 TH/MM3 (1.0-4.8); MEAN CELL VOLUME 89.2 FL (80.0-100.0); MEAN CORPUSCULAR HEMOGLOBIN 28.7 PG (27.0-34.0); MEAN CORPUSCULAR HGB CONC 32.2 % (32.0-36.0); NEUT % 70.9 % (16.0-70.0); PLATELET COUNT 314 TH/MM3 (150-450); RED BLOOD COUNT 4.15 MIL/MM3 (4.50-5.90); RED CELL DISTRIBUTION WIDTH 14.3 % (11.6-17.2); WHITE BLOOD COUNT 12.9 TH/MM3 (4.0-11.0)
[2017-05-03] MEDS: LEVOTHYROXINE SODIUM 50 MCG TAB PO SCH (06:11)
[2017-05-03] MEDS: AMOXICILLIN/CLAVULANATE K 500 MG TAB PO SCH ×3 (06:11→20:56)
[2017-05-03 06:30] LABS: BICARBONATE 23.3 MEQ/L (21.0-32.0); POTASSIUM 3.7 MEQ/L (3.5-5.1)
[2017-05-03 08:00] VITALS: BP 166/81; PULSE 85; RESP 18; TEMP 97.6; O2SAT 100
[2017-05-03] MEDS: CHLORHEXIDINE 0.12% (ORAL KIT) 15 ML CUP MT SCH ×2 (08:00→20:00)
--- NOTE | 2017-05-03 08:17 | HHI.PR ---
Subjective Remarks resting comfortably with no distress. denies pain. afebrile. no chest pain or sob. had some nausea/ vomiting last night. denies abdominal pain. d/w the RN . Objective Vitals Vital Signs Date Time Temp Pulse Resp B/P (MAP) Pulse Ox O2 Delivery O2 Flow Rate FiO2 05/03/17 00:00 97.6 78 18 153/72 (99) 94 05/02/17 20:00 97.6 86 18 139/65 (89) 94 05/02/17 16:00 97.7 78 16 169/80 (109) 100 05/02/17 12:00 96.6 77 18 148/71 (96) 99 I/O 05/02/17 05/02/17 05/02/17 05/03/17 05/03/17 05/03/17 07:00 15:00 23:00 07:00 15:00 23:00 Intake Total 840 ml 482 ml 600 ml Output Total 320 ml 300 ml 510 ml Balance 520 ml 182 ml 90 ml Intake Oral 240 ml 482 ml IV Total 600 ml 600 ml Output Urine Total 320 ml 300 ml 510 ml # Bowel Movements 1 Result Diagram: 05/03/17 0512 05/03/17 0512 Imaging Last Impressions Foot X-Ray 04/28/17 0000 Signed Impressions: Service Date/Time: Friday, April 28, 2017 14:19 - CONCLUSION: 1. Focal soft tissue swelling apparent ulcer adjacent to the first proximal phalanx. 2. The first distal and proximal phalanges are abnormal in appearance with patchy sclerosis. There is also patchy lucency in the central proximal phalanx. There is no periosteal new bone formation or destructive change and the findings are nonspecific.. Juan Gamez MD Head CT [id number]/[id number] Signed Impressions: Service Date/Time: Thursday, April 27, 2017 18:47 - CONCLUSION: 1. No acute hemorrhage or mass effect. 2. 2 area of low attenuation encephalomalacia involving left frontal lobe most consistent with an interval infarct. 3. Low attenuation area involving the posterior left temporal parietal region which is more nonspecific but more likely likely is also chronic. Juan Gamez MD Chest X-Ray 04/27/171749 Signed Impressions: Service Date/Time: Thursday, April 27, 2017 18:31 - CONCLUSION: No acute disease. Juan Gamez MD Brain MRI 04/27/17 0000 Signed Impressions: Service Date/Time: Thursday, April 27, 2017 21:57 - CONCLUSION: 1. No acute hemorrhage or infarction. 2. Old area of encephalomalacia involving left frontal lobe with gliosis. 3. Areas of apparent gliosis involving the left inferior temporal parietal junction and left occipital lobe.. 4. Moderate atrophic change and chronic small vessel ischemic changes. Juan Gamez MD Objective Remarks GENERAL: This is a well-nourished, well-developed patient, in no apparent distress. CARDIOVASCULAR: Regular rate and regular rhythm without murmurs, gallops, or rubs. RESPIRATORY: Clear to auscultation. Breath sounds equal bilaterally. No wheezes , rales, or rhonchi. GASTROINTESTINAL: Abdomen soft, non-tender, nondistended. Normal, active bowel sounds MUSCULOSKELETAL: Extremities without clubbing, cyanosis, or edema. NEURO: awake and alert but not oriented to time Procedures intubation Medications and IVs Current Medications Sodium Chloride 1,000 ml @ 2,000 mls/hr Q30M ONCE IV Last administered on 04/27 18:25; Start 04/27/17 at 17:50; Stop 04/27/17 at 18:19; Status DC Sodium Chloride 1,000 ml @ 2,000 mls/hr Q30M ONCE IV Last administered on 04/27 19:17; Start 04/27/17 at 18:20; Stop 04/27/17 at 18:49; Status DC Sodium Chloride (NS Flush) 2 ml UNSCH PRN IVF FLUSH AFTER USING IV ACCESS; Start 04/27/17 at 18:00; Stop 04/27/17 at 21:42; Status DC Lorazepam (Ativan Inj) 2 mg ONCE ONCE IV PUSH Last administered on 04/27/17 18:08; Start 04/27/17 at 18:00; Stop 04/27/17 at 18:01; Status DC Ondansetron HCl (Zofran Inj) 4 mg STK-MED ONCE .ROUTE ; Start 04/27/17 at 17:56 ; Stop 04/27/17 at 17:57; Status DC Ondansetron HCl (Zofran Inj) 4 mg ONCE ONCE IV PUSH Last administered on 18:08; Start 04/27/17 at 18:15; Stop 04/27/17 at 18:16; Status DC Haloperidol Lactate (Haldol Inj) 5 mg ONCE ONCE IM Last administered on 18:08; Start 04/27/17 at 18:15; Stop 04/27/17 at 18:16; Status DC Haloperidol Lactate (Haldol Inj) 5 mg STK-MED ONCE .ROUTE ; Start 04/27/17 at 18 :04; Stop 04/27/17 at 18:05; Status DC Lorazepam (Ativan Inj) 2 mg ONCE ONCE IV PUSH Last administered on 04/27/17 18:38; Start 04/27/17 at 18:30; Stop 04/27/17 at 18:31; Status DC Etomidate (Amidate Inj) 20 mg ONCE ONCE IV PUSH Last administered on 19:16; Start 04/27/17 at 19:15; Stop 04/27/17 at 19:16; Status DC Succinylcholine Chloride (Quelicin Inj) 100 mg ONCE ONCE IV PUSH Last administered on 04/27/17 19:16; Start 04/27/17 at 19:15; Stop 04/27/17 at 19:16 ; Status DC Propofol 100 ml @ As Directed STK-MED ONCE .ROUTE ; Start 04/27/17 at 19:22; Stop 04/27/17 at 19:23; Status DC Sodium Chloride 1,000 ml @ 999 mls/hr BOLUS ONCE IV Last administered on 04/27 19:49; Start 04/27/17 at 19:30; Stop 04/27/17 at 20:30; Status DC Propofol 100 ml @ 1.77 mls/hr TITRATE PRN IV Ordered RASS Last administered on 04/27/17 19:33; Start 04/27/17 at 19:30; Stop 04/27/17 at 21:39; Status DC Ceftriaxone Sodium 2000 mg/ Sodium Chloride 100 ml @ 200 mls/hr ONCE ONCE IV Last administered on 04/27/17 21:00; Start 04/27/17 at 20:00; Stop 04/27/17 at 20:29; Status DC Acyclovir Sodium 590 mg/Sodium Chloride 100 ml @ 100 mls/hr ONCE ONCE IV Last administered on 04/27/17 23:26; Start 04/27/17 at 20:00; Stop 04/27/17 at 20:59; Status DC Vancomycin HCl 1000 mg/Sodium Chloride 250 ml @ 250 mls/hr ONCE ONCE IV Last administered on 04/27/17 21:34; Start 04/27/17 at 20:00; Stop 04/27/17 at 20:59 ; Status DC Insulin Aspart (NovoLOG INJ) 8 units ONCE ONCE SQ Last administered on 20:58; Start 04/27/17 at 20:30; Stop 04/27/17 at 20:31; Status DC Insulin Human Regular (NovoLIN R INJ) 6 units ONCE ONCE IV PUSH Last administered on 04/27/17 20:58; Start 04/27/17 at 20:30; Stop 04/27/17 at 20:31 ; Status DC Sodium Chloride 1,000 ml @ 999 mls/hr BOLUS ONCE IV Last administered on 04/27 20:59; Start 04/27/17 at 20:45; Stop 04/27/17 at 21:45; Status DC Propofol 100 ml @ 1.77 mls/hr TITRATE PRN IV SEDATION; Start 04/27/17 at 21:15 ; Stop 04/28/17 at 12:03; Status DC Sodium Chloride 1,000 ml @ 125 mls/hr Q8H IV Last administered on 04/27/17 23 :26; Start 04/27/17 at 21:10; Stop 04/28/17 at 01:23; Status DC Sodium Chloride (NS Flush) 2 ml UNSCH PRN IV FLUSH FLUSH AFTER USING IV ACCESS Last administered on 05/01/17 21:18; Start 04/27/17 at 21:15 Sodium Chloride (NS Flush) 2 ml BID IV FLUSH Last administered on 05/02/17 22: 31; Start 04/28/17 at 09:00 Acetaminophen (Tylenol) 650 mg Q6H PRN PO PAIN 1-2 AND/OR FEVER >101F; Start at 21:15 Fentanyl Citrate (fentaNYL INJ) 50 mcg Q1H PRN IV PUSH Pain scale 6-10 &/or sedation Last administered on 04/29/17 15:11; Start 04/27/17 at 21:15 Pantoprazole Sodium (Protonix Inj) 40 mg DAILY IV PUSH Last administered on 08:39; Start 04/28/17 at 09:00; Stop 05/01/17 at 08:12; Status DC Ondansetron HCl (Zofran Inj) 4 mg Q6H PRN IV PUSH NAUSEA OR VOMITING; Start at 21:15 Albuterol Sulfate (Albuterol Neb) 2.5 mg Q2HR NEB PRN INH SOB/WHEEZING; Start 04/27/17 at 21:15; Status Cancel Miscellaneous Information 1 Q361D XX Last administered on 04/27/17 23:15; Start 04/27/17 at 21:15 Chlorhexidine Gluconate (Chlorhexidine 2% Cloth) Taper DAILY@04 TOP Last administered on 05/01/17 04:00; Start 04/28/17 at 04:00; Stop 04/24/18 at 03:59 Chlorhexidine Gluconate (Chlorhexidine 2% Cloth) 3 pack UNSCH PRN TOP HYGIENIC CARE; Start 04/27/17 at 21:15 Senna/Docusate Sodium (Yamel-Colace) 1 tab BID PO Last administered on 22:30; Start 04/28/17 at 09:00 Magnesium Hydroxide (Milk Of Magnesia Liq) 30 ml Q12H PRN PO MILD - MODERATE CONSTIPATION; Start 04/27/17 at 21:15 Sennosides (Senokot) 17.2 mg Q12H PRN PO MODERATE - SEVERE CONSTIPATION; Start 04/27/17 at 21:15 Bisacodyl (Dulcolax Supp) 10 mg DAILY PRN RECTAL SEVERE CONSITIPATION; Start at 21:15 Lactulose (Lactulose Liq) 30 ml DAILY PRN PO SEVERE CONSITIPATION; Start at 21:15 Fosphenytoin Sodium 1000 mgpe/ Sodium Chloride 70 ml @ 280 mls/hr ONCE ONCE IV Last administered on 04/27/17 21:48; Start 04/27/17 at 21:15; Stop at 21:35; Status DC Gadodiamide (Omniscan Pf Inj) 12 ml STK-MED ONCE IVCONTRAST Last administered on 04/27/17 22:11; Start 04/27/17 at 22:11; Stop 04/27/17 at 22:12; Status DC Magnesium Sulfate/ Dextrose 100 ml @ 100 mls/hr Q1H IV Last administered on 02:36; Start 04/28/17 at 00:00; Stop 04/28/17 at 01:59; Status DC Sodium Chloride 1,000 ml @ 999 mls/hr BOLUS ONCE IV Last administered on 04/28 00:55; Start 04/28/17 at 01:00; Stop 04/28/17 at 02:00; Status DC Albuterol/ Ipratropium (Duoneb Neb) 1 ampule Q6HR NEB NEB Last administered on 05/01/17 21:35; Start 04/28/17 at 01:00; Stop 05/02/17 at 00:59; Status DC Albuterol Sulfate (Albuterol Neb) 2.5 mg Q2HR NEB PRN NEB WHEEZING; Start 04/28 at 01:00 Acetaminophen/ Hydrocodone Bitart ([place] 5-325 Mg) 1 tab Q6H PRN PO PAIN 3-5; Start 04/28/17 at 01:00 Acetaminophen/ Hydrocodone Bitart ([place] 5-325 Mg) 2 tab Q6H PRN PO PAIN 6-10 ; Start 04/28/17 at 01:00 Pharmacy Profile Note 0 ml @ 0 mls/hr UNSCH OTHER ; Start 04/28/17 at 01:00; Stop 05/02/17 at 14:34; Status DC Ceftriaxone Sodium 2000 mg/ Sodium Chloride 100 ml @ 200 mls/hr Q12H IV Last administered on 04/28/17 08:24; Start 04/28/17 at 09:00; Stop 04/28/17 at 09:00 ; Status DC Chlorhexidine Gluconate (Peridex 0.12% Liq) 15 ml BID@08,20 MT Last administered on 05/02/17 08:00; Start 04/28/17 at 08:00 Vancomycin HCl 500 mg/Sodium Chloride 100 ml @ 200 mls/hr ONCE ONCE IV Last administered on 04/28/17 04:39; Start 04/28/17 at 01:30; Stop 04/28/17 at 01:59 ; Status DC Fosphenytoin Sodium (Cerebyx Inj) 100 mgpe Q8HR IV ; Start 04/28/17 at 06:00; Stop 04/28/17 at 06:00; Status DC Fosphenytoin Sodium (Cerebyx Inj) 100 mgpe Q12HR IV Last administered on 22:33; Start 04/28/17 at 09:00 Dextrose (D50w (Vial) Inj) 50 ml UNSCH PRN IV PUSH HYPOGLYCEMIA-SEE COMMENTS; Start 04/28/17 at 01:30 Glucagon (Glucagon Inj) 1 mg UNSCH PRN OTHER HYPOGLYCEMIA-SEE COMMENTS; Start 04/28/17 at 01:30 Insulin Aspart (NovoLOG SUPPLEMENTAL SCALE) 1 Q4H SQ Last administered on 22:34; Start 04/28/17 at 02:00 Dextrose/Sodium Chloride 1,000 ml @ 75 mls/hr [id number] IV Last administered on 05/01/17 02:17; Start 04/28/17 at 01:30; Stop 05/01/17 at 08:12; Status DC Acyclovir Sodium 600 mg/Sodium Chloride 100 ml @ 100 mls/hr Q12H IV Last administered on 04/30/17 00:46; Start 04/28/17 at 12:00; Stop 04/30/17 at 08:44 ; Status DC Fentanyl Citrate 250 ml @ 5 mls/hr TITRATE PRN IV SEDATION Last administered on 04/28/17 04:59; Start 04/28/17 at 04:15; Stop 04/30/17 at 08:44; Status DC Potassium Chloride 100 ml @ 50 mls/hr Q2H PRN IV For Potassium 2.8 - 3.2 mEq/L ; Start 04/28/17 at 04:15; Stop 05/01/17 at 08:12; Status DC Potassium Chloride 100 ml @ 50 mls/hr Q2H PRN IV For Potassium 2.8 - 3.2 mEq/L ; Start 04/28/17 at 04:15; Stop 05/01/17 at 08:12; Status DC Potassium Bicarb/ Potassium Chloride (K-[place] Cl Eff) 50 meq UNSCH PRN PO For Potassium 3.3 - 3.5 mEq/L; Start 04/28/17 at 04:15; Stop 05/01/17 at 08:12; Status DC Potassium Chloride 100 ml @ 25 mls/hr UNSCH PRN IV For Potassium 3.3 - 3.5 mEq /L; Start 04/28/17 at 04:15; Stop 05/01/17 at 08:12; Status DC Potassium Chloride 100 ml @ 50 mls/hr Q2H PRN IV For Potassium 3.3 - 3.5 mEq/L ; Start 04/28/17 at 04:15; Stop 05/01/17 at 08:12; Status DC Magnesium Sulfate 4 gm/Sodium Chloride 100 ml @ 50 mls/hr UNSCH PRN IV For Magnesium 0.9 - 1.1 mg/dL; Start 04/28/17 at 04:15; Stop 05/01/17 at 08:12; Status DC Magnesium Oxide (Mag-Ox) 800 mg UNSCH PRN PO For Magnesium 1.2 - 1.6 mg/dL; Start 04/28/17 at 04:15; Stop 05/01/17 at 08:12; Status DC Magnesium Sulfate 2 gm/Sodium Chloride 100 ml @ 50 mls/hr UNSCH PRN IV For Magnesium 1.2 - 1.6 mg/dL; Start 04/28/17 at 04:15; Stop 05/01/17 at 08:12; Status DC Potassium Phosphate (K-Phos) 2,000 mg Q4H PRN PO For Phosphorus < 2.5 mg/dL; Start 04/28/17 at 04:15; Stop 05/01/17 at 08:12; Status DC Sodium Phosphate 30 mmol/Sodium Chloride 250 ml @ 42 mls/hr UNSCH PRN IV For Phosphorus < 2.5 mg/dL; Start 04/28/17 at 04:15; Stop 05/01/17 at 08:12; Status DC Potassium Phosphate (K-Phos) 2,000 mg UNSCH PRN PO/TUBE SEE LABEL COMMENTS; Start 04/28/17 at 04:15; Stop 05/01/17 at 08:12; Status DC Potassium Phosphate 30 mmol/ Sodium Chloride 260 ml @ 42 mls/hr UNSCH PRN IV SEE LABEL COMMENTS Last administered on 04/28/17 05:48; Start 04/28/17 at 04:15 ; Stop 05/01/17 at 08:12; Status DC Aspirin (Aspirin Chew) 162 mg ONCE ONCE OG-TUBE Last administered on 04:59; Start 04/28/17 at 04:15; Stop 04/28/17 at 04:16; Status DC Atorvastatin Calcium (Lipitor) 80 mg HS PO Last administered on 05/02/17 22:30 ; Start 04/28/17 at 21:00 Levothyroxine Sodium (Synthroid) 50 mcg DAILY@0600 PO Last administered on 05/03 06:11; Start 04/28/17 at 09:00 Cefepime HCl 2000 mg/Sodium Chloride 100 ml @ 200 mls/hr Q8H IV Last administered on 04/30/17 10:22; Start 04/28/17 at 11:00; Stop 04/30/17 at 15:39 ; Status DC Metronidazole 100 ml @ 100 mls/hr Q8H IV Last administered on 04/30/17 08:40 ; Start 04/28/17 at 10:00; Stop 04/30/17 at 15:39; Status DC Vancomycin HCl 1250 mg/Sodium Chloride 262.5 ml @ 250 mls/hr Q24H IV Last administered on 04/30/17 05:53; Start 04/29/17 at 05:00; Stop 04/30/17 at 10:44 ; Status DC Miscellaneous Information SPECIFIC LAB TO BE LUCÍA... ONCE ONCE .XX ; Start 05/01 at 04:45; Stop 05/01/17 at 04:46; Status Cancel Carvedilol (Coreg) 3.125 mg Q12HR PO Last administered on 05/02/17 22:30; Start 04/28/17 at 11:15 Calcium Gluconate 2 gm/Dextrose 120 ml @ 120 mls/hr ONCE ONCE IV Last administered on 04/28/17 12:16; Start 04/28/17 at 11:30; Stop 04/28/17 at 12:29 ; Status DC Propofol 100 ml @ 1.875 mls/ hr TITRATE PRN IV SEDATION Last administered on 06:13; Start 04/28/17 at 12:15; Stop 04/30/17 at 08:44; Status DC Aspirin (Ecotrin Ec) 81 mg DAILY PO Last administered on 05/02/17 09:15; Start 04/29/17 at 09:00 Hydralazine HCl (Apresoline Inj) 20 mg Q2HR PRN IV PUSH SBP greater tahn 160mm Hg Last administered on 05/01/17 21:18; Start 04/29/17 at 13:00 Haloperidol Lactate (Haldol Inj) 4 mg Q6H PRN IV AGITATION Last administered on 04/30/17 03:30; Start 04/29/17 at 15:00 Vancomycin HCl 1000 mg/Sodium Chloride 250 ml @ 250 mls/hr Q12H IV Last administered on 05/01/17 16:37; Start 04/30/17 at 17:00; Stop 05/02/17 at 14:34 ; Status DC Miscellaneous Information SPECIFIC LAB TO BE DRAWN:VANCOMYCIN TROUGH DATE TO... ONCE ONCE .XX Last administered on 05/02/17 04:45; Start 05/02/17 at 04:45; Stop 05/02/17 at 04:46; Status DC Influenza Virus Vaccine (Flu (Quadrivalent) Vaccine Inj) 0.5 ml ONCE ONCE IM Last administered on 05/01/17 13:42; Start 05/01/17 at 10:00; Stop 05/01/17 at 10:01; Status DC Ceftriaxone Sodium 2000 mg/ Sodium Chloride 100 ml @ 200 mls/hr Q24H IV Last administered on 05/01/17 15:04; Start 04/30/17 at 16:00; Stop 05/02/17 at 14:34 ; Status DC Collagenase (Santyl Oint) 1 applic DAILY TOPICAL Last administered on 09:00; Start 05/01/17 at 09:00 Sodium Chloride 1,000 ml @ 75 mls/hr [id number] IV Last administered on 00:40; Start 05/01/17 at 08:00 Enoxaparin Sodium (Lovenox Inj) 40 mg Q24H SQ Last administered on 05/02/17 09 :15; Start 05/01/17 at 09:00 Amoxicillin/ Clavulanate Potassium (Augmentin) 500 mg Q8HR PO Last administered on 05/03/17 06:11; Start 05/02/17 at 14:45; Stop 05/12/17 at 14:44 Levofloxacin (Levaquin) 750 mg DAILY PO Last administered on 05/02/17 15:58; Start 05/02/17 at 14:45 A/P Assessment and Plan A/P Acute encephalopathy- improved. CT brain 04/27 no acute hemorrhage.Left frontal lobe encephalomalacia. Decreased attenuation posterior left temporal parietal region. Small basal ganglia lacunar infarcts. MRI brain - No acute infarct. L frontal lobe encephalomalacia. Gliosis left inferior temporal parietal and left occipital lobe. Loaded with fosphenytoin . F/u levels. EEG with no epileptiform features. Neurology consulted and following - d/w ; Fosphenytoin will be discontinued and no need for antiepileptics upon discharge. Lortab prn pain Urine drug screen, salicylate, APAP, EtOH level negative. TSH normal. Acute respiratory failure- s/p intubation/extubation- resolved. COPD Tobacco abuse now stable. keep on oxygen as needed to keep O2 sat > 90% elevated troponin Hyperlipidemia Monitor hemodynamics. continue aspirin, coreg and statin. Echo 07/05/10ejection fraction 65-70%. No regional wall motion abnormalities. Cardiology Follow-up appreciated; ischemia w/u when mentation has improved. RUBY overlying chronic kidney disease stage III Monitor intake and output. Monitor electrolytes and replace as indicated. Sepsis Possible Meningitis Leukocytosis Diabetic foot ulcer, L MTP Encephalopathy, fever concerning for meningitis. Also with infected diabetic ulcer which is potential source. CSF culture negative and negative for HSV- UA negative. Chest x-ray without infiltrate. podiatry follow-up appreciated and recommended outpatient f/u. wound care with Santyl 0.5 % dime thick and DSD to the left foot , QOD antibiotics were switched to po levaquin and augmentin- Diabetes mellitus Acute severe hyperglycemia on accu-check with SSI nausea/ vomiting- improved. DVT prophylaxis with lovenox. continue PT. Discharge Planning dc planning to SNF with in the next 24-48 hrs if no further emesis and remains stable. d/w the case management. Luan Fuchs MD May 03, 2017 08:17
[2017-05-03] MEDS ORDERED: CARV3.125 PO (08:25)
[2017-05-03] MEDS ORDERED: ASPI-99 PO (08:25)
[2017-05-03] MEDS ORDERED: LEVA750T9 PO (08:25)
[2017-05-03] MEDS ORDERED: NOVOLOGSS SQ (08:25)
[2017-05-03] MEDS ORDERED: AUGM500T7 PO (08:25)
--- NOTE | 2017-05-03 08:42 | PD.CARD.PN ---
Subjective Subjective Remarks PT reports nausea and vomiting all night Objective Medications Current Medications Medications (Trade) Dose Ordered Sig/Nolvia Route Start Time Stop Time Status Last Admin (NS Flush) 2 ml UNSCH PRN IV FLUSH 04/27/17 21:15 05/01/17 21:18 (NS Flush) 2 ml BID IV FLUSH 04/28/17 09:00 05/02/17 22:31 (Tylenol) 650 mg Q6H PRN PO 04/27/17 21:15 (fentaNYL INJ) 50 mcg Q1H PRN IV PUSH 04/27/17 21:15 04/29/17 15:11 (Zofran Inj) 4 mg Q6H PRN IV PUSH 04/27/17 21:15 Miscellaneous Information 1 Q361D XX 04/27/17 21:15 04/27/17 23:15 (Chlorhexidine 2% Cloth) Taper DAILY@04 TOP 04/28/17 04:00 04/24/18 03:59 05/01/17 04:00 (Chlorhexidine 2% Cloth) 3 pack UNSCH PRN TOP 04/27/17 21:15 (Yamel-Colace) 1 tab BID PO 04/28/17 09:00 05/02/17 22:30 (Milk Of Magnesia Liq) 30 ml Q12H PRN PO 04/27/17 21:15 (Senokot) 17.2 mg Q12H PRN PO 04/27/17 21:15 (Dulcolax Supp) 10 mg DAILY PRN RECTAL 04/27/17 21:15 (Lactulose Liq) 30 ml DAILY PRN PO 04/27/17 21:15 (Albuterol Neb) 2.5 mg Q2HR NEB PRN NEB 04/28/17 01:00 ([place] 5-325 Mg) 1 tab Q6H PRN PO 04/28/17 01:00 ([place] 5-325 Mg) 2 tab Q6H PRN PO 04/28/17 01:00 (Peridex 0.12% Liq) 15 ml BID@08,20 MT 04/28/17 08:00 05/02/17 08:00 (Cerebyx Inj) 100 mgpe Q12HR IV 04/28/17 09:00 05/02/17 22:33 (D50w (Vial) Inj) 50 ml UNSCH PRN IV PUSH 04/28/17 01:30 (Glucagon Inj) 1 mg UNSCH PRN OTHER 04/28/17 01:30 (NovoLOG SUPPLEMENTAL SCALE) 1 Q4H SQ 04/28/17 02:00 05/02/17 22:34 (Lipitor) 80 mg HS PO 04/28/17 21:00 05/02/17 22:30 (Synthroid) 50 mcg DAILY@0600 PO 04/28/17 09:00 05/03/17 06:11 (Coreg) 3.125 mg Q12HR PO 04/28/17 11:15 05/02/17 22:30 (Ecotrin Ec) 81 mg DAILY PO 04/29/17 09:00 05/02/17 09:15 (Apresoline Inj) 20 mg Q2HR PRN IV PUSH 04/29/17 13:00 05/01/17 21:18 (Haldol Inj) 4 mg Q6H PRN IV 04/29/17 15:00 04/30/17 03:30 (Santyl Oint) 1 applic DAILY TOPICAL 05/01/17 09:00 05/02/17 09:00 Sodium Chloride 1,000 ml @ 75 mls/hr [id number] IV 05/01/17 08:00 05/03/17 00:40 (Lovenox Inj) 40 mg Q24H SQ 05/01/17 09:00 05/02/17 09:15 (Augmentin) 500 mg Q8HR PO 05/02/17 14:45 05/12/17 14:44 05/03/17 06:11 (Levaquin) 750 mg DAILY PO 05/02/17 14:45 05/02/17 15:58 Vital Signs / I&O Vital Signs Date Time Temp Pulse Resp B/P (MAP) Pulse Ox O2 Delivery O2 Flow Rate FiO2 05/03/17 00:00 97.6 78 18 153/72 (99) 94 05/02/17 20:00 97.6 86 18 139/65 (89) 94 05/02/17 16:00 97.7 78 16 169/80 (109) 100 05/02/17 12:00 96.6 77 18 148/71 (96) 99 I/O 05/02/17 05/02/17 05/02/17 05/03/17 05/03/17 9/29/17 07:00 15:00 23:00 07:00 15:00 23:00 Intake Total 840 ml 482 ml 600 ml Output Total 320 ml 300 ml 510 ml Balance 520 ml 182 ml 90 ml Intake Oral 240 ml 482 ml IV Total 600 ml 600 ml Output Urine Total 320 ml 300 ml 510 ml # Bowel Movements 1 Physical Exam GENERAL: Well developed, well nourished. No acute distress on vent Alert- oriented to place HEENT: Jugular venous pressure is normal. CHEST: Lungs wheeze to auscultation bilaterally. Unlabored respiratory effort. CARDIAC: Regular rate and rhythm without S3, S4, or murmur. ABDOMEN: Soft, nontender, no hepatosplenomegaly. Bowel sounds present. EXTREMITIES: No clubbing, cyanosis, or edema. Laboratory Laboratory Tests Test 05/03/17 05:12 White Blood Count 12.9 TH/MM3 Red Blood Count 4.15 MIL/MM3 Hemoglobin 11.9 GM/DL Hematocrit 37.1 % Mean Corpuscular Volume 89.2 FL Mean Corpuscular Hemoglobin 28.7 PG Mean Corpuscular Hemoglobin Concent 32.2 % Red Cell Distribution Width 14.3 % Platelet Count 314 TH/MM3 Mean Platelet Volume 9.3 FL Neutrophils (%) (Auto) 70.9 % Lymphocytes (%) (Auto) 19.5 % Monocytes (%) (Auto) 7.0 % Eosinophils (%) (Auto) 2.1 % Basophils (%) (Auto) 0.5 % Neutrophils # (Auto) 9.1 TH/MM3 Lymphocytes # (Auto) 2.5 TH/MM3 Monocytes # (Auto) 0.9 TH/MM3 Eosinophils # (Auto) 0.3 TH/MM3 Basophils # (Auto) 0.1 TH/MM3 CBC Comment DIFF FINAL Differential Comment Blood Urea Nitrogen 18 MG/DL Creatinine 0.71 MG/DL Random Glucose 154 MG/DL Calcium Level 8.0 MG/DL Sodium Level 142 MEQ/L Potassium Level 3.7 MEQ/L Chloride Level 111 MEQ/L Carbon Dioxide Level 23.3 MEQ/L Anion Gap 8 MEQ/L Estimat Glomerular Filtration Rate 110 ML/MIN Assessment and Plan Assessment and Plan elevated trop- CK/MB 5.4%- just out of range and could be explained by his WIDE LOAD ESCORT -remains asymptomatic -EF normal by ECHO; hx NV and WIDE LOAD ESCORT of RCA -no overt cardiac etiology to presentation; likely sepsis -Pt not able to give consent for procedures and it is certainly not emergent. => reconsider as out patient once completely orientated Resp failure- extubated foot ulcer- DM- AMS- still not orientated x 3, Dispo- ok for d/c and follow up in 2-3 weeks Yenni Hanson MD May 03, 2017 08:42
[2017-05-03] MEDS: SODIUM CHLORIDE 0.9% FLUSH 10 ML FLUSH IV FLUSH SCH ×2 (09:16→20:57)
[2017-05-03] MEDS: ENOXAPARIN SODIUM 40 MG/0.4 ML SYRINGE SQ SCH (09:17)
[2017-05-03] MEDS: ONDANSETRON HCL 4 MG/2 ML VIAL IV PUSH PRN ×2 (09:17→16:12)
[2017-05-03] MEDS: ASPIRIN EC 81 MG TABEC PO SCH (09:18)
[2017-05-03] MEDS: LEVOFLOXACIN 750 MG TAB PO SCH (09:19)
[2017-05-03] MEDS: CARVEDILOL 3.125 MG TAB PO SCH ×2 (09:19→20:56)
[2017-05-03] MEDS: DOCUSATE SODIUM 50 MG/SENNA 8.6 MG TAB PO SCH ×2 (09:19→20:56)
[2017-05-03] MEDS: COLLAGENASE OINT 30 GM TUBE TOPICAL SCH (09:26)
[2017-05-03 12:00] VITALS: BP 146/70; PULSE 78; RESP 16; TEMP 97.9; O2SAT 97
[2017-05-03 13:00] VITALS: PULSE 67; PULSE 80
[2017-05-03 16:00] VITALS: BP 164/82; PULSE 83; RESP 16; TEMP 96.6; O2SAT 97
[2017-05-03 20:00] VITALS: BP 168/79; PULSE 84; PULSE 87; RESP 17; TEMP 97.5; O2SAT 98
[2017-05-03] MEDS: ATORVASTATIN 80 MG TAB PO SCH (20:56)
[2017-05-04] VITALS: BP 168/86; PULSE 74; RESP 18; TEMP 97.8; O2SAT 97
[2017-05-04] MEDS: INSULIN ASPART SUPPLEMENTAL SCALE SQ SCH ×3 (02:51→09:23)
[2017-05-04] MEDS: SODIUM CHLOR 0.9% 1000 ML INJ 1,000 ML IV SCH (02:55)
[2017-05-04 04:00] VITALS: BP 178/81; PULSE 79; RESP 18; TEMP 97.9; O2SAT 98
[2017-05-04] MEDS: CHLORHEXIDINE GLUCONATE 2 % 1 PACK (2 CLOTHS) TOP SCH (04:00)
[2017-05-04] MEDS: AMOXICILLIN/CLAVULANATE K 500 MG TAB PO SCH (05:49)
[2017-05-04] MEDS: LEVOTHYROXINE SODIUM 50 MCG TAB PO SCH (05:49)
[2017-05-04] MEDS ORDERED: cloNIDine HCL 0.1 MG TAB PO ONE (06:15)
[2017-05-04 08:00] VITALS: BP 136/74; PULSE 81; RESP 16; TEMP 97.4; O2SAT 100
[2017-05-04] MEDS: CHLORHEXIDINE 0.12% (ORAL KIT) 15 ML CUP MT SCH (08:00)
[2017-05-04] MEDS: SODIUM CHLORIDE 0.9% FLUSH 10 ML FLUSH IV FLUSH SCH (09:00)
[2017-05-04] MEDS: COLLAGENASE OINT 30 GM TUBE TOPICAL SCH (09:00)
[2017-05-04] MEDS: LEVOFLOXACIN 750 MG TAB PO SCH (09:22)
[2017-05-04] MEDS: CARVEDILOL 3.125 MG TAB PO SCH (09:22)
[2017-05-04] MEDS: DOCUSATE SODIUM 50 MG/SENNA 8.6 MG TAB PO SCH (09:22)
[2017-05-04] MEDS: ENOXAPARIN SODIUM 40 MG/0.4 ML SYRINGE SQ SCH (09:22)
[2017-05-04] MEDS: ASPIRIN EC 81 MG TABEC PO SCH (09:23)
--- NOTE | 2017-05-04 10:45 | HHI.PR ---
Subjective Remarks in no acute distress. no chest pain or sob. questionable episodes of emesis per the patient- although no issues reported by the RN. no acute issues over night. d/w the RN. Objective Vitals Vital Signs Date Time Temp Pulse Resp B/P (MAP) Pulse Ox O2 Delivery O2 Flow Rate FiO2 05/04/17 08:00 97.4 81 16 136/74 (94) 100 05/04/17 04:00 97.9 79 18 178/81 (113) 98 05/04/17 00:00 97.8 74 18 168/86 (113) 97 05/03/17 20:00 84 05/03/17 20:00 97.5 87 17 168/79 (108) 98 05/03/17 16:00 96.6 83 16 164/82 (109) 97 05/03/17 13:00 80 05/03/17 13:00 67 05/03/17 12:00 97.9 78 16 146/70 (95) 97 I/O 05/03/17 05/03/17 05/03/17 05/04/17 05/04/17 05/04/17 07:00 15:00 23:00 07:00 15:00 23:00 Intake Total 600 ml 400 ml 320 ml 200 ml Output Total 510 ml 300 ml 300 ml Balance 90 ml 400 ml 20 ml -100 ml Intake Oral 320 ml IV Total 600 ml 400 ml 200 ml Output Urine Total 510 ml 300 ml 300 ml # Voids 1 # Bowel Movements 1 1 Result Diagram: 05/03/17 0512 05/03/17 0512 Imaging Last Impressions Foot X-Ray 04/28/17 0000 Signed Impressions: Service Date/Time: Friday, April 28, 2017 14:19 - CONCLUSION: 1. Focal soft tissue swelling apparent ulcer adjacent to the first proximal phalanx. 2. The first distal and proximal phalanges are abnormal in appearance with patchy sclerosis. There is also patchy lucency in the central proximal phalanx. There is no periosteal new bone formation or destructive change and the findings are nonspecific.. Juan Gamez MD Head CT 04/27/17 3210 Signed Impressions: Service Date/Time: Thursday, April 27, 2017 18:47 - CONCLUSION: 1. No acute hemorrhage or mass effect. 2. 2 area of low attenuation encephalomalacia involving left frontal lobe most consistent with an interval infarct. 3. Low attenuation area involving the posterior left temporal parietal region which is more nonspecific but more likely likely is also chronic. Juan Gamez MD Chest X-Ray 04/27/17 1750 Signed Impressions: Service Date/Time: Thursday, April 27, 2017 18:31 - CONCLUSION: No acute disease. Juan Gamez MD Brain MRI 04/27/17 0000 Signed Impressions: Service Date/Time: Thursday, April 27, 2017 21:57 - CONCLUSION: 1. No acute hemorrhage or infarction. 2. Old area of encephalomalacia involving left frontal lobe with gliosis. 3. Areas of apparent gliosis involving the left inferior temporal parietal junction and left occipital lobe.. 4. Moderate atrophic change and chronic small vessel ischemic changes. Juan Gamez MD Objective Remarks GENERAL: This is a well-nourished, well-developed patient, in no apparent distress. CARDIOVASCULAR: Regular rate and regular rhythm without murmurs, gallops, or rubs. RESPIRATORY: Clear to auscultation. Breath sounds equal bilaterally. No wheezes , rales, or rhonchi. GASTROINTESTINAL: Abdomen soft, non-tender, nondistended. Normal, active bowel sounds MUSCULOSKELETAL: Extremities without clubbing, cyanosis, or edema. NEURO: awake and alert but not oriented to time Procedures intubation Medications and IVs Current Medications Sodium Chloride 1,000 ml @ 2,000 mls/hr Q30M ONCE IV Last administered on 04/27 18:25; Start 04/27/17 at 17:50; Stop 04/27/17 at 18:19; Status DC Sodium Chloride 1,000 ml @ 2,000 mls/hr Q30M ONCE IV Last administered on 04/27 19:17; Start 04/27/17 at 18:20; Stop 04/27/17 at 18:49; Status DC Sodium Chloride (NS Flush) 2 ml UNSCH PRN IVF FLUSH AFTER USING IV ACCESS; Start 04/27/17 at 18:00; Stop 04/27/17 at 21:42; Status DC Lorazepam (Ativan Inj) 2 mg ONCE ONCE IV PUSH Last administered on 04/27/17 18:08; Start 04/27/17 at 18:00; Stop 04/27/17 at 18:01; Status DC Ondansetron HCl (Zofran Inj) 4 mg STK-MED ONCE .ROUTE ; Start 04/27/17 at 17:56 ; Stop 04/27/17 at 17:57; Status DC Ondansetron HCl (Zofran Inj) 4 mg ONCE ONCE IV PUSH Last administered on 18:08; Start 04/27/17 at 18:15; Stop 04/27/17 at 18:16; Status DC Haloperidol Lactate (Haldol Inj) 5 mg ONCE ONCE IM Last administered on 18:08; Start 04/27/17 at 18:15; Stop 04/27/17 at 18:16; Status DC Haloperidol Lactate (Haldol Inj) 5 mg STK-MED ONCE .ROUTE ; Start 04/27/17 at 18 :04; Stop 04/27/17 at 18:05; Status DC Lorazepam (Ativan Inj) 2 mg ONCE ONCE IV PUSH Last administered on 04/27/17 18:38; Start 04/27/17 at 18:30; Stop 04/27/17 at 18:31; Status DC Etomidate (Amidate Inj) 20 mg ONCE ONCE IV PUSH Last administered on 19:16; Start 04/27/17 at 19:15; Stop 04/27/17 at 19:16; Status DC Succinylcholine Chloride (Quelicin Inj) 100 mg ONCE ONCE IV PUSH Last administered on 04/27/17 19:16; Start 04/27/17 at 19:15; Stop 04/27/17 at 19:16 ; Status DC Propofol 100 ml @ As Directed STK-MED ONCE .ROUTE ; Start 04/27/17 at 19:22; Stop 04/27/17 at 19:23; Status DC Sodium Chloride 1,000 ml @ 999 mls/hr BOLUS ONCE IV Last administered on 04/27 19:49; Start 04/27/17 at 19:30; Stop 04/27/17 at 20:30; Status DC Propofol 100 ml @ 1.77 mls/hr TITRATE PRN IV Ordered RASS Last administered on 04/27/17 19:33; Start 04/27/17 at 19:30; Stop 04/27/17 at 21:39; Status DC Ceftriaxone Sodium 2000 mg/ Sodium Chloride 100 ml @ 200 mls/hr ONCE ONCE IV Last administered on 04/27/17 21:00; Start 04/27/17 at 20:00; Stop 04/27/17 at 20:29; Status DC Acyclovir Sodium 590 mg/Sodium Chloride 100 ml @ 100 mls/hr ONCE ONCE IV Last administered on 04/27/17 23:26; Start 04/27/17 at 20:00; Stop 04/27/17 at 20:59; Status DC Vancomycin HCl 1000 mg/Sodium Chloride 250 ml @ 250 mls/hr ONCE ONCE IV Last administered on 04/27/17 21:34; Start 04/27/17 at 20:00; Stop 04/27/17 at 20:59 ; Status DC Insulin Aspart (NovoLOG INJ) 8 units ONCE ONCE SQ Last administered on 20:58; Start 04/27/17 at 20:30; Stop 04/27/17 at 20:31; Status DC Insulin Human Regular (NovoLIN R INJ) 6 units ONCE ONCE IV PUSH Last administered on 04/27/17 20:58; Start 04/27/17 at 20:30; Stop 04/27/17 at 20:31 ; Status DC Sodium Chloride 1,000 ml @ 999 mls/hr BOLUS ONCE IV Last administered on 04/27 20:59; Start 04/27/17 at 20:45; Stop 04/27/17 at 21:45; Status DC Propofol 100 ml @ 1.77 mls/hr TITRATE PRN IV SEDATION; Start 04/27/17 at 21:15 ; Stop 04/28/17 at 12:03; Status DC Sodium Chloride 1,000 ml @ 125 mls/hr Q8H IV Last administered on 04/27/17 23 :26; Start 04/27/17 at 21:10; Stop 04/28/17 at 01:23; Status DC Sodium Chloride (NS Flush) 2 ml UNSCH PRN IV FLUSH FLUSH AFTER USING IV ACCESS Last administered on 05/01/17 21:18; Start 04/27/17 at 21:15 Sodium Chloride (NS Flush) 2 ml BID IV FLUSH Last administered on 05/03/17 09: 16; Start 04/28/17 at 09:00 Acetaminophen (Tylenol) 650 mg Q6H PRN PO PAIN 1-2 AND/OR FEVER >101F; Start at 21:15 Fentanyl Citrate (fentaNYL INJ) 50 mcg Q1H PRN IV PUSH Pain scale 6-10 &/or sedation Last administered on 04/29/17 15:11; Start 04/27/17 at 21:15 Pantoprazole Sodium (Protonix Inj) 40 mg DAILY IV PUSH Last administered on 08:39; Start 04/28/17 at 09:00; Stop 05/01/17 at 08:12; Status DC Ondansetron HCl (Zofran Inj) 4 mg Q6H PRN IV PUSH NAUSEA OR VOMITING Last administered on 05/03/17 16:12; Start 04/27/17 at 21:15 Albuterol Sulfate (Albuterol Neb) 2.5 mg Q2HR NEB PRN INH SOB/WHEEZING; Start 04/27/17 at 21:15; Status Cancel Miscellaneous Information 1 [id number] Last administered on 04/27/17 23:15; Start 04/27/17 at 21:15 Chlorhexidine Gluconate (Chlorhexidine 2% Cloth) Taper DAILY@04 TOP Last administered on 05/01/17 04:00; Start 04/28/17 at 04:00; Stop 04/24/18 at 03:59 Chlorhexidine Gluconate (Chlorhexidine 2% Cloth) 3 pack UNSCH PRN TOP HYGIENIC CARE; Start 04/27/17 at 21:15 Senna/Docusate Sodium (Yamel-Colace) 1 tab BID PO Last administered on 09:22; Start 04/28/17 at 09:00 Magnesium Hydroxide (Milk Of Magnesia Liq) 30 ml Q12H PRN PO MILD - MODERATE CONSTIPATION; Start 04/27/17 at 21:15 Sennosides (Senokot) 17.2 mg Q12H PRN PO MODERATE - SEVERE CONSTIPATION; Start 04/27/17 at 21:15 Bisacodyl (Dulcolax Supp) 10 mg DAILY PRN RECTAL SEVERE CONSITIPATION; Start at 21:15 Lactulose (Lactulose Liq) 30 ml DAILY PRN PO SEVERE CONSITIPATION; Start at 21:15 Fosphenytoin Sodium 1000 mgpe/ Sodium Chloride 70 ml @ 280 mls/hr ONCE ONCE IV Last administered on 04/27/17 21:48; Start 04/27/17 at 21:15; Stop at 21:35; Status DC Gadodiamide (Omniscan Pf Inj) 12 ml STK-MED ONCE IVCONTRAST Last administered on 04/27/17 22:11; Start 04/27/17 at 22:11; Stop 04/27/17 at 22:12; Status DC Magnesium Sulfate/ Dextrose 100 ml @ 100 mls/hr Q1H IV Last administered on 02:36; Start 04/28/17 at 00:00; Stop 04/28/17 at 01:59; Status DC Sodium Chloride 1,000 ml @ 999 mls/hr BOLUS ONCE IV Last administered on 04/28 00:55; Start 04/28/17 at 01:00; Stop 04/28/17 at 02:00; Status DC Albuterol/ Ipratropium (Duoneb Neb) 1 ampule Q6HR NEB NEB Last administered on 05/01/17 21:35; Start 04/28/17 at 01:00; Stop 05/02/17 at 00:59; Status DC Albuterol Sulfate (Albuterol Neb) 2.5 mg Q2HR NEB PRN NEB WHEEZING; Start 04/28 at 01:00 Acetaminophen/ Hydrocodone Bitart ([place] 5-325 Mg) 1 tab Q6H PRN PO PAIN 3-5; Start 04/28/17 at 01:00 Acetaminophen/ Hydrocodone Bitart ([place] 5-325 Mg) 2 tab Q6H PRN PO PAIN 6-10 ; Start 04/28/17 at 01:00 Pharmacy Profile Note 0 ml @ 0 mls/hr UNSCH OTHER ; Start 04/28/17 at 01:00; Stop 05/02/17 at 14:34; Status DC Ceftriaxone Sodium 2000 mg/ Sodium Chloride 100 ml @ 200 mls/hr Q12H IV Last administered on 04/28/17 08:24; Start 04/28/17 at 09:00; Stop 04/28/17 at 09:00 ; Status DC Chlorhexidine Gluconate (Peridex 0.12% Liq) 15 ml BID@08,20 MT Last administered on 05/02/17 08:00; Start 04/28/17 at 08:00 Vancomycin HCl 500 mg/Sodium Chloride 100 ml @ 200 mls/hr ONCE ONCE IV Last administered on 04/28/17 04:39; Start 04/28/17 at 01:30; Stop 04/28/17 at 01:59 ; Status DC Fosphenytoin Sodium (Cerebyx Inj) 100 mgpe Q8HR IV ; Start 04/28/17 at 06:00; Stop 04/28/17 at 06:00; Status DC Fosphenytoin Sodium (Cerebyx Inj) 100 mgpe Q12HR IV Last administered on 22:33; Start 04/28/17 at 09:00; Stop 05/03/17 at 08:31; Status DC Dextrose (D50w (Vial) Inj) 50 ml UNSCH PRN IV PUSH HYPOGLYCEMIA-SEE COMMENTS; Start 04/28/17 at 01:30 Glucagon (Glucagon Inj) 1 mg UNSCH PRN OTHER HYPOGLYCEMIA-SEE COMMENTS; Start 04/28/17 at 01:30 Insulin Aspart (NovoLOG SUPPLEMENTAL SCALE) 1 Q4H SQ Last administered on 02:51; Start 04/28/17 at 02:00 Dextrose/Sodium Chloride 1,000 ml @ 75 mls/hr [id number] IV Last administered on 05/01/17 02:17; Start 04/28/17 at 01:30; Stop 05/01/17 at 08:12; Status DC Acyclovir Sodium 600 mg/Sodium Chloride 100 ml @ 100 mls/hr Q12H IV Last administered on 04/30/17 00:46; Start 04/28/17 at 12:00; Stop 04/30/17 at 08:44 ; Status DC Fentanyl Citrate 250 ml @ 5 mls/hr TITRATE PRN IV SEDATION Last administered on 04/28/17 04:59; Start 04/28/17 at 04:15; Stop 04/30/17 at 08:44; Status DC Potassium Chloride 100 ml @ 50 mls/hr Q2H PRN IV For Potassium 2.8 - 3.2 mEq/L ; Start 04/28/17 at 04:15; Stop 05/01/17 at 08:12; Status DC Potassium Chloride 100 ml @ 50 mls/hr Q2H PRN IV For Potassium 2.8 - 3.2 mEq/L ; Start 04/28/17 at 04:15; Stop 05/01/17 at 08:12; Status DC Potassium Bicarb/ Potassium Chloride (K-Lyte Cl Eff) 50 meq UNSCH PRN PO For Potassium 3.3 - 3.5 mEq/L; Start 04/28/17 at 04:15; Stop 05/01/17 at 08:12; Status DC Potassium Chloride 100 ml @ 25 mls/hr UNSCH PRN IV For Potassium 3.3 - 3.5 mEq /L; Start 04/28/17 at 04:15; Stop 05/01/17 at 08:12; Status DC Potassium Chloride 100 ml @ 50 mls/hr Q2H PRN IV For Potassium 3.3 - 3.5 mEq/L ; Start 04/28/17 at 04:15; Stop 05/01/17 at 08:12; Status DC Magnesium Sulfate 4 gm/Sodium Chloride 100 ml @ 50 mls/hr UNSCH PRN IV For Magnesium 0.9 - 1.1 mg/dL; Start 04/28/17 at 04:15; Stop 05/01/17 at 08:12; Status DC Magnesium Oxide (Mag-Ox) 800 mg UNSCH PRN PO For Magnesium 1.2 - 1.6 mg/dL; Start 04/28/17 at 04:15; Stop 05/01/17 at 08:12; Status DC Magnesium Sulfate 2 gm/Sodium Chloride 100 ml @ 50 mls/hr UNSCH PRN IV For Magnesium 1.2 - 1.6 mg/dL; Start 04/28/17 at 04:15; Stop 05/01/17 at 08:12; Status DC Potassium Phosphate (K-Phos) 2,000 mg Q4H PRN PO For Phosphorus < 2.5 mg/dL; Start 04/28/17 at 04:15; Stop 05/01/17 at 08:12; Status DC Sodium Phosphate 30 mmol/Sodium Chloride 250 ml @ 42 mls/hr UNSCH PRN IV For Phosphorus < 2.5 mg/dL; Start 04/28/17 at 04:15; Stop 05/01/17 at 08:12; Status DC Potassium Phosphate (K-Phos) 2,000 mg UNSCH PRN PO/TUBE SEE LABEL COMMENTS; Start 04/28/17 at 04:15; Stop 05/01/17 at 08:12; Status DC Potassium Phosphate 30 mmol/ Sodium Chloride 260 ml @ 42 mls/hr UNSCH PRN IV SEE LABEL COMMENTS Last administered on 04/28/17 05:48; Start 04/28/17 at 04:15 ; Stop 05/01/17 at 08:12; Status DC Aspirin (Aspirin Chew) 162 mg ONCE ONCE OG-TUBE Last administered on 04:59; Start 04/28/17 at 04:15; Stop 04/28/17 at 04:16; Status DC Atorvastatin Calcium (Lipitor) 80 mg HS PO Last administered on 05/03/17 20:56 ; Start 04/28/17 at 21:00 Levothyroxine Sodium (Synthroid) 50 mcg DAILY@0600 PO Last administered on 05/04 05:49; Start 04/28/17 at 09:00 Cefepime HCl 2000 mg/Sodium Chloride 100 ml @ 200 mls/hr Q8H IV Last administered on 04/30/17 10:22; Start 04/28/17 at 11:00; Stop 04/30/17 at 15:39 ; Status DC Metronidazole 100 ml @ 100 mls/hr Q8H IV Last administered on 04/30/17 08:40 ; Start 04/28/17 at 10:00; Stop 04/30/17 at 15:39; Status DC Vancomycin HCl 1250 mg/Sodium Chloride 262.5 ml @ 250 mls/hr Q24H IV Last administered on 04/30/17 05:53; Start 04/29/17 at 05:00; Stop 04/30/17 at 10:44 ; Status DC Miscellaneous Information SPECIFIC LAB TO BE ... ONCE ONCE .XX ; Start 05/01 at 04:45; Stop 05/01/17 at 04:46; Status Cancel Carvedilol (Coreg) 3.125 mg Q12HR PO Last administered on 05/04/17 09:22; Start 04/28/17 at 11:15 Calcium Gluconate 2 gm/Dextrose 120 ml @ 120 mls/hr ONCE ONCE IV Last administered on 04/28/17 12:16; Start 04/28/17 at 11:30; Stop 04/28/17 at 12:29 ; Status DC Propofol 100 ml @ 1.875 mls/ hr TITRATE PRN IV SEDATION Last administered on 06:13; Start 04/28/17 at 12:15; Stop 04/30/17 at 08:44; Status DC Aspirin (Ecotrin Ec) 81 mg DAILY PO Last administered on 05/04/17 09:23; Start 04/29/17 at 09:00 Hydralazine HCl (Apresoline Inj) 20 mg Q2HR PRN IV PUSH SBP greater tahn 160mm Hg Last administered on 05/01/17 21:18; Start 04/29/17 at 13:00 Haloperidol Lactate (Haldol Inj) 4 mg Q6H PRN IV AGITATION Last administered on 04/30/17 03:30; Start 04/29/17 at 15:00 Vancomycin HCl 1000 mg/Sodium Chloride 250 ml @ 250 mls/hr Q12H IV Last administered on 05/01/17 16:37; Start 04/30/17 at 17:00; Stop 05/02/17 at 14:34 ; Status DC Miscellaneous Information SPECIFIC LAB TO BE DRAWN:VANCOMYCIN TROUGH DATE TO... ONCE ONCE .XX Last administered on 05/02/17 04:45; Start 05/02/17 at 04:45; Stop 05/02/17 at 04:46; Status DC Influenza Virus Vaccine (Flu (Quadrivalent) Vaccine Inj) 0.5 ml ONCE ONCE IM Last administered on 05/01/17 13:42; Start 05/01/17 at 10:00; Stop 05/01/17 at 10:01; Status DC Ceftriaxone Sodium 2000 mg/ Sodium Chloride 100 ml @ 200 mls/hr Q24H IV Last administered on 05/01/17 15:04; Start 04/30/17 at 16:00; Stop 05/02/17 at 14:34 ; Status DC Collagenase (Santyl Oint) 1 applic DAILY TOPICAL Last administered on 09:00; Start 05/01/17 at 09:00 Sodium Chloride 1,000 ml @ 75 mls/hr [id number] IV Last administered on 02:55; Start 05/01/17 at 08:00 Enoxaparin Sodium (Lovenox Inj) 40 mg Q24H SQ Last administered on 05/04/17 09 :22; Start 05/01/17 at 09:00 Amoxicillin/ Clavulanate Potassium (Augmentin) 500 mg Q8HR PO Last administered on 05/04/17 05:49; Start 05/02/17 at 14:45; Stop 05/12/17 at 14:44 Levofloxacin (Levaquin) 750 mg DAILY PO Last administered on 05/04/17 09:22; Start 05/02/17 at 14:45 Clonidine (Catapres) 0.1 mg ONCE ONCE PO Last administered on 05/04/17 06:25 ; Start 05/04/17 at 06:15; Stop 05/04/17 at 06:16; Status DC A/P Assessment and Plan A/P Acute encephalopathy- improved. CT brain 04/27 no acute hemorrhage.Left frontal lobe encephalomalacia. Decreased attenuation posterior left temporal parietal region. Small basal ganglia lacunar infarcts. MRI brain - No acute infarct. L frontal lobe encephalomalacia. Gliosis left inferior temporal parietal and left occipital lobe. Loaded with fosphenytoin . F/u levels. EEG with no epileptiform features. Neurology consulted and following - previously d/w ; Fosphenytoin was discontinued and no need for antiepileptics upon discharge. Lortab prn pain Urine drug screen, salicylate, APAP, EtOH level negative. TSH normal. Acute respiratory failure- s/p intubation/extubation- resolved. COPD Tobacco abuse now stable. keep on oxygen as needed to keep O2 sat > 90% elevated troponin Hyperlipidemia Monitor hemodynamics. continue aspirin, coreg and statin. Echo 07/05/10ejection fraction 65-70%. No regional wall motion abnormalities. previously d/w - patient was cleared for discharge with outpatient follow-up. RUBY-improved. Sepsis Possible Meningitis Leukocytosis Diabetic foot ulcer, L MTP Encephalopathy, fever concerning for meningitis. Also with infected diabetic ulcer which is potential source. CSF culture negative and negative for HSV- UA negative. Chest x-ray without infiltrate. podiatry follow-up appreciated and recommended outpatient f/u. wound care with Santyl 0.5 % dime thick and DSD to the left foot , QOD antibiotics were switched to po levaquin and augmentin- Diabetes mellitus Acute severe hyperglycemia resume levemir on accu-check with SSI DVT prophylaxis with lovenox. continue PT. Discharge Planning dc to SNF this afternoon if no nausea/ vomiting. see med list. f/u; pcp , podiatry and cardiology. d/w the patient and RN. time spent 35 min. Luan Fuchs MD May 04, 2017 10:45
[2017-05-04] MEDS ORDERED: LEVEMIR SQ (10:46)
--- NOTE | 2017-05-04 10:47 | HHI.DS ---
Discharge Summary Admission Date Apr 27, 2017 at 21:08 Discharge Date: May 04, 2017 Admitting Diagnosis altered mental status rule out encephalitis, SIRS, hyperglycemia (1) SIRS (systemic inflammatory response syndrome) ICD Code: R65.10 - Systemic inflammatory response syndrome (SIRS) of non- infectious origin without acute organ dysfunction Diagnosis: Principal Status: Acute (2) Altered mental status ICD Code: R41.82 - Altered mental status, unspecified Diagnosis: Principal Status: Acute Procedures intubation Brief History - From Admission Unable to obtain history from patient as he is intubated. Reviewed EMR and discussed with ED physician. 71-year-old with past medical history of hypertension, hyperlipidemia, diabetes mellitus, hypothyroidism, peripheral vascularly disease, COPD who presents to [facility] emergency department via [facility] after his neighbor found him prone on the floor of his home. He had last been seen in the evening before in his usual state of health. Upon arrival he was found to be hyperglycemic with glucose of 556 but not in DKA. His creatinine is 1.48. His white blood cell count is 27.3. Lactic acid 4.9. Troponin 0.17. BNP 150. He was febrile up to 101.5. He was combative with staff and therefore was given Ativan 2 mg IV and Haldol 5 mg IM for patient and staff safety during CT. CT brain demonstrated no acute findings. There was encephalomalacia left frontal lobe. Nonspecific low attenuation in the posterior left temporoparietal region which was felt to be chronic. When the ED physician went to reassess the patient he was obtunded, not protecting his airway, and reportedly having fasciculations so he was given Ativan 2 mg IV and then was intubated with etomidate and succinylcholine.. He underwent lumbar puncture and was empirically placed on Rocephin, vancomycin, and acyclovir and received 2 L NS bolus. UA was negative for evidence infection. Blood cultures were obtained. Chest x-ray was clear. Urine drug screen, salicylate, APAP, EtOH level negative. CBC/BMP: 05/03/17 0512 05/03/17 0512 Significant Findings Laboratory Tests Test 05/02/17 05:35 05/03/17 05:12 Vancomycin Level Trough 26.4 MCG/ML (5.0-10.0) White Blood Count 12.9 TH/MM3 (4.0-11.0) Red Blood Count 4.15 MIL/MM3 (4.50-5.90) Hemoglobin 11.9 GM/DL (13.0-17.0) Hematocrit 37.1 % (39.0-51.0) Neutrophils (%) (Auto) 70.9 % (16.0-70.0) Neutrophils # (Auto) 9.1 TH/MM3 (1.8-7.7) Random Glucose 154 MG/DL (74-106) Calcium Level 8.0 MG/DL (8.5-10.1) Chloride Level 111 MEQ/L (98-107) Imaging Last Impressions Foot X-Ray 04/28/17 0000 Signed Impressions: Service Date/Time: Friday, April 28, 2017 14:19 - CONCLUSION: 1. Focal soft tissue swelling apparent ulcer adjacent to the first proximal phalanx. 2. The first distal and proximal phalanges are abnormal in appearance with patchy sclerosis. There is also patchy lucency in the central proximal phalanx. There is no periosteal new bone formation or destructive change and the findings are nonspecific.. Juan Gamez MD Head CT [id number]/27/[id number] Signed Impressions: Service Date/Time: Thursday, April 27, 2017 18:47 - CONCLUSION: 1. No acute hemorrhage or mass effect. 2. 2 area of low attenuation encephalomalacia involving left frontal lobe most consistent with an interval infarct. 3. Low attenuation area involving the posterior left temporal parietal region which is more nonspecific but more likely likely is also chronic. Juan Gamez MD Chest X-Ray 04/27/171749 Signed Impressions: Service Date/Time: Thursday, April 27, 2017 18:31 - CONCLUSION: No acute disease. Juan Gamez MD Brain MRI 04/27/17 0000 Signed Impressions: Service Date/Time: Thursday, April 27, 2017 21:57 - CONCLUSION: 1. No acute hemorrhage or infarction. 2. Old area of encephalomalacia involving left frontal lobe with gliosis. 3. Areas of apparent gliosis involving the left inferior temporal parietal junction and left occipital lobe.. 4. Moderate atrophic change and chronic small vessel ischemic changes. Juan Gamez MD PE at Discharge GENERAL: This is a well-nourished, well-developed patient, in no apparent distress. CARDIOVASCULAR: Regular rate and regular rhythm without murmurs, gallops, or rubs. RESPIRATORY: Clear to auscultation. Breath sounds equal bilaterally. No wheezes , rales, or rhonchi. GASTROINTESTINAL: Abdomen soft, non-tender, nondistended. Normal, active bowel sounds MUSCULOSKELETAL: Extremities without clubbing, cyanosis, or edema. NEURO: awake and alert but not oriented to time Hospital Course Acute encephalopathy- improved. CT brain 04/27 no acute hemorrhage.Left frontal lobe encephalomalacia. Decreased attenuation posterior left temporal parietal region. Small basal ganglia lacunar infarcts. MRI brain - No acute infarct. L frontal lobe encephalomalacia. Gliosis left inferior temporal parietal and left occipital lobe. Loaded with fosphenytoin . F/u levels. EEG with no epileptiform features. Neurology consulted and following - previously d/w ; Fosphenytoin was discontinued and no need for antiepileptics upon discharge. Lortab prn pain Urine drug screen, salicylate, APAP, EtOH level negative. TSH normal. Acute respiratory failure- s/p intubation/extubation- resolved. COPD Tobacco abuse now stable. keep on oxygen as needed to keep O2 sat > 90% elevated troponin Hyperlipidemia Monitor hemodynamics. continue aspirin, coreg and statin. Echo 07/05/10ejection fraction 65-70%. No regional wall motion abnormalities. previously d/w - patient was cleared for discharge with outpatient follow-up. RUBY-improved. Sepsis Possible Meningitis Leukocytosis Diabetic foot ulcer, L MTP Encephalopathy, fever concerning for meningitis. Also with infected diabetic ulcer which is potential source. CSF culture negative and negative for HSV- UA negative. Chest x-ray without infiltrate. podiatry follow-up appreciated and recommended outpatient f/u. wound care with Santyl 0.5 % dime thick and DSD to the left foot , QOD antibiotics were switched to po levaquin and augmentin- Diabetes mellitus Acute severe hyperglycemia resume levemir on accu-check with SSI DVT prophylaxis with lovenox. continue PT. Pt Condition on Discharge: Fair Discharge Disposition: Discharge to SNF Discharge Time: > 30 minutes Discharge Instructions DIET: Follow Instructions for: Heart Healthy Diet, Diabetic Diet Activities you can perform: Regular-No Restrictions Follow up Referrals: Cardiology PCP Follow-up Podiatry New Medications: Amoxicillin-Clavulanate (Augmentin) 500-125 mg Tab 500 MG PO Q8HR for infection for 8 Days, TAB [address] (Adult Aspirin EC Low Strength) 81 Mg Tabec 81 MG PO DAILY for antiplatelet for 30 Days, #30 TAB 0 Refills Carvedilol (Coreg) 3.125 Mg Tab 3.125 MG PO Q12HR for hypertension for 30 Days, TAB 0 Refills Insulin Aspart Inj (Novolog Inj) 100 Unit/Ml Inj 1 UNIT SQ Q4H for diabetes for 30 Days, INJECTION 0 Refills Levofloxacin (Levaquin) 750 Mg Tablet 750 MG PO DAILY for infection for 8 Days, #8 TAB 0 Refills Changed Medications: Insulin Detemir Inj (Levemir Inj) 1,000 unit/ 10 ML Vial 5 UNITS SQ HS for Blood Sugar Management, #30 INJECTION (Changed from: 45 UNITS) Do not mix with any other Insulin. Continued Medications: Atorvastatin (Atorvastatin) 80 Mg Tab 80 MG PO HS for Cholesterol Management, #30 TAB 0 Refills Levothyroxine (Levothyroxine) 50 Mcg Tab 50 MCG PO DAILY for Thyroid, #30 TAB 0 Refills Discontinued Medications: Clonidine (Catapres) 0.1 Mg Tab 0.1 MG PO Q8HR for Blood Pressure Management, #90 TAB Insulin Aspart Inj (Novolog Inj) 1,000 Unit/10 Ml Vial 12 UNITS SQ TID PRN for only with meals; NO SLID-SCALE MDD ., #10 ML 0 Refills Lisinopril (Lisinopril) 10 Mg Tab 20 MG PO DAILY for Blood Pressure Management, #30 TAB Luan Fuchs MD May 04, 2017 10:47
== END 2017-05-04 12:24 | DRG 871 ==
LOC: NEPE 17:46 → NEDA 21:08 → HIMN 22:55 → N07B 05-01 22:42
PROVIDERS: ADMIT Internal Medicine; ATTEND Internal Medicine
PROC: 5A1945Z Respiratory Ventilation, 24-96 Consecutive Hours (ICD-10-PCS; principal; 2017-04-27)
PROC: 0BH17EZ Insertion of Endotracheal Airway into Trachea, Via Natural or Artificial Opening (ICD-10-PCS; 2017-04-27)
PROC: 009U3ZX Drainage of Spinal Canal, Percutaneous Approach, Diagnostic (ICD-10-PCS; 2017-04-27)
PROC: 0HDNXZZ Extraction of Left Foot Skin, External Approach (ICD-10-PCS; 2017-04-28)
DX: A41.9 Sepsis, unspecified organism (principal); G93.40 Encephalopathy, unspecified; J96.00 Acute respiratory failure, unspecified whether with hypoxia or hypercapnia; N17.9 Acute kidney failure, unspecified; G03.9 Meningitis, unspecified; E87.2 Acidosis; L97.429 Non-pressure chronic ulcer of left heel and midfoot with unspecified severity; L03.116 Cellulitis of left lower limb; E11.22 Type 2 diabetes mellitus with diabetic chronic kidney disease; E11.621 Type 2 diabetes mellitus with foot ulcer; E11.65 Type 2 diabetes mellitus with hyperglycemia; N18.3 Chronic kidney disease, stage 3 (moderate); I12.9 Hypertensive chronic kidney disease with stage 1 through stage 4 chronic kidney disease, or unspecified chronic kidney disease; J44.9 Chronic obstructive pulmonary disease, unspecified; G93.89 Other specified disorders of brain; E78.5 Hyperlipidemia, unspecified; E03.9 Hypothyroidism, unspecified; L97.529 Non-pressure chronic ulcer of other part of left foot with unspecified severity; R74.8 Abnormal levels of other serum enzymes; R56.9 Unspecified convulsions; E11.51 Type 2 diabetes mellitus with diabetic peripheral angiopathy without gangrene; I25.2 Old myocardial infarction; F17.200 Nicotine dependence, unspecified, uncomplicated; Z23 Encounter for immunization; Z79.4 Long term (current) use of insulin; Z86.73 Personal history of transient ischemic attack (TIA), and cerebral infarction without residual deficits
CPT/HCPCS: 31500; 36600; 43753; 51702; 62270; 70450; 70553; 71010; 73630; 76937; 80048; 80053; 80061; 80185; 80202; 80307; 81001; 82010; 82040; 82140; 82550; 82552; 82565; 82805; 82945; 82948; 83605; 83735; 83880; 83930; 84100; 84155; 84157; 84443; 84484; 85025; 85610; 85730; 87040; 87070; 87077; 87186; 87205; 87529; 87641; 89051; 90686; 93005; 93306; 94002; 94003; 94640; 94664; 95819; 96361; 96365; 96372; 96375; A9579; C9113; J0133; J0330; J0360; J0610; J0692; J0696; J1630; J1650; J1815; J2060; J2405; J3010; J3370; J3475; J7030; J7042; J7050; L3260; Q2009; Q2038

== ENCOUNTER 2017-05-24 19:08 | Inpatient (IN) | payer OTHER, MEDICAID, MEDICARE ==
[~2017-05-24] VITALS: Ht 167.6 cm; Wt 59.9 kg
[2017-05-24] VITALS (7 sets, daily range): BP systolic 179–229; BP diastolic 79–110; PULSE 58–77; RESP 18–20; TEMP 97.8; O2SAT 94–100
[~2017-05-24 19:08] MED LIST changes: +ASPI-99 PO; +AUGM500T7 PO; +CARV3.125 PO; -CLON.1 PO; +LEVA750T9 PO; -LISI10TA3 PO; -NOVOLOGP2 SQ; +NOVOLOGSS SQ
[2017-05-24] MEDS ORDERED: SODIUM CHLORIDE 0.9% FLUSH 5 ML FLUSH IV FLUSH PRN (19:30)
--- NOTE | 2017-05-24 19:51 | RADRPT ---
EXAM DATE/TIME: 05/24/2017 19:41 [facility] COMPARISON: CT BRAIN W/O CONTRAST, April 27, 2017, 18:47. INDICATIONS : Altered mental status. RADIATION DOSE: 35.99 CTDIvol (mGy) MEDICAL HISTORY : Hypertension. Cardiovascular disease Diabetes mellitus type 2. SURGICAL HISTORY : None. ENCOUNTER: Initial ACUITY: 1 day PAIN SCALE: 0/10 LOCATION: cranial TECHNIQUE: Multiple contiguous axial images were obtained of the head. Using automated exposure control and adj ustment of the mA and/or kV according to patient size, radiation dose was kept as low as reasonably a chievable to obtain optimal diagnostic quality images. DICOM format image data is available electro nically for review and comparison. FINDINGS: The calvarium appears intact. Intracranially midline structures and major anatomic landmarks are latia ectly situated with no evidence intracranial hemorrhage, or extracerebral defect or mass. Cortical gannon lci are mildly prominent. 2 areas of low attenuation encephalomalacia in left frontal lobe are presen t and unchanged as well as low attenuation posterior left temporal parietal region both of these most likely representing remote infarcts. CONCLUSION: Stable CT brain scan as described. No acute intracranial abnormality or change Jonathan Cunningham MD on May 24, 2017 at 19:47 Board Certified Radiologist. This report was verified electronically.
[2017-05-24 19:56] LABS: AUTOMATED NEUTROPHIL # 5.3 TH/MM3 (1.8-7.7); BASOPHIL # 0.1 TH/MM3 (0-0.2); BASOPHIL % 0.5 % (0.0-2.0); EOSINOPHIL # 0.3 TH/MM3 (0-0.4); EOSINOPHIL % 2.6 % (0.0-4.0); HEMATOCRIT 26.7 % (39.0-51.0); HEMO FLAGS DIFF FINAL; LYMPH % 40.3 % (9.0-44.0); LYMPHOCYTE # 4.5 TH/MM3 (1.0-4.8); MEAN CELL VOLUME 89.1 FL (80.0-100.0); MEAN CORPUSCULAR HEMOGLOBIN 29.4 PG (27.0-34.0); MONO % 9.3 % (0.0-8.0); NEUT % 47.3 % (16.0-70.0); PLATELET COUNT 415 TH/MM3 (150-450); RED CELL DISTRIBUTION WIDTH 14.6 % (11.6-17.2); WHITE BLOOD COUNT 11.2 TH/MM3 (4.0-11.0)
--- NOTE | 2017-05-24 19:58 | RADRPT ---
EXAM DATE/TIME: 05/24/2017 19:29 [facility] COMPARISON: CHEST SINGLE AP, April 27, 2017, 19:57. INDICATIONS : Syncopal episode and shortness of breath. MEDICAL HISTORY : Cardiovascular disease. Hypertension. diabetes. SURGICAL HISTORY : None. ENCOUNTER: Initial ACUITY: 1 day PAIN SCORE: 0/10 LOCATION: chest FINDINGS: A single view of the chest demonstrates the lungs to be symmetrically aerated without evidence of mas s, infiltrate or effusion. The cardiomediastinal contours are unremarkable. Osseous structures are intact. CONCLUSION: No acute disease. Jonathan Cunningham MD on May 24, 2017 at 19:56 Board Certified Radiologist. This report was verified electronically.
[2017-05-24 20:05] LABS: BLOOD, URINE NEG (NEG); GLUCOSE,URINE 1000 mg/dL (NEG); KETONE, URINE NEG (NEG); NITRITE,URINE NEG (NEG); SQUAMOUS EPITHELIAL CELL URINE 1 /hpf (0-5); URINE COLOR LIGHT-YELLOW (YELLW/STRAW)
[2017-05-24 20:06] LABS: APTT (PATIENT) 21.7 SEC (24.3-30.1); INTERNATIONAL NORMALIZED RATIO 0.9 RATIO; PROTHROMBIN TIME - PATIENT 10.3 SEC (9.8-11.6)
[2017-05-24 20:10] LABS: COMMENT (UR) CATH-CULT NOT IND; CULTURE IF INDICATED CATH CULTURE NOT IND
[2017-05-24 20:21] LABS: ALT (GPT) 23 U/L (12-78); ANION GAP 8 MEQ/L (5-15); AST (GOT) 12 U/L (15-37); BICARBONATE 26.2 MEQ/L (21.0-32.0); BLOOD UREA NITROGEN 16 MG/DL (7-18); CHLORIDE 99 MEQ/L (98-107); GLOMERULAR FILTRATION RATE 99 ML/MIN (>89); POTASSIUM 4.2 MEQ/L (3.5-5.1); SODIUM (NA) 133 MEQ/L (136-145)
--- NOTE | 2017-05-24 20:21 | PD ---
HPI Chief Complaint: Altered Mental Status Time Seen by Provider: 19:15 Travel History International Travel<30 days: No Contact w/Intl Traveler<30days: No Traveled to known affect area: No History of Present Illness HPI Patient is a 71 year old male who is brought in by EMS after being found outside of his house in the grass. Patient states "I just don't feel well." When asked to qualify why he doesn't feel well, he is unable to. He denies any pains. He was found to have an elevated blood sugar by EMS. He says he does not know if he took any of his medications and he does not know what medications he is supposed to take. He has been here in the past for hyperglycemia. PFS Past Medical History Asthma: No Blood Disorders: No Cancer: No Cardiovascular Problems: Yes High Cholesterol: Yes COPD: Yes Diabetes: Yes Endocrine: Yes Genitourinary: No Hepatitis: No Hiatal Hernia: No Hypertension: Yes Immune Disorder: No Musculoskeletal: No Neurologic: No Psychiatric: No Reproductive: No Respiratory: Yes Immunizations Current: Yes Thyroid Disease: Yes (hypothyroid) Past Surgical History Abdominal Surgery: No Cardiac Surgery: No Ear Surgery: No Endocrine Surgery: No Eye Surgery: No Genitourinary Surgery: No Gynecologic Surgery: No Oral Surgery: No Thoracic Surgery: No Tonsillectomy: Yes Other Surgery: Yes (carotid endarectomy 2015) Social History Alcohol Use: No Tobacco Use: Yes Substance Use: No Allergies-Medications (Allergen,Severity, Reaction): Coded Allergies: No Known Allergies (Verified , 05/24/17) Reported Meds & Prescriptions Reported Meds & Active Scripts Active Levemir Inj (Insulin Detemir) 1,000 unit/ 10 ML Vial 5 Units SQ HS Do not mix with any other Insulin. Novolog Inj (Insulin Aspart) 100 Unit/Ml Inj 1 Unit SQ Q4H 30 Days Adult Aspirin EC Low Strength (Aspirin) 81 Mg Tabec 81 Mg PO DAILY 30 Days Coreg (Carvedilol) 3.125 Mg Tab 3.125 Mg PO Q12HR 30 Days Levaquin (Levofloxacin) 750 Mg Tablet 750 Mg PO DAILY 8 Days Augmentin (Amoxicillin-Clavulanate) 500-125 mg Tab 500 Mg PO Q8HR 8 Days Reported Levothyroxine (Levothyroxine Sodium) 50 Mcg Tab 50 Mcg PO DAILY Atorvastatin (Atorvastatin Calcium) 80 Mg Tab 80 Mg PO HS Review of Systems ROS Limitations: Altered Mental Status Cardiovascular: No: Chest Pain or Discomfort Respiratory: No: Shortness of Breath Gastrointestinal: No: Abdominal Pain Physical Exam Narrative GENERAL: Awake and alert, in no acute distress. SKIN: Focused skin assessment warm/dry. No open wounds. HEAD: Atraumatic. Normocephalic. EYES: Pupils equal and round. No scleral icterus. EOMI. ENT: Mucous membranes pink and moist. NECK: Trachea midline. No JVD. CARDIOVASCULAR: Regular rate and rhythm. No murmur appreciated. RESPIRATORY: No accessory muscle use. Clear to auscultation. Breath sounds equal bilaterally. GASTROINTESTINAL: Abdomen soft, non-tender, nondistended. MUSCULOSKELETAL: No obvious deformities. No clubbing. No cyanosis. No edema. NEUROLOGICAL: Awake and alert. No obvious cranial nerve deficits. Motor grossly within normal limits. Normal speech. Data Data Last Documented VS Vital Signs Date Time Temp Pulse Resp B/P (MAP) Pulse Ox O2 Delivery O2 Flow Rate FiO2 05/24/17 21:30 69 20 229/106 (147) 98 Room Air 05/24/17 19:13 97.8 Orders Orders Electrocardiogram (05/24/17 19:23) Complete Blood Count With Diff (05/24/17 19:23) Comprehensive Metabolic Panel (05/24/17 19:23) Creatine Kinase (Cpk) (05/24/17 19:23) Prothrombin Time / Inr (Pt) (05/24/17 19:23) Act Partial Throm Time (Ptt) (05/24/17 19:23) Troponin I (05/24/17 19:23) Thyroid Stimulating Hormone (05/24/17 19:23) Urinalysis - C+S If Indicated (05/24/17 19:23) Lactic Acid Sepsis Protocol (05/24/17 19:23) Chest, Single Ap (05/24/17 19:23) Ct Brain W/O Iv Contrast(Rout) (05/24/17 19:23) Blood Glucose (05/24/17 19:23) Ecg Monitoring (05/24/17 19:23) Iv Access Insert/Monitor (05/24/17 19:23) Oximetry (05/24/17 19:23) Sodium Chloride 0.9% Flush (Ns Flush) (05/24/17 19:30) Drug Screen, Random Urine (05/24/17 19:23) Alcohol (Ethanol) (05/24/17 19:23) Sodium Chlorid 0.9% 500 Ml Inj (Ns 500 M (05/24/17 20:45) Insulin Human Regular Inj (Novolin R Inj (05/24/17 20:45) Aspirin Chew (Aspirin Chew) (05/24/17 21:30) Labetalol Inj (Trandate Inj) (05/24/17 22:00) Admit Order (Ed Use Only) (05/24/17 ) Vital Signs (Adult) Q1H (05/24/17 21:53) Activity Bed Rest (05/24/17 21:53) Labs Laboratory Tests Test 05/24/17 19:25 05/24/17 19:30 White Blood Count 11.2 TH/MM3 Red Blood Count 3.00 MIL/MM3 Hemoglobin 8.8 GM/DL Hematocrit 26.7 % Mean Corpuscular Volume 89.1 FL Mean Corpuscular Hemoglobin 29.4 PG Mean Corpuscular Hemoglobin Concent 33.0 % Red Cell Distribution Width 14.6 % Platelet Count 415 TH/MM3 Mean Platelet Volume 8.9 FL Neutrophils (%) (Auto) 47.3 % Lymphocytes (%) (Auto) 40.3 % Monocytes (%) (Auto) 9.3 % Eosinophils (%) (Auto) 2.6 % Basophils (%) (Auto) 0.5 % Neutrophils # (Auto) 5.3 TH/MM3 Lymphocytes # (Auto) 4.5 TH/MM3 Monocytes # (Auto) 1.0 TH/MM3 Eosinophils # (Auto) 0.3 TH/MM3 Basophils # (Auto) 0.1 TH/MM3 CBC Comment DIFF FINAL Differential Comment Prothrombin Time 10.3 SEC Prothromb Time International Ratio 0.9 RATIO Activated Partial Thromboplast Time 21.7 SEC Blood Urea Nitrogen 16 MG/DL Creatinine 0.78 MG/DL Random Glucose 403 MG/DL Total Protein 6.5 GM/DL Albumin 2.7 GM/DL Calcium Level 8.4 MG/DL Alkaline Phosphatase 66 U/L Aspartate Amino Transf (AST/SGOT) 12 U/L Alanine Aminotransferase (ALT/SGPT) 23 U/L Total Bilirubin 0.2 MG/DL Sodium Level 133 MEQ/L Potassium Level 4.2 MEQ/L Chloride Level 99 MEQ/L Carbon Dioxide Level 26.2 MEQ/L Anion Gap 8 MEQ/L Estimat Glomerular Filtration Rate 99 ML/MIN Lactic Acid Level 2.2 mmol/L Total Creatine Kinase 43 U/L Troponin I 0.17 NG/ML Thyroid Stimulating Hormone 3rd Gen 2.550 uIU/ML Ethyl Alcohol Level LESS THAN 3 MG/DL Urine Color LIGHT-YELLOW Urine Turbidity CLEAR Urine pH 7.0 Urine Specific [place] 1.019 Urine Protein 30 mg/dL Urine Glucose (UA) 1000 mg/dL Urine Ketones NEG mg/dL Urine Occult Blood NEG Urine Nitrite NEG Urine Bilirubin NEG Urine Urobilinogen LESS THAN 2.0 MG/DL Urine Leukocyte Esterase NEG Urine RBC 1 /hpf Urine WBC 2 /hpf Urine Squamous Epithelial Cells 1 /hpf Microscopic Urinalysis Comment CATH-CULT NOT IND Urine Opiates Screen NEG Urine Barbiturates Screen NEG Urine Amphetamines Screen NEG Urine Benzodiazepines Screen NEG Urine Cocaine Screen NEG Urine Cannabinoids Screen NEG MDM Medical Decision Making Medical Screen Exam Complete: Yes Emergency Medical Condition: Yes Medical Record Reviewed: Yes Interpretation(s) ECG shows NSR at 68, no ST elevation or depression, T wave inversions in II, III , avF Differential Diagnosis sepsis vs ACS vs HHS vs ICH Narrative Course Patient is a 71-year-old male brought in for altered mental status. He says he just does not feel well. Exam shows no acute abnormalities. IV established, labs sent. Labs show a liter troponin to 0.17. Patient has had a troponin at this level in the past and then it went up to 10. He is given an aspirin. He will be monitored to see if it elevates. On his previous visit, there was no reason found for the elevated troponin. Patient placed in observation for further management. Diagnosis Primary Impression: Elevated troponin Admitting Information Admitting Physician Requests: Observation Shyla Carranza MD May 24, 2017 20:21
[2017-05-24 20:22] LABS: ALCOHOL LESS THAN 3 MG/DL (0-5)
[2017-05-24 20:26] LABS: ALKALINE PHOSPHATASE 66 U/L (45-117); TOTAL BILIRUBIN ADULT 0.2 MG/DL (0.2-1.0)
[2017-05-24 20:31] LABS: CREATINE KINASE 43 U/L (39-308)
[2017-05-24] MEDS ORDERED: INSULIN HUMAN REGULAR 1,000 UNITS/10 ML VIAL SQ ONE (20:45)
[2017-05-24] MEDS ORDERED: SODIUM CHLORID 0.9% 500 ML INJ 500 ML IV ONE (20:45)
[2017-05-24] MEDS ORDERED: ASPIRIN 81 MG CHEW TAB CHEW ONE (21:30)
[2017-05-24 21:45] LABS: LACTIC ACID GHOST NOT REPORTABLE
[2017-05-24] MEDS ORDERED: IOHEXOL 350 MG/ML 50 ML BTL (for Cath Lab) OTHER ONE (21:56)
[2017-05-24] MEDS ORDERED: LACTULOSE SYRUP 20 GM/30 ML CUP PO PRN (22:00)
[2017-05-24] MEDS ORDERED: GLUCAGON 1 MG/ML VIAL OTHER PRN (22:00)
[2017-05-24] MEDS ORDERED: MAGNESIUM HYDROXIDE SUSP 30 ML CUP PO PRN (22:00)
[2017-05-24] MEDS ORDERED: LABETALOL HCL 100 MG/20 ML VIAL IV PUSH ONE (22:00)
[2017-05-24] MEDS ORDERED: BISACODYL 10 MG SUPP RECTAL PRN (22:00)
[2017-05-24] MEDS ORDERED: SODIUM CHLORIDE 0.9% FLUSH 10 ML FLUSH IV FLUSH PRN (22:00)
[2017-05-24] MEDS ORDERED: SENNOSIDES 8.6 MG TAB PO PRN (22:00)
[2017-05-24] MEDS ORDERED: DEXTROSE 50% IN WATER 50 ML VIAL(D50) IV PUSH PRN (22:00)
[2017-05-24] MEDS ORDERED: MORPHINE SULFATE 4 MG/ML INJ IV PUSH PRN (22:00)
[2017-05-24] MEDS ORDERED: ONDANSETRON HCL 4 MG/2 ML VIAL IVP PRN (22:00)
--- NOTE | 2017-05-24 22:03 | HHI.HP ---
[facility] Unknown Admission Diagnosis Elevatd troponin, AMS Diagnoses: (1) Encephalopathy Diagnosis: Principal (2) Elevated troponin Diagnosis: Principal (3) Lactic acidosis Diagnosis: Principal (4) HTN (hypertension) Diagnosis: Principal (5) DM (diabetes mellitus) Diagnosis: Principal (6) Anemia Diagnosis: Principal (7) COPD (chronic obstructive pulmonary disease) Diagnosis: Principal (8) Tobacco abuse Diagnosis: Principal Travel History International Travel<30 Days: No Contact w/Intl Traveler <30 Da: No Traveled to Known Affected Are: No History of Present Illness This is a 71-year-old male with PMH of HTN, Hyperlipidemia, DM, COPD, Tobacco Abuse and Noncompliance was brought to the ER by EMS after being found lying in the grass outside of his home. Patient significantly poor historian, only reports that he doesn't feel well. Denies fever, chills, nausea, vomiting, abdominal pain, chest pain or cough. Oriented to person, place but has episodes of confusion. Per EMS, BS elevated at 450, s/p 1L IVF. On arrival, BP 206/110, HR 71, O2 sat 97% on RA, Afebrile. WBC 11.2. Hemoglobin 8.8, previously 11.9 on 05/03/17. BS 403. Lactic Acid 2.2. Trop 0.17. EKG w/ no acute ischemia. Recent admit 04/27-05/04/17 for similar presentation, found down at home, respiratory distress while in ER, s/p intubation, Elevated Trop 10.0, s /p eval by Dr. Hanson, no emergent cardiac intervention, plan for outpatient follow up. Echo 04/28/17 w/ EF 60-65%. Review of Systems Except as stated in HPI: all other systems reviewed are Neg ROS: 14 point review of systems otherwise negative. Past Family Social History Past Medical History PMH: HTN, Hyperlipidemia, DM, COPD, Tobacco Abuse and Noncompliance Past Surgical History PAST SURGICAL HISTORY: Carotid Endarterectomy, Tonsillectomy Allergies: Coded Allergies: No Known Allergies (Verified , 05/24/17) Family History PAST FAMILY HISTORY: Reviewed. No h/o DM or CAD Social History PAST SOCIAL HISTORY: Negative for alcohol or drugs. Positive for tobacco. Physical Exam Vital Signs Vital Signs Date Time Temp Pulse Resp B/P (MAP) Pulse Ox O2 Delivery O2 Flow Rate FiO2 05/24/17 21:30 69 20 229/106 (147) 98 Room Air 05/24/17 20:07 77 20 181/83 (115) 97 Room Air 05/24/17 19:43 100 Room Air 05/24/17 19:28 20 100 Room Air 05/24/17 19:13 97.8 71 20 206/110 (142) 97 Physical Exam PE: GENERAL: Thin, middle-aged white male in no acute distress. Confused HEENT: PERRLA, EOMI. No scleral icterus or conjunctival pallor. No lid lag or facial droop. CARDIOVASCULAR: Regular rate and rhythm. No obvious murmurs to auscultation. No chest tenderness to palpation. RESPIRATORY: No obvious rhonchi or wheezing. Clear to auscultation. Breath sounds equal bilaterally. GASTROINTESTINAL: Abdomen soft, non-tender, nondistended. BS normal. MUSCULOSKELETAL: Extremities without clubbing, cyanosis, or edema. No obvious deformities. NEUROLOGICAL: Awake, alert and oriented to person place. No focal neurologic deficits. Moving both upper and lower extremities spontaneously. Laboratory Laboratory Tests Test 05/24/17 19:25 05/24/17 19:30 White Blood Count 11.2 Red Blood Count 3.00 Hemoglobin 8.8 Hematocrit 26.7 Mean Corpuscular Volume 89.1 Mean Corpuscular Hemoglobin 29.4 Mean Corpuscular Hemoglobin Concent 33.0 Red Cell Distribution Width 14.6 Platelet Count 415 Mean Platelet Volume 8.9 Neutrophils (%) (Auto) 47.3 Lymphocytes (%) (Auto) 40.3 Monocytes (%) (Auto) 9.3 Eosinophils (%) (Auto) 2.6 Basophils (%) (Auto) 0.5 Neutrophils # (Auto) 5.3 Lymphocytes # (Auto) 4.5 Monocytes # (Auto) 1.0 Eosinophils # (Auto) 0.3 Basophils # (Auto) 0.1 CBC Comment DIFF FINAL Differential Comment Prothrombin Time 10.3 Prothromb Time International Ratio 0.9 Activated Partial Thromboplast Time 21.7 Blood Urea Nitrogen 16 Creatinine 0.78 Random Glucose 403 Total Protein 6.5 Albumin 2.7 Calcium Level 8.4 Alkaline Phosphatase 66 Aspartate Amino Transf (AST/SGOT) 12 Alanine Aminotransferase (ALT/SGPT) 23 Total Bilirubin 0.2 Sodium Level 133 Potassium Level 4.2 Chloride Level 99 Carbon Dioxide Level 26.2 Anion Gap 8 Estimat Glomerular Filtration Rate 99 Lactic Acid Level 2.2 Total Creatine Kinase 43 Troponin I 0.17 Thyroid Stimulating Hormone 3rd Gen 2.550 Ethyl Alcohol Level LESS THAN 3 Urine Color LIGHT-YELLOW Urine Turbidity CLEAR Urine pH 7.0 Urine Specific Pepin 1.019 Urine Protein 30 Urine Glucose (UA) 1000 Urine Ketones NEG Urine Occult Blood NEG Urine Nitrite NEG Urine Bilirubin NEG Urine Urobilinogen LESS THAN 2.0 Urine Leukocyte Esterase NEG Urine RBC 1 Urine WBC 2 Urine Squamous Epithelial Cells 1 Microscopic Urinalysis Comment CATH-CULT NOT IND Urine Opiates Screen NEG Urine Barbiturates Screen NEG Urine Amphetamines Screen NEG Urine Benzodiazepines Screen NEG Urine Cocaine Screen NEG Urine Cannabinoids Screen NEG Result Diagram: 05/24/17192405/24/171924 Caprini VTE Risk Assessment Caprini VTE Risk Assessment: Mod/High Risk (score >= 2) Caprini Risk Assessment Model Point Value = 1 Point Value = 2 Point Value = 3 Point Value = 5 Age 41-60 Minor surgery BMI > 25 kg/m2 Swollen legs Varicose veins or History of unexplained or recurrent spontaneous Oral contraceptives or hormone replacement Sepsis (< 1 month) Serious lung disease, including pneumonia (< 1 month) Abnormal pulmonary function Acute myocardial infarction Congestive heart failure (< 1 month) History of inflammatory bowel disease Medical patient at bed rest Age 61-74 Arthroscopic surgery Major open surgery (> 45 min) Laparoscopic surgery (> 45 min) Malignancy Confined to bed (> 72 hours) Immobilizing plaster cast Central venous access Age >= 75 History of VTE Family history of VTE Factor V Leiden Prothrombin [id number] Lupus anticoagulant Anticardiolipin antibodies Elevated serum homocysteine Heparin-induced thrombocytopenia Other congenital or acquired thrombophilia Stroke (< 1 month) Elective arthroplasty Hip, pelvis, or leg fracture Acute spinal cord injury (< 1 month) Prophylaxis Regimen Total Risk Factor Score Risk Level Prophylaxis Regimen 0-1 Low Early ambulation 2 Moderate Order ONE of the following: *Sequential Compression Device (SCD) *Heparin 5000 units SQ BID 3-4 Higher Order ONE of the following medications: *Heparin 5000 units SQ TID *Enoxaparin/Lovenox 40 mg SQ daily (WT < 150 kg, CrCl > 30 mL/min) *Enoxaparin/Lovenox 30 mg SQ daily (WT < 150 kg, CrCl > 10-29 mL/min) *Enoxaparin/Lovenox 30 mg SQ BID (WT < 150 kg, CrCl > 30 mL/min) AND/OR *Sequential Compression Device (SCD) 5 or more Highest Order ONE of the following medications: *Heparin 5000 units SQ TID (Preferred with Epidurals) *Enoxaparin/Lovenox 40 mg SQ daily (WT < 150 kg, CrCl > 30 mL/min) *Enoxaparin/Lovenox 30 mg SQ daily (WT < 150 kg, CrCl > 10-29 mL/min) *Enoxaparin/Lovenox 30 mg SQ BID (WT < 150 kg, CrCl > 30 mL/min) AND *Sequential Compression Device (SCD) Assessment and Plan Problem List: (1) Encephalopathy ICD Code: G93.40 - Encephalopathy, unspecified (2) Elevated troponin ICD Code: R74.8 - Abnormal levels of other serum enzymes (3) Anemia ICD Code: D64.9 - Anemia, unspecified (4) HTN (hypertension) ICD Code: I10 - Essential (primary) hypertension (5) COPD (chronic obstructive pulmonary disease) ICD Code: J44.9 - Chronic obstructive pulmonary disease, unspecified (6) Lactic acidosis ICD Code: E87.2 - Acidosis (7) DM (diabetes mellitus) ICD Code: E11.9 - Type 2 diabetes mellitus without complications (8) Tobacco abuse ICD Code: Z72.0 - Tobacco use Assessment and Plan A/P: 1. Encephalopathy: Found lying in grass outside his home, no injuries noted. CT Head w/ no acute findings. Pt awake, alert, oriented to person/place, + confusion. Unclear etiology. Neuro checks q4h. 2. Elevated Trop: Trop 0.17, EKG w/ no acute ischemia. Chronic. No c/o chest pain. Recent admit 04/27 w/ Trop 10.0, s/p eval by Dr. Hanson w/ no emergent cardiac intervention indicated, plan for outpatient follow up. S/p ASA in ER, will continue. Resume home Statin, B-wyatt. Consult Cardiology for further recommendations. 3. Anemia: Hgb 8.8, previously 11.9 on 05/03/17. No active bleeding noted. Type & Screen. Repeat Hgb in am, transfuse as needed. 4. HTN: Uncontrolled. BP 229/106, HR 69, s/p Labetalol in ER, will monitor BP. Non-compliant w/ medications. 5. DM: Uncontrolled. BS 403 on arrival. Pt cannot tell me what he takes at home. Start Levemir, Sliding scale w/ Accu-Cheks. Hgb A1c 12.0 on 04/03/17. 6. Lactic Acidosis: Lactate 2.2, no evidence of sepsis. WBC normal. No signs of infection. IVF, repeat Lactate in am. 7. COPD: Chronic Respiratory Failure. Stable. DuoNeb prn if needed. CXR w/ no acute findings, images reviewed by me. 8. Tobacco Abuse: Counselled. Ativan prn if needed. No NicoDerm to avoid vasoconstriction. 9. DVT Prophylaxis: Heparin sq 10. Social work for d/c planning as needed. 11. Case discussed w/ ER physician at length. Alicja Riggs MD May 24, 2017 22:03
[2017-05-24] MEDS: INSULIN DETEMIR 100 UNITS/ML VIAL SQ SCH (22:17)
[2017-05-24] MEDS ORDERED: RESP: ALBUTEROL 2.5 MG/IPRATROPIUM 0.5 MG NEB (PRN) NEB (22:30)
[2017-05-24] MEDS ORDERED: hydrALAZINE HCL 20 MG/ML VIAL IV PUSH ONE (23:15)
[2017-05-25] VITALS (24 sets, daily range): BP systolic 142–169; BP diastolic 65–97; PULSE 58–107; RESP 16–20; TEMP 98–98.6; O2SAT 97–100
[2017-05-25] MEDS: SODIUM CHLOR 0.9% 1000 ML INJ 1,000 ML IV SCH ×4 (00:19→17:51)
[2017-05-25 07:09] LABS: AUTOMATED NEUTROPHIL # 9.3 TH/MM3 (1.8-7.7); BASOPHIL # 0.1 TH/MM3 (0-0.2); BASOPHIL % 0.5 % (0.0-2.0); EOSINOPHIL % 0.3 % (0.0-4.0); HEMATOCRIT 36.7 % (39.0-51.0); HEMO FLAGS DIFF FINAL; LYMPH % 18.5 % (9.0-44.0); LYMPHOCYTE # 2.3 TH/MM3 (1.0-4.8); MEAN CELL VOLUME 87.8 FL (80.0-100.0); MEAN CORPUSCULAR HEMOGLOBIN 29.5 PG (27.0-34.0); MEAN CORPUSCULAR HGB CONC 33.6 % (32.0-36.0); MONO % 5.2 % (0.0-8.0); NEUT % 75.5 % (16.0-70.0); PLATELET COUNT 384 TH/MM3 (150-450); RED BLOOD COUNT 4.18 MIL/MM3 (4.50-5.90); RED CELL DISTRIBUTION WIDTH 14.6 % (11.6-17.2); WHITE BLOOD COUNT 12.3 TH/MM3 (4.0-11.0)
[2017-05-25 07:58] LABS: ALKALINE PHOSPHATASE 79 U/L (45-117); ALT (GPT) 24 U/L (12-78); ANION GAP 5 MEQ/L (5-15); AST (GOT) 9 U/L (15-37); BICARBONATE 30.3 MEQ/L (21.0-32.0); BLOOD UREA NITROGEN 14 MG/DL (7-18); CHLORIDE 98 MEQ/L (98-107); GLOMERULAR FILTRATION RATE 118 ML/MIN (>89); POTASSIUM 4.4 MEQ/L (3.5-5.1); SODIUM (NA) 133 MEQ/L (136-145); TOTAL BILIRUBIN ADULT 0.4 MG/DL (0.2-1.0)
--- NOTE | 2017-05-25 08:51 | HHI.PR ---
Subjective Remarks f/u; altered mental status awake and alert but still confused. denies chest pain. no fever. Objective Vitals Vital Signs Date Time Temp Pulse Resp B/P (MAP) Pulse Ox O2 Delivery O2 Flow Rate FiO2 05/25/17 06:00 71 05/25/17 05:00 69 05/25/17 04:00 76 05/25/17 04:00 Room Air 05/25/17 04:00 98.2 76 18 169/85 (113) 97 05/25/17 03:00 63 05/25/17 02:00 58 05/25/17 01:00 59 05/25/17 01:00 98.6 59 20 161/80 (107) 99 05/25/17 00:45 05/25/17 00:15 63 20 168/76 (106) 100 Room Air 05/24/17 23:30 94 05/24/17 23:23 58 18 195/86 (122) 99 Room Air 05/24/17 22:18 61 20 179/79 (112) 98 Room Air 05/24/17 21:30 69 20 229/106 (147) 98 Room Air 05/24/17 20:07 77 20 181/83 (115) 97 Room Air 05/24/17 19:43 100 Room Air 05/24/17 19:28 20 100 Room Air 05/24/17 19:13 97.8 71 20 206/110 (142) 97 I/O 05/24/17 05/24/17 05/24/17 05/25/17 05/25/17 05/25/17 07:00 15:00 23:00 07:00 15:00 23:00 Intake Total 500 ml 300 ml Balance 500 ml 300 ml Intake IV Total 500 ml 300 ml Result Diagram: 05/25/1762305/25/17623 Imaging Last Impressions Head CT 05/24/171922 Signed Impressions: Service Date/Time: Wednesday, May 24, 2017 19:41 - CONCLUSION: Stable CT brain scan as described. No acute intracranial abnormality or change Jonathan Cunningham MD Chest X-Ray 05/24/171922 Signed Impressions: Service Date/Time: Wednesday, May 24, 2017 19:29 - CONCLUSION: No acute disease. Jonathan Cunningham MD Objective Remarks GENERAL: This is a well-nourished, well-developed patient, in no apparent distress. CARDIOVASCULAR: Regular rate and regular rhythm without murmurs, gallops, or rubs. RESPIRATORY: Clear to auscultation. Breath sounds equal bilaterally. No wheezes , rales, or rhonchi. GASTROINTESTINAL: Abdomen soft, non-tender, nondistended. Normal, active bowel sounds MUSCULOSKELETAL: Extremities without clubbing, cyanosis, or edema. NEURO: Awake and alert- oriented to person- but not to time or place. Medications and IVs Current Medications IV Flush (NS Flush) 2 ml UNSCH PRN IV FLUSH FLUSH AFTER USING IV ACCESS; Start 05/24/17 at 19:30; Stop 05/24/17 at 22:14; Status DC Sodium Chloride 500 ml @ 500 mls/hr BOLUS ONCE IV Last administered on 20:44; Start 05/24/17 at 20:45; Stop 05/24/17 at 21:44; Status DC Insulin Human Regular (NovoLIN R INJ) 5 units ONCE ONCE SQ Last administered on 05/24/17 20:44; Start 05/24/17 at 20:45; Stop 05/24/17 at 20:46; Status DC Aspirin (Aspirin Chew) 324 mg ONCE ONCE CHEW Last administered on 05/24/17 21:58; Start 05/24/17 at 21:30; Stop 05/24/17 at 21:31; Status DC Labetalol HCl (Trandate Inj) 20 mg ONCE ONCE IV PUSH Last administered on 21:58; Start 05/24/17 at 22:00; Stop 05/24/17 at 22:01; Status DC Insulin Detemir (Levemir Inj) 5 units HS SQ Last administered on 05/24/17 22: 17; Start 05/24/17 at 22:00 Dextrose (D50w (Vial) Inj) 50 ml UNSCH PRN IV PUSH HYPOGLYCEMIA-SEE COMMENTS; Start 05/24/17 at 22:00 Glucagon (Glucagon Inj) 1 mg UNSCH PRN OTHER HYPOGLYCEMIA-SEE COMMENTS; Start 05/24/17 at 22:00 Insulin Aspart (NovoLOG SUPPLEMENTAL SCALE) 1 ACHS SLIDING SCALE SQ ; Start at 08:00 Sodium Chloride 1,000 ml @ 100 mls/hr Q10H IV Last administered on 10/21/17at 00:19; Start 05/24/17 at 21:57 Sodium Chloride (NS Flush) 2 ml UNSCH PRN IV FLUSH FLUSH AFTER USING IV ACCESS ; Start 05/24/17 at 22:00 Sodium Chloride (NS Flush) 2 ml BID IV FLUSH ; Start 05/25/17 at 09:00 Ondansetron HCl (Zofran Inj) 4 mg Q6H PRN IVP NAUSEA OR VOMITING Last administered on 05/25/17t 00:12; Start 05/24/17 at 22:00 Heparin Sodium (Porcine) (Heparin Inj) 5,000 units Q12H SQ ; Start 05/25/17 at 09:00 Acetaminophen (Tylenol) 650 mg Q6H PRN PO FEVER/PAIN SCALE 1 TO 2; Start 05/24 at 22:00 Acetaminophen/ Hydrocodone Bitart ([place] 5-325 Mg) 1 tab Q4H PRN PO PAIN SCALE 3 TO 5; Start 05/24/17 at 22:00 Morphine Sulfate (Morphine Inj) 2 mg Q3H PRN IV PUSH Pain 6-10; Start at 22:00 Senna/Docusate Sodium (Yamel-Colace) 1 tab BID PO ; Start 05/25/17 at 09:00 Magnesium Hydroxide (Milk Of Magnesia Liq) 30 ml Q12H PRN PO Mild constipation ; Start 05/24/17 at 22:00 Sennosides (Senokot) 17.2 mg Q12H PRN PO Moderate constipation; Start at 22:00 Bisacodyl (Dulcolax Supp) 10 mg DAILY PRN RECTAL SEVERE CONSITIPATION; Start 05/24/17 at 22:00 Lactulose (Lactulose Liq) 30 ml DAILY PRN PO SEVERE CONSITIPATION; Start 05/24 at 22:00 Aspirin (Ecotrin Ec) 81 mg DAILY PO ; Start 05/25/17 at 09:00 Metoprolol Tartrate (Lopressor) 25 mg Q12HR PO ; Start 05/25/17 at 09:00 Albuterol/ Ipratropium (Duoneb Neb) 1 ampule Q4HR NEB PRN NEB SOB/WHEEZING; Start 05/24/17 at 22:30 Atorvastatin Calcium (Lipitor) 80 mg HS PO ; Start 05/25/17 at 21:00 Hydralazine HCl (Apresoline Inj) 10 mg ONCE ONCE IV PUSH Last administered on 05/24/17t 23:25; Start 05/24/17 at 23:15; Stop 05/24/17 at 23:16; Status DC Influenza Virus Vaccine (Flu (Quadrivalent) Vaccine Inj) 0.5 ml ONCE ONCE IM ; Start 05/26/17 at 10:00; Stop 05/26/17 at 10:01 A/P Problem List: (1) Encephalopathy ICD Code: G93.40 - Encephalopathy, unspecified (2) Elevated troponin ICD Code: R74.8 - Abnormal levels of other serum enzymes (3) Anemia ICD Code: D64.9 - Anemia, unspecified (4) HTN (hypertension) ICD Code: I10 - Essential (primary) hypertension (5) COPD (chronic obstructive pulmonary disease) ICD Code: J44.9 - Chronic obstructive pulmonary disease, unspecified (6) Lactic acidosis ICD Code: E87.2 - Acidosis (7) DM (diabetes mellitus) ICD Code: E11.9 - Type 2 diabetes mellitus without complications (8) Tobacco abuse ICD Code: Z72.0 - Tobacco use Assessment and Plan A/P 1. Encephalopathy: Found lying in grass outside his home, no injuries noted. CT Head w/ no acute findings. Unclear etiology. Neuro checks q4h. will consult neurology. 2. Elevated Trop: w/ no acute ischemia. Recent admit 04/27 w/ Trop 10.0, s/ p eval by Dr. Hanson w/ no emergent cardiac intervention indicated, plan for outpatient follow up. S/p ASA in ER, will continue. Resumed home Statin, B -wyatt. Consulted Cardiology for further recommendations. 3. Anemia: stable- will monitor. 4. HTN: overall better- continue metoprolol. 5. DM: Uncontrolled. BS 403 on arrival. continue Levemir, Sliding scale w/ Accu-Cheks. Hgb A1c 12.0 on 04/03/17. 6. Lactic Acidosis:resolved. Lactate 2.2, no evidence of sepsis. WBC normal. No signs of infection. 7. COPD: Chronic Respiratory Failure. Stable. DuoNeb prn if needed. CXR w/ no acute findings. 8. Tobacco Abuse: Counselled. Ativan prn if needed. No NicoDerm to avoid vasoconstriction. 9. DVT Prophylaxis: Heparin sq Luan Fuchs MD May 25, 2017 08:51
[2017-05-25] MEDS: SODIUM CHLORIDE 0.9% FLUSH 10 ML FLUSH IV FLUSH SCH ×2 (09:00→19:50)
[2017-05-25] MEDS: LEVOTHYROXINE SODIUM 50 MCG TAB PO SCH (09:00)
[2017-05-25] MEDS: DOCUSATE SODIUM 50 MG/SENNA 8.6 MG TAB PO SCH ×2 (09:03→19:48)
[2017-05-25] MEDS: ASPIRIN EC 81 MG TABEC PO SCH (09:03)
[2017-05-25] MEDS: METOPROLOL TARTRATE 25 MG TAB PO SCH ×2 (09:03→19:48)
[2017-05-25] MEDS: HEPARIN SODIUM - SQ 10,000 UNITS/ML VIAL SQ SCH ×2 (09:04→19:50)
[2017-05-25] MEDS: INSULIN ASPART SUPPLEMENTAL SCALE SQ SCH ×4 (09:11→19:53)
--- NOTE | 2017-05-25 13:11 | MB ---
cc: ADRIAN PINO MD DATE OF CONSULTATION: 05/25/2017 REASON FOR CONSULTATION: Elevated troponin. HISTORY OF PRESENT ILLNESS The patient is a pleasant 71-year gentleman who sees my partner Dr. Hanson, who was recently in the hospital for a very similar presentation of being found down by a neighbor and having elevated troponin, though at that time his elevated troponin was notably higher up to 10.9 and similarly he was found down again and his troponin was slightly elevated at 0.21. The patient cannot tell me why he is here, how he got here or anything specific except that he is generally uncomfortable and notes feeling nauseous. He denies specifically any chest pain or shortness of breath. PAST MEDICAL HISTORY Tobacco abuse Diabetes. Hypertension. Hyperlipidemia Chronic obstructive pulmonary disease Peripheral vascular disease. MEDICATIONS Current medications. 1. Atorvastatin 80 mg q.h.s. 2. Aspirin 81 mg daily. 3. Lopressor 25 mg q. 12. ALLERGIES NO KNOWN DRUG ALLERGIES. PHYSICAL EXAMINATION VITAL SIGNS: Afebrile, pulse 65, respiratory rate 16, BP 153/89 down from 206/110 satting 98 on room air. IN GENERAL: Pleasant gentleman in no distress but again not able to tell me any details of why he is here. NECK: No Jugular venous distention. LUNGS: Clear to auscultation bilaterally. CARDIOVASCULAR SYSTEM: Regular rate rhythm. No murmurs appreciated. ABDOMEN: Abdomen is benign. EXTREMITIES: No edema. LABORATORY DATA Sodium 133, potassium 4.4, chloride 98, bicarb 30.3, BUN 14, creatinine 0.67, glucose 289, troponin is 0.21. Tox screen was negative. UA was negative. White count 12.3, hematocrit 36.7, platelets 384. The electrocardiogram shows sinus rhythm with an old inferior myocardial infarction but no acute ST or T-wave changes. IMPRESSION Elevated troponin, the patient's elevated troponin is quite low and nonspecific and in the absence of chest pain, it does not specifically mean acute coronary syndrome. Consideration towards cardiac catheterization was made his last hospital stay last month due to his much higher elevated troponin but this was delayed due to his poor mental status. He currently also has a pretty poor mental status. I would recommend continuing medical therapy and depending on how his mental status improves, consideration towards cardiac catheterization could be made this week. He has already had a recent echocardiogram showing a normal ejection fraction he can be monitored on telemetry and all the above can perhaps elucidate the reason why he keeps being found down outside. Further recommendations based on the clinical course. Thank you again for the opportunity to participate this patient's care. MD MIN Gandhi/yadira /10:19 AM /12:11 PM
--- NOTE | 2017-05-25 15:12 | MB ---
cc: ROXANN SABA MD DATE OF CONSULTATION: 05/25/2017. REASON FOR CONSULTATION: Altered mental status. HISTORY OF PRESENT ILLNESS: Mr. Lechuga is a 71 male with past medical history of hypertension, hyperlipidemia, diabetes mellitus, COPD, tobacco abuse, noncompliance with medications who was brought to the [facility] Emergency Room after being found lying on the grass outside his home. He lives with a roommate. The patient is a poor historian; thus, medical history is obtained from the medical records. The patient sits on a chair with no complaints, comfortable, denies any headache or any other symptoms. He has history of remote strokes with right- sided weakness and speech abnormality. He was noted to be more confused. Upon arrival he had mild elevation of the blood pressure to 206/110. His blood sugar was elevated at 450s with a leukocytosis and afebrile. Anemia also was found in his blood work. A head CT scan did not reveal any acute intracranial abnormality. Neurology is consulted for altered mental status. REVIEW OF SYSTEMS: A twelve-point review of systems was negative except as stated in the HPI. PAST MEDICAL HISTORY: 1. Hypertension. 2. Hyperlipidemia. 3. Diabetes mellitus. 4. COPD. 5. Tobacco abuse. 6. Remote ischemic strokes with residual right-sided weakness and speech difficulty / dysphasia and dysarthria. PAST SURGICAL HISTORY: 1. Carotid endarterectomy on the right side. 2. Tonsillectomy. ALLERGIES: NO KNOWN ALLERGIES. FAMILY HISTORY: Noncontributory. SOCIAL HISTORY: Negative for alcohol or drugs. Positive for tobacco. PHYSICAL EXAMINATION: GENERAL: Awake, alert, disheveled, poor historian and not in acute distress. HEAD, EYES, EARS, NOSE, THROAT: Normocephalic and atraumatic. Intact hearing and intact vision. CARDIOVASCULAR: Regular rate and rhythm. RESPIRATORY: Clear to auscultation. No wheezes. GASTROINTESTINAL: The abdomen is soft, nontender. MUSCULOSKELETAL: No clubbing. No cyanosis. No edema. NEUROLOGICAL EXAMINATION: Awake, alert and oriented to person, not place. He is disoriented to place (he does not know the name of the hospital, [place], [place]). Time - he is unaware of the year (1942) or month (he knows that this is the fall season). Abnormal naming would not name (pen, clock, TV screen). He also has a component of paraphasia and neologism. He named my wrist watch as a camera and the clock as watch. Normal repetition. Right homonymous hemianopsia. Subtle right facial weakness. No nystagmus. Right lower extremity spastic, weakness in a pyramidal distribution. Left upper and lower extremities within normal. Bilateral flapping tremor / asterixis. [id number] abnormal due to action tremor. Sensation is intact throughout. Reflexes 1+ bilateral symmetrical right upgoing , left downgoing plantar reflex. PSYCHIATRIC: Flat mood and affect. Pleasant. No hallucinations. DIAGNOSTIC TESTS: LABS: White blood cells 12.3, hemoglobin 12.3, platelet 384,000. Sodium 133, BUN 14, creatinine 0.67, random glucose 289. Urine drug screen is negative. DIAGNOSTIC IMAGING: - Head CT scan was reported as stable with prominent cortical sulci and two areas of low attenuation encephalomalacia in the left frontal lobe as well in the posterior left temporoparietal region most likely representing remote infarcts. REVIEW OF DIAGNOSTIC IMAGING: A brain MRI that was done recently on 04/27/2017 revealed no acute hemorrhage or infarction. Old area of encephalomalacia involving the left frontal lobe with gliosis. Areas of apparent gliosis involving the left inferior temporoparietal junction and left occipital lobe. Moderate atrophic change and chronic small vessel ischemic changes. DIAGNOSTIC IMPRESSION: 1. Encephalopathy. 2. History of remote multiple ischemic strokes on the left hemisphere. 3. Hypertension. 4. Hyperlipidemia. 5. COPD. CLINICAL ASSESSMENT: Patient with history of multiple left hemisphere strokes involving the left frontal region and left parietooccipital junction with extensive white matter ischemic changes subcortical and periventricular after the review of the MRI there were extensive white matter changes periventricular and subcortical with areas of encephalomalacia and gliosis. The patient is dysphasic with right homonymous hemianopsia and spastic right hemiparesis which all a constellation of symptoms due to the remote strokes. There is some baseline cognitive decline that may be related to his multiple strokes, cortical atrophy and ischemic vascular chronic ischemic microvascular changes. The altered mental status and occasional confusion may be related to recrudescence of remote stroke symptoms on a baseline of cognitive decline due to the elevation of both blood sugar and blood pressure. PLAN: 1. Neuro checks q. 4 hourly. 2. Continue antiplatelet therapy. 3. Tight control of blood pressure and blood sugar. 4. Physical therapy and occupational therapy recommendations are appreciated. 5. Fall precautions. 6. No need for further neurologic workup. 7. DVT prophylaxis. 8. GI prophylaxis. Thank you for the opportunity to participate in the care of your patient. MD MUSA Sauceda/WHITNEY /1:56 PM /2:52 PM [email or web address]
--- NOTE | 2017-05-25 17:21 | EKG ---
Date Performed: 05/24/2017 Time Performed: 19:51:53 PTAGE: 71 years EKG: Sinus rhythm PROBABLE INFERIOR MYOCARDIAL INFARCTION ABNORMAL ECG NO PREVIOUS TRACING DOCTOR: Colleen Lacy Interpretating Date/Time 05/25/2017 17:19:18
[2017-05-25] MEDS: ATORVASTATIN 80 MG TAB PO SCH (19:48)
[2017-05-25] MEDS: INSULIN DETEMIR 100 UNITS/ML VIAL SQ SCH (19:52)
[2017-05-26] VITALS (27 sets, daily range): BP systolic 149–186; BP diastolic 69–101; PULSE 54–84; RESP 17–18; TEMP 97.9–98.5; O2SAT 96–99
[2017-05-26] MEDS: SODIUM CHLOR 0.9% 1000 ML INJ 1,000 ML IV SCH ×2 (03:57→17:48)
[2017-05-26] MEDS: LEVOTHYROXINE SODIUM 50 MCG TAB PO SCH (05:50)
--- NOTE | 2017-05-26 06:42 | HHI.PR ---
Subjective Remarks f/u; encephalopathy/ elevated troponin in no acute distress. awake and alert. afebrile. denies chest pain. Objective Vitals Vital Signs Date Time Temp Pulse Resp B/P (MAP) Pulse Ox O2 Delivery O2 Flow Rate FiO2 05/26/17 06:00 63 05/26/17 05:00 69 05/26/17 04:00 65 05/26/17 04:00 98.2 65 18 149/79 (102) 96 05/26/17 04:00 Room Air 05/26/17 03:00 71 05/26/17 02:00 70 05/26/17 01:00 74 05/26/17 00:00 Room Air 05/26/17 00:00 98.0 76 18 157/93 (114) 97 05/26/17 00:00 76 05/25/17 23:00 74 05/25/17 22:00 80 05/25/17 21:00 85 05/25/17 20:00 82 05/25/17 20:00 98.2 82 18 155/91 (112) 97 05/25/17 18:00 73 05/25/17 17:00 62 05/25/17 17:00 98.0 76 18 158/97 (117) 98 05/25/17 16:00 63 05/25/17 15:00 66 05/25/17 14:00 68 05/25/17 13:00 68 05/25/17 12:13 98.4 69 16 142/65 (90) 100 05/25/17 11:00 67 05/25/17 10:00 61 05/25/17 09:00 65 05/25/17 08:56 98.3 78 16 153/89 (110) 98 05/25/17 08:00 63 05/25/17 07:00 60 I/O 05/25/17 05/25/17 05/25/17 05/26/17 05/26/17 05/26/17 07:00 15:00 23:00 07:00 15:00 23:00 Intake Total 300 ml 700 ml 700 ml 1280 ml Output Total 750 ml 800 ml Balance 300 ml 700 ml -50 ml 480 ml Intake Oral 480 ml IV Total 300 ml 700 ml 700 ml 800 ml Output Urine Total 750 ml 800 ml # Voids 2 # Bowel Movements 0 Result Diagram: 05/25/17623 05/25/17623 Imaging Last Impressions Head CT 05/24/171922 Signed Impressions: Service Date/Time: Wednesday, May 24, 2017 19:41 - CONCLUSION: Stable CT brain scan as described. No acute intracranial abnormality or change Jonathan Cunningham MD Chest X-Ray 05/24/171922 Signed Impressions: Service Date/Time: Wednesday, May 24, 2017 19:29 - CONCLUSION: No acute disease. Jonathan Cunningham MD Objective Remarks GENERAL: This is a well-nourished, well-developed patient, in no apparent distress. CARDIOVASCULAR: Regular rate and regular rhythm without murmurs, gallops, or rubs. RESPIRATORY: Clear to auscultation. Breath sounds equal bilaterally. No wheezes , rales, or rhonchi. GASTROINTESTINAL: Abdomen soft, non-tender, nondistended. Normal, active bowel sounds MUSCULOSKELETAL: Extremities without clubbing, cyanosis, or edema. NEURO: Awake and alert- oriented to person and place but not to time. Medications and IVs Current Medications IV Flush (NS Flush) 2 ml UNSCH PRN IV FLUSH FLUSH AFTER USING IV ACCESS; Start 05/24/17 at 19:30; Stop 05/24/17 at 22:14; Status DC Sodium Chloride 500 ml @ 500 mls/hr BOLUS ONCE IV Last administered on 20:44; Start 05/24/17 at 20:45; Stop 05/24/17 at 21:44; Status DC Insulin Human Regular (NovoLIN R INJ) 5 units ONCE ONCE SQ Last administered on 05/24/17 20:44; Start 05/24/17 at 20:45; Stop 05/24/17 at 20:46; Status DC Aspirin (Aspirin Chew) 324 mg ONCE ONCE CHEW Last administered on 05/24/17 21:58; Start 05/24/17 at 21:30; Stop 05/24/17 at 21:31; Status DC Labetalol HCl (Trandate Inj) 20 mg ONCE ONCE IV PUSH Last administered on 21:58; Start 05/24/17 at 22:00; Stop 05/24/17 at 22:01; Status DC Insulin Detemir (Levemir Inj) 5 units HS SQ Last administered on 05/25/17 19: 52; Start 05/24/17 at 22:00 Dextrose (D50w (Vial) Inj) 50 ml UNSCH PRN IV PUSH HYPOGLYCEMIA-SEE COMMENTS; Start 05/24/17 at 22:00 Glucagon (Glucagon Inj) 1 mg UNSCH PRN OTHER HYPOGLYCEMIA-SEE COMMENTS; Start 05/24/17 at 22:00 Insulin Aspart (NovoLOG SUPPLEMENTAL SCALE) 1 ACHS SLIDING SCALE SQ Last administered on 05/25/17 19:53; Start 05/25/17 at 08:00 Sodium Chloride 1,000 ml @ 100 mls/hr Q10H IV Last administered on 05/25/17 17:51; Start 05/24/17 at 21:57 Sodium Chloride (NS Flush) 2 ml UNSCH PRN IV FLUSH FLUSH AFTER USING IV ACCESS ; Start 05/24/17 at 22:00 Sodium Chloride (NS Flush) 2 ml BID IV FLUSH Last administered on 05/25/17 19 :50; Start 05/25/17 at 09:00 Ondansetron HCl (Zofran Inj) 4 mg Q6H PRN IVP NAUSEA OR VOMITING Last administered on 05/25/17 00:12; Start 05/24/17 at 22:00 Heparin Sodium (Porcine) (Heparin Inj) 5,000 units Q12H SQ Last administered on 05/25/17 19:50; Start 05/25/17 at 09:00 Acetaminophen (Tylenol) 650 mg Q6H PRN PO FEVER/PAIN SCALE 1 TO 2; Start 05/24 at 22:00 Acetaminophen/ Hydrocodone Bitart ([place] 5-325 Mg) 1 tab Q4H PRN PO PAIN SCALE 3 TO 5; Start 05/24/17 at 22:00 Morphine Sulfate (Morphine Inj) 2 mg Q3H PRN IV PUSH Pain 6-10; Start at 22:00 Senna/Docusate Sodium (Yamel-Colace) 1 tab BID PO Last administered on 19:48; Start 05/25/17 at 09:00 Magnesium Hydroxide (Milk Of Magnesia Liq) 30 ml Q12H PRN PO Mild constipation ; Start 05/24/17 at 22:00 Sennosides (Senokot) 17.2 mg Q12H PRN PO Moderate constipation; Start at 22:00 Bisacodyl (Dulcolax Supp) 10 mg DAILY PRN RECTAL SEVERE CONSITIPATION; Start 05/24/17 at 22:00 Lactulose (Lactulose Liq) 30 ml DAILY PRN PO SEVERE CONSITIPATION; Start 05/24 at 22:00 Aspirin (Ecotrin Ec) 81 mg DAILY PO Last administered on 05/25/17 09:03; Start 05/25/17 at 09:00 Metoprolol Tartrate (Lopressor) 25 mg Q12HR PO Last administered on 05/25/17 19:48; Start 05/25/17 at 09:00 Albuterol/ Ipratropium (Duoneb Neb) 1 ampule Q4HR NEB PRN NEB SOB/WHEEZING; Start 05/24/17 at 22:30 Atorvastatin Calcium (Lipitor) 80 mg HS PO Last administered on 05/25/17 19: 48; Start 05/25/17 at 21:00 Hydralazine HCl (Apresoline Inj) 10 mg ONCE ONCE IV PUSH Last administered on 05/24/17 23:25; Start 05/24/17 at 23:15; Stop 05/24/17 at 23:16; Status DC Influenza Virus Vaccine (Flu (Quadrivalent) Vaccine Inj) 0.5 ml ONCE ONCE IM ; Start 05/26/17 at 10:00; Stop 05/26/17 at 10:01 Levothyroxine Sodium (Synthroid) 50 mcg DAILY@0600 PO Last administered on 05:50; Start 05/25/17 at 09:00 A/P Problem List: (1) Encephalopathy ICD Code: G93.40 - Encephalopathy, unspecified (2) Elevated troponin ICD Code: R74.8 - Abnormal levels of other serum enzymes (3) Anemia ICD Code: D64.9 - Anemia, unspecified (4) HTN (hypertension) ICD Code: I10 - Essential (primary) hypertension (5) COPD (chronic obstructive pulmonary disease) ICD Code: J44.9 - Chronic obstructive pulmonary disease, unspecified (6) Lactic acidosis ICD Code: E87.2 - Acidosis (7) DM (diabetes mellitus) ICD Code: E11.9 - Type 2 diabetes mellitus without complications (8) Tobacco abuse ICD Code: Z72.0 - Tobacco use Assessment and Plan A/P 1. Encephalopathy: Found lying in grass outside his home, no injuries noted. CT Head w/ no acute findings. neurology consult appreciated;believed that the altered mental status is due to recrudescence of remote stroke symptoms on a baseline of cognitive decline. no further neurological work-up recommended at this time. continue neuro-checks and PT. 2. Elevated Trop: w/ no acute ischemia. Recent admit 04/27 w/ Trop 10.0, s/ p eval by Dr. Hanson w/ no emergent cardiac intervention indicated, plan for outpatient follow up. cardiology consult appreciated; decision for cardiac cath probably this week depending on his mental status. continue aspirin, Statin, B-wyatt. 3. Anemia: stable- will monitor. 4. HTN: overall better- continue metoprolol. 5. DM: better controlled. BS 403 on arrival. continue Levemir, Sliding scale w / Accu-Cheks. Hgb A1c 12.0 on 04/03/17. 6. Lactic Acidosis:resolved. Lactate 2.2, no evidence of sepsis. WBC normal. No signs of infection. 7. COPD: Chronic Respiratory Failure. Stable. DuoNeb prn if needed. CXR w/ no acute findings. 8. DVT Prophylaxis: Heparin sq Discharge Planning PT evaluation appreciated. will consult case management for dc planning to SNF. dc planning based on clinical course, improvement in his mental condition and cardiology decision on cardiac cath. Luan Fuchs MD May 26, 2017 06:42
[2017-05-26] MEDS: METOPROLOL TARTRATE 25 MG TAB PO SCH ×2 (07:53→21:27)
[2017-05-26] MEDS: DOCUSATE SODIUM 50 MG/SENNA 8.6 MG TAB PO SCH ×2 (07:53→21:00)
[2017-05-26] MEDS: ASPIRIN EC 81 MG TABEC PO SCH (07:54)
[2017-05-26] MEDS: SODIUM CHLORIDE 0.9% FLUSH 10 ML FLUSH IV FLUSH SCH ×2 (07:54→21:27)
[2017-05-26] MEDS: HEPARIN SODIUM - SQ 10,000 UNITS/ML VIAL SQ SCH ×2 (07:54→21:28)
[2017-05-26] MEDS: INSULIN ASPART SUPPLEMENTAL SCALE SQ SCH ×4 (08:00→21:28)
--- NOTE | 2017-05-26 09:05 | PD.CARD.PN ---
Subjective Subjective Remarks Pt still confused, know's he's at [place], but says it's March Objective Medications Current Medications Medications (Trade) Dose Ordered Sig/Nolvia Route Start Time Stop Time Status Last Admin (Levemir Inj) 5 units HS SQ 05/24/17 22:00 05/25/17 19:52 (D50w (Vial) Inj) 50 ml UNSCH PRN IV PUSH 05/24/17 22:00 (Glucagon Inj) 1 mg UNSCH PRN OTHER 05/24/17 22:00 (NovoLOG SUPPLEMENTAL SCALE) 1 ACHS SLIDING SCALE SQ 05/25/17 08:00 05/26/17 08:00 Sodium Chloride 1,000 ml @ 60 mls/hr [id number] IV 05/24/17 21:57 05/25/17 17:51 (NS Flush) 2 ml UNSCH PRN IV FLUSH 05/24/17 22:00 (NS Flush) 2 ml BID IV FLUSH 05/25/17 09:00 05/25/17 19:50 (Zofran Inj) 4 mg Q6H PRN IVP 05/24/17 22:00 05/25/17 00:12 (Heparin Inj) 5,000 units Q12H SQ 05/25/17 09:00 05/26/17 07:54 (Tylenol) 650 mg Q6H PRN PO 05/24/17 22:00 ([place] 5-325 Mg) 1 tab Q4H PRN PO 05/24/17 22:00 (Morphine Inj) 2 mg Q3H PRN IV PUSH 05/24/17 22:00 (Yamel-Colace) 1 tab BID PO 05/25/17 09:00 05/26/17 07:53 (Milk Of Magnesia Liq) 30 ml Q12H PRN PO 05/24/17 22:00 (Senokot) 17.2 mg Q12H PRN PO 05/24/17 22:00 (Dulcolax Supp) 10 mg DAILY PRN RECTAL 05/24/17 22:00 (Lactulose Liq) 30 ml DAILY PRN PO 05/24/17 22:00 (Ecotrin Ec) 81 mg DAILY PO 05/25/17 09:00 05/26/17 07:54 (Lopressor) 25 mg Q12HR PO 05/25/17 09:00 05/26/17 07:53 (Duoneb Neb) 1 ampule Q4HR NEB PRN NEB 05/24/17 22:30 (Lipitor) 80 mg HS PO 05/25/17 21:00 05/25/17 19:48 (Flu (Quadrivalent) Vaccine Inj) 0.5 ml ONCE ONCE IM 05/26/17 10:00 05/26/17 10:01 (Synthroid) 50 mcg DAILY@0600 PO 05/25/17 09:00 05/26/17 05:50 Vital Signs / I&O Vital Signs Date Time Temp Pulse Resp B/P (MAP) Pulse Ox O2 Delivery O2 Flow Rate FiO2 05/26/17 07:45 98.0 65 17 186/101 (129) 99 05/26/17 07:14 60 05/26/17 06:00 63 05/26/17 05:00 69 05/26/17 04:00 65 05/26/17 04:00 98.2 65 18 149/79 (102) 96 05/26/17 04:00 Room Air 05/26/17 03:00 71 05/26/17 02:00 70 05/26/17 01:00 74 05/26/17 00:00 Room Air 05/26/17 00:00 98.0 76 18 157/93 (114) 97 05/26/17 00:00 76 05/25/17 23:00 74 05/25/17 22:00 80 05/25/17 21:00 85 05/25/17 20:00 82 05/25/17 20:00 98.2 82 18 155/91 (112) 97 05/25/17 18:00 73 05/25/17 17:00 62 05/25/17 17:00 98.0 76 18 158/97 (117) 98 05/25/17 16:00 63 05/25/17 15:00 66 05/25/17 14:00 68 05/25/17 13:00 68 05/25/17 12:13 98.4 69 16 142/65 (90) 100 05/25/17 11:00 67 05/25/17 10:00 61 I/O 05/25/17 05/25/17 05/25/17 05/26/17 05/26/17 05/26/17 07:00 15:00 23:00 07:00 15:00 23:00 Intake Total 300 ml 700 ml 700 ml 1280 ml Output Total 750 ml 800 ml Balance 300 ml 700 ml -50 ml 480 ml Intake Oral 480 ml IV Total 300 ml 700 ml 700 ml 800 ml Output Urine Total 750 ml 800 ml # Voids 2 # Bowel Movements 0 Physical Exam GENERAL: This is a well-nourished, well-developed patient, in no apparent distress. CARDIOVASCULAR: Regular rate and rhythm without murmurs, gallops, or rubs. RESPIRATORY: Clear to auscultation. Breath sounds equal bilaterally. No wheezes , rales, or rhonchi. GASTROINTESTINAL: Abdomen soft, non-tender, nondistended. Normal active bowel sounds MUSCULOSKELETAL: Extremities without clubbing, cyanosis, or edema. NEURO: Alert & Oriented x4 to person, place, time, situation. Moves all ext x4 Imaging Last Impressions Head CT 05/24/171922 Signed Impressions: Service Date/Time: Wednesday, May 24, 2017 19:41 - CONCLUSION: Stable CT brain scan as described. No acute intracranial abnormality or change Jonathan Cunningham MD Chest X-Ray 05/24/171922 Signed Impressions: Service Date/Time: Wednesday, May 24, 2017 19:29 - CONCLUSION: No acute disease. Jonathan Cunningham MD Assessment and Plan Problem List: (1) Syncope ICD Codes: R55 - Syncope and collapse (2) Encephalopathy ICD Codes: G93.40 - Encephalopathy, unspecified (3) Elevated troponin ICD Codes: R74.8 - Abnormal levels of other serum enzymes Assessment and Plan Similar presentation to over the Summer, but with lower troponins. Cath was considered at that time, but not done due to poor mental status. Similar situation here, pt doesn't know why tara is here. Will defer to Dr. Hanson as to whether he should go for cath or continue w/ medical mgt. IF he was cathed and no CAD, could consider 30-day holter vs loop recorder to evaluate for continued syncopal episodes. Given poor mental status, could also consider neurologic workup, ? SZ disorder. One of my partners will resume care in the AM Robin Sahni MD May 26, 2017 09:05
[2017-05-26] MEDS ORDERED: INFLUENZA VIRUS VACCINE (QUADRIVALENT) 0.5 ML SYR IM ONE (10:00)
[2017-05-26] MEDS: ATORVASTATIN 80 MG TAB PO SCH (21:27)
[2017-05-26] MEDS: INSULIN DETEMIR 100 UNITS/ML VIAL SQ SCH (21:28)
[2017-05-27] VITALS (25 sets, daily range): BP systolic 152–183; BP diastolic 70–98; PULSE 62–87; RESP 16–18; TEMP 97.3–98.5; O2SAT 97–99
[2017-05-27] MEDS: SODIUM CHLOR 0.9% 1000 ML INJ 1,000 ML IV SCH (05:08)
[2017-05-27] MEDS: LEVOTHYROXINE SODIUM 50 MCG TAB PO SCH (05:10)
[2017-05-27 07:02] LABS: AUTOMATED NEUTROPHIL # 4.6 TH/MM3 (1.8-7.7); BASOPHIL # 0.1 TH/MM3 (0-0.2); BASOPHIL % 0.9 % (0.0-2.0); EOSINOPHIL # 0.2 TH/MM3 (0-0.4); EOSINOPHIL % 2.8 % (0.0-4.0); HEMATOCRIT 34.9 % (39.0-51.0); HEMO FLAGS DIFF FINAL; LYMPH % 34.5 % (9.0-44.0); LYMPHOCYTE # 2.8 TH/MM3 (1.0-4.8); MEAN CELL VOLUME 89.8 FL (80.0-100.0); MEAN CORPUSCULAR HEMOGLOBIN 29.9 PG (27.0-34.0); MEAN CORPUSCULAR HGB CONC 33.3 % (32.0-36.0); MONO % 6.4 % (0.0-8.0); NEUT % 55.4 % (16.0-70.0); PLATELET COUNT 333 TH/MM3 (150-450); RED BLOOD COUNT 3.88 MIL/MM3 (4.50-5.90); RED CELL DISTRIBUTION WIDTH 14.6 % (11.6-17.2); WHITE BLOOD COUNT 8.2 TH/MM3 (4.0-11.0)
[2017-05-27 07:31] LABS: BICARBONATE 28.7 MEQ/L (21.0-32.0)
[2017-05-27 07:32] LABS: POTASSIUM 3.9 MEQ/L (3.5-5.1)
--- NOTE | 2017-05-27 09:49 | HHI.PR ---
Subjective Remarks Patient says he is feeling all right. Denies any chest pain or shortness of breath. Denies any nausea or vomiting. Allergic location, not date or year. Objective Vital Signs Date Time Temp Pulse Resp B/P (MAP) Pulse Ox O2 Delivery O2 Flow Rate FiO2 05/27/17 08:00 62 05/27/17 07:00 98.4 65 16 174/79 (110) 99 05/27/17 07:00 63 05/27/17 06:00 64 05/27/17 05:00 64 05/27/17 04:28 69 18 158/88 (111) 99 05/27/17 04:28 99 Room Air 05/27/17 04:00 62 05/27/17 03:00 64 05/27/17 02:00 68 05/27/17 01:00 62 05/27/17 00:00 64 05/26/17 23:33 98 Room Air 05/26/17 23:31 73 18 162/91 (114) 98 05/26/17 23:00 69 05/26/17 22:00 68 05/26/17 21:00 72 05/26/17 20:00 97 Room Air 05/26/17 20:00 84 05/26/17 20:00 98.5 70 18 153/69 (97) 97 05/26/17 19:00 67 05/26/17 18:02 65 05/26/17 17:06 65 05/26/17 16:08 62 05/26/17 15:07 60 05/26/17 15:05 Room Air 05/26/17 15:03 97.9 69 18 169/99 (122) 99 05/26/17 13:02 64 05/26/17 12:30 59 05/26/17 11:21 97.9 62 17 161/92 (115) 97 05/26/17 11:00 57 05/26/17 10:00 54 I/O 05/26/17 05/26/17 05/26/17 05/27/17 05/27/17 05/27/17 07:00 15:00 23:00 07:00 15:00 23:00 Intake Total 1280 ml 1493 ml 1500 ml Output Total 800 ml 750 ml 200 ml Balance 480 ml 743 ml 1300 ml Intake Oral 480 ml 720 ml 500 ml IV Total 800 ml 773 ml 1000 ml Output Urine Total 800 ml 750 ml 200 ml # Voids 4 # Bowel Movements 0 0 Result Diagram: 05/27/1752905/27/17529 Objective Remarks GENERAL: Patient lying in bed. Appears comfortable. Alert to [facility]. Disoriented otherwise. She is pleasant and agreeable. SKIN: Warm and dry. HEAD: Normocephalic. EYES: No scleral icterus. No injection or drainage. NECK: Supple, trachea midline. No JVD. CARDIOVASCULAR: Regular rate and rhythm without murmurs, gallops, or rubs. RESPIRATORY: Breath sounds equal bilaterally. No accessory muscle use. GASTROINTESTINAL: Abdomen soft, non-tender, nondistended. MUSCULOSKELETAL: No cyanosis, or edema. BACK: Nontender without obvious deformity. No CVA tenderness. A/P Assessment and Plan // Encephalopathy: Found lying in grass outside his home, no injuries noted. CT Head w/ no acute findings. neurology consult appreciated;believed that the altered mental status is due to recrudescence of remote stroke symptoms on a baseline of cognitive decline. no further neurological work-up recommended at this time. continue neuro-checks and PT. = 05/27 Suspect this is likely hospital-induced delirium. Continue reorientation, lights on during the day, off at night. //Elevated Trop: w/ no acute ischemia. Recent admit 04/27 w/ Trop 10.0, s/p eval by Dr. Hanson w/ no emergent cardiac intervention indicated, plan for outpatient follow up. cardiology consult appreciated; decision for cardiac cath probably this week depending on his mental status. continue aspirin, Statin, B-wyatt. = 05/27 Follow-up Dr. Hanson recommendations. Appreciate assistance. // Anemia: stable- will monitor. = 05/27. Hemoglobin 11.6. No signs of bleeding. Continue to monitor. //HTN: overall better- continue metoprolol. // DM: better controlled. BS 403 on arrival. continue Levemir, Sliding scale w / Accu-Cheks. Hgb A1c 12.0 on 04/03/17. = 05/27. Hemoglobin in the 200s. Levemir was adjusted yesterday. Continue current regimen. Continue to monitor. Await a bit counselor. // Lactic Acidosis:resolved. Lactate 2.2, no evidence of sepsis. WBC normal. No signs of infection. // COPD: Chronic Respiratory Failure. Stable. DuoNeb prn if needed. CXR w/ no acute findings. // DVT Prophylaxis: Heparin sq Discharge Planning PT evaluation appreciated. - dc planning to SNF. -Follow up cardiology recommendations. -Depending on cardiology recommendations could go to SNF within the next 1-2 days. Damir Marcelino MD May 27, 2017 09:49
[2017-05-27] MEDS: SODIUM CHLORIDE 0.9% FLUSH 10 ML FLUSH IV FLUSH SCH ×2 (10:24→21:00)
[2017-05-27] MEDS: ASPIRIN EC 81 MG TABEC PO SCH (10:24)
[2017-05-27] MEDS: METOPROLOL TARTRATE 25 MG TAB PO SCH ×2 (10:24→21:13)
[2017-05-27] MEDS: DOCUSATE SODIUM 50 MG/SENNA 8.6 MG TAB PO SCH ×2 (10:24→21:13)
[2017-05-27] MEDS: INSULIN ASPART SUPPLEMENTAL SCALE SQ SCH ×4 (10:25→21:00)
[2017-05-27] MEDS: HEPARIN SODIUM - SQ 10,000 UNITS/ML VIAL SQ SCH ×2 (10:25→21:13)
--- NOTE | 2017-05-27 11:48 | PD.CARD.PN ---
Subjective Subjective Remarks Appears well No chest pain Somewhat oriented better that notes before? Objective Medications Current Medications Medications (Trade) Dose Ordered Sig/Nolvia Route Start Time Stop Time Status Last Admin (Levemir Inj) 5 units HS SQ 05/24/17 22:00 05/26/17 21:28 (D50w (Vial) Inj) 50 ml UNSCH PRN IV PUSH 05/24/17 22:00 (Glucagon Inj) 1 mg UNSCH PRN OTHER 05/24/17 22:00 (NovoLOG SUPPLEMENTAL SCALE) 1 ACHS SLIDING SCALE SQ 05/25/17 08:00 05/27/17 10:25 Sodium Chloride 1,000 ml @ 60 mls/hr [id number] IV 05/24/17 21:57 05/27/17 05:08 (NS Flush) 2 ml UNSCH PRN IV FLUSH 05/24/17 22:00 (NS Flush) 2 ml BID IV FLUSH 05/25/17 09:00 05/27/17 10:24 (Zofran Inj) 4 mg Q6H PRN IVP 05/24/17 22:00 05/25/17 00:12 (Heparin Inj) 5,000 units Q12H SQ 05/25/17 09:00 05/27/17 10:25 (Tylenol) 650 mg Q6H PRN PO 05/24/17 22:00 ([place] 5-325 Mg) 1 tab Q4H PRN PO 05/24/17 22:00 (Morphine Inj) 2 mg Q3H PRN IV PUSH 05/24/17 22:00 (Yamel-Colace) 1 tab BID PO 05/25/17 09:00 05/27/17 10:24 (Milk Of Magnesia Liq) 30 ml Q12H PRN PO 05/24/17 22:00 (Senokot) 17.2 mg Q12H PRN PO 05/24/17 22:00 (Dulcolax Supp) 10 mg DAILY PRN RECTAL 05/24/17 22:00 (Lactulose Liq) 30 ml DAILY PRN PO 05/24/17 22:00 (Ecotrin Ec) 81 mg DAILY PO 05/25/17 09:00 05/27/17 10:24 (Lopressor) 25 mg Q12HR PO 05/25/17 09:00 05/27/17 10:24 (Duoneb Neb) 1 ampule Q4HR NEB PRN NEB 05/24/17 22:30 (Lipitor) 80 mg HS PO 05/25/17 21:00 05/26/17 21:27 (Synthroid) 50 mcg DAILY@0600 PO 05/25/17 09:00 05/27/17 05:10 Vital Signs / I&O Vital Signs Date Time Temp Pulse Resp B/P (MAP) Pulse Ox O2 Delivery O2 Flow Rate FiO2 05/27/17 11:00 71 05/27/17 10:00 74 05/27/17 09:00 68 05/27/17 08:00 62 05/27/17 07:00 98.4 65 16 174/79 (110) 99 05/27/17 07:00 63 05/27/17 06:00 64 05/27/17 05:00 64 05/27/17 04:28 69 18 158/88 (111) 99 05/27/17 04:28 99 Room Air 05/27/17 04:00 62 05/27/17 03:00 64 05/27/17 02:00 68 05/27/17 01:00 62 05/27/17 00:00 64 05/26/17 23:33 98 Room Air 05/26/17 23:31 73 18 162/91 (114) 98 05/26/17 23:00 69 05/26/17 22:00 68 05/26/17 21:00 72 05/26/17 20:00 97 Room Air 05/26/17 20:00 84 05/26/17 20:00 98.5 70 18 153/69 (97) 97 05/26/17 19:00 67 05/26/17 18:02 65 05/26/17 17:06 65 05/26/17 16:08 62 05/26/17 15:07 60 05/26/17 15:05 Room Air 05/26/17 15:03 97.9 69 18 169/99 (122) 99 05/26/17 13:02 64 05/26/17 12:30 59 I/O 05/26/17 05/26/17 05/26/17 05/27/17 05/27/17 05/27/17 07:00 15:00 23:00 07:00 15:00 23:00 Intake Total 1280 ml 1493 ml 1500 ml Output Total 800 ml 750 ml 200 ml Balance 480 ml 743 ml 1300 ml Intake Oral 480 ml 720 ml 500 ml IV Total 800 ml 773 ml 1000 ml Output Urine Total 800 ml 750 ml 200 ml # Voids 4 # Bowel Movements 0 0 Physical Exam GENERAL: NAD SKIN: Warm and dry. HEAD: Atraumatic. Normocephalic. EYES: Pupils equal and round. No scleral icterus. No injection or drainage. ENT: No nasal bleeding or discharge. Mucous membranes pink and moist. NECK: Trachea midline. No JVD. CARDIOVASCULAR: Regular rate and rhythm. RESPIRATORY: No accessory muscle use. Clear to auscultation. Breath sounds equal bilaterally. GASTROINTESTINAL: Abdomen soft, non-tender, nondistended. Hepatic and splenic margins not palpable. MUSCULOSKELETAL: Extremities without clubbing, cyanosis, or edema. No obvious deformities. NEUROLOGICAL: Awake and alert. No obvious cranial nerve deficits. Motor grossly within normal limits. Five out of 5 muscle strength in the arms and legs. Normal speech. PSYCHIATRIC: Appropriate mood and affect; insight and judgment normal. Laboratory Laboratory Tests Test 05/27/17 05:30 White Blood Count 8.2 TH/MM3 Red Blood Count 3.88 MIL/MM3 Hemoglobin 11.6 GM/DL Hematocrit 34.9 % Mean Corpuscular Volume 89.8 FL Mean Corpuscular Hemoglobin 29.9 PG Mean Corpuscular Hemoglobin Concent 33.3 % Red Cell Distribution Width 14.6 % Platelet Count 333 TH/MM3 Mean Platelet Volume 9.3 FL Neutrophils (%) (Auto) 55.4 % Lymphocytes (%) (Auto) 34.5 % Monocytes (%) (Auto) 6.4 % Eosinophils (%) (Auto) 2.8 % Basophils (%) (Auto) 0.9 % Neutrophils # (Auto) 4.6 TH/MM3 Lymphocytes # (Auto) 2.8 TH/MM3 Monocytes # (Auto) 0.5 TH/MM3 Eosinophils # (Auto) 0.2 TH/MM3 Basophils # (Auto) 0.1 TH/MM3 CBC Comment DIFF FINAL Differential Comment Blood Urea Nitrogen 17 MG/DL Creatinine 0.66 MG/DL Random Glucose 265 MG/DL Calcium Level 8.8 MG/DL Sodium Level 139 MEQ/L Potassium Level 3.9 MEQ/L Chloride Level 101 MEQ/L Carbon Dioxide Level 28.7 MEQ/L Anion Gap 9 MEQ/L Estimat Glomerular Filtration Rate 120 ML/MIN Assessment and Plan Problem List: (1) Syncope ICD Codes: R55 - Syncope and collapse (2) Encephalopathy ICD Codes: G93.40 - Encephalopathy, unspecified (3) Elevated troponin ICD Codes: R74.8 - Abnormal levels of other serum enzymes Assessment and Plan 1) ? Encephalopathy, probably around baseline 2) Elevated troponin, concern for multiple episodes of elevations and found on his lawn, last hospitalization trop ~10 one month ago 3) Will plan for cardiac catheterization in the morning to evaluate CAD NPO after midnight Yuri Jimenez DO May 27, 2017 11:48
[2017-05-27] MEDS: INSULIN DETEMIR 100 UNITS/ML VIAL SQ SCH (21:00)
[2017-05-27] MEDS: ATORVASTATIN 80 MG TAB PO SCH (21:13)
[2017-05-28] VITALS (29 sets, daily range): BP systolic 122–186; BP diastolic 74–103; PULSE 60–76; RESP 16; TEMP 97.7–98.4; O2SAT 97–99
[2017-05-28] MEDS: hydrALAZINE HCL 20 MG/ML VIAL IV PUSH PRN ×2 (00:17→09:00)
[2017-05-28] MEDS: ACETAMINOPHEN 325 MG TAB PO PRN ×3 (01:32→20:57)
[2017-05-28] MEDS: SODIUM CHLOR 0.9% 1000 ML INJ 1,000 ML IV SCH ×2 (01:32→20:55)
[2017-05-28] MEDS: LEVOTHYROXINE SODIUM 50 MCG TAB PO SCH (06:46)
[2017-05-28] MEDS: INSULIN ASPART SUPPLEMENTAL SCALE SQ SCH ×4 (08:00→20:53)
[2017-05-28] MEDS: DOCUSATE SODIUM 50 MG/SENNA 8.6 MG TAB PO SCH ×2 (08:59→20:52)
[2017-05-28] MEDS: SODIUM CHLORIDE 0.9% FLUSH 10 ML FLUSH IV FLUSH SCH ×2 (08:59→20:53)
[2017-05-28] MEDS: ASPIRIN EC 81 MG TABEC PO SCH (08:59)
[2017-05-28] MEDS: METOPROLOL TARTRATE 25 MG TAB PO SCH ×2 (08:59→20:52)
[2017-05-28] MEDS: HEPARIN SODIUM - SQ 10,000 UNITS/ML VIAL SQ SCH ×2 (09:00→20:52)
--- NOTE | 2017-05-28 12:33 | PD.CARD.PN ---
Subjective Subjective Remarks Appears well No chest pain Somewhat oriented better that notes before, but still doesn't know time/person Objective Medications Current Medications Medications (Trade) Dose Ordered Sig/Nolvia Route Start Time Stop Time Status Last Admin (Levemir Inj) 5 units HS SQ 05/24/17 22:00 05/26/17 21:28 (D50w (Vial) Inj) 50 ml UNSCH PRN IV PUSH 05/24/17 22:00 (Glucagon Inj) 1 mg UNSCH PRN OTHER 05/24/17 22:00 (NovoLOG SUPPLEMENTAL SCALE) 1 ACHS SLIDING SCALE SQ 05/25/17 08:00 05/28/17 11:39 Sodium Chloride 1,000 ml @ 60 mls/hr [id number] IV 05/24/17 21:57 05/28/17 01:32 (NS Flush) 2 ml UNSCH PRN IV FLUSH 05/24/17 22:00 (NS Flush) 2 ml BID IV FLUSH 05/25/17 09:00 05/28/17 08:59 (Zofran Inj) 4 mg Q6H PRN IVP 05/24/17 22:00 05/25/17 00:12 (Heparin Inj) 5,000 units Q12H SQ 05/25/17 09:00 05/28/17 09:00 (Tylenol) 650 mg Q6H PRN PO 05/24/17 22:00 05/28/17 01:32 ([place] 5-325 Mg) 1 tab Q4H PRN PO 05/24/17 22:00 (Morphine Inj) 2 mg Q3H PRN IV PUSH 05/24/17 22:00 (Yamel-Colace) 1 tab BID PO 05/25/17 09:00 05/28/17 08:59 (Milk Of Magnesia Liq) 30 ml Q12H PRN PO 05/24/17 22:00 (Senokot) 17.2 mg Q12H PRN PO 05/24/17 22:00 (Dulcolax Supp) 10 mg DAILY PRN RECTAL 05/24/17 22:00 (Lactulose Liq) 30 ml DAILY PRN PO 05/24/17 22:00 (Ecotrin Ec) 81 mg DAILY PO 05/25/17 09:00 05/28/17 08:59 (Lopressor) 25 mg Q12HR PO 05/25/17 09:00 05/28/17 08:59 (Duoneb Neb) 1 ampule Q4HR NEB PRN NEB 05/24/17 22:30 (Lipitor) 80 mg HS PO 05/25/17 21:00 05/27/17 21:13 (Synthroid) 50 mcg DAILY@0600 PO 05/25/17 09:00 05/28/17 06:46 (Apresoline Inj) 10 mg Q30M PRN IV PUSH 05/27/17 23:30 05/28/17 09:00 Vital Signs / I&O Vital Signs Date Time Temp Pulse Resp B/P (MAP) Pulse Ox O2 Delivery O2 Flow Rate FiO2 05/28/17 12:06 65 05/28/17 11:31 99 Room Air 05/28/17 11:31 97.8 62 16 147/79 (101) 99 05/28/17 11:08 63 05/28/17 10:00 64 05/28/17 09:10 63 05/28/17 08:36 98 Room Air 05/28/17 08:36 69 16 186/103 (130) 98 05/28/17 08:26 61 05/28/17 07:06 62 05/28/17 06:00 62 05/28/17 05:00 63 05/28/17 04:00 64 05/28/17 04:00 97 Room Air 05/28/17 04:00 98.4 64 16 160/85 (110) 97 05/28/17 03:00 66 05/28/17 02:00 62 05/28/17 01:30 137/74 (95) 05/28/17 01:00 64 05/28/17 00:30 164/89 (114) 05/28/17 00:00 66 05/27/17 23:00 64 05/27/17 23:00 98 Room Air 05/27/17 23:00 98.3 63 16 183/98 (126) 98 05/27/17 22:00 68 05/27/17 21:00 72 05/27/17 20:00 98.5 76 16 152/92 (112) 98 05/27/17 20:00 74 05/27/17 20:00 98 Room Air 05/27/17 19:00 68 05/27/17 18:00 87 05/27/17 17:00 73 05/27/17 16:21 77 05/27/17 15:00 97.3 77 18 154/70 (98) 97 05/27/17 15:00 Room Air 05/27/17 15:00 82 05/27/17 14:16 74 05/27/17 13:00 78 I/O 05/27/17 05/27/17 05/27/17 05/28/17 05/28/17 05/28/17 07:00 15:00 23:00 07:00 15:00 23:00 Intake Total 1500 ml 650 ml 765 ml Output Total 200 ml 900 ml 525 ml Balance 1300 ml -250 ml 240 ml Intake Oral 500 ml 650 ml 240 ml IV Total 1000 ml 525 ml Output Urine Total 200 ml 900 ml 525 ml # Voids 4 # Bowel Movements 0 Physical Exam GENERAL: NAD SKIN: Warm and dry. HEAD: Atraumatic. Normocephalic. EYES: Pupils equal and round. No scleral icterus. No injection or drainage. ENT: No nasal bleeding or discharge. Mucous membranes pink and moist. NECK: Trachea midline. No JVD. CARDIOVASCULAR: Regular rate and rhythm. RESPIRATORY: No accessory muscle use. Clear to auscultation. Breath sounds equal bilaterally. GASTROINTESTINAL: Abdomen soft, non-tender, nondistended. Hepatic and splenic margins not palpable. MUSCULOSKELETAL: Extremities without clubbing, cyanosis, or edema. No obvious deformities. NEUROLOGICAL: Awake and alert. No obvious cranial nerve deficits. Motor grossly within normal limits. Five out of 5 muscle strength in the arms and legs. Normal speech. PSYCHIATRIC: Appropriate mood and affect; insight and judgment normal. Laboratory Laboratory Tests Test 05/27/17 05:30 White Blood Count 8.2 TH/MM3 (4.0-11.0) Red Blood Count 3.88 MIL/MM3 (4.50-5.90) Hemoglobin 11.6 GM/DL (13.0-17.0) Hematocrit 34.9 % (39.0-51.0) Mean Corpuscular Volume 89.8 FL (80.0-100.0) Mean Corpuscular Hemoglobin 29.9 PG (27.0-34.0) Mean Corpuscular Hemoglobin Concent 33.3 % (32.0-36.0) Red Cell Distribution Width 14.6 % (11.6-17.2) Platelet Count 333 TH/MM3 (150-450) Mean Platelet Volume 9.3 FL (7.0-11.0) Neutrophils (%) (Auto) 55.4 % (16.0-70.0) Lymphocytes (%) (Auto) 34.5 % (9.0-44.0) Monocytes (%) (Auto) 6.4 % (0.0-8.0) Eosinophils (%) (Auto) 2.8 % (0.0-4.0) Basophils (%) (Auto) 0.9 % (0.0-2.0) Neutrophils # (Auto) 4.6 TH/MM3 (1.8-7.7) Lymphocytes # (Auto) 2.8 TH/MM3 (1.0-4.8) Monocytes # (Auto) 0.5 TH/MM3 (0-0.9) Eosinophils # (Auto) 0.2 TH/MM3 (0-0.4) Basophils # (Auto) 0.1 TH/MM3 (0-0.2) CBC Comment DIFF FINAL Differential Comment Blood Urea Nitrogen 17 MG/DL (7-18) Creatinine 0.66 MG/DL (0.60-1.30) Random Glucose 265 MG/DL (74-106) Calcium Level 8.8 MG/DL (8.5-10.1) Sodium Level 139 MEQ/L (136-145) Potassium Level 3.9 MEQ/L (3.5-5.1) Chloride Level 101 MEQ/L (98-107) Carbon Dioxide Level 28.7 MEQ/L (21.0-32.0) Anion Gap 9 MEQ/L (5-15) Estimat Glomerular Filtration Rate 120 ML/MIN (>89) Assessment and Plan Problem List: (1) Syncope ICD Codes: R55 - Syncope and collapse (2) Encephalopathy ICD Codes: G93.40 - Encephalopathy, unspecified (3) Elevated troponin ICD Codes: R74.8 - Abnormal levels of other serum enzymes Assessment and Plan 1) ? Encephalopathy, probably around baseline 2) Elevated troponin, concern for multiple episodes of elevations and found on his lawn, last hospitalization trop ~10 one month ago 3) Planned for cardiac catheterization Unable to consent due to confused baseline state Case management attempting to find family to consent for the procedure Yuri Burgess DO May 28, 2017 12:33
--- NOTE | 2017-05-28 13:38 | HHI.PR ---
Subjective Remarks Patient reports he is doing okay. He denies chest pain or shortness of breath currently. States they need someone responsible for consent before they can do his heart catheterization. Notes reviewed, case management attempting to locate family for consent for heart catheterization. Objective Vitals Vital Signs Date Time Temp Pulse Resp B/P (MAP) Pulse Ox O2 Delivery O2 Flow Rate FiO2 05/28/17 12:06 65 05/28/17 11:31 99 Room Air 05/28/17 11:31 97.8 62 16 147/79 (101) 99 05/28/17 11:08 63 05/28/17 10:00 64 05/28/17 09:10 63 05/28/17 08:36 98 Room Air 05/28/17 08:36 69 16 186/103 (130) 98 05/28/17 08:26 61 05/28/17 07:06 62 05/28/17 06:00 62 05/28/17 05:00 63 05/28/17 04:00 64 05/28/17 04:00 97 Room Air 05/28/17 04:00 98.4 64 16 160/85 (110) 97 05/28/17 03:00 66 05/28/17 02:00 62 05/28/17 01:30 137/74 (95) 05/28/17 01:00 64 05/28/17 00:30 164/89 (114) 05/28/17 00:00 66 05/27/17 23:00 64 05/27/17 23:00 98 Room Air 05/27/17 23:00 98.3 63 16 183/98 (126) 98 05/27/17 22:00 68 05/27/17 21:00 72 05/27/17 20:00 98.5 76 16 152/92 (112) 98 05/27/17 20:00 74 05/27/17 20:00 98 Room Air 05/27/17 19:00 68 05/27/17 18:00 87 05/27/17 17:00 73 05/27/17 16:21 77 05/27/17 15:00 97.3 77 18 154/70 (98) 97 05/27/17 15:00 Room Air 05/27/17 15:00 82 05/27/17 14:16 74 I/O 10/05/27/17 05/27/17 05/28/17 05/28/17 05/28/17 07:00 15:00 23:00 07:00 15:00 23:00 Intake Total 1500 ml 650 ml 765 ml Output Total 200 ml 900 ml 525 ml Balance 1300 ml -250 ml 240 ml Intake Oral 500 ml 650 ml 240 ml IV Total 1000 ml 525 ml Output Urine Total 200 ml 900 ml 525 ml # Voids 4 # Bowel Movements 0 Result Diagram: 05/27/1752905/27/17529 Imaging Last Impressions Head CT 05/24/171922 Signed Impressions: Service Date/Time: Wednesday, May 24, 2017 19:41 - CONCLUSION: Stable CT brain scan as described. No acute intracranial abnormality or change Jonathan Cunningham MD Chest X-Ray 05/24/171922 Signed Impressions: Service Date/Time: Wednesday, May 24, 2017 19:29 - CONCLUSION: No acute disease. Jonathan Cunningham MD Objective Remarks GENERAL: This is a well-nourished, well-developed patient, in no apparent distress. CARDIOVASCULAR: Normal rate and regular rhythm without murmurs, gallops, or rubs. RESPIRATORY: Good respiratory efforts. Breath sounds equal and clear to auscultation bilaterally. GASTROINTESTINAL: Abdomen soft, non-tender, non-distended. Normal active bowel sounds MUSCULOSKELETAL: Extremities without cyanosis, or edema. NEURO: He is aware of self and place but does not know the year. Does not really understand his current situation. PSYCH: Calm A/P Problem List: (1) Encephalopathy ICD Code: G93.40 - Encephalopathy, unspecified (2) Elevated troponin ICD Code: R74.8 - Abnormal levels of other serum enzymes (3) Anemia ICD Code: D64.9 - Anemia, unspecified (4) HTN (hypertension) ICD Code: I10 - Essential (primary) hypertension (5) COPD (chronic obstructive pulmonary disease) ICD Code: J44.9 - Chronic obstructive pulmonary disease, unspecified (6) Lactic acidosis ICD Code: E87.2 - Acidosis (7) DM (diabetes mellitus) ICD Code: E11.9 - Type 2 diabetes mellitus without complications (8) Tobacco abuse ICD Code: Z72.0 - Tobacco use Assessment and Plan 71-year-old male was found down on the lawn. Neurology following, believe altered mental status is due to remote stroke and cognitive decline. The patient presented with elevated troponin as well. Cardiology is following and plan to do a heart catheterization once consent can be obtained. Encephalopathy: Found lying in grass outside his home, no injuries noted. CT Head w/ no acute findings. Patient appeared to be at his baseline. He is oriented to self and place but not the year. Unclear if he has capacity to make medical decisions at this time. Consult psychiatry to assess for capacity. no further neurological work-up recommended at this time. continue neuro-checks and PT. Elevated Trop: Recent admit 04/27 w/ Trop 10 Cardiology following and planning for catheterization once consent can be obtained. continue aspirin, Statin, B-wyatt. Anemia: stable. Continue to monitor. HTN: Continue metoprolol. DM: better controlled. BS 403 on arrival. continue Levemir, Sliding scale w/ Accu-Cheks. Hgb A1c 12.0 on 04/03/17. DVT Prophylaxis: Heparin sq Discharge Planning - dc planning to SNF. -Follow up cardiology recommendations. Psychiatry consulted to assess capacity. No family readily available to assist with medical decision-making. -Depending on cardiology recommendations could go to SNF within the next 1-2 days. Libby Wilson MD May 28, 2017 13:38
[2017-05-28] MEDS: ATORVASTATIN 80 MG TAB PO SCH (20:52)
[2017-05-28] MEDS: INSULIN DETEMIR 100 UNITS/ML VIAL SQ SCH (20:53)
[2017-05-29] VITALS (22 sets, daily range): BP systolic 152–188; BP diastolic 90–98; PULSE 62–82; RESP 16–18; TEMP 97.5–98.4; O2SAT 97–99
[2017-05-29] MEDS: ACETAMINOPHEN 325 MG TAB PO PRN (03:08)
[2017-05-29] MEDS: hydrALAZINE HCL 20 MG/ML VIAL IV PUSH PRN (03:09)
[2017-05-29] MEDS: LEVOTHYROXINE SODIUM 50 MCG TAB PO SCH (06:13)
[2017-05-29] MEDS: INSULIN ASPART SUPPLEMENTAL SCALE SQ SCH ×4 (08:00→21:42)
[2017-05-29] MEDS: SODIUM CHLORIDE 0.9% FLUSH 10 ML FLUSH IV FLUSH SCH ×2 (09:00→21:31)
[2017-05-29] MEDS: ASPIRIN EC 81 MG TABEC PO SCH (09:27)
[2017-05-29] MEDS: HEPARIN SODIUM - SQ 10,000 UNITS/ML VIAL SQ SCH ×2 (09:27→21:31)
[2017-05-29] MEDS: DOCUSATE SODIUM 50 MG/SENNA 8.6 MG TAB PO SCH ×2 (09:27→21:31)
[2017-05-29] MEDS: METOPROLOL TARTRATE 25 MG TAB PO SCH ×2 (09:28→21:31)
[2017-05-29] MEDS: ACETAMINOPHEN/HYDROcodone 325 MG/5 MG TAB PO PRN (09:28)
--- NOTE | 2017-05-29 12:03 | PD.PSY.CON ---
Provisional Diagnosis Admission Date May 24, 2017 at 21:55 [place] I. Delirium Hur[place] II. deferred History of Present Illness Service Psychiatry Consult Requested By Dr. Wilson Reason for Consult Assessment of capacity Primary Care Physician Unknown HPI The patient is a 71-year-old man, domiciled in [place] with a roommate, single, supported by Social Security, poor family and social support, without any previous psychiatric history, no previous psychiatric hospitalizations, no previous suicidal attempts, with medical history of HTN, Hyperlipidemia, DM, COPD, Tobacco Abuse and noncompliance was brought to the ER by EMS after being found lying in the grass outside of his home. At the moment of the arrival the patient was significantly poor historian, only reports that he did not feel well. Per EMS, BS elevated at 450, s/p 1L IVF. On arrival, BP 206/110, HR 71, O2 sat 97% on RA, Afebrile. WBC 11.2. Hemoglobin 8.8, previously 11.9 on 05/03/17. BS 403. Lactic Acid 2.2. Trop 0.17. EKG w/ no acute ischemia. Recent admit 04/27-05/04/17 for similar presentation, found down at home, respiratory distress while in ER, s/p intubation, Elevated Trop 10.0, s /p eval by Dr. Hanson, no emergent cardiac intervention, plan for outpatient follow up. Echo 04/28/17 w/ EF 60-65%. Admitted withn Encephalopathy : Found lying in grass outside his home, no injuries noted. CT Head w/ no acute findings. Elevated Trop: Recent admit 04/27 w/ Trop 10. Cardiology following and planning for catheterization once consent can be obtained. Patient was consulted to psychiatry for assessment of decision-making capacity. The patient is found eating his breakfast, patient is calm, cooperative, pleasant and in a very good spirit. Patient reports that he feels much better today. Patient is able to tell me that the reason he came to the hospital is because he was he can get of his yard he passed out. Patient reports good mood , he denies anhedonia, he denies hopelessness, he denies helplessness, he denies worthlessness, he denies problems with sleeping, appetite or concentration. Patient denies suicidal and homicidal ideation, patient denies visual and auditory hallucinations. Patient denies anxiety, he denies paranoia , denies safety concerns. Patient is fully oriented 3, no attention deficit, no confusion, no fluctuation of consciousness present. No agitation, no aggressive behavior, no disorganized ideas or behavior present at this moment. Patient is able to share plans for the future. He says that once he gets better he wants to go back to the community and find a new house to live. Patient is motivated to get medically better, to continue his medical treatment low medical recommendations. On mini Cog, there is not substantial cognitive impairment found. Patient has a good abstract thinking, executive function, recent and immediate recall, semantic memory. As per nursing charge, patient has been confused on and off, but not violence, no agitation, no major issues reported. I discussed with the patient DNI and DNR, and patient says that he would like every effort to be make in order to keep him alive if necessary. She cannot identify a health care by proxy at this moment. Review of Systems Constitutional: DENIES: Diaphoretic episodes, Fatigue, Fever, Weight gain, Weight loss, Chills, Dizziness, Change in appetite, Night Sweats Endocrine: DENIES: Heat/cold intolerance, Polydipsia, Polyuria, Polyphagia Eyes: DENIES: Blurred vision, Diplopia, Eye inflammation, Eye pain, Vision loss , Photosensitivity, Double Vision Ears, nose, mouth, throat: DENIES: Tinnitus, Hearing loss, Vertigo, Nasal discharge, Oral lesions, Throat pain, Hoarseness, Ear Pain, Running Nose, Epistaxis, Sinus Pain, Toothache, Odynophagia Respiratory: DENIES: Apneas, Cough, Snoring, Wheezing, Hemoptysis, Sputum production, Shortness of breath Cardiovascular: DENIES: Chest pain, Palpitations, Syncope, Dyspnea on Exertion , PND, Lower Extremity Edema, Orthopnea, Claudication Gastrointestinal: DENIES: Abdominal pain, Black stools, Bloody stools, Constipation, Diarrhea, Nausea, Vomiting, Difficulty Swallowing, Anorexia Musculoskeletal: DENIES: Joint pain, Muscle aches, Stiffness, Joint Swelling, Back pain, Neck pain Integumentary: DENIES: Abnormal pigmentation, Nail changes, Pruritus, Rash Hematologic/lymphatic: DENIES: Bruising, Lymphadenopathy Immunologic/allergic: DENIES: Eczema, Urticaria Neurologic: DENIES: Abnormal gait, Headache, Localized weakness, Paresthesias, Seizures, Speech Problems, Tremor, Poor Balance Psychiatric: DENIES: Anxiety, Confusion, Mood changes, Depression, Hallucinations, Agitation, Suicidal Ideation, Homicidal Ideation, Delusions Past Family Social History Coded Allergies: No Known Allergies (Verified , 05/24/17) Active Scripts Insulin Detemir Inj (Levemir Inj) 1,000 unit/ 10 ML Vial, 5 UNITS SQ HS for Blood Sugar Management, #30 INJECTION Do not mix with any other Insulin. Prov:Luan Fuchs MD 05/04/17 Insulin Aspart Inj (Novolog Inj) 100 Unit/Ml Inj, 1 UNIT SQ Q4H for diabetes for 30 Days, INJECTION 0 Refills Prov:Luan Fuchs MD 05/03/[address] (Adult Aspirin EC Low Strength) 81 Mg Tabec, 81 MG PO DAILY for antiplatelet for 30 Days, #30 TAB 0 Refills Prov:Luan Fuchs MD 05/03/17 Carvedilol (Coreg) 3.125 Mg Tab, 3.125 MG PO Q12HR for hypertension for 30 Days , TAB 0 Refills Prov:Luan Fuchs MD 05/03/17 Levofloxacin (Levaquin) 750 Mg Tablet, 750 MG PO DAILY for infection for 8 Days , #8 TAB 0 Refills Prov:Luan Fuchs MD 05/03/17 Amoxicillin-Clavulanate (Augmentin) 500-125 mg Tab, 500 MG PO Q8HR for infection for 8 Days, TAB 0 Refills Prov:Luan Fuchs MD 05/03/17 Reported Medications Levothyroxine (Levothyroxine) 50 Mcg Tab, 50 MCG PO DAILY for Thyroid, #30 TAB 0 Refills 04/02/17 Atorvastatin (Atorvastatin) 80 Mg Tab, 80 MG PO HS for Cholesterol Management, # 30 TAB 0 Refills 04/02/17 Current Medications Medications (Trade) Dose Ordered Sig/Nolvia Route Start Time Stop Time Status Last Admin (Levemir Inj) 5 units HS SQ 05/24/17 22:00 05/28/17 20:53 (D50w (Vial) Inj) 50 ml UNSCH PRN IV PUSH 05/24/17 22:00 (Glucagon Inj) 1 mg UNSCH PRN OTHER 05/24/17 22:00 (NovoLOG SUPPLEMENTAL SCALE) 1 ACHS SLIDING SCALE SQ 05/25/17 08:00 05/28/17 17:00 Sodium Chloride 1,000 ml @ 60 mls/hr [id number] IV 05/24/17 21:57 05/28/17 20:55 (NS Flush) 2 ml UNSCH PRN IV FLUSH 05/24/17 22:00 (NS Flush) 2 ml BID IV FLUSH 05/25/17 09:00 05/28/17 20:53 (Zofran Inj) 4 mg Q6H PRN IVP 05/24/17 22:00 05/25/17 00:12 (Heparin Inj) 5,000 units Q12H SQ 05/25/17 09:00 05/29/17 09:27 (Tylenol) 650 mg Q6H PRN PO 05/24/17 22:00 05/29/17 03:08 ([place] 5-325 Mg) 1 tab Q4H PRN PO 05/24/17 22:00 05/29/17 09:28 (Morphine Inj) 2 mg Q3H PRN IV PUSH 05/24/17 22:00 (Yamel-Colace) 1 tab BID PO 05/25/17 09:00 05/29/17 09:27 (Milk Of Magnesia Liq) 30 ml Q12H PRN PO 05/24/17 22:00 (Senokot) 17.2 mg Q12H PRN PO 05/24/17 22:00 (Dulcolax Supp) 10 mg DAILY PRN RECTAL 05/24/17 22:00 (Lactulose Liq) 30 ml DAILY PRN PO 05/24/17 22:00 (Ecotrin Ec) 81 mg DAILY PO 05/25/17 09:00 05/29/17 09:27 (Lopressor) 25 mg Q12HR PO 05/25/17 09:00 05/29/17 09:28 (Duoneb Neb) 1 ampule Q4HR NEB PRN NEB 05/24/17 22:30 (Lipitor) 80 mg HS PO 05/25/17 21:00 05/28/17 20:52 (Synthroid) 50 mcg DAILY@0600 PO 05/25/17 09:00 05/29/17 06:13 (Apresoline Inj) 10 mg Q30M PRN IV PUSH 05/27/17 23:30 05/29/17 03:09 Family Psych History Patient denies family psychiatric history Social History Patient was born and raised in [place], he lives in [place] with a roommate, his single, supported by Social Security Patient's Strengths (min. 2) Verbal communication, no previous psychiatric history Physical Exam Vital Signs Vital Signs Date Time Temp Pulse Resp B/P (MAP) Pulse Ox O2 Delivery O2 Flow Rate FiO2 05/29/17 11:07 97.5 69 17 167/90 (115) 97 05/29/17 07:00 Nasal Cannula 2.00 I/O 05/29/17 05/29/17 05/30/17 08:00 16:00 00:00 Intake Total 984 ml Output Total 500 ml Balance 484 ml Mental Status Examination Appearance: Appropriate Consciousness: Alert Orientation: x4 Motor Activity: Normal gait Speech: Unremarkable Language: Adequate Fund of Knowledge: Adequate Attention and Concentration: Adequate Memory: Unremarkable Mood: Appropriate Affect: Appropriate Thought Process & Associations: Intact Thought Content: Appropriate Hallucination Type: None Delusion Type: None Suicidal Ideation: No Suicidal Plan: No Suicidal Intention: No Homicidal Ideation: No Homicidal Plan: No Homicidal Intention: No Insight: Adequate Judgment: Adequate Assessment & Plan Problem List: (1) Delirium ICD Codes: R41.0 - Disorientation, unspecified Assessment & Plan: On psychiatric evaluation today patient does not present any significant, acute or concerning evidence of depressive symptoms, acute anxiety, tiffanie or psychosis. Patient denies suicidal and homicidal ideation, he denies visual and auditory hallucinations. On cognitive assessment patient is fully oriented 3, with intact Mini Cog, no attention deficit, no fluctuation of consciousness, no gross cognitive impairment present at the moment of this evaluation. As per documentation review and discussion with nurse in charge, patient has been confused on and off, but today has been doing much better. In terms of capacity, since the patient is able to voice a rational choice of following medical recommendations, he is also able to verbalize a very decent understanding and appreciation of the reason of his hospitalization, medical conditions, and consequences of not following medical recommendations and taking treatment, I did not see any psychiatric contraindication for the patient to participate in medical decisions as at this moment. However, is important to clarify, that due to his multiple medical risks, delirium/altered mental status/metabolic acidosis are highly possible and in that case this decision-making capacity can fluctuation or even disappear . In this case a healthcare by proxy should be appointed, but the patient doesn 't seem to have one. Patient has voiced that he does not want to be DNI and DNR. For Goals of care and Surrogated decision maker I highly recommend to consult palliative care. No psychotropics are recommended at this moment. Brief supportive psychotherapy provided. Consult Dictated. Assessment & Plan Estimated LOS: days Mainor Rubio MD May 29, 2017 12:03
[2017-05-29] MEDS: SODIUM CHLOR 0.9% 1000 ML INJ 1,000 ML IV SCH (13:25)
--- NOTE | 2017-05-29 13:57 | HHI.PR ---
Subjective Remarks Pt Denies any chest pains, admits to mild SOB when lying down. Pt voices his desire to proceed w the cardiac cath. Discussed w Dr. Burgess and notified him of psych's eval. Objective Vitals Vital Signs Date Time Temp Pulse Resp B/P (MAP) Pulse Ox O2 Delivery O2 Flow Rate FiO2 05/29/17 13:08 64 05/29/17 12:00 64 05/29/17 11:07 97.5 69 17 167/90 (115) 97 05/29/17 11:00 Nasal Cannula 2.00 05/29/17 10:00 64 05/29/17 09:00 66 05/29/17 08:00 82 05/29/17 07:00 98.3 69 18 165/93 (117) 99 05/29/17 07:00 Nasal Cannula 2.00 05/29/17 07:00 72 05/29/17 06:00 75 05/29/17 05:00 75 05/29/17 04:00 69 05/29/17 03:00 72 05/29/17 03:00 98.2 70 16 188/96 (126) 97 05/29/17 03:00 97 Room Air 05/29/17 02:00 66 05/29/17 01:00 62 05/29/17 00:00 98 Room Air 05/29/17 00:00 98.3 63 16 152/90 (110) 98 05/29/17 00:00 63 05/28/17 23:00 63 05/28/17 22:00 62 05/28/17 21:00 74 05/28/17 20:00 98.1 73 16 160/92 (114) 98 05/28/17 20:00 98 Room Air 05/28/17 20:00 74 05/28/17 19:00 70 05/28/17 18:00 76 05/28/17 17:00 74 05/28/17 16:04 97.7 67 16 122/77 (92) 97 05/28/17 16:04 97 Room Air 05/28/17 16:00 60 05/28/17 15:00 67 05/28/17 14:11 71 I/O 05/28/17 05/28/17 05/28/17 05/29/17 05/29/17 05/29/17 07:00 15:00 23:00 07:00 15:00 23:00 Intake Total 765 ml 750 ml 984 ml Output Total 525 ml 400 ml 500 ml Balance 240 ml 350 ml 484 ml Intake Oral 240 ml 750 ml 480 ml IV Total 525 ml 504 ml Output Urine Total 525 ml 400 ml 500 ml # Voids 2 # Bowel Movements 0 0 Result Diagram: 05/27/17 0530 05/27/17529 Imaging Last Impressions Head CT 05/24/171922 Signed Impressions: Service Date/Time: Wednesday, May 24, 2017 19:41 - CONCLUSION: Stable CT brain scan as described. No acute intracranial abnormality or change Jonathan Cunningham MD Chest X-Ray 05/24/171922 Signed Impressions: Service Date/Time: Wednesday, May 24, 2017 19:29 - CONCLUSION: No acute disease. Jonathan Cunningham MD Objective Remarks GENERAL: This is a thin male. Skin: stage 2 ulcer noted in the sacrum area, not infected, ulcer noted on the left foot. no drainage noted. CARDIOVASCULAR: Normal rate and regular rhythm without murmurs RESPIRATORY: Good respiratory efforts. Breath sounds equal and clear to auscultation bilaterally. GASTROINTESTINAL: Abdomen soft, non-tender, non-distended. Normal active bowel sounds MUSCULOSKELETAL: Extremities without cyanosis, or edema. NEURO: He is aware of self and place but does not know the year but knows the month. tells me that he does want to proceed w cardiac cath PSYCH: Calm A/P Problem List: (1) Encephalopathy ICD Code: G93.40 - Encephalopathy, unspecified (2) Elevated troponin ICD Code: R74.8 - Abnormal levels of other serum enzymes (3) Anemia ICD Code: D64.9 - Anemia, unspecified (4) HTN (hypertension) ICD Code: I10 - Essential (primary) hypertension (5) COPD (chronic obstructive pulmonary disease) ICD Code: J44.9 - Chronic obstructive pulmonary disease, unspecified (6) Lactic acidosis ICD Code: E87.2 - Acidosis (7) DM (diabetes mellitus) ICD Code: E11.9 - Type 2 diabetes mellitus without complications (8) Tobacco abuse ICD Code: Z72.0 - Tobacco use Assessment and Plan 71-year-old male was found down on the lawn. Neurology following, believe altered mental status is due to remote stroke and cognitive decline. The patient presented with elevated troponin as well. Cardiology is following and plan to do a heart catheterization once consent can be obtained. Encephalopathy: Found lying in grass outside his home, no injuries noted. CT Head w/ no acute findings. Patient appeared to be at his baseline. He is oriented to self and place but not the year. Psych evaluated the patient and feels that at this time he is able to make medical decisions. Pt tells me that he would like to proceed w cardiac cath. Dr. Garibay notified and plans on consenting the patient. In addition, psych recommends consult to palliative care for assistance w Goals of care and Surrogate decision maker no further neurological work-up recommended at this time. continue neuro-checks and PT recommends home health w home PT. Elevated Trop: Recent admit 04/27 w/ Trop 10 Cardiology following and planning for catheterization once consent has been obtained. continue aspirin, Statin, B-wyatt. Anemia: stable. Continue to monitor. HTN: Continue metoprolol. DM: better controlled. BS 403 on arrival. continue Levemir, Sliding scale w/ Accu-Cheks. Hgb A1c 12.0 on 04/03/17. monitor closely and increase levemir dose as needed DVT Prophylaxis: Heparin sq Discharge Planning -Follow up cardiology recommendations. -Depending on cardiology recommendations could go to SNF vs homehealth within the next 1-2 days. -software product manager consulted Caitlin Riley MD May 29, 2017 13:57
--- NOTE | 2017-05-29 15:54 | PD.CONS ---
Consult Service Palliative Care Consult Requested By Dr. Riley Primary Care Physician Unknown Reason for Consultation a. To assist with evaluation and management of symptoms including: b. To assist medical decision maker(s) with: better understanding of current medical conditions; weighing benefits/burdens of medical treatment options; making medical treatment decisions. HPI History of Present Illness This 71-year-old patient presented to the ED on 05/24/70 after being out found outside his home in his grass. He reported he did not feel well. He was unable to further qualify for ED evaluation. He denied pain. Blood sugar elevated per EMS. Not aware if he had taken his medications and was not able to report which medicines he was supposed to take. * Exam with no acute abnormalities identified. Started on IV fluids. Troponin 0.17. Noted in the past to have elevated troponin level treated with aspirin. We'll continue to monitor in the ED in repeat troponin. ED physician notes prior admissions with workup with no findings for elevated troponin. EKG with no acute ischemia. Patient also noted to have a recent admission for similar findings found down at home and at that time troponin was elevated and was seen by Dr. Hanson with no emergent cardiac interventions and recommended for follow-up. EF per echo 04/[address] brain no acute findings. * Patient mental status improving in the next day or so; awake and alert but still some confusion. Denying chest pain. Cardiology consulted. * Cardiology evaluated patient; he was not able to provide significant history to cardiology regarding current admission. Notes further that elevated troponin is low and nonspecific in the absence of chest pain may not indicate ACS. There was apparently consideration of cardiac catheterization during last admission for much higher troponin but this was delayed due to poor mental status. He continues to have a poor mental status. Recommends continuing medical therapy at this point monitoring mental status and can consider cardiac catheterization if mental status improved. Continue telemetry monitoring. 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 Symptoms are consistent with constellation of symptoms due to remote strokes. Recommends continue neuro checks. PT, OT. Suspects baseline cognitive decline related to multiple strokes, cortical atrophy and ischemic vascular chronic changes. This may be furthered by elevation of blood sugar and blood pressure. * 05/28 more alert, still intermittently confused. No chest pain. Was initially planned for cardiac cath 05/28 though patient is unable to provide consent so held off at this time. Case management consulted to assist to find family or appropriate proxy for proper consent. * Psychiatry evaluated 05/29/17 and notes the patient is alert, oriented 3 for the most part neurological exam is intact with no gross cognitive impairments identified. He notes discussion with patient regarding DNR status and patient request everything be done to help keep him alive, he does not have anyone that he would name as surrogate. He notes that given the patient's rational conversation regarding choices medical recommendations etc. he appears appropriate to participate in decision-making however given his multiple medical conditions and AMS it is possible that his decision-making capacity could fluctuate or disappear thus recommends appointment of appropriate proxy. * 05/29/17 palliative care consulted to assist with clarification of goals of treatment, and assistance with locating appropriate proxy Per review of available records patient apparently followed outpatient with Dr. Polanco at outpatient clinic until 2012 though no further records are available beyond that time in our EMR. During those evaluations he has noted to be alert and oriented 3. Past Family Social History Coded Allergies: No Known Allergies (Verified , 05/24/17) Past Medical History PMH: HTN, Hyperlipidemia, DM, COPD, Tobacco Abuse and Noncompliance Past Surgical History PAST SURGICAL HISTORY: Carotid Endarterectomy, Tonsillectomy Reported Medications Levemir Inj (Insulin Detemir) 1,000 unit/ 10 ML Vial 5 Units SQ HS Do not mix with any other Insulin. Novolog Inj (Insulin Aspart) 100 Unit/Ml Inj 1 Unit SQ Q4H 30 Days Adult Aspirin EC Low Strength (Aspirin) 81 Mg Tabec 81 Mg PO DAILY 30 Days Coreg (Carvedilol) 3.125 Mg Tab 3.125 Mg PO Q12HR 30 Days Levaquin (Levofloxacin) 750 Mg Tablet 750 Mg PO DAILY 8 Days Augmentin (Amoxicillin-Clavulanate) 500-125 mg Tab 500 Mg PO Q8HR 8 Days Levothyroxine (Levothyroxine Sodium) 50 Mcg Tab 50 Mcg PO DAILY Atorvastatin (Atorvastatin Calcium) 80 Mg Tab 80 Mg PO HS . Current Medications Medications (Trade) Dose Ordered Sig/Nolvia Route Start Time Stop Time Status Last Admin (Levemir Inj) 5 units HS SQ 05/24/17 22:00 05/28/17 20:53 (D50w (Vial) Inj) 50 ml UNSCH PRN IV PUSH 05/24/17 22:00 (Glucagon Inj) 1 mg UNSCH PRN OTHER 05/24/17 22:00 (NovoLOG SUPPLEMENTAL SCALE) 1 ACHS SLIDING SCALE SQ 05/25/17 08:00 05/29/17 12:00 Sodium Chloride 1,000 ml @ 60 mls/hr [id number] IV 05/24/17 21:57 05/28/17 20:55 (NS Flush) 2 ml UNSCH PRN IV FLUSH 05/24/17 22:00 (NS Flush) 2 ml BID IV FLUSH 05/25/17 09:00 05/28/17 20:53 (Zofran Inj) 4 mg Q6H PRN IVP 05/24/17 22:00 05/25/17 00:12 (Heparin Inj) 5,000 units Q12H SQ 05/25/17 09:00 05/29/17 09:27 (Tylenol) 650 mg Q6H PRN PO 05/24/17 22:00 05/29/17 03:08 ([place] 5-325 Mg) 1 tab Q4H PRN PO 05/24/17 22:00 05/29/17 09:28 (Morphine Inj) 2 mg Q3H PRN IV PUSH 05/24/17 22:00 (Yamel-Colace) 1 tab BID PO 05/25/17 09:00 05/29/17 09:27 (Milk Of Magnesia Liq) 30 ml Q12H PRN PO 05/24/17 22:00 (Senokot) 17.2 mg Q12H PRN PO 05/24/17 22:00 (Dulcolax Supp) 10 mg DAILY PRN RECTAL 05/24/17 22:00 (Lactulose Liq) 30 ml DAILY PRN PO 05/24/17 22:00 (Ecotrin Ec) 81 mg DAILY PO 05/25/17 09:00 05/29/17 09:27 (Lopressor) 25 mg Q12HR PO 05/25/17 09:00 05/29/17 09:28 (Duoneb Neb) 1 ampule Q4HR NEB PRN NEB 05/24/17 22:30 (Lipitor) 80 mg HS PO 05/25/17 21:00 05/28/17 20:52 (Synthroid) 50 mcg DAILY@0600 PO 05/25/17 09:00 05/29/17 06:13 (Apresoline Inj) 10 mg Q30M PRN IV PUSH 05/27/17 23:30 05/29/17 03:09 Family History No h/o DM or CAD . Substance Use Tobacco: Former smoker previously 1 PPD 40 years. Alcohol: Prescription med abuse: Illicits: Psychosocial History Lives at home with a roommate. Completed high school and one year of college. Not . Living Will: Never completed Health Care Surrogate: Never completed Durable Power of Compensation Director: Never completed Ethical and Legal Issues Patient seen by psych 05/29/17 who indicates patient is currently capacitated for medical decision-making however given his underlying medical conditions and ongoing episodes of AMS he may lose capacity at any time and recommends appropriate proxy. Case management currently working to locate possible next of kin, via [employer] search. Only contacts provided by patient are his roommate. . Physical Exam Vital Signs Date Time Temp Pulse Resp B/P (MAP) Pulse Ox O2 Delivery O2 Flow Rate FiO2 05/29/17 13:08 64 05/29/17 12:00 64 05/29/17 11:07 97.5 69 17 167/90 (115) 97 05/29/17 11:00 Nasal Cannula 2.00 05/29/17 10:00 64 05/29/17 09:00 66 05/29/17 08:00 82 05/29/17 07:00 98.3 69 18 165/93 (117) 99 05/29/17 07:00 Nasal Cannula 2.00 05/29/17 07:00 72 05/29/17 06:00 75 05/29/17 05:00 75 05/29/17 04:00 69 05/29/17 03:00 72 05/29/17 03:00 98.2 70 16 188/96 (126) 97 05/29/17 03:00 97 Room Air 05/29/17 02:00 66 05/29/17 01:00 62 05/29/17 00:00 98 Room Air 05/29/17 00:00 98.3 63 16 152/90 (110) 98 05/29/17 00:00 63 05/28/17 23:00 63 05/28/17 22:00 62 05/28/17 21:00 74 05/28/17 20:00 98.1 73 16 160/92 (114) 98 05/28/17 20:00 98 Room Air 05/28/17 20:00 74 05/28/17 19:00 70 05/28/17 18:00 76 05/28/17 17:00 74 05/28/17 16:04 97.7 67 16 122/77 (92) 97 05/28/17 16:04 97 Room Air 05/28/17 16:00 60 Exam Draft/pending/templateCONSTITUTIONAL/GENERAL: This is an adequately nourished patient, in no apparent distress. TUBES/LINES/DRAINS: SKIN: No jaundice, rashes, or lesions. Ecchymoses on upper extremities. No wounds seen anteriorly. Skin temperature appropriate. Not diaphoretic. HEAD: Atraumatic. Normocephalic. EYES: Pupils equal and round and reactive. Extraocular motions intact. No scleral icterus. No injection or drainage. Fundi not examined. ENT: Hearing grossly normal. Nose without bleeding or purulent drainage. Throat without visible erythema, exudates, masses, or lesions. NECK: Trachea midline. Supple, nontender. No palpable thyroid enlargement or nodularity. CARDIOVASCULAR: Regular rate and rhythm without murmurs, gallops, or rubs. No JVD. Peripheral pulses symmetric. RESPIRATORY/CHEST: Symmetric, unlabored respirations. Clear to auscultation. Breath sounds equal bilaterally. No wheezes, rales, or rhonchi. GASTROINTESTINAL: Abdomen soft, non-tender, nondistended. No hepato-splenomegaly , or palpable masses. No guarding. Bowel sounds present. GENITOURINARY: Without palpable bladder distension. Barnes catheter in place. MUSCULOSKELETAL: Extremities without clubbing, cyanosis, or edema. No joint tenderness or effusion noted. No calf tenderness. No mottling or clubbing. LYMPHATICS: No palpable cervical or supraclavicular adenopathy. NEUROLOGICAL: Awake and alert. Motor and sensory grossly within normal limits. Follows commands. Cognitively sharp. Moves all extremities. PSYCHIATRIC: No obvious anxiety/depression. no apparent hallucinations or other psychotic thought process. Diagnostic Tests Laboratory Laboratory Tests Test 05/27/17 05:30 White Blood Count 8.2 TH/MM3 (4.0-11.0) Red Blood Count 3.88 MIL/MM3 (4.50-5.90) Hemoglobin 11.6 GM/DL (13.0-17.0) Hematocrit 34.9 % (39.0-51.0) Mean Corpuscular Volume 89.8 FL (80.0-100.0) Mean Corpuscular Hemoglobin 29.9 PG (27.0-34.0) Mean Corpuscular Hemoglobin Concent 33.3 % (32.0-36.0) Red Cell Distribution Width 14.6 % (11.6-17.2) Platelet Count 333 TH/MM3 (150-450) Mean Platelet Volume 9.3 FL (7.0-11.0) Neutrophils (%) (Auto) 55.4 % (16.0-70.0) Lymphocytes (%) (Auto) 34.5 % (9.0-44.0) Monocytes (%) (Auto) 6.4 % (0.0-8.0) Eosinophils (%) (Auto) 2.8 % (0.0-4.0) Basophils (%) (Auto) 0.9 % (0.0-2.0) Neutrophils # (Auto) 4.6 TH/MM3 (1.8-7.7) Lymphocytes # (Auto) 2.8 TH/MM3 (1.0-4.8) Monocytes # (Auto) 0.5 TH/MM3 (0-0.9) Eosinophils # (Auto) 0.2 TH/MM3 (0-0.4) Basophils # (Auto) 0.1 TH/MM3 (0-0.2) CBC Comment DIFF FINAL Differential Comment Blood Urea Nitrogen 17 MG/DL (7-18) Creatinine 0.66 MG/DL (0.60-1.30) Random Glucose 265 MG/DL (74-106) Calcium Level 8.8 MG/DL (8.5-10.1) Sodium Level 139 MEQ/L (136-145) Potassium Level 3.9 MEQ/L (3.5-5.1) Chloride Level 101 MEQ/L (98-107) Carbon Dioxide Level 28.7 MEQ/L (21.0-32.0) Anion Gap 9 MEQ/L (5-15) Estimat Glomerular Filtration Rate 120 ML/MIN (>89) Result Diagram: 05/27/17 0530 05/27/17529 Patient/Family Conference Issues Discussed: PENDING-- PT TO be seen 05/30/17 * Palliative care role, purpose, approach * Additional medical, psychosocial, and spiritual history * Patients general health, functional status, and cognitive changes in the months leading up to the current hospitalization * Patient/family understanding of the current medical problems * Patient/family understanding of prognosis * Patients goals of care as best understood from advance directives and/or conversations and/or values * Current medical treatment options and benefits/burdens of those options * Likely scenarios comparing ongoing aggressive care with a transition to comfort measures only * Questions answered to the best of my ability * Palliative care contact information provided Assessment and Plan Pertinent Non-Medical Issues Psychosocial: Spiritual: Legal:Patient seen by psych 05/29/17 who indicates patient is currently capacitated for medical decision-making however given his underlying medical conditions and ongoing episodes of AMS he may lose capacity at any time and recommends appropriate proxy. Case management currently working to locate possible next of kin, via [employer] search. Only contacts provided by patient are his roommate. Ethical issues impacting care: No ethical issues identified Plan * Legal decision maker: Patient seen by psych 05/29/17 who indicates patient is currently capacitated for medical decision-making however given his underlying medical conditions and ongoing episodes of AMS he may lose capacity at any time and recommends appropriate proxy. Case management currently working to locate possible next of kin, via [employer] search. Only contacts provided by patient are his roommate. * Goals: TBD. PENDING-- PT TO be seen 05/30/17. CM working on locating NOK/ family * CODE STATUS: * SYMPTOMS: -- -- * Palliative care will continue to follow during hospital course as condition evolves, to assist patient/decision-maker with understanding of medical conditions, weighing benefits/burdens of treatment options, for clarification of goals of treatment. Additionally will assist with any symptoms of palliative concern Thank you for the opportunity to participate in the care of Mr. Lechuga. Kina Bennett May 29, 2017 15:54
[2017-05-29] MEDS: INSULIN DETEMIR 100 UNITS/ML VIAL SQ SCH (21:32)
[2017-05-29] MEDS: ATORVASTATIN 80 MG TAB PO SCH (21:36)
--- NOTE | 2017-05-29 23:06 | PD.CARD.PN ---
Subjective Subjective Remarks Appears well No chest pain Somewhat oriented, seen by psych and deemed capable of making medical decisions Objective Medications Current Medications Medications (Trade) Dose Ordered Sig/Nolvia Route Start Time Stop Time Status Last Admin (Levemir Inj) 5 units HS SQ 05/24/17 22:00 05/29/17 21:32 (D50w (Vial) Inj) 50 ml UNSCH PRN IV PUSH 05/24/17 22:00 (Glucagon Inj) 1 mg UNSCH PRN OTHER 05/24/17 22:00 (NovoLOG SUPPLEMENTAL SCALE) 1 ACHS SLIDING SCALE SQ 05/25/17 08:00 05/29/17 21:42 Sodium Chloride 1,000 ml @ 60 mls/hr [id number] IV 05/24/17 21:57 05/28/17 20:55 (NS Flush) 2 ml UNSCH PRN IV FLUSH 05/24/17 22:00 (NS Flush) 2 ml BID IV FLUSH 05/25/17 09:00 05/29/17 21:31 (Zofran Inj) 4 mg Q6H PRN IVP 05/24/17 22:00 05/25/17 00:12 (Heparin Inj) 5,000 units Q12H SQ 05/25/17 09:00 05/29/17 21:31 (Tylenol) 650 mg Q6H PRN PO 05/24/17 22:00 05/29/17 03:08 ([place] 5-325 Mg) 1 tab Q4H PRN PO 05/24/17 22:00 05/29/17 09:28 (Morphine Inj) 2 mg Q3H PRN IV PUSH 05/24/17 22:00 (Yamel-Colace) 1 tab BID PO 05/25/17 09:00 05/29/17 21:31 (Milk Of Magnesia Liq) 30 ml Q12H PRN PO 05/24/17 22:00 (Senokot) 17.2 mg Q12H PRN PO 05/24/17 22:00 (Dulcolax Supp) 10 mg DAILY PRN RECTAL 05/24/17 22:00 (Lactulose Liq) 30 ml DAILY PRN PO 05/24/17 22:00 (Ecotrin Ec) 81 mg DAILY PO 05/25/17 09:00 05/29/17 09:27 (Lopressor) 25 mg Q12HR PO 05/25/17 09:00 05/29/17 21:31 (Duoneb Neb) 1 ampule Q4HR NEB PRN NEB 05/24/17 22:30 (Lipitor) 80 mg HS PO 05/25/17 21:00 05/29/17 21:36 (Synthroid) 50 mcg DAILY@0600 PO 05/25/17 09:00 05/29/17 06:13 (Apresoline Inj) 10 mg Q30M PRN IV PUSH 05/27/17 23:30 05/29/17 03:09 Vital Signs / I&O Vital Signs Date Time Temp Pulse Resp B/P (MAP) Pulse Ox O2 Delivery O2 Flow Rate FiO2 05/29/17 22:00 71 05/29/17 21:00 72 05/29/17 20:00 67 05/29/17 19:00 98.4 67 18 178/98 (124) 98 05/29/17 19:00 98 Room Air 05/29/17 16:00 66 05/29/17 15:00 98.0 66 18 165/91 (115) 98 05/29/17 15:00 66 05/29/17 15:00 2.00 05/29/17 14:00 66 05/29/17 13:08 64 05/29/17 12:00 64 05/29/17 11:07 97.5 69 17 167/90 (115) 97 05/29/17 11:00 Nasal Cannula 2.00 05/29/17 10:00 64 05/29/17 09:00 66 05/29/17 08:00 82 05/29/17 07:00 98.3 69 18 165/93 (117) 99 05/29/17 07:00 Nasal Cannula 2.00 05/29/17 07:00 72 05/29/17 06:00 75 05/29/17 05:00 75 05/29/17 04:00 69 05/29/17 03:00 72 05/29/17 03:00 98.2 70 16 188/96 (126) 97 05/29/17 03:00 97 Room Air 05/29/17 02:00 66 05/29/17 01:00 62 05/29/17 00:00 98 Room Air 05/29/17 00:00 98.3 63 16 152/90 (110) 98 05/29/17 00:00 63 I/O 05/29/17 05/29/17 05/29/17 05/30/17 05/30/17 05/30/17 07:00 15:00 23:00 07:00 15:00 23:00 Intake Total 984 ml Output Total 500 ml 150 ml Balance 484 ml -150 ml Intake Oral 480 ml IV Total 504 ml Output Urine Total 500 ml 150 ml # Bowel Movements 0 Physical Exam GENERAL: NAD SKIN: Warm and dry. HEAD: Atraumatic. Normocephalic. EYES: Pupils equal and round. No scleral icterus. No injection or drainage. ENT: No nasal bleeding or discharge. Mucous membranes pink and moist. NECK: Trachea midline. No JVD. CARDIOVASCULAR: Regular rate and rhythm. RESPIRATORY: No accessory muscle use. Clear to auscultation. Breath sounds equal bilaterally. GASTROINTESTINAL: Abdomen soft, non-tender, nondistended. Hepatic and splenic margins not palpable. MUSCULOSKELETAL: Extremities without clubbing, cyanosis, or edema. No obvious deformities. NEUROLOGICAL: Awake and alert. No obvious cranial nerve deficits. Motor grossly within normal limits. Five out of 5 muscle strength in the arms and legs. Normal speech. PSYCHIATRIC: Appropriate mood and affect; insight and judgment normal. Assessment and Plan Problem List: (1) Syncope ICD Codes: R55 - Syncope and collapse (2) Encephalopathy ICD Codes: G93.40 - Encephalopathy, unspecified (3) Elevated troponin ICD Codes: R74.8 - Abnormal levels of other serum enzymes Assessment and Plan 1) ? Encephalopathy, probably around baseline 2) Elevated troponin, concern for multiple episodes of elevations and found on his lawn, last hospitalization trop ~10 one month ago 3) Plan for cardiac catheterization in the morning Discussed with the patient about the procedure, appears to understand and willing to consent Yuri Burgess DO May 29, 2017 23:06
[2017-05-30] VITALS (16 sets, daily range): BP systolic 137–168; BP diastolic 76–101; PULSE 60–168; RESP 18–20; TEMP 98.2–98.4; O2SAT 97–98
[2017-05-30] MEDS: LEVOTHYROXINE SODIUM 50 MCG TAB PO SCH (05:29)
[2017-05-30] MEDS: SODIUM CHLOR 0.9% 1000 ML INJ 1,000 ML IV SCH ×2 (05:33→22:26)
[2017-05-30] MEDS: INSULIN ASPART SUPPLEMENTAL SCALE SQ SCH ×4 (08:00→22:24)
[2017-05-30] MEDS: SODIUM CHLORIDE 0.9% FLUSH 10 ML FLUSH IV FLUSH SCH ×2 (08:57→21:00)
[2017-05-30] MEDS: ASPIRIN EC 81 MG TABEC PO SCH (08:57)
[2017-05-30] MEDS: COLLAGENASE OINT 30 GM TUBE TOPICAL SCH ×2 (08:57→22:24)
[2017-05-30] MEDS: METOPROLOL TARTRATE 25 MG TAB PO SCH ×2 (08:57→22:25)
[2017-05-30] MEDS: DOCUSATE SODIUM 50 MG/SENNA 8.6 MG TAB PO SCH ×2 (08:57→22:25)
[2017-05-30] MEDS: HEPARIN SODIUM - SQ 10,000 UNITS/ML VIAL SQ SCH (09:00)
--- NOTE | 2017-05-30 11:24 | PD.CONS ---
Consult Service Palliative Care Consult Requested By Dr Riley . Primary Care Physician Unknown Reason for Consultation a. To assist with evaluation and management of symptoms including: b. To assist medical decision maker(s) with: better understanding of current medical conditions; weighing benefits/burdens of medical treatment options; making medical treatment decisions. (Kina Bennett) HPI History of Present Illness This 71-year-old patient presented to the ED on 05/24/70 after being out found outside his home in his grass. He reported he did not feel well. He was unable to further qualify for ED evaluation. He denied pain. Blood sugar elevated per EMS. Not aware if he had taken his medications and was not able to report which medicines he was supposed to take. * Exam with no acute abnormalities identified. Started on IV fluids. Troponin 0.17. Noted in the past to have elevated troponin level treated with aspirin. We'll continue to monitor in the ED in repeat troponin. ED physician notes prior admissions with workup with no findings for elevated troponin. EKG with no acute ischemia. Patient also noted to have a recent admission for similar findings found down at home and at that time troponin was elevated and was seen by Dr. Hanson with no emergent cardiac interventions and recommended for follow-up. EF per echo 04/[address] brain no acute findings. * Patient mental status improving in the next day or so; awake and alert but still some confusion. Denying chest pain. Cardiology consulted. * Cardiology evaluated patient; he was not able to provide significant history to cardiology regarding current admission. Notes further that elevated troponin is low and nonspecific in the absence of chest pain may not indicate ACS. There was apparently consideration of cardiac catheterization during last admission for much higher troponin but this was delayed due to poor mental status. He continues to have a poor mental status. Recommends continuing medical therapy at this point monitoring mental status and can consider cardiac catheterization if mental status improved. Continue telemetry monitoring. 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 Symptoms are consistent with constellation of symptoms due to remote strokes. Recommends continue neuro checks. PT, OT. Suspects baseline cognitive decline related to multiple strokes, cortical atrophy and ischemic vascular chronic changes. This may be furthered by elevation of blood sugar and blood pressure. * 05/28 more alert, still intermittently confused. No chest pain. Was initially planned for cardiac cath 05/28 though patient is unable to provide consent so held off at this time. Case management consulted to assist to find family or appropriate proxy for proper consent. * Psychiatry evaluated 05/29/17 and notes the patient is alert, oriented 3 for the most part neurological exam is intact with no gross cognitive impairments identified. He notes discussion with patient regarding DNR status and patient request everything be done to help keep him alive, he does not have anyone that he would name as surrogate. He notes that given the patient's rational conversation regarding choices medical recommendations etc. he appears appropriate to participate in decision-making however given his multiple medical conditions and AMS it is possible that his decision-making capacity could fluctuate or disappear thus recommends appointment of appropriate proxy. * 05/29/17 palliative care consulted to assist with clarification of goals of treatment, and assistance with locating appropriate proxy Patient seen in room no visitors present. He is initially sleeping though arouses easily. He is alert and oriented 3. Insight appears reasonable. He wants to know when his cardiac catheterization will be done because he is hungry. ROS essentially negative, he does endorse a mild headache, which he thinks is because he is hungry. Per review of available records patient apparently followed outpatient with Dr. Carrillo at outpatient clinic until 2012 though no further records are available beyond that time in our EMR. During those evaluations he has noted to be alert and oriented 3. Function/Cognitive Trajectory Lives at home with roommate, reports independent with all ADLs, ambulatory without assistance. (Kina Bennett) Review of Systems Constitutional: DENIES: Fatigue, Fever, Weight loss, Chills, Dizziness, Change in appetite Eyes: DENIES: Blurred vision, Vision loss Ears, nose, mouth, throat: DENIES: Nasal discharge, Oral lesions, Throat pain, Hoarseness Respiratory: DENIES: Cough, Hemoptysis, Sputum production, Shortness of breath Cardiovascular: DENIES: Chest pain, Palpitations, Dyspnea on Exertion, Lower Extremity Edema, Orthopnea Gastrointestinal: DENIES: Abdominal pain, Constipation, Diarrhea, Vomiting, Difficulty Swallowing Genitourinary: DENIES: Urinary frequency, Urgency Musculoskeletal: DENIES: Joint pain, Muscle aches Integumentary: DENIES: Rash Neurologic: COMPLAINS OF: Headache (slight this morning), DENIES: Localized weakness, Speech Problems Psychiatric: DENIES: Anxiety (Kina Bennett) Past Family Social History Coded Allergies: No Known Allergies (Verified , 05/24/17) Past Medical History Hypertension Hyperlipidemia Diabetes COPD CVA . Past Surgical History Carotid Endarterectomy Tonsillectomy . Reported Medications Levemir Inj (Insulin Detemir) 1,000 unit/ 10 ML Vial 5 Units SQ HS Do not mix with any other Insulin. Novolog Inj (Insulin Aspart) 100 Unit/Ml Inj 1 Unit SQ Q4H 30 Days Adult Aspirin EC Low Strength (Aspirin) 81 Mg Tabec 81 Mg PO DAILY 30 Days Coreg (Carvedilol) 3.125 Mg Tab 3.125 Mg PO Q12HR 30 Days Levaquin (Levofloxacin) 750 Mg Tablet 750 Mg PO DAILY 8 Days Augmentin (Amoxicillin-Clavulanate) 500-125 mg Tab 500 Mg PO Q8HR 8 Days Levothyroxine (Levothyroxine Sodium) 50 Mcg Tab 50 Mcg PO DAILY Atorvastatin (Atorvastatin Calcium) 80 Mg Tab 80 Mg PO HS . Current Medications Medications (Trade) Dose Ordered Sig/Nolvia Route Start Time Stop Time Status Last Admin (Levemir Inj) 5 units HS SQ 05/24/17 22:00 05/29/17 21:32 (D50w (Vial) Inj) 50 ml UNSCH PRN IV PUSH 05/24/17 22:00 (Glucagon Inj) 1 mg UNSCH PRN OTHER 05/24/17 22:00 (NovoLOG SUPPLEMENTAL SCALE) 1 ACHS SLIDING SCALE SQ 05/25/17 08:00 05/29/17 21:42 Sodium Chloride 1,000 ml @ 60 mls/hr [id number] IV 05/24/17 21:57 05/28/17 20:55 (NS Flush) 2 ml UNSCH PRN IV FLUSH 05/24/17 22:00 (NS Flush) 2 ml BID IV FLUSH 05/25/17 09:00 05/30/17 08:57 (Zofran Inj) 4 mg Q6H PRN IVP 05/24/17 22:00 05/25/17 00:12 (Heparin Inj) 5,000 units Q12H SQ 05/25/17 09:00 05/29/17 21:31 (Tylenol) 650 mg Q6H PRN PO 05/24/17 22:00 05/29/17 03:08 ([place] 5-325 Mg) 1 tab Q4H PRN PO 05/24/17 22:00 05/29/17 09:28 (Morphine Inj) 2 mg Q3H PRN IV PUSH 05/24/17 22:00 (Yamel-Colace) 1 tab BID PO 05/25/17 09:00 05/30/17 08:57 (Milk Of Magnesia Liq) 30 ml Q12H PRN PO 05/24/17 22:00 (Senokot) 17.2 mg Q12H PRN PO 05/24/17 22:00 (Dulcolax Supp) 10 mg DAILY PRN RECTAL 05/24/17 22:00 (Lactulose Liq) 30 ml DAILY PRN PO 05/24/17 22:00 (Ecotrin Ec) 81 mg DAILY PO 05/25/17 09:00 05/30/17 08:57 (Lopressor) 25 mg Q12HR PO 05/25/17 09:00 05/30/17 08:57 (Duoneb Neb) 1 ampule Q4HR NEB PRN NEB 05/24/17 22:30 (Lipitor) 80 mg HS PO 05/25/17 21:00 05/29/17 21:36 (Synthroid) 50 mcg DAILY@0600 PO 05/25/17 09:00 05/30/17 05:29 (Apresoline Inj) 10 mg Q30M PRN IV PUSH 05/27/17 23:30 05/29/17 03:09 (Santyl Oint) 1 applic Q48H TOPICAL 05/30/17 09:00 05/30/17 08:57 Family History No h/o DM or CAD . Substance Use Tobacco: Smokes 1 PPD Alcohol: None Prescription med abuse: None Illicits: None . Psychosocial History Originally from [facility]. Not , no children. Lived in [place] approximately 15 years, moved here for the weather. Has known his roommate Patel about 15 years, they met at a [employer] they formerly worked at. Has 2 brothers one Hugo who might still be in the [facility], though he has not been in contact with him for several years. Has another brother he cannot remember the name of whom he indicates was severely mentally ill. No other family or friends. . Spiritual/Cultural Factors No particular baptist affiliation does not want pet sitting visits. . (Sabrina,Kina RIGGER) Living Will: Never completed Health Care Surrogate: Never completed Durable Power of Machine Heel Seat Laster: Never completed Ethical and Legal Issues Patient seen by psych 05/29/17 who indicates patient is currently capacitated for medical decision-making however given his underlying medical conditions and ongoing episodes of AMS he may lose capacity at any time and recommends appropriate proxy. Case management currently working to locate possible next of kin, via [employer] search. Only contacts provided by patient are his roommate. To my exam today patient is alert and oriented 3 with reasonable insight. He tells me that he has no one that he could name as a health care surrogate. (Kina Bennett) Physical Exam Vital Signs Date Time Temp Pulse Resp B/P (MAP) Pulse Ox O2 Delivery O2 Flow Rate FiO2 05/30/17 06:00 64 05/30/17 06:00 98.4 72 18 160/91 (114) 98 05/30/17 03:00 98 Room Air 05/30/17 03:00 70 05/30/17 02:00 70 05/30/17 00:00 71 05/29/17 23:00 98.4 71 18 169/97 (121) 98 05/29/17 23:00 98 Room Air 05/29/17 22:00 71 05/29/17 21:00 72 05/29/17 20:00 67 05/29/17 19:00 98.4 67 18 178/98 (124) 98 05/29/17 19:00 98 Room Air 05/29/17 16:00 66 05/29/17 15:00 98.0 66 18 165/91 (115) 98 05/29/17 15:00 66 05/29/17 15:00 2.00 05/29/17 14:00 66 05/29/17 13:08 64 05/29/17 12:00 64 05/29/17 11:07 97.5 69 17 167/90 (115) 97 Exam CONSTITUTIONAL/GENERAL: This is a thin elderly male no apparent distress TUBES/LINES/DRAINS: PIV left upper extremity SKIN: No jaundice, rashes, or lesions. No wounds seen anteriorly. Skin warm, dry. HEAD: Atraumatic. Normocephalic. EYES: Pupils equal and round and reactive. Extraocular motions intact. Trace periorbital edema No scleral icterus. No injection or drainage. Fundi not examined. ENT: Hearing grossly normal. Nose without bleeding or purulent drainage. Throat without visible erythema, exudates, masses, or lesions. NECK: Trachea midline. Supple, nontender. No palpable thyroid enlargement or nodularity. CARDIOVASCULAR: Regular rate and rhythm without murmur. No JVD. Peripheral pulses symmetric. RESPIRATORY/CHEST: Symmetric, unlabored respirations. On room air. Clear to auscultation. Breath sounds equal bilaterally. GASTROINTESTINAL: Abdomen soft, flat, non-tender, nondistended. No hepato- splenomegaly, or palpable masses. Bowel sounds normoactive GENITOURINARY: Without palpable bladder distension. + voids to urinal observe clear yellow urine present MUSCULOSKELETAL: Extremities without clubbing, cyanosis, or edema. No joint tenderness or effusion noted. Extremities thin. LYMPHATICS: No palpable cervical or supraclavicular adenopathy. NEUROLOGICAL: Awake and alert, oriented 3. Insight hospital course appears reasonable. Motor and sensory grossly within normal limits. Follows commands. Cognitively sharp. Moves all 4 extremities. PSYCHIATRIC: No obvious anxiety/depression. no apparent hallucinations or other psychotic thought process. (Kina Bennett) Diagnostic Tests Result Diagram: 05/27/1752905/27/17529 Imaging Last Impressions Head CT 05/24/171922 Signed Impressions: Service Date/Time: Wednesday, May 24, 2017 19:41 - CONCLUSION: Stable CT brain scan as described. No acute intracranial abnormality or change Jonathan Cunningham MD Chest X-Ray 05/24/171922 Signed Impressions: Service Date/Time: Wednesday, May 24, 2017 19:29 - CONCLUSION: No acute disease. Jonathan Cunningham MD (Kina Bennett) Patient/Family Conference Present at Family Conference: Patient Family Conference Time (mins): 20 Family Conference Location: Bedside Issues Discussed: With patient at bedside discussion included the following: * Palliative care role, purpose, approach * Additional medical, psychosocial, and spiritual history * Patients general health, functional status, and cognitive changes in the months leading up to the current hospitalization * Patient understanding of the current medical problems, prognosis, planned procedure today * Patients goals of care * Current medical treatment options and benefits/burdens of those options- review of planned procedure today * Advance directive/healthcare surrogate. He indicates he does not have anyone that he could name his healthcare surrogate. Does not have other advance directives, not interested in completing at this time. * CODE STATUS-wishes to remain full code at this time * Questions answered to the best of my ability * Palliative care contact information provided . (Kina Bennett) Assessment and Plan Disease Oriented Problem List: (1) Hyperlipidemia (2) Hypothyroidism (3) Diabetes mellitus (4) COPD (chronic obstructive pulmonary disease) (5) Tobacco abuse (6) Encephalopathy (7) HTN (hypertension) (8) Elevated troponin (9) Syncope (10) Delirium Symptom Scale: (1) Delirium 0-10 Scale: Unable to quantify Comment: AMS/DELIRIUM Pertinent Non-Medical Issues Psychosocial:Originally from [facility]. Not , no children. Lived in [place] approximately 15 years, moved here for the weather. Has known his roommate Patel about 15 years, they met at a pool [employer] they formerly worked at. Has 2 brothers one Hugo who might still be in the [facility] area , though he has not been in contact with him for several years. He indicates that at one point when he tried to call him his # was not working and he was not able to reach him after that time. Has another brother he cannot remember the name of whom he indicates was severely mentally ill. No other family or friends. Spiritual:No particular baptist affiliation does not want pet sitting visits. Legal:Patient seen by psych 05/29/17 who indicates patient is currently capacitated for medical decision-making however given his underlying medical conditions and ongoing episodes of AMS he may lose capacity at any time and recommends appropriate proxy. Case management currently working to locate possible next of kin, via [employer] search. Only contacts provided by patient are his roommate.To my exam today 05/30 patient is alert and oriented 3 with reasonable insight. He tells me that he has no one that he could name as a health care surrogate. IF pt incapacitated, and family could not be identified via [employer], and local friend does NOT wish to serve as proxy then likely would need to establish decision maker via [employer] Ethical issues impacting care: No ethical issues identified Important Contacts Friend, roommate Patel Terry [phone] . Prognosis This patient was admitted for altered mental status, hyperglycemia. This is the second event like this that he has had in the past few months. CT brain negative. Cardiology has evaluated and cardiac catheterization is pending for further evaluation of cardiac function. He should be able to make it through current hospital course, and likely would discharge back home or to rehabilitation setting. . Code Status: Full Code Plan * Legal decision maker: Patient seen by psych 05/29/17 who indicates patient is currently capacitated for medical decision-making however given his underlying medical conditions and ongoing episodes of AMS he may lose capacity at any time and recommends appropriate proxy. Case management currently working to locate possible next of kin, via [employer] search. Only contacts provided by patient are his roommate. To my exam today 05/30 patient is alert and oriented 3 with reasonable insight. He tells me that he has no one that he could name as a health care surrogate. IF pt incapacitated, and family could not be identified via [employer], and local friend does NOT wish to serve as proxy then likely would need to establish decision maker via [employer] * Goals: Patient wants to proceed with cardiac catheterization to try to identify what causes his issues and get back home. He elects to remain full code. He does not have anyone to name as healthcare surrogate. * CODE STATUS: Full code * SYMPTOMS: --Denies pain, GI complaints or any other symptoms. Endorses some intermittent nausea, none currently. We'll continue to evaluate. --Delirium/AMS- admitted with hyperglycemia, elevated troponin; history of remote CVA; neurology following, Suspects baseline cognitive decline related to multiple strokes, cortical atrophy and ischemic vascular chronic changes. This may be furthered by elevation of blood sugar and blood pressure. Will continue to evaluate. * Palliative care will continue to follow during hospital course as condition evolves, to assist patient/decision-maker with understanding of medical conditions, weighing benefits/burdens of treatment options, for clarification of goals of treatment. Additionally will assist with any symptoms of palliative concern (Kina Bennett) Time Spent Total Floor Time (mins): 45 (Chart review, PE, discussed with nurse) (Kina Bennett) Thank you for the opportunity to participate in the care of Mr. Lechuga. (Kina Bennett) Attestation To help prompt me to consider important information that might be impacting today's encounter and assessment, information from prior notes written by myself or my colleagues may have been "brought forward" into today's note. My signature on this note, however, is an attestation that I personally performed the exam, history, and/or decision-making noted today, and, unless otherwise indicated, the interactions with patient, family, and staff as well as the review of records all occurred today. I also attest that the listed assessment and stated plan reflect my best clinical judgment today based on the combination of historical information, prior notes, and today's exam/ interactions. When time spent is documented, it refers only to time spent today by the signer, or if indicated, combined time spent today by collaborating physician/nurse practitioner. (Kina Bennett) Collaborating MD Comments Chart reviewed. Case discussed with palliative care RIGGER. Above CARSON note reviewed and I concur. . (pS Esposito MD) Kina Bennett May 30, 2017 11:24 Sp Esposito MD May 30, 2017 17:38
[2017-05-30] MEDS: hydrALAZINE HCL 20 MG/ML VIAL IV PUSH PRN ×2 (11:56→18:05)
[2017-05-30] MEDS ORDERED: HEPARIN-NS/PF INJ 1,000 ML ONE (12:22)
[2017-05-30] MEDS ORDERED: SODIUM CHLORID 0.9% 500 ML INJ 500 ML ONE (12:22)
[2017-05-30] MEDS ORDERED: MIDAZOLAM HCL 2 MG/2 ML VIAL ONE (12:23)
[2017-05-30] MEDS ORDERED: VERAPAMIL HCL 5 MG/2 ML VIAL ONE (12:23)
[2017-05-30] MEDS ORDERED: HEPARIN SODIUM - IV 10,000 UNITS/10 ML VIAL ONE (12:23)
--- NOTE | 2017-05-30 13:14 | CATHPROC ---
[employer] HIS Report Study Information Study Number Admission Scheduled Start Study Start [id number] May 24 2017 9:55PM 05/29/2017 May 30 2017 12:08PM [place] [facility] Cardiac Catheterization Admit Source Facility Department Emergency department [facility] Physician and Clinical Staff Initial Yuri Fowler Steward/Stewardess Economy Class Familia Thompson,John Jennings,BETZY Recorder Yuliet Tracy,RT(R) (BS) Recorder Radha Villanueva,KALIA TECH2 Scrub DanialBonnie steinRT(R) Procedures Performed Procedure Location (Site) Vessel Name Coronary Angiograms LCA Left Coronary Coronary Angiograms RCA Right Coronary L Heart Cath Wire insertion Radial (right) Radial Art. 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 Description Size Mfg Part Number Used/Scraped TRANSDUCER, TRUWAVE [id number] 12:19 AHUJA OLIVER * Used W/STOCKCOCK *[id number] *[id number] *[id number] 12:19 [employer] PACK, CCL CUSTOM * Used *[id number] 12:19 [employer] SUPPORT, ARTERIAL ADULT [id number] *[id number] Used BAND, RADIAL COMPRESSION TR [id number] 13:00 [employer] MEDICAL 29CM Used LARGE 29 *[id number] 12:19 [employer] MEDICAL WIRE, EXCHANGE 260CM 3MMJ 260CM Used *[id number] 12:19 [employer] MANIFOLD, 4 PORT * Used *[id number] 12:19 [employer] OMNIPAQUE, 350 MG, 150ML 150ML [id number] Used [id number] 12:19 [employer] BLANKET,WARM AIR CCL * Used *[id number] SHEATH, FR6 TRANSRADIAL RM*[id number] 12:19 [employer] MEDICAL FR 6 Used SLENDER 10CM *[id number] History: Allergies Allergy Reaction No Known Allergies History: Risk Factors Family History of Hypertension Dyslipidemia Previous [place] Previous Heart Failure Premature CAD Yes Yes No No No Prior Valve Prior PCI Prior CABG Surgery No No No Cerebrovascular Peripheral Artery Chronic Lung On Dialysis Diabetes Disease Disease Disease No Yes No Yes Yes History: Stress Tests Stress or Imaging Studies Performed No History: Other Current Smoker Method Packs a Day Years Used Pack Years Yes Cigarettes 1 30 30 Labs Hgb (g/dl) Hct (%) WBC (l/cumm) Platelets (thousands) 11.60-17.00 35.00-51.00 4.00-11.00 150.00-450.00 11.6 34.9 8.2 333 Glucose (mg/dl) BUN (mg/dl) Creatinine (mg/dl) BUN:Creatinine (1:x) 74.00-106.00 7.00-18.00 0.50-1.30 10.00-20.00 265 17 0.6 28.3 Na (meq/l) K (meq/l) 136.00-145.00 3.50-5.10 139 3.9 INR (PTT:PT) 0.90-1.10 0.9 Troponin I (ng/ml) CPK-MB (ng/ML) 0.02-0.05 0.50-3.60 0.21 Not Drawn Medication Medication Total Dose (Bolus/Oral) Medication Total Dosage/Unit 1% XYLOCAINE 20 mL FENTANYL 25 mcg RADIAL COCKTAIL 5 mL (Bolus) VERSED 0.5 mg Medications (Bolus/Oral) Medication Time Given Dosage/Unit Administered By Reason 05/30/2017 12:45:03 VERSED 0.5 mg John Bell 0.5 mg VERSED given in lab by John Bell RN in Left Arm via Peripheral IV. Ordered by Yuri Burgess 05/30/2017 12:45:04 FENTANYL 25 mcg Familia Thompson 25 mcg FENTANYL given in lab by Familia Thompson RN in Left Arm via Peripheral IV. 05/30/2017 12:45:10 1% XYLOCAINE 20 mL Yuri Burgess 20 mL 1% XYLOCAINE given in lab by Yuri Burgess in Right Groin via Subcutaneous. Ordered by Yuri Romero 05/30/2017 12:47:42 RADIAL COCKTAIL 5 mL (Bolus) Yuri Burgess 5 mL (Bolus) RADIAL COCKTAIL given in lab by Yuri Burgess in Right Radial via Radial. Using [S olution Name]. Ordered by Yuri Burgess 2300 units heparin,200 nitro, 2.5 verapamil Medication (Drip) Medication Time Given Dosage/Unit Concentration/Unit Diluent (ml) Solution 05/30/2017 12:15:30 IV Solutions 0 mL (IV) 500 NaCl .9 PM IV Solutions given in lab by Burfield, Familia, RN in Left Arm via Peripheral IV. Pump/Drip Flow = 50 ml/ hr using NaCl .9. Initial Case Assessment Cardiovascular HR Rhythm NIBP Chest Pain 66 reg 160/65 0 Edema Present Skin color Skin None Normal Warm Dry Circulatory - Right Pulses Dorsalis Pedis Femoral Radial 2 3 3 Scale (0,1,2,3,4,d) Circulatory - Left Pulses Dorsalis Pedis Femoral Radial 1 3 Scale (0,1,2,3,4,d) Circulatory - Lower Extremities Color Lower Right Color Lower Left Normal Normal Neurological State Oriented to time-place- Alert Moves all extremities person Respiration - General Respiration Rate SpO2 (%) (B/min) 19 98 Final Case Assessment Cardiovascular HR NIBP Chest Pain 71 124/54 0 Edema Present Skin color Skin None Normal Warm Dry Circulatory - Right Pulses Dorsalis Pedis Femoral Radial 2 3 3 Scale (0,1,2,3,4,d) Circulatory - Left Pulses Dorsalis Pedis Femoral Radial 1 3 Scale (0,1,2,3,4,d) Circulatory - Lower Extremities Color Lower Right Color Lower Left Normal Normal Neurological State Oriented to time-place- Alert Moves all extremities person Respiration - General Respiration Rate SpO2 (%) (B/min) 14 96 Chronological Log Time Study Chronological Log 12:14:49 Patient arrived via Bed. 12:14:52 Patient Name, D.O.B, / Armband Verified By R.N. 12:14:58 Consent signed by the physician and the patient and verified by the [facility] staff. 12:15:00 Pre-op and post- op instructions given; patient acknowledges understanding of instructions. 12:15:02 Verbal Stimulation=2 Physical Stimulation=2 Airway=2 Respiration=2 TOTAL=8. (0=absent, 1=li mited, 2=present) 12:15:04 Presedation assessment performed by [facility] RN. 12:15:19 Allens test performed on the right radial and ulnar artery. 12:15:22 Immediate Presedation assesment performed by physician. 12:15:23 Patient has been NPO for More than 6Hrs. 12:15:23 Skin Breakdown left food wound. Covered by bandage. 12:15:24 Patient Warmer Placed on the Table. 12:15:28 Florina Prominences Protected 12:15:28 A # 20 IV was noted in the Brach. Vein (left). Grade = 0 12:15:30 IV Solutions given in lab by Familia Thompson RN in Left Arm via Peripheral IV. Pump/Drip Jerry w = 50 ml/hr using NaCl .9. 12:15:31 History and physical on the chart or being dictated. Assessment: Initial Case, HR=66 BPM, Rhythm=reg, YCKL=109/65 mmhg, Chest Pain=0, Edema=None, Co barron=Normal, Skin = Warm, Dry Right Pulses: Sourav Ped=2, Femoral=3, Radial=3 Left Pulses: Sourav Ped=1, Femoral=3 12:15:33 Lower Right Extremities: Color=Normal Lower Left Extremities: Color=Normal Neurological: State=Alert, Ox3, [place] Respiration: Resp=19 B/min, SpO2=98 % Vitals capture started with the following parameters, Patient=Adult, Interval=5 min, Initial Pr bhkjwm=196 mmHg, 12:19:51 Deflation Rate=5 mmHg, Cuff placed on Left Arm 12:20:39 Reference ECG taken 12:20:40 HR=66 bpm, GJIU=334/65 mmhg, SpO2=97.0 %, Resp=20 B/min, Pain=0, Jose Rafael=10, Marcelino=2 12:25:37 HR=66 bpm, POKW=181/59 mmhg, SpO2=97.0 %, Resp=18 B/min, Pain=0, Jose Rafael=10, Marcelino=2 12:31:19 HR=69 bpm, UZHQ=664/71 mmhg, SpO2=97.0 %, Resp=19 B/min, Pain=0, Jose Rafael=10, Marcelino=2 12:37:03 HR=70 bpm, LRYQ=019/74 mmhg, SpO2=97.0 %, Resp=18 B/min, Pain=0, Jose Rafael=10, Marcelino=2 12:38:44 Right groin prepped with 2% chlorhexidine, and draped after a 3 min. waiting time. 12:40:32 HR=69 bpm, LQRJ=255/62 mmhg, SpO2=98.0 %, Resp=14 B/min, Pain=0, Jose Rafael=10, Marcelino=2 12:42:27 Pressure channel 1 zeroed. Time Out. Correct patient, correct procedure, correct physician, power injector loaded, or not loaded with contrast with 12:44:33 surgical team present. Time Out Concurred by MD and individual staff in procedure. :46 Case Start 12:45:03 0.5 mg VERSED given in lab by John Bell, RN in Left Arm via Peripheral IV. Ordered by Yuri Burgess 12:45:04 25 mcg FENTANYL given in lab by Familia Thompson, RN in Left Arm via Peripheral IV. 20 mL 1% XYLOCAINE given in lab by Yuri Burgess in Right Groin via Subcutaneous. Ordered by Aditya 12:45:10 Yuri Lopes 12:46:12 HR=75 bpm, MZZV=997/69 mmhg, SpO2=96.0 %, Resp=18 B/min, Pain=0, Jose Rafael=10, Marcelino=2 12:46:12 Access site was Radial Artery. A SHEATH, FR6 TRANSRADIAL SLENDER 10CM FR 6 was advanced into the Radial (right) using the Mair fied Seldinger 12:47:26 technique. 5 mL (Bolus) RADIAL COCKTAIL given in lab by Yuri Burgess in Right Radial via Radial. Us ing [Solution Name]. 12:47:42 Ordered by Yuri Burgess. 2300 units heparin,200 nitro, 2.5 verapamil A JR 4.0 INFINITI CATHETER FR 5 was advanced over a wire. OMNIPAQUE, 350 MG, 150ML 150ML was us ed for 12:49:24 injections. Recorded Pressure: LV, HR=74, Condition=Condition 1 12:51:07 (Left Ventricle) LV 86/1/5 Recorded Pressure: LV, Ao, HR=70, Condition=Condition 1 12:51:18 (Left Ventricle) LV 84/1/3, (Aorta) Ao 75/45/58 Recorded Pressure: Ao, HR=72, Condition=Condition 1 12:51:45 (Aorta) Ao 71/47/59 12:51:52 The RCA was injected and visualized at various angles. OMNIPAQUE, 350 MG, 150ML 150ML used . 12:52:08 Vitals capture stopped. Vitals capture started with the following parameters, Patient=Adult, Interval=5 min, Initial Pr fnkrgy=588 mmHg, 12:52:12 Deflation Rate=5 mmHg, Cuff placed on Left Arm After removing the current catheter a JL 3.5 INFINITI CATHETER FR 5 was advanced over a WIRE, E XCHANGE 260CM 12:52:25 3MMJ 260CM. 12:54:27 Vitals capture stopped. Vitals capture started with the following parameters, Patient=Adult, Interval=5 min, Initial Pr soswub=524 mmHg, 12:54:32 Deflation Rate=5 mmHg, Cuff placed on Left Arm 12:54:35 The LCA was injected and visualized at various angles. OMNIPAQUE, 350 MG, 150ML 150ML used . 12:56:38 Vitals capture stopped. Vitals capture started with the following parameters, Patient=Adult, Interval=5 min, Initial P jkfgssj=978 mmHg, 12:56:52 Deflation Rate=5 mmHg, Cuff placed on Left Arm 12:57:40 HR=71 bpm, VDMU=633/37 mmhg, SpO2=95.0 %, Resp=14 B/min, Pain=0, Jose Rafael=10, Marcelino=2 12:58:32 A WIRE, EXCHANGE 260CM 3MMJ 260CM was inserted via Radial (right). 12:58:51 Catheter was removed 12:58:59 Case End 12:59:03 Catheter(s) removed without difficulty 13:02:25 HR=71 bpm, PZUF=966/54 mmhg, SpO2=96.0 %, Resp=14 B/min, Pain=0, Jose Rafael=10, Marcelino=2 Radial Compression Device Used. 12 mLs of air placed in BAND, RADIAL COMPRESSION TR LARGE 29 2 9CM. Affected 13:04:52 hand 95 % O2 saturation. 13:05:06 No case complications noted. 13:05:08 Cine recording checked. 13:05:11 Bedside Report will be given. 13:05:12 Contrast Scanned 13:05:15 A Left Heart Cath was performed. 13:08:23 Vitals capture stopped. Assessment: Final Case, HR=71 BPM, XNWN=066/54 mmhg, Chest Pain=0, Edema=None, Color=Normal, S kin = Warm, Dry Right Pulses: Sourav Ped=2, Femoral=3, Radial=3 Left Pulses: Sourav Ped=1, Femoral=3 13:08:30 Lower Right Extremities: Color=Normal Lower Left Extremities: Color=Normal Neurological: State=Alert, Ox3, [place] Respiration: Resp=14 B/min, SpO2=96 % 13:12:58 Patient moved to stretcher End Study - Contrast Media Used In Study Contrast Total Opened (mL) Total Used (mL) Total Wasted (mL) Omnipaque 40 40 0 End Study - Maximum Contrast Load Max Contrast Load (mL) 489.0 End Study - Radiation Exposure Fluoro Time (minutes) 1.7 End Study - Patient Disposition Complications Transferred To Telemetry Bed
[2017-05-30] MEDS ORDERED: MISC INFORMATION XX ONE (13:30)
--- NOTE | 2017-05-30 13:43 | PD.CARD.PN ---
Subjective Subjective Remarks Post-cath Doing well, no chest pain/SOB Objective Medications Current Medications Medications (Trade) Dose Ordered Sig/Nolvia Route Start Time Stop Time Status Last Admin (Levemir Inj) 5 units HS SQ 05/24/17 22:00 05/29/17 21:32 (D50w (Vial) Inj) 50 ml UNSCH PRN IV PUSH 05/24/17 22:00 (Glucagon Inj) 1 mg UNSCH PRN OTHER 05/24/17 22:00 (NovoLOG SUPPLEMENTAL SCALE) 1 ACHS SLIDING SCALE SQ 05/25/17 08:00 05/29/17 21:42 Sodium Chloride 1,000 ml @ 60 mls/hr [id number] IV 05/24/17 21:57 05/28/17 20:55 (NS Flush) 2 ml UNSCH PRN IV FLUSH 05/24/17 22:00 (NS Flush) 2 ml BID IV FLUSH 05/25/17 09:00 05/30/17 08:57 (Zofran Inj) 4 mg Q6H PRN IVP 05/24/17 22:00 05/25/17 00:12 (Heparin Inj) 5,000 units Q12H SQ 05/25/17 09:00 05/29/17 21:31 (Tylenol) 650 mg Q6H PRN PO 05/24/17 22:00 05/29/17 03:08 (Krypton 5-325 Mg) 1 tab Q4H PRN PO 05/24/17 22:00 05/29/17 09:28 (Morphine Inj) 2 mg Q3H PRN IV PUSH 05/24/17 22:00 (Yamel-Colace) 1 tab BID PO 05/25/17 09:00 05/30/17 08:57 (Milk Of Magnesia Liq) 30 ml Q12H PRN PO 05/24/17 22:00 (Senokot) 17.2 mg Q12H PRN PO 05/24/17 22:00 (Dulcolax Supp) 10 mg DAILY PRN RECTAL 05/24/17 22:00 (Lactulose Liq) 30 ml DAILY PRN PO 05/24/17 22:00 (Ecotrin Ec) 81 mg DAILY PO 05/25/17 09:00 05/30/17 08:57 (Lopressor) 25 mg Q12HR PO 05/25/17 09:00 05/30/17 08:57 (Duoneb Neb) 1 ampule Q4HR NEB PRN NEB 05/24/17 22:30 (Lipitor) 80 mg HS PO 05/25/17 21:00 05/29/17 21:36 (Synthroid) 50 mcg DAILY@0600 PO 05/25/17 09:00 05/30/17 05:29 (Apresoline Inj) 10 mg Q30M PRN IV PUSH 05/27/17 23:30 05/30/17 11:56 (Santyl Oint) 1 applic Q48H TOPICAL 05/30/17 09:00 05/30/17 08:57 Miscellaneous Information 1 ONCE ONCE XX 05/30/17 13:30 05/30/17 13:31 UNV Vital Signs / I&O Vital Signs Date Time Temp Pulse Resp B/P (MAP) Pulse Ox O2 Delivery O2 Flow Rate FiO2 05/30/17 11:36 98.4 60 19 166/90 (115) 97 05/30/17 08:00 68 05/30/17 07:30 97 Room Air 05/30/17 07:30 67 05/30/17 07:30 98.2 73 19 168/101 (123) 97 05/30/17 06:00 64 05/30/17 06:00 98.4 72 18 160/91 (114) 98 05/30/17 03:00 98 Room Air 05/30/17 03:00 70 05/30/17 02:00 70 05/30/17 00:00 71 05/29/17 23:00 98.4 71 18 169/97 (121) 98 05/29/17 23:00 98 Room Air 05/29/17 22:00 71 05/29/17 21:00 72 05/29/17 20:00 67 05/29/17 19:00 98.4 67 18 178/98 (124) 98 05/29/17 19:00 98 Room Air 05/29/17 16:00 66 05/29/17 15:00 98.0 66 18 165/91 (115) 98 05/29/17 15:00 66 05/29/17 15:00 2.00 05/29/17 14:00 66 I/O 10/25/17 05/29/17 05/29/17 05/30/17 05/30/17 05/30/17 07:00 15:00 23:00 07:00 15:00 23:00 Intake Total 984 ml 240 ml Output Total 500 ml 150 ml 600 ml Balance 484 ml -150 ml -360 ml Intake Oral 480 ml 240 ml IV Total 504 ml Output Urine Total 500 ml 150 ml 600 ml # Bowel Movements 0 0 Physical Exam GENERAL: NAD SKIN: Warm and dry. HEAD: Atraumatic. Normocephalic. EYES: Pupils equal and round. No scleral icterus. No injection or drainage. ENT: No nasal bleeding or discharge. Mucous membranes pink and moist. NECK: Trachea midline. No JVD. CARDIOVASCULAR: Regular rate and rhythm. RESPIRATORY: No accessory muscle use. Clear to auscultation. Breath sounds equal bilaterally. GASTROINTESTINAL: Abdomen soft, non-tender, nondistended. Hepatic and splenic margins not palpable. MUSCULOSKELETAL: Extremities without clubbing, cyanosis, or edema. No obvious deformities. NEUROLOGICAL: Awake and alert. No obvious cranial nerve deficits. Motor grossly within normal limits. Five out of 5 muscle strength in the arms and legs. Normal speech. PSYCHIATRIC: Appropriate mood and affect; insight and judgment normal. Assessment and Plan Problem List: (1) Syncope ICD Codes: R55 - Syncope and collapse (2) Encephalopathy ICD Codes: G93.40 - Encephalopathy, unspecified (3) Elevated troponin ICD Codes: R74.8 - Abnormal levels of other serum enzymes Assessment and Plan 1) ? Encephalopathy, probably around baseline 2) Elevated troponin, concern for multiple episodes of elevations and found on his lawn, last hospitalization trop ~10 one month ago 3) Cardiac cath showing MVCAD CT surgery consultation for CABG Yuri Burgess DO May 30, 2017 13:43
--- NOTE | 2017-05-30 13:46 | MA ---
cc: YURI WHITE DO DATE: May 30, 2017 PROCEDURE Left heart catheterization, coronary angiogram, moderate sedation 15 minutes. PREPROCEDURE DIAGNOSIS N-STEMI, possible syncope. POSTPROCEDURE DIAGNOSIS Multivessel coronary artery disease. MEDICATIONS 1. Versed 0.5 mg. 2. Fentanyl 25 mcg. 3. Heparin 2300 units. 4. Nitro 200 mcg. 5. Verapamil 2.5 mg. CONTRAST USED 40 ccs. FLUOROSCOPY 1.7 minutes. SEDATION Moderate sedation 15 minutes. ESTIMATED BLOOD LOSS 10 ccs. PROCEDURAL SUMMARY Aliza Lechuga is a pleasant 71-year-old male who presented to [facility] after being found down in his yard. The patient had a previous episode similar to this one month ago and was found to have an elevated troponin of 10. This time his troponin was 0.2 but due to these two episodes I felt that the patient should undergo cardiac catheterization. Risks, benefits and alternatives were explained to the patient and he consented as such. He was brought to the lab and prepped in the usual sterile fashion. Right radial artery was accessed using a modified Seldinger technique and placement of a 5/6 Turkish slender sheath. This was easily aspirated and flushed. A JR-4 was advanced over a J-wire to the ascending aorta and across the aortic valve for measurement of left ventricular pressure. This was pulled back across the aortic valve showing no significant gradient of aortic stenosis. JR-4 was then used for selective angiography of the right coronary artery. This was exchanged out for a JL-3.5 which was used for selective angiography of the left coronary artery. JL-3.5 was removed over a J-wire. The patient left the cath lab technologist cardiovascularly stable. FINDINGS Left main. Normal size vessel with adequate reflux and no significant disease. LAD. Normal size vessel with 20% lesion in the proximal portion, a 70% lesion in the proximal to mid and a 90% lesion in the [id number]-na-bvfblo LAD. It gives off two small diagonals with the first one having 90% ostial disease. Left circumflex. 90% lesion in the proximal portion with a 70% lesion in the mid portion. It gives off two obtuse marginals with the first one being high and proximal with diffuse 70% disease. The second one appears to have 50% disease. RCA. 100% occluded at the proximal portion. There are notable collaterals from the left side to the distal PDA and PL which fill up to the mid to distal RCA. LVEDP 3. IMPRESSION 1. N-STEMI. 2. Possible syncopal episode versus ischemic versus arrhythmogenic. 3. Poor historian. 4. Multivessel coronary artery disease as above. RECOMMENDATIONS 1. Because of Mr. Lechuga's multivessel coronary artery disease, he will be recommended possible bypass surgery. 2. Until that time he will be treated medically. 3. We will plan on repeating an echocardiogram to look at his overall left ventricular function, cardiac structure and possible valvulopathies. 4. Further recommendations after CT surgery evaluation. Thank you for allowing me to see Aliza Lechuga. If there are any questions, please do not hesitate to call. Yuri White DO VGP/TLL /1:08 PM /1:24 PM
--- NOTE | 2017-05-30 14:25 | HHI.PR ---
Subjective Remarks complaining of headache. wants to eat and states he is "starving". denies any CP /SOB/N/V Objective Vitals Vital Signs Date Time Temp Pulse Resp B/P (MAP) Pulse Ox O2 Delivery O2 Flow Rate FiO2 05/30/17 12:00 60 05/30/17 11:36 98.4 60 19 166/90 (115) 97 05/30/17 11:00 61 05/30/17 10:00 62 05/30/17 09:00 61 05/30/17 08:00 68 05/30/17 07:30 97 Room Air 05/30/17 07:30 67 05/30/17 07:30 98.2 73 19 168/101 (123) 97 05/30/17 06:00 64 05/30/17 06:00 98.4 72 18 160/91 (114) 98 05/30/17 03:00 98 Room Air 05/30/17 03:00 70 05/30/17 02:00 70 05/30/17 00:00 71 05/29/17 23:00 98.4 71 18 169/97 (121) 98 05/29/17 23:00 98 Room Air 05/29/17 22:00 71 05/29/17 21:00 72 05/29/17 20:00 67 05/29/17 19:00 98.4 67 18 178/98 (124) 98 05/29/17 19:00 98 Room Air 05/29/17 16:00 66 05/29/17 15:00 98.0 66 18 165/91 (115) 98 05/29/17 15:00 66 05/29/17 15:00 2.00 I/O 05/29/17 05/29/17 05/29/17 05/30/17 05/30/17 05/30/17 07:00 15:00 23:00 07:00 15:00 23:00 Intake Total 984 ml 240 ml Output Total 500 ml 150 ml 600 ml Balance 484 ml -150 ml -360 ml Intake Oral 480 ml 240 ml IV Total 504 ml Output Urine Total 500 ml 150 ml 600 ml # Bowel Movements 0 0 Result Diagram: 05/27/1752905/27/17529 Imaging Last Impressions Head CT 05/24/171922 Signed Impressions: Service Date/Time: Wednesday, May 24, 2017 19:41 - CONCLUSION: Stable CT brain scan as described. No acute intracranial abnormality or change Jonathan Cunningham MD Chest X-Ray 05/24/171922 Signed Impressions: Service Date/Time: Wednesday, May 24, 2017 19:29 - CONCLUSION: No acute disease. Jonathan Cunningham MD Objective Remarks GENERAL: This is a thin male. Skin: stage 2 ulcer, ulcer noted on the left foot not evaluated today. CARDIOVASCULAR: Normal rate and regular rhythm without murmurs RESPIRATORY: Good respiratory efforts. Breath sounds equal and clear to auscultation bilaterally. GASTROINTESTINAL: Abdomen soft, non-tender, non-distended. Normal active bowel sounds MUSCULOSKELETAL: Extremities without edema. NEURO: awake and alert, answers questions. PSYCH: Calm A/P Problem List: (1) Encephalopathy ICD Code: G93.40 - Encephalopathy, unspecified (2) Elevated troponin ICD Code: R74.8 - Abnormal levels of other serum enzymes (3) Anemia ICD Code: D64.9 - Anemia, unspecified (4) HTN (hypertension) ICD Code: I10 - Essential (primary) hypertension (5) COPD (chronic obstructive pulmonary disease) ICD Code: J44.9 - Chronic obstructive pulmonary disease, unspecified (6) Lactic acidosis ICD Code: E87.2 - Acidosis (7) DM (diabetes mellitus) ICD Code: E11.9 - Type 2 diabetes mellitus without complications (8) Tobacco abuse ICD Code: Z72.0 - Tobacco use Assessment and Plan 71-year-old male was found down on the lawn. Neurology following, believe altered mental status is due to remote stroke and cognitive decline. The patient presented with elevated troponin as well. Cardiology is following. Encephalopathy: Found lying in grass outside his home, no injuries noted. CT Head w/ no acute findings. Patient appeared to be at his baseline. s/p cardiac cath. I was notified by Dr. Garibay that pt has multivessel disease and CV sx has been consulted. continue neuro-checks and PT recommends home health w home PT. Elevated Trop: Recent admit 04/27 w/ Trop 10 s/p cardiac cath. continue aspirin, Statin, B-wyatt. Anemia: stable. Continue to monitor. HTN: Continue metoprolol. DM: better controlled. BS 403 on arrival. increased the Levemir 5 units BID, Sliding scale w/ Accu-Cheks. Hgb A1c 12.0 on 04/03/17. added 1999 ADA diet. DVT Prophylaxis: Heparin sq Discharge Planning -Follow up CV sx recs. Consult pending. 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
[2017-05-30] MEDS ORDERED: ACETAMINOPHEN/HYDROcodone 325 MG/5 MG TAB PO ONE (14:30)
--- NOTE | 2017-05-30 15:28 | PD.CAR.PN ---
CVT Progress Note Subjective/Hospital Course: RISK SCORES About the STS Risk Calculator Procedure: CAB Only Risk of Mortality: 2.17% Morbidity or Mortality: 17.125% Long Length of Stay: 9.111% Short Length of Stay: 35.286% Permanent Stroke: 1.316% Prolonged Ventilation: 11.625% DSW Infection: 0.874% Renal Failure: 2.083% Reoperation: 7.398% Objective: Vital Signs Date Time Temp Pulse Resp B/P (MAP) Pulse Ox O2 Delivery O2 Flow Rate FiO2 05/30/17 14:23 78 05/30/17 12:00 60 05/30/17 11:36 98.4 60 19 166/90 (115) 97 05/30/17 11:00 61 05/30/17 10:00 62 05/30/17 09:00 61 05/30/17 08:00 68 05/30/17 07:30 97 Room Air 05/30/17 07:30 67 05/30/17 07:30 98.2 73 19 168/101 (123) 97 05/30/17 06:00 64 05/30/17 06:00 98.4 72 18 160/91 (114) 98 05/30/17 03:00 98 Room Air 05/30/17 03:00 70 05/30/17 02:00 70 05/30/17 00:00 71 05/29/17 23:00 98.4 71 18 169/97 (121) 98 05/29/17 23:00 98 Room Air 05/29/17 22:00 71 05/29/17 21:00 72 05/29/17 20:00 67 05/29/17 19:00 98.4 67 18 178/98 (124) 98 05/29/17 19:00 98 Room Air 05/29/17 16:00 66 Result Diagram: 05/27/17 0530 05/27/17 0530 (1) Syncope (2) Encephalopathy (3) Elevated troponin Radha Cali May 30, 2017 15:28
--- NOTE | 2017-05-30 17:46 | MB ---
cc: TEA LAGOS DATE OF CONSULTATION 05/30/17 1947 HISTORY OF PRESENT ILLNESS A 71-year-old patient who has been admitted via the emergency department and hospitalizations multiple times. Last admission was back from 04/27 to 05/04 for the patient being found unresponsive, elevated blood sugars. was in respiratory distress. He was intubated and sent to the intensive care unit. He had some mildly elevated troponins, however, at the time he did have some sepsis with elevated WBC count and they also did a lumbar puncture which was negative at that time. He had elevated blood sugars in the 500s, acute kidney injury secondary to dehydration, also left foot diabetic wound. He was evaluated and seen by Infectious Disease. He had multiple bacteria in his foot including Klebsiella, staph MRSA, enterobacter. He also had some Aspergillus in his sputum which was likely contaminated. He was then finally sent home on Augmentin and Levaquin. The patient has some noncompliance, however, he says he still takes his insulin. On admission at this time, he was found unresponsive in the yard by his neighbor. He does have a roommate which he is apparently recently estranged from. On this admission, his troponin was notably higher at 10.1 and then 0.21. His reported complaints was generally feeling uncomfortable and has some feeling of nausea. Blood sugars again were elevated at 450. His blood pressure was 206/110 on admission. He was taken to the center medical and lab director by Dr. Burgess where they found a 70% lesion in the proximal LAD and 90% lesion in the mid distal LAD and two small diagonals with the first one having a 90% ostial disease. The left circ had a 90% lesion in the proximal portion with a 70% lesion in the mid portion also giving off to two obtuse marginals with one being a high and a proximal with 70% disease. The second OM had a 50%. The RCA had 100% occlusion at the proximal portion. There was some notable collaterals from the left side to the distal PDA and posterolateral wall. We were consulted because of his significant coronary artery disease. They did do an echo on his last admission which showed an EF of 60-65%, some trace tricuspid regurgitation and also trace mitral regurgitation. PAST MEDICAL HISTORY The patient is a very poor historian, apparently some noncompliance 1. Tobacco abuse, 2. Diabetes mellitus on insulin therapy, 3. Hypertension, 4. Hyperlipidemia, 5. COPD, 6. Peripheral vascular disease 7. Diabetic wound. 8. History of hypothyroidism. PAST SURGICAL HISTORY 1. Tonsillectomy 2. There was a right carotid, however, the patient does have a carotid artery stent. ALLERGIES No known allergies. MEDICATIONS Home medications include 1. Atorvastatin 80. 2. Coreg 3.125. 3. Aspirin. 4. NovoLog Insulin 5. Levemir 5 units q.h.s. 6. Levothyroxine 50 mg daily. FAMILY HISTORY Father from an [place] in his 60s. His mother . He thinks it was a blood clot. SOCIAL HISTORY The patient , has one child whom she is estranged from, occasional marijuana, smokes one-pack per day for multiple years. No alcohol. REVIEW OF SYSTEMS GENERAL: No night sweats, fever, heat and cold intolerance. SKIN: No psoriasis, itching or hives. RESPIRATORY: Positive for occasional shortness of breath. He denies any chest pain and no paroxysmal nocturnal dyspnea. GASTROINTESTINAL: No diarrhea, vomiting. GENITOURINARY: No burning, frequency, urgency PIPE BUFFER: No history of TIA, CVA, seizure disorder. However, he has been found unresponsive a couple times on admission, ENDOCRINE: Positive for hypothyroidism and diabetes mellitus. PHYSICAL EXAMINATION VITAL SIGNS: Blood pressure 160/90, heart rate 60, temperature max 98.4. GENERAL: This 71-year-old male appears older than his stated age. HEENT: Head is normocephalic, atraumatic. He has in general, poor hygiene. Pupils are equal and reactive. Oral mucosa pink, moist. NECK: Supple. No JVD. CARDIAC: Heart sounds S1-S2 regular rate and rhythm. No audible rubs, murmurs, gallops. LUNGS: Clear to auscultation, no wheezes, rales or rhonchi. ABDOMEN: Soft, nontender. No masses or organomegaly. EXTREMITIES: No cyanosis, clubbing, edema. The patient does have a diabetic ulcer on the plantar portion of his left foot. He also has stage II decubiti to his coccyx area. No other lesions or rashes noted. LABORATORY DATA Hemoglobin of 11, hematocrit of 35, white cell count 8.2, platelet count 333. Sodium 139, potassium 3.9, BUN 17, creatinine 0.66, glucose 265, lactic acid is down to 1.4, troponin highest was 0.21. TSH of 2.5. His last hemoglobin A1c was back in March of 2017 which was 12, AST 9, ALT 24, triglycerides 127, cholesterol 117. CARDIOLOGY STUDIES EKG on this admission - Sinus rhythm with some Q-waves in the inferior leads which are unchanged from his prior EKG from 04/28/2017. IMPRESSION This is a 71-year-old male who appears older than his stated age, has been found unresponsive x2 with elevated troponins, also elevated blood sugars, with no evidence of diabetic ketoacidosis. His last admission he had some acute kidney injury, however, at this time his creatinine is 0.66. He is on coverage for his elevated blood sugars. Apparently there is some noncompliance. He was worked up on his last admission for sepsis and he still has a left wound foot ulcer. The patient is also a significant poor historian. There is question of his living conditions after discharge. In the meantime, he does have multivessel disease. the coronary films will need to be evaluated by Dr. Tea Lagos. The patient is now on fall risk precautions, again his increased risk for surgery are uncontrolled blood sugars and his diabetes mellitus, poor historian, high risk for falls. Further planning per Dr. Tea Lagos. Dictated by CARSON Stevens MD CHARLOTTE Goldman/ /3:29 PM /8:27 AM
--- NOTE | 2017-05-30 18:23 | RADRPT ---
EXAM DATE/TIME: 05/30/2017 16:56 [facility] COMPARISON: No previous studies available for comparison. INDICATIONS : Preop cardiac surgery. MEDICAL HISTORY : Methicillin-resistant Staphylococcus aureus. Hypercholesterolemia. Chronic obstructive pulmonary dise ase. Hypertension. Diabetes. Renal disease. Hypothyroidism. SURGICAL HISTORY : Tonsillectomy.Carotid endarterectomy. ENCOUNTER: Initial ACUITY: 1 day PAIN SCORE: 7/10 LOCATION: Bilateral legs. TECHNIQUE: Venous ultrasound of the left and right leg was performed from the inguinal ligament to the proximal calf. Real-time, color Doppler and spectral tracing, compression and augmentation techniques were us ed. FINDINGS: RIGHT LEG: There is normal compressibility of the deep venous system from the inguinal region to the proximal ca lf. No echogenic clot is seen in the lumen of the common femoral, femoral, popliteal, and posterior tibial veins. There is a normal response of the venous system to proximal and distal augmentation an d respiration. LEFT LEG: There is normal compressibility of the deep venous system from the inguinal region to the proximal ca lf. No echogenic clot is seen in the lumen of the common femoral, femoral, popliteal, and posterior tibial veins. There is a normal response of the venous system to proximal and distal augmentation an d respiration. CONCLUSION: Normal examination. Cholo Mcdaniels MD on May 30, 2017 at 18:21 Board Certified Radiologist. This report was verified electronically.
[2017-05-30] MEDS: ACETAMINOPHEN 325 MG TAB PO PRN (18:24)
--- NOTE | 2017-05-30 18:24 | RADRPT ---
EXAM DATE/TIME: 05/30/2017 17:05 [facility] COMPARISON: No previous studies available for comparison. INDICATIONS : Preop cardiac surgery. MEDICAL HISTORY : Hypercholesterolemia. Methicillin-resistant Staphylococcus aureus. Chronic obstructive pulmonary dise ase. Hypertension. Diabetes. Renal disease. Hypothyroidism. SURGICAL HISTORY : Carotid endarterectomy. Tonsillectomy. ENCOUNTER: Initial ACUITY: 1 day PAIN SCORE: 7/10 LOCATION: Bilateral legs. GREATER SAPHENOUS VEIN THIGH: PROXIMAL: Right 3 mm Left 3 mm MID: Right 1 mm Left 2 mm DISTAL: Right 1 mm Left 2 mm CALF: PROXIMAL: Right Non-visualized Left 1 mm MID: Right Non-visualized Left 1 mm DISTAL: Right Non-visualized Left 1 mm FINDINGS: The venous system of the lower extremities are patent by color Doppler imaging. Measurements of the leg veins (in mm) are listed above. CONCLUSION: Small caliber greater saphenous veins. On the right, the GSV is not visualized below the knee. Cholo Mcdaniels MD on May 30, 2017 at 18:21 Board Certified Radiologist. This report was verified electronically.
--- NOTE | 2017-05-30 18:39 | RADRPT ---
EXAM DATE/TIME: 05/30/2017 16:42 [facility] COMPARISON: No previous studies available for comparison. INDICATIONS : Preop cardiac surgery. MEDICAL HISTORY : Methicillin-resistant Staphylococcus aureus. Chronic obstructive pulmonary dise ase. Hypercholesterolemia. Hypertension. Diabetes. Renal disease. Hypothyroidism. SURGICAL HISTORY : Tonsillectomy. Carotid endarterectomy. ENCOUNTER: Initial ACUITY: 1 day PAIN SCORE: 7/10 LOCATION: Bilateral neck PEAK SYSTOLIC VELOCITIES (cm/sec): ICA/CCA RATIO: Right: 0.7 Left: N/A ICA: Right: 69.3 Left: N/A CCA: Right: 101.6 Left: 24.4 ECA: Right: 96.3 Left: 86.5 VERTEBRAL: Right: 64.5 antegrade Left: 136.6 antegrade Elevated flow velocities and ICA/CCA ratios have been found to correlate with increased degrees of vessel stenosis, calculated as percentage of diameter relative to a normal segment of distal ICA/CCA FINDINGS: RIGHT CAROTID: Right carotid stent is patent and satisfactory in appearance. No evidence of resid ual or recurrent flow-limiting stenosis. LEFT CAROTID: Left internal carotid artery is totally VERTEBRAL ARTERIES: Antegrade flow is seen in both vertebral arteries. MISCELLANEOUS: None. CONCLUSION: Known total occlusion of left internal carotid artery. Previously stented right carotid without flow-limiting stenosis Cholo Mcdaniels MD on May 30, 2017 at 18:33 Board Certified Radiologist. This report was verified electronically.
[2017-05-30] MEDS: ATORVASTATIN 80 MG TAB PO SCH (22:24)
[2017-05-30] MEDS: INSULIN DETEMIR 100 UNITS/ML VIAL SQ SCH (22:24)
[2017-05-30] MEDS: ACETAMINOPHEN/HYDROcodone 325 MG/5 MG TAB PO PRN (22:25)
[2017-05-31] VITALS (18 sets, daily range): BP systolic 108–153; BP diastolic 65–89; PULSE 60–84; RESP 16–20; TEMP 98.1–98.7; O2SAT 94–98
[2017-05-31] MEDS: LEVOTHYROXINE SODIUM 50 MCG TAB PO SCH (04:13)
[2017-05-31 07:02] LABS: AUTOMATED NEUTROPHIL # 5.9 TH/MM3 (1.8-7.7); BASOPHIL # 0.1 TH/MM3 (0-0.2); BASOPHIL % 0.6 % (0.0-2.0); EOSINOPHIL # 0.2 TH/MM3 (0-0.4); EOSINOPHIL % 2.4 % (0.0-4.0); HEMATOCRIT 36.1 % (39.0-51.0); HEMO FLAGS DIFF FINAL; LYMPH % 31.3 % (9.0-44.0); LYMPHOCYTE # 3.2 TH/MM3 (1.0-4.8); MEAN CELL VOLUME 89.2 FL (80.0-100.0); MEAN CORPUSCULAR HEMOGLOBIN 29.4 PG (27.0-34.0); MONO % 7.5 % (0.0-8.0); NEUT % 58.2 % (16.0-70.0); PLATELET COUNT 342 TH/MM3 (150-450); RED BLOOD COUNT 4.04 MIL/MM3 (4.50-5.90); RED CELL DISTRIBUTION WIDTH 15.2 % (11.6-17.2); WHITE BLOOD COUNT 10.2 TH/MM3 (4.0-11.0)
[2017-05-31 07:18] LABS: ANION GAP 7 MEQ/L (5-15); BICARBONATE 28.6 MEQ/L (21.0-32.0); BLOOD UREA NITROGEN 15 MG/DL (7-18); CHLORIDE 103 MEQ/L (98-107); GLOMERULAR FILTRATION RATE 136 ML/MIN (>89); POTASSIUM 3.6 MEQ/L (3.5-5.1); SODIUM (NA) 139 MEQ/L (136-145)
[2017-05-31] MEDS: INSULIN ASPART SUPPLEMENTAL SCALE SQ SCH ×3 (08:00→16:51)
[2017-05-31] MEDS: ASPIRIN EC 81 MG TABEC PO SCH (08:33)
[2017-05-31] MEDS: METOPROLOL TARTRATE 25 MG TAB PO SCH (08:33)
[2017-05-31] MEDS: DOCUSATE SODIUM 50 MG/SENNA 8.6 MG TAB PO SCH (08:33)
[2017-05-31] MEDS: SODIUM CHLORIDE 0.9% FLUSH 10 ML FLUSH IV FLUSH SCH (08:34)
[2017-05-31] MEDS: INSULIN DETEMIR 100 UNITS/ML VIAL SQ SCH (08:34)
--- NOTE | 2017-05-31 10:32 | PD.WCN.NOT ---
Wound Consult Description: Received consult for wound management of L foot and sacral area from Doctor Riley Communicated with: BETZY GOMEZ and call placed to Doctor Linda Adams for orders Recommendation: 1.Please cleanse wounds to coccyx and L foot with normal saline only. 2.Apply Santyl vasquez thickness to coccyx and cover with bordered gauze . Please apply skin prep to periwound before covering wound with bordered gauze dressing. Change dressing daily.. 3.Apply Santyl vasquez thickness to L plantar foot wound and cover with dry 4x4 gauze pads and secure with rolled gauze and tape change dressing daily. 4.If patient is not being discharged, please obtain [place] airapy bed or if not available order K-4 bed from [facility] 5. Please assist patient with every 2 hour repositioning and turning while in bed to offload pressure from coccyx area. Additional Information: Patient seen on [facility] for wound management of L foot and sacral area.Patient is able to turn self with minimal assist from headline writer to L side for wound assessment. Peeled back adhesive foam dressing in place to reveal unstageable pressure injury to coccyx area. Wound measures 1.6cm x 1cm x ~0.4 cm with adherent slough. Wound bed presents with ~60% light yellow adherent slough and ~ 40% red non granulation tissue. Wound has minimal sero-sanguinous without odor. Periwound is noted with blanchable erythema, but otherwise unremarkable. Reapplied adhesive foam dressing back in place. Removed rolled gauze and gauze dressing place to L foot to reveal full thickness wound to L plantar foot. Wound presents with ~60% pink tissue, ~10% yellow tissue and ~20% black eschar. Periwound presents with hyperkeratotic tissue that is noted circumferentially. Wound measures 2.8cm x 0.4 cm x 0.5cm. Wound presents with undermining from 11 to 2 o'clock deepest at 12 o'clock 0.6cm. Wound drainage is scant and sero-sanguinous with foul odor. Dressing was changed last night at around 10 pm per BETZY Ness with Santyl ointment. Reapplied gauze pad dressing and secured with rolled gauze and tape. Next dressing change is due around 10 pm 06/01/2017. Doctor Linda Adams notified of wound odor from L foot and dressing change order recommendations to L foot and coccyx wound.Santyl is ordered as an every other day change to L foot. Santyl is supposed to be used daily on wound beds Priscilla Daley [facility] May 31, 2017 10:32
--- NOTE | 2017-05-31 11:21 | HHI.HCPN ---
Reason for visit a. To assist with evaluation and management of symptoms including: delirium , headache b. To assist medical decision maker(s) with: better understanding of current medical conditions; weighing benefits/burdens of medical treatment options; making medical treatment decisions. Subjective/Interval History S/p left heart catheterization, coronary angiogram 05/30/17. Findings of significant multivessel disease, referred for CV surgery evaluation for possible CABG, CV evaluating. S/p carotid US yesterday-- notable for stented Rt carotid, Lt with total occlusion to left internal carotid artery. CBC, Chemistry stable/unremarkable. Pt seen in room, RN at beside. He is alert, partially oriented. Not able to name date or month, but knows is Fri or Sat. Some insight into hospital course. Irritable with questions. ROS negative except for reports Headache, unable to further qualify other than "a normal headache". Review of diagnostics yesterday and CV eval for poss brandon, he becomes angry and states he though thats the procedure they were supposed to do yesterday. he expresses he is tired of being in the hospital and wants "to get whatever he needs done and get out". He tells me they are prolonging his hospital stay in order to make more money. Gently explore that he is receiving maximum treatment that is evidence based/safe for his conditions. Again explore family/NOK- he indicates he has the brother in [place] but no contact info for him. He does not have anyone he wishes to designate as HCS, and gets more irritable as I continue to ask him questions RE. sitting up on bedside, eating sandwich. Also very upset that he is not allowed to have ice cream (heart/diabetic diet). will cont to attempt to build rapport, explore goals, possible HCS w pt. D/w RN. D/w CM RE accurint search to locate brother in [place]- she called Marie in financial, apparently no information found for brother. . Advance Directives Living Will: Never completed Health Care Surrogate: Never completed Durable Power of Fly Finisher: Never completed Objective Vital Signs Date Time Temp Pulse Resp B/P (MAP) Pulse Ox O2 Delivery O2 Flow Rate FiO2 05/31/17 10:00 64 05/31/17 09:00 72 05/31/17 08:03 98.6 64 16 145/89 (107) 95 05/31/17 08:00 84 05/31/17 07:00 65 05/31/17 06:19 63 05/31/17 05:00 65 05/31/17 04:00 64 05/31/17 04:00 98.1 64 20 153/75 (101) 98 05/31/17 02:00 63 05/31/17 01:00 61 05/31/17 00:00 98.1 60 20 108/65 (79) 96 05/31/17 00:00 60 05/30/17 20:00 76 05/30/17 20:00 98.2 76 20 137/79 (98) 98 05/30/17 18:14 80 05/30/17 17:30 68 05/30/17 15:30 69 05/30/17 15:30 98.2 71 20 153/76 (101) 97 05/30/17 14:23 78 05/30/17 12:00 60 05/30/17 11:36 98.4 60 19 166/90 (115) 97 Intake & Output 05/31/17 05/31/17 07:00 19:00 Intake Total 400 ml Output Total 800 ml Balance -400 ml Intake Oral 400 ml Output Urine Total 800 ml # Bowel Movements 0 Physical Exam CONSTITUTIONAL/GENERAL: This is a thin elderly male no apparent distress TUBES/LINES/DRAINS: PIV left upper extremity SKIN: No jaundice, rashes, or lesions. +dressing left foot clean and dry. Skin warm, dry. CARDIOVASCULAR: Regular rate and rhythm without murmur. No JVD. Peripheral pulses symmetric. RESPIRATORY/CHEST: Symmetric, unlabored respirations. On room air. Clear to auscultation. Breath sounds equal bilaterally. GASTROINTESTINAL: Abdomen soft, flat, non-tender, nondistended. No hepato- splenomegaly, or palpable masses. Bowel sounds normoactive MUSCULOSKELETAL: Extremities without clubbing, cyanosis, or edema. No joint tenderness or effusion noted. Extremities thin. NEUROLOGICAL: Awake and alert, oriented 2. limited insight. Irritable at times. Follows commands. Moves all 4 extremities. PSYCHIATRIC: No obvious anxiety/depression, though irritable at times. no apparent hallucinations or other psychotic thought process. Diagnostic Tests Laboratory Laboratory Tests Test 05/31/17 05:53 White Blood Count 10.2 TH/MM3 (4.0-11.0) Red Blood Count 4.04 MIL/MM3 (4.50-5.90) Hemoglobin 11.9 GM/DL (13.0-17.0) Hematocrit 36.1 % (39.0-51.0) Mean Corpuscular Volume 89.2 FL (80.0-100.0) Mean Corpuscular Hemoglobin 29.4 PG (27.0-34.0) Mean Corpuscular Hemoglobin Concent 33.0 % (32.0-36.0) Red Cell Distribution Width 15.2 % (11.6-17.2) Platelet Count 342 TH/MM3 (150-450) Mean Platelet Volume 8.9 FL (7.0-11.0) Neutrophils (%) (Auto) 58.2 % (16.0-70.0) Lymphocytes (%) (Auto) 31.3 % (9.0-44.0) Monocytes (%) (Auto) 7.5 % (0.0-8.0) Eosinophils (%) (Auto) 2.4 % (0.0-4.0) Basophils (%) (Auto) 0.6 % (0.0-2.0) Neutrophils # (Auto) 5.9 TH/MM3 (1.8-7.7) Lymphocytes # (Auto) 3.2 TH/MM3 (1.0-4.8) Monocytes # (Auto) 0.8 TH/MM3 (0-0.9) Eosinophils # (Auto) 0.2 TH/MM3 (0-0.4) Basophils # (Auto) 0.1 TH/MM3 (0-0.2) CBC Comment DIFF FINAL Differential Comment Blood Urea Nitrogen 15 MG/DL (7-18) Creatinine 0.59 MG/DL (0.60-1.30) Random Glucose 121 MG/DL (74-106) Calcium Level 9.0 MG/DL (8.5-10.1) Sodium Level 139 MEQ/L (136-145) Potassium Level 3.6 MEQ/L (3.5-5.1) Chloride Level 103 MEQ/L (98-107) Carbon Dioxide Level 28.6 MEQ/L (21.0-32.0) Anion Gap 7 MEQ/L (5-15) Estimat Glomerular Filtration Rate 136 ML/MIN (>89) Result Diagram: 05/31/17 0553 05/31/17 0553 Imaging Last Impressions Lower Extremity Ultrasound 05/30/17 0000 Signed Impressions: Service Date/Time: May 17:05 - CONCLUSION: Small caliber greater saphenous veins. On the right, the GSV is not visualized below the knee. 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 Previously stented right carotid without flow-limiting stenosis Cholo Mcdaniels MD Head CT 05/24/171922 Signed Impressions: Service Date/Time: Wednesday, May 24, 2017 19:41 - CONCLUSION: Stable CT brain scan as described. No acute intracranial abnormality or change Jonathan Cunningham MD Chest X-Ray 05/24/171922 Signed Impressions: Service Date/Time: Wednesday, May 24, 2017 19:29 - CONCLUSION: No acute disease. Jonathan Cunningham MD Procedures 05/30/17 Lt heart catheterization, coronary angiogram . Assessment and Plan Disease Oriented Problem List: (1) Hyperlipidemia (2) Hypothyroidism (3) Diabetes mellitus (4) COPD (chronic obstructive pulmonary disease) (5) Tobacco abuse (6) Encephalopathy (7) HTN (hypertension) (8) Elevated troponin (9) Syncope (10) Delirium Symptom Scale: (1) Delirium 0-10 Scale: Unable to quantify Comment: AMS/DELIRIUM (2) Head ache 0-10 Scale: Unable to quantify Pertinent Non-Medical Issues Psychosocial:Originally from [facility]. Not , no children. Lived in [place] approximately 15 years, moved here for the weather. Has known his roommate Patel about 15 years, they met at a pool [employer] they formerly worked at. Has 2 brothers one Hugo who might still be in the [facility] area , though he has not been in contact with him for several years. He indicates that at one point when he tried to call him his # was not working and he was not able to reach him after that time. Has another brother he cannot remember the name of whom he indicates was severely mentally ill. No other family or friends. Spiritual:No particular gnosticism affiliation does not want sprinkler driver visits. Legal:Patient seen by psych 05/29/17 who indicates patient is currently capacitated for medical decision-making however given his underlying medical conditions and ongoing episodes of AMS he may lose capacity at any time and recommends appropriate proxy. Case management working to locate possible next of kin, via [employer] search. Only contacts provided by patient are his roommate.To my exam today 05/30 patient is alert and oriented 3 with reasonable insight. He tells me that he has no one that he could name as a health care surrogate. IF pt incapacitated, and family could not be identified via [employer], and local friend does NOT wish to serve as proxy then likely would need to establish decision maker via [employer] --->> 05/31 [employer] did NOT return contact info for brother Hugo. Ethical issues impacting care: No ethical issues identified Important Contacts Friend, roommate Patel Terry [phone] . Prognosis This patient was admitted for altered mental status, hyperglycemia. This is the second event like this that he has had in the past few months. CT brain negative. Cardiology has evaluated and cardiac catheterization is pending for further evaluation of cardiac function. He should be able to make it through current hospital course, and likely would discharge back home or to rehabilitation setting. . Code Status: Full Code Plan * Legal decision maker: Patient seen by psych 05/29/17 who indicates patient is currently capacitated for medical decision-making however given his underlying medical conditions and ongoing episodes of AMS he may lose capacity at any time and recommends appropriate proxy. Case management currently working to locate possible next of kin, via [employer] search. Only contacts provided by patient are his roommate. To my exam today 05/30 patient is alert and oriented 3 with reasonable insight. He tells me that he has no one that he could name as a health care surrogate. IF pt incapacitated, and family could not be identified via [employer], and local friend does NOT wish to serve as proxy then likely would need to establish decision maker via [employer] --->> 05/31 [employer] did NOT return contact info for brother Hugo. * Goals: Patient wants to proceed with any recommended procedures to improve his health/conditions and get back home. He elects to remain full code. He does not have anyone to name as healthcare surrogate. * CODE STATUS: Full code * SYMPTOMS: --Denies pain, GI complaints or any other symptoms. Endorsed some intermittent nausea, none currently. We'll continue to evaluate. --Delirium/AMS- admitted with hyperglycemia, elevated troponin; history of remote CVA; neurology following, Suspects baseline cognitive decline related to multiple strokes, cortical atrophy and ischemic vascular chronic changes. This may be furthered by elevation of blood sugar and blood pressure. Will continue to evaluate. -- Headache- unable to qualify. Has prn tylenol, norco available, last doses 05/30 evening. Will cont to evaluate PRN requirements/effectiveness . * Palliative care will continue to follow during hospital course as condition evolves, to assist patient/decision-maker with understanding of medical conditions, weighing benefits/burdens of treatment options, for clarification of goals of treatment. Additionally will assist with any symptoms of palliative concern Time Spent Total Floor Time (mins): 25 (PE, chart review, d/w RN, CM) Attestation To help prompt me to consider important information that might be impacting today's encounter and assessment, information from prior notes written by myself or my colleagues may have been "brought forward" into today's note. My signature on this note, however, is an attestation that I personally performed the exam, history, and/or decision-making noted today, and, unless otherwise indicated, the interactions with patient, family, and staff as well as the review of records all occurred today. I also attest that the listed assessment and stated plan reflect my best clinical judgment today based on the combination of historical information, prior notes, and today's exam/ interactions. When time spent is documented, it refers only to time spent today by the signer, or if indicated, combined time spent today by collaborating physician/nurse practitioner. Kina Bennett May 31, 2017 11:21
--- NOTE | 2017-05-31 11:53 | PD.CARD.PN ---
Subjective Subjective Remarks Doing well, no chest pain/SOB Objective Medications Current Medications Medications (Trade) Dose Ordered Sig/Nolvia Route Start Time Stop Time Status Last Admin (D50w (Vial) Inj) 50 ml UNSCH PRN IV PUSH 05/24/17 22:00 (Glucagon Inj) 1 mg UNSCH PRN OTHER 05/24/17 22:00 (NovoLOG SUPPLEMENTAL SCALE) 1 ACHS SLIDING SCALE SQ 05/25/17 08:00 05/30/17 22:24 Sodium Chloride 1,000 ml @ 60 mls/hr [id number] IV 05/24/17 21:57 05/28/17 20:55 (NS Flush) 2 ml UNSCH PRN IV FLUSH 05/24/17 22:00 (NS Flush) 2 ml BID IV FLUSH 05/25/17 09:00 05/31/17 08:34 (Zofran Inj) 4 mg Q6H PRN IVP 05/24/17 22:00 05/25/17 00:12 (Tylenol) 650 mg Q6H PRN PO 05/24/17 22:00 05/30/17 18:24 ([place] 5-325 Mg) 1 tab Q4H PRN PO 05/24/17 22:00 05/30/17 22:25 (Morphine Inj) 2 mg Q3H PRN IV PUSH 05/24/17 22:00 (Yamel-Colace) 1 tab BID PO 05/25/17 09:00 05/31/17 08:33 (Milk Of Magnesia Liq) 30 ml Q12H PRN PO 05/24/17 22:00 (Senokot) 17.2 mg Q12H PRN PO 05/24/17 22:00 (Dulcolax Supp) 10 mg DAILY PRN RECTAL 05/24/17 22:00 (Lactulose Liq) 30 ml DAILY PRN PO 05/24/17 22:00 (Ecotrin Ec) 81 mg DAILY PO 05/25/17 09:00 05/31/17 08:33 (Lopressor) 25 mg Q12HR PO 05/25/17 09:00 05/31/17 08:33 (Duoneb Neb) 1 ampule Q4HR NEB PRN NEB 05/24/17 22:30 (Lipitor) 80 mg HS PO 05/25/17 21:00 05/30/17 22:24 (Synthroid) 50 mcg DAILY@0600 PO 05/25/17 09:00 05/31/17 04:13 (Apresoline Inj) 10 mg Q30M PRN IV PUSH 05/27/17 23:30 05/30/17 18:05 (Santyl Oint) 1 applic Q48H TOPICAL 05/30/17 09:00 05/30/17 22:24 (Norvasc) 10 mg DAILY PO 05/31/17 09:00 05/31/17 08:33 (Levemir Inj) 5 units BID SQ 05/30/17 21:00 05/31/17 08:34 Vital Signs / I&O Vital Signs Date Time Temp Pulse Resp B/P (MAP) Pulse Ox O2 Delivery O2 Flow Rate FiO2 05/31/17 10:00 64 05/31/17 09:00 72 05/31/17 08:03 98.6 64 16 145/89 (107) 95 05/31/17 08:00 84 05/31/17 07:00 65 05/31/17 06:19 63 05/31/17 05:00 65 05/31/17 04:00 64 05/31/17 04:00 98.1 64 20 153/75 (101) 98 05/31/17 02:00 63 05/31/17 01:00 61 05/31/17 00:00 98.1 60 20 108/65 (79) 96 05/31/17 00:00 60 05/30/17 20:00 76 05/30/17 20:00 98.2 76 20 137/79 (98) 98 05/30/17 18:14 80 05/30/17 17:30 68 05/30/17 15:30 69 05/30/17 15:30 98.2 71 20 153/76 (101) 97 05/30/17 14:23 78 05/30/17 12:00 60 I/O 05/30/17 05/30/17 05/30/17 05/31/17 05/31/17 05/31/17 07:00 15:00 23:00 07:00 15:00 23:00 Intake Total 240 ml 460 ml 400 ml Output Total 600 ml 600 ml 800 ml Balance -360 ml -140 ml -400 ml Intake Oral 240 ml 460 ml 400 ml Output Urine Total 600 ml 600 ml 800 ml # Bowel Movements 0 1 0 Physical Exam GENERAL: NAD SKIN: Warm and dry. HEAD: Atraumatic. Normocephalic. EYES: Pupils equal and round. No scleral icterus. No injection or drainage. ENT: No nasal bleeding or discharge. Mucous membranes pink and moist. NECK: Trachea midline. No JVD. CARDIOVASCULAR: Regular rate and rhythm. RESPIRATORY: No accessory muscle use. Clear to auscultation. Breath sounds equal bilaterally. GASTROINTESTINAL: Abdomen soft, non-tender, nondistended. Hepatic and splenic margins not palpable. MUSCULOSKELETAL: Extremities without clubbing, cyanosis, or edema. No obvious deformities. Right radial no hematoma, neurovascularly intact distally NEUROLOGICAL: Awake and alert. No obvious cranial nerve deficits. Motor grossly within normal limits. Five out of 5 muscle strength in the arms and legs. Normal speech. PSYCHIATRIC: Appropriate mood and affect; insight and judgment normal. Laboratory Laboratory Tests Test 05/31/17 05:53 White Blood Count 10.2 TH/MM3 Red Blood Count 4.04 MIL/MM3 Hemoglobin 11.9 GM/DL Hematocrit 36.1 % Mean Corpuscular Volume 89.2 FL Mean Corpuscular Hemoglobin 29.4 PG Mean Corpuscular Hemoglobin Concent 33.0 % Red Cell Distribution Width 15.2 % Platelet Count 342 TH/MM3 Mean Platelet Volume 8.9 FL Neutrophils (%) (Auto) 58.2 % Lymphocytes (%) (Auto) 31.3 % Monocytes (%) (Auto) 7.5 % Eosinophils (%) (Auto) 2.4 % Basophils (%) (Auto) 0.6 % Neutrophils # (Auto) 5.9 TH/MM3 Lymphocytes # (Auto) 3.2 TH/MM3 Monocytes # (Auto) 0.8 TH/MM3 Eosinophils # (Auto) 0.2 TH/MM3 Basophils # (Auto) 0.1 TH/MM3 CBC Comment DIFF FINAL Differential Comment Blood Urea Nitrogen 15 MG/DL Creatinine 0.59 MG/DL Random Glucose 121 MG/DL Calcium Level 9.0 MG/DL Sodium Level 139 MEQ/L Potassium Level 3.6 MEQ/L Chloride Level 103 MEQ/L Carbon Dioxide Level 28.6 MEQ/L Anion Gap 7 MEQ/L Estimat Glomerular Filtration Rate 136 ML/MIN Assessment and Plan Problem List: (1) Syncope ICD Codes: R55 - Syncope and collapse (2) Encephalopathy ICD Codes: G93.40 - Encephalopathy, unspecified (3) Elevated troponin ICD Codes: R74.8 - Abnormal levels of other serum enzymes Assessment and Plan 1) Encephalopathy, baseline 2) Elevated troponin, concern for multiple episodes of elevations and found on his lawn, last hospitalization trop ~10 one month ago 3) Cardiac cath showing MVCAD CT surgery consultation for CABG Await recommendations 4) Will plan to see on Saturday, if concerns over the weekend please call covering physician Yuri Burgess DO May 31, 2017 11:53
--- NOTE | 2017-05-31 12:50 | PD.CAR.PN ---
CVT Progress Note Subjective/Hospital Course: RISK SCORES About the STS Risk Calculator Procedure: CAB Only Risk of Mortality: 2.17% Morbidity or Mortality: 17.125% Long Length of Stay: 9.111% Short Length of Stay: 35.286% Permanent Stroke: 1.316% Prolonged Ventilation: 11.625% DSW Infection: 0.874% Renal Failure: 2.083% Reoperation: 7.398% Objective: Vital Signs Date Time Temp Pulse Resp B/P (MAP) Pulse Ox O2 Delivery O2 Flow Rate FiO2 05/31/17 10:00 64 05/31/17 09:00 72 05/31/17 08:03 98.6 64 16 145/89 (107) 95 05/31/17 08:00 84 05/31/17 07:00 65 05/31/17 06:19 63 05/31/17 05:00 65 05/31/17 04:00 64 05/31/17 04:00 98.1 64 20 153/75 (101) 98 05/31/17 02:00 63 05/31/17 01:00 61 05/31/17 00:00 98.1 60 20 108/65 (79) 96 05/31/17 00:00 60 05/30/17 20:00 76 05/30/17 20:00 98.2 76 20 137/79 (98) 98 05/30/17 18:14 80 05/30/17 17:30 68 05/30/17 15:30 69 05/30/17 15:30 98.2 71 20 153/76 (101) 97 05/30/17 14:23 78 Labs: Laboratory Tests Test 05/31/17 05:53 White Blood Count 10.2 TH/MM3 (4.0-11.0) Red Blood Count 4.04 MIL/MM3 (4.50-5.90) Hemoglobin 11.9 GM/DL (13.0-17.0) Hematocrit 36.1 % (39.0-51.0) Mean Corpuscular Volume 89.2 FL (80.0-100.0) Mean Corpuscular Hemoglobin 29.4 PG (27.0-34.0) Mean Corpuscular Hemoglobin Concent 33.0 % (32.0-36.0) Red Cell Distribution Width 15.2 % (11.6-17.2) Platelet Count 342 TH/MM3 (150-450) Mean Platelet Volume 8.9 FL (7.0-11.0) Neutrophils (%) (Auto) 58.2 % (16.0-70.0) Lymphocytes (%) (Auto) 31.3 % (9.0-44.0) Monocytes (%) (Auto) 7.5 % (0.0-8.0) Eosinophils (%) (Auto) 2.4 % (0.0-4.0) Basophils (%) (Auto) 0.6 % (0.0-2.0) Neutrophils # (Auto) 5.9 TH/MM3 (1.8-7.7) Lymphocytes # (Auto) 3.2 TH/MM3 (1.0-4.8) Monocytes # (Auto) 0.8 TH/MM3 (0-0.9) Eosinophils # (Auto) 0.2 TH/MM3 (0-0.4) Basophils # (Auto) 0.1 TH/MM3 (0-0.2) CBC Comment DIFF FINAL Differential Comment Blood Urea Nitrogen 15 MG/DL (7-18) Creatinine 0.59 MG/DL (0.60-1.30) Random Glucose 121 MG/DL (74-106) Calcium Level 9.0 MG/DL (8.5-10.1) Sodium Level 139 MEQ/L (136-145) Potassium Level 3.6 MEQ/L (3.5-5.1) Chloride Level 103 MEQ/L (98-107) Carbon Dioxide Level 28.6 MEQ/L (21.0-32.0) Anion Gap 7 MEQ/L (5-15) Estimat Glomerular Filtration Rate 136 ML/MIN (>89) Result Diagram: 05/31/17 0553 05/31/17 0553 Plan: I reviewed Mr. Lechuga's cath films and he has diffuse CAD with fair to poor distal targets. He also is very frail/debilitated with a sacral decubitus, a non-healing foot ulcer, and ongoing tobacco abuse. He has no interest in CABG and would not likely do well with this procedure in terms of short-term and long -term benefit. I discussed this with him and he does not desire CABG. He is scheduled to be transferred to SNF on medical therapy. (1) Syncope (2) Encephalopathy (3) Elevated troponin Tea Lagos MD May 31, 2017 12:50
[2017-05-31 14:10] LABS: HEMOGLOBIN A1a 1.3 %; HEMOGLOBIN A1b 2.3 %; HEMOGLOBIN Ao 80.2 %; HEMOGLOBIN P3 4.1 %
--- NOTE | 2017-05-31 15:11 | HHI.PR ---
Subjective Remarks Follow-up for encephalopathy and elevated troponin Patient is AAO 3. He is definitely back to his baseline. He has no complaints. Patient is upset that he can't have ice cream. He stated that he ate ice cream during this hospitalization but the last couple days it was not allowed and did not understand why. Otherwise he had no other complaints Objective Vitals Vital Signs Date Time Temp Pulse Resp B/P (MAP) Pulse Ox O2 Delivery O2 Flow Rate FiO2 05/31/17 14:00 68 05/31/17 13:00 66 05/31/17 12:00 98.7 65 18 142/76 (98) 94 05/31/17 12:00 66 05/31/17 11:00 62 05/31/17 10:00 64 05/31/17 09:00 72 05/31/17 08:03 98.6 64 16 145/89 (107) 95 05/31/17 08:00 84 05/31/17 07:00 65 05/31/17 06:19 63 05/31/17 05:00 65 05/31/17 04:00 64 05/31/17 04:00 98.1 64 20 153/75 (101) 98 05/31/17 02:00 63 05/31/17 01:00 61 05/31/17 00:00 98.1 60 20 108/65 (79) 96 05/31/17 00:00 60 05/30/17 20:00 76 05/30/17 20:00 98.2 76 20 137/79 (98) 98 05/30/17 18:14 80 05/30/17 17:30 68 05/30/17 15:30 69 05/30/17 15:30 98.2 71 20 153/76 (101) 97 I/O 05/30/17 05/30/17 05/30/17 05/31/17 05/31/17 05/31/17 07:00 15:00 23:00 07:00 15:00 23:00 Intake Total 240 ml 460 ml 400 ml Output Total 600 ml 600 ml 800 ml Balance -360 ml -140 ml -400 ml Intake Oral 240 ml 460 ml 400 ml Output Urine Total 600 ml 600 ml 800 ml # Bowel Movements 0 1 0 Result Diagram: 05/31/17 0553 05/31/1753 Imaging Last Impressions Lower Extremity Ultrasound 05/30/17 0000 Signed Impressions: Service Date/Time: May 17:05 - CONCLUSION: Small caliber greater saphenous veins. On the right, the GSV is not visualized below the knee. 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 Previously stented right carotid without flow-limiting stenosis Cholo Mcdaniels MD Head CT [id number] Signed Impressions: Service Date/Time: Wednesday, May 24, 2017 19:41 - CONCLUSION: Stable CT brain scan as described. No acute intracranial abnormality or change Jonathan Cunningham MD Chest X-Ray [id number] Signed Impressions: Service Date/Time: Wednesday, May 24, 2017 19:29 - CONCLUSION: No acute disease. oJnathan Cunningham MD Objective Remarks GENERAL: in NAD CARDIOVASCULAR: Regular rate and rhythm without murmurs, gallops, or rubs. RESPIRATORY: Breath sounds equal bilaterally. No accessory muscle use. GASTROINTESTINAL: Abdomen soft, non-tender, nondistended. MUSCULOSKELETAL: No cyanosis, or edema. BACK: Nontender without obvious deformity. No CVA tenderness. Medications and IVs Current Medications IV Flush (NS Flush) 2 ml UNSCH PRN IV FLUSH FLUSH AFTER USING IV ACCESS; Start 05/24/17 at 19:30; Stop 05/24/17 at 22:14; Status DC Sodium Chloride 500 ml @ 500 mls/hr BOLUS ONCE IV Last administered on 20:44; Start 05/24/17 at 20:45; Stop 05/24/17 at 21:44; Status DC Insulin Human Regular (NovoLIN R INJ) 5 units ONCE ONCE SQ Last administered on 05/24/17 20:44; Start 05/24/17 at 20:45; Stop 05/24/17 at 20:46; Status DC Aspirin (Aspirin Chew) 324 mg ONCE ONCE CHEW Last administered on 05/24/17 21:58; Start 05/24/17 at 21:30; Stop 05/24/17 at 21:31; Status DC Labetalol HCl (Trandate Inj) 20 mg ONCE ONCE IV PUSH Last administered on 21:58; Start 05/24/17 at 22:00; Stop 05/24/17 at 22:01; Status DC Insulin Detemir (Levemir Inj) 5 units HS SQ Last administered on 05/29/17 21: 32; Start 05/24/17 at 22:00; Stop 05/30/17 at 14:33; Status DC Dextrose (D50w (Vial) Inj) 50 ml UNSCH PRN IV PUSH HYPOGLYCEMIA-SEE COMMENTS; Start 05/24/17 at 22:00 Glucagon (Glucagon Inj) 1 mg UNSCH PRN OTHER HYPOGLYCEMIA-SEE COMMENTS; Start 05/24/17 at 22:00 Insulin Aspart (NovoLOG SUPPLEMENTAL SCALE) 1 ACHS SLIDING SCALE SQ Last administered on 05/31/17 12:00; Start 05/25/17 at 08:00 Sodium Chloride 1,000 ml @ 60 mls/hr [id number] IV Last administered on 20:55; Start 05/24/17 at 21:57 Sodium Chloride (NS Flush) 2 ml UNSCH PRN IV FLUSH FLUSH AFTER USING IV ACCESS ; Start 05/24/17 at 22:00 Sodium Chloride (NS Flush) 2 ml BID IV FLUSH Last administered on 05/31/17 08 :34; Start 05/25/17 at 09:00 Ondansetron HCl (Zofran Inj) 4 mg Q6H PRN IVP NAUSEA OR VOMITING Last administered on 05/25/17 00:12; Start 05/24/17 at 22:00 Heparin Sodium (Porcine) (Heparin Inj) 5,000 units Q12H SQ Last administered on 05/29/17 21:31; Start 05/25/17 at 09:00; Stop 05/30/17 at 14:07; Status DC Acetaminophen (Tylenol) 650 mg Q6H PRN PO FEVER/PAIN SCALE 1 TO 2 Last administered on 05/30/17 18:24; Start 05/24/17 at 22:00 Acetaminophen/ Hydrocodone Bitart ([place] 5-325 Mg) 1 tab Q4H PRN PO PAIN SCALE 3 TO 5 Last administered on 05/30/17 22:25; Start 05/24/17 at 22:00 Morphine Sulfate (Morphine Inj) 2 mg Q3H PRN IV PUSH Pain 6-10; Start at 22:00 Senna/Docusate Sodium (Yamel-Colace) 1 tab BID PO Last administered on 08:33; Start 05/25/17 at 09:00 Magnesium Hydroxide (Milk Of Magnesia Liq) 30 ml Q12H PRN PO Mild constipation ; Start 05/24/17 at 22:00 Sennosides (Senokot) 17.2 mg Q12H PRN PO Moderate constipation; Start at 22:00 Bisacodyl (Dulcolax Supp) 10 mg DAILY PRN RECTAL SEVERE CONSITIPATION; Start 05/24/17 at 22:00 Lactulose (Lactulose Liq) 30 ml DAILY PRN PO SEVERE CONSITIPATION; Start 05/24 at 22:00 Aspirin (Ecotrin Ec) 81 mg DAILY PO Last administered on 05/31/17 08:33; Start 05/25/17 at 09:00 Metoprolol Tartrate (Lopressor) 25 mg Q12HR PO Last administered on 05/31/17 08:33; Start 05/25/17 at 09:00 Albuterol/ Ipratropium (Duoneb Neb) 1 ampule Q4HR NEB PRN NEB SOB/WHEEZING; Start 05/24/17 at 22:30 Atorvastatin Calcium (Lipitor) 80 mg HS PO Last administered on 05/30/17 22: 24; Start 05/25/17 at 21:00 Hydralazine HCl (Apresoline Inj) 10 mg ONCE ONCE IV PUSH Last administered on 05/24/17 23:25; Start 05/24/17 at 23:15; Stop 05/24/17 at 23:16; Status DC Influenza Virus Vaccine (Flu (Quadrivalent) Vaccine Inj) 0.5 ml ONCE ONCE IM Last administered on 05/26/17 11:39; Start 05/26/17 at 10:00; Stop 05/26/17 at 10:01; Status DC Levothyroxine Sodium (Synthroid) 50 mcg DAILY@0600 PO Last administered on 04:13; Start 05/25/17 at 09:00 Hydralazine HCl (Apresoline Inj) 10 mg Q30M PRN IV PUSH bp>160/90 Last administered on 05/30/17 18:05; Start 05/27/17 at 23:30 Collagenase (Santyl Oint) 1 applic Q48H TOPICAL Last administered on 22:24; Start 05/30/17 at 09:00 Heparin Sodium/ Sodium Chloride 1,000 ml @ As Directed STK-MED ONCE .ROUTE ; Start 05/30/17 at 12:22; Stop 05/30/17 at 12:23; Status DC Sodium Chloride 500 ml @ As Directed STK-MED ONCE .ROUTE ; Start 05/30/17 at 12:22; Stop 05/30/17 at 12:23; Status DC Midazolam HCl (Versed Inj) 2 mg STK-MED ONCE .ROUTE ; Start 05/30/17 at 12:23; Stop 05/30/17 at 12:24; Status DC Fentanyl Citrate (fentaNYL INJ) 100 mcg STK-MED ONCE .ROUTE ; Start 05/30/17 at 12:23; Stop 05/30/17 at 12:24; Status DC Verapamil HCl (Isoptin Inj) 5 mg STK-MED ONCE .ROUTE ; Start 05/30/17 at 12:23 ; Stop 05/30/17 at 12:24; Status DC Heparin Sodium (Porcine) (Heparin Inj) 10,000 units STK-MED ONCE .ROUTE ; Start 05/30/17 at 12:23; Stop 05/30/17 at 12:24; Status DC Miscellaneous Information 1 ONCE ONCE XX ; Start 05/30/17 at 13:30; Stop at 14:07; Status DC Amlodipine Besylate (Norvasc) 10 mg ONCE ONCE PO Last administered on 15:37; Start 05/30/17 at 13:45; Stop 05/30/17 at 14:06; Status DC Amlodipine Besylate (Norvasc) 10 mg DAILY PO Last administered on 05/31/17 08 :33; Start 05/31/17 at 09:00 Acetaminophen/ Hydrocodone Bitart ([place] 5-325 Mg) 1 tab ONCE ONCE PO Last administered on 05/30/17 15:37; Start 05/30/17 at 14:30; Stop 05/30/17 at 14 :31; Status DC Insulin Detemir (Levemir Inj) 5 units BID SQ Last administered on 10/27/17at 08 :34; Start 05/30/17 at 21:00 Iohexol ([place]IP[place] 350 INJ (Rehabilitation Therapist)) 50 ml STK-MED ONCE OTHER ; Start at 21:56; Stop 05/30/17 at 15:29; Status DC A/P Problem List: (1) Encephalopathy ICD Code: G93.40 - Encephalopathy, unspecified (2) Elevated troponin ICD Code: R74.8 - Abnormal levels of other serum enzymes (3) Anemia ICD Code: D64.9 - Anemia, unspecified (4) HTN (hypertension) ICD Code: I10 - Essential (primary) hypertension (5) COPD (chronic obstructive pulmonary disease) ICD Code: J44.9 - Chronic obstructive pulmonary disease, unspecified (6) Lactic acidosis ICD Code: E87.2 - Acidosis (7) DM (diabetes mellitus) ICD Code: E11.9 - Type 2 diabetes mellitus without complications (8) Tobacco abuse ICD Code: Z72.0 - Tobacco use Assessment and Plan 71-year-old male was found down on the lawn. Neurology following, believe altered mental status is due to remote stroke and cognitive decline. The patient presented with elevated troponin as well. Cardiology is following. Encephalopathy: Found lying in grass outside his home, no injuries noted. -CT Head w/ no acute findings. Urine drug screen negative. Most likely cardiac in nature. -Patient back to baseline. elevated troponin -Status post cardiac catheterization showing multivessel disease -Cardiovascular surgeon consulted for CABG and patient declined any further intervention. -continue aspirin, Statin, B-wyatt. Anemia: stable. -No signs of active bleeding. -Continue to monitor. HTN: - Continue metoprolol. DM: better controlled. -BS 403 on arrival. -on Levemir 5 units BID, Sliding scale w/ Accu-Cheks. Hgb A1c 12.0 on 04/03/17. added 1800 ADA diet. DVT Prophylaxis: Heparin sq Discharge Planning Patient declined CABG. He is clear for discharge to SNF. Discussed with patient's case management. Linda Adams MD May 31, 2017 15:11
[2017-05-31] MEDS ORDERED: LEVEMIR SQ (15:32)
[2017-05-31] MEDS ORDERED: AMLO10 PO (15:32)
[2017-05-31] MEDS ORDERED: METO25TA3 PO (15:32)
[2017-05-31] MEDS ORDERED: NOVOLOGSS SQ (15:32)
[2017-05-31] MEDS ORDERED: SENN1TAB PO (15:32)
[2017-05-31] MEDS ORDERED: COLL30T TOPICAL (15:34)
[2017-05-31] MEDS ORDERED: HYDR-3516 PO (15:36)
--- NOTE | 2017-05-31 15:44 | HHI.DS ---
Discharge Summary Admission Date May 30, 2017 at 14:19 Admitting Diagnosis Elevatd troponin, AMS (1) Encephalopathy ICD Code: G93.40 - Encephalopathy, unspecified (2) Elevated troponin ICD Code: R74.8 - Abnormal levels of other serum enzymes (3) Anemia ICD Code: D64.9 - Anemia, unspecified (4) HTN (hypertension) ICD Code: I10 - Essential (primary) hypertension (5) COPD (chronic obstructive pulmonary disease) ICD Code: J44.9 - Chronic obstructive pulmonary disease, unspecified (6) Lactic acidosis ICD Code: E87.2 - Acidosis (7) DM (diabetes mellitus) ICD Code: E11.9 - Type 2 diabetes mellitus without complications (8) Tobacco abuse ICD Code: Z72.0 - Tobacco use Brief History - From Admission This is a 71-year-old male with PMH of HTN, Hyperlipidemia, DM, COPD, Tobacco Abuse and Noncompliance was brought to the ER by EMS after being found lying in the grass outside of his home. Patient significantly poor historian, only reports that he doesn't feel well. Denies fever, chills, nausea, vomiting, abdominal pain, chest pain or cough. Oriented to person, place but has episodes of confusion. Per EMS, BS elevated at 450, s/p 1L IVF. On arrival, BP 206/110, HR 71, O2 sat 97% on RA, Afebrile. WBC 11.2. Hemoglobin 8.8, previously 11.9 on 05/03/17. BS 403. Lactic Acid 2.2. Trop 0.17. EKG w/ no acute ischemia. Recent admit 04/27-05/04/17 for similar presentation, found down at home, respiratory distress while in ER, s/p intubation, Elevated Trop 10.0, s /p eval by Dr. Hanson, no emergent cardiac intervention, plan for outpatient follow up. Echo 04/28/17 w/ EF 60-65%. CBC/BMP: 05/31/17 0553 05/31/17 0553 Significant Findings Laboratory Tests Test 05/31/17 05:53 Red Blood Count 4.04 MIL/MM3 (4.50-5.90) Hemoglobin 11.9 GM/DL (13.0-17.0) Hematocrit 36.1 % (39.0-51.0) Creatinine 0.59 MG/DL (0.60-1.30) Random Glucose 121 MG/DL (74-106) Hemoglobin A1c 10.0 % (4.3-6.0) PE at Discharge GENERAL: in NAD CARDIOVASCULAR: Regular rate and rhythm without murmurs, gallops, or rubs. RESPIRATORY: Breath sounds equal bilaterally. No accessory muscle use. GASTROINTESTINAL: Abdomen soft, non-tender, nondistended. MUSCULOSKELETAL: No cyanosis, or edema. BACK: Nontender without obvious deformity. No CVA tenderness. Pt Condition on Discharge: Stable Discharge Disposition: Discharge to SNF Discharge Instructions DIET: Follow Instructions for: Heart Healthy Diet, Diabetic Diet Activities you can perform: See Additionl Instruction Other Activity Instructions: Continue to off load with charlene boots. WB with post op shoe. Linda Adams MD May 31, 2017 15:44
[2017-05-31] MEDS: ACETAMINOPHEN 325 MG TAB PO PRN (16:01)
--- NOTE | 2017-06-03 09:48 | RSPPFT ---
DATE OF PROCEDURE: 05/31/17 COMMENTS: Spirometry with FVC of 2.2 at 67% of predicted, FEV1 of 1.3 at 53%, FEV1/FVC ratio is decreased. Flow is decreased at FEF 25, FEF 50, FEF 75 and FEF 25-75. Flow volume loop indicates an obstructive pattern. IMPRESSION: 1. Moderately severe obstructive lung disease. 2. Post-bronchodilator study was not done.
== END 2017-05-31 17:59 | DRG 286 ==
LOC: NEPE 19:08 → NEDH 21:55 → HCIN 05-25 00:38 → OBSVTOIN 05-30 14:19
PROVIDERS: ADMIT Family Medicine; ATTEND Family Medicine
PROC: B2111ZZ Fluoroscopy of Multiple Coronary Arteries using Low Osmolar Contrast (ICD-10-PCS; 2017-05-30)
PROC: 4A023N7 Measurement of Cardiac Sampling and Pressure, Left Heart, Percutaneous Approach (ICD-10-PCS; principal; 2017-05-30 12:15)
DX: I25.10 Atherosclerotic heart disease of native coronary artery without angina pectoris (principal); G93.40 Encephalopathy, unspecified; L89.152 Pressure ulcer of sacral region, stage 2; J96.10 Chronic respiratory failure, unspecified whether with hypoxia or hypercapnia; E87.2 Acidosis; E11.621 Type 2 diabetes mellitus with foot ulcer; R13.10 Dysphagia, unspecified; I25.82 Chronic total occlusion of coronary artery; I69.351 Hemiplegia and hemiparesis following cerebral infarction affecting right dominant side; E11.65 Type 2 diabetes mellitus with hyperglycemia; J44.9 Chronic obstructive pulmonary disease, unspecified; I10 Essential (primary) hypertension; E03.9 Hypothyroidism, unspecified; F17.210 Nicotine dependence, cigarettes, uncomplicated; D64.9 Anemia, unspecified; E78.5 Hyperlipidemia, unspecified; I73.9 Peripheral vascular disease, unspecified; H53.461 Homonymous bilateral field defects, right side; L97.529 Non-pressure chronic ulcer of other part of left foot with unspecified severity; I65.22 Occlusion and stenosis of left carotid artery; Z91.19 Patient's noncompliance with other medical treatment and regimen; Z79.4 Long term (current) use of insulin; I69.322 Dysarthria following cerebral infarction; I69.391 Dysphagia following cerebral infarction
CPT/HCPCS: 70450; 71010; 80048; 80053; 80307; 81001; 82550; 82948; 83036; 83605; 84443; 84484; 85025; 85610; 85730; 86850; 86900; 86901; 90686; 93005; 93458; 93880; 93970; 93998; 94010; 96361; 96372; 96374; 96375; 96376; 99152; C1769; C1893; G0378; J0360; J1644; J1815; J2250; J2405; J3010; J7030; J7040; L3260; Q2038; Q9967